=== PATIENT | male | born 1945 | race Caucasian/White ===

== ENCOUNTER 2018-10-14 08:53 | Emergency (ER) | payer OTHER ==
--- OUTSIDE RECORDS SUMMARY | 2018-10-14 08:56 | XMS REPORT ---
:1945 Author Organization eClinicalWorks Care Team Providers Name Role Phone Jillian Garnett Provider Role Unavailable Allergies No Known Allergies Problems Problem Type Condition Code Onset Dates Condition Status Assessment Tobacco abuse Z72.0 Active Assessment Other symptoms involving R09.89 Active cardiovascular system Problem HTN (hypertension), benign I10 Active Problem Generalized atherosclerosis I70.91 Active Assessment HTN (hypertension), benign I10 Active Assessment SOB (shortness of breath) R06.02 Active Assessment Screening for AAA (aortic abdominal Z13.6 Active aneurysm) Assessment Generalized atherosclerosis I70.91 Active Medications No Known Medications Results No Known Results Summary Purpose eClinicalWorks Submission
--- OUTSIDE RECORDS SUMMARY | 2018-10-14 08:56 | XMS REPORT ---
[...] aneurysm) Assessment Generalized atherosclerosis I70.91 Active Medications Medication Code System Code Instructions Start Date End Date Status Dosage Lisinopril [facility] 34682478158 20 MG Orally Once Active 1 tablet a day Results No Known Results Summary Purpose eClinicalWorks Submission
--- OUTSIDE RECORDS SUMMARY | 2018-10-14 08:56 | XMS REPORT ---
:1945 Author Organization eClinicalWorks Care Team Providers Name Role Phone Jillian Garnett Provider Role Unavailable Allergies No Known Allergies Problems Problem Type Condition Code Onset Dates Condition Status Problem HTN (hypertension), benign I10 Active Problem Generalized atherosclerosis I70.91 Active Problem Carotid stenosis, bilateral I65.23 Active Medications Medication Code Code Instructions Start End Date Status Dosage System Date Irbesartan-Hyd [facility] 72598809389 300-12.5 MG October 03, Active 1 tablet rochlorothiazi Orally Once a 2019 day Crestor [place] 22579979647 20 mg Orally October 03, Active 1 tablet Once a day 2018 Aspirin [facility] 56615025395 81 MG Orally October 03, Active 1 tablet Once a day 2019 Results No Known Results Summary Purpose eClinicalWorks Submission
--- OUTSIDE RECORDS SUMMARY | 2018-10-14 08:56 | XMS REPORT ---
:1945 Author Organization eClinicalWorks Care Team Providers Name Role Phone Jillian Garnett Provider Role Unavailable Allergies, Adverse Reactions, Alerts Substance Reaction Event Type Milk Thistle Info Not Available Drug Allergy Codeine Phosphate Info Not Available Drug Allergy Problems Problem Type Condition Code Onset Dates Condition Status Assessment Tobacco abuse Z72.0 Active Problem HTN (hypertension), benign I10 Active Problem Generalized atherosclerosis I70.91 Active Assessment HTN (hypertension), benign I10 Active Assessment SOB (shortness of breath) R06.02 Active Assessment Screening for AAA (aortic abdominal Z13.6 Active aneurysm) Assessment Generalized atherosclerosis I70.91 Active Medications Medication Code System Code Instructions Start Date End Date Status Dosage Lisinopril [facility] [id number] 20 MG Orally Once Active 1 tablet a day Vital Signs Date/Time: September 03, 2018 BMI 23.87 Index Weight 157 lbs Height 68 in Cardiac Monitoring Heart Rate 81 /min Blood Pressure Diastolic 90 mm Hg Blood Pressure Systolic 150 mm Hg Results No Known Results Summary Purpose eClinicalWorks Submission
--- OUTSIDE RECORDS SUMMARY | 2018-10-14 08:56 | XMS REPORT ---
:1945 [facility] Address [address] [place] [address] Dr. Hobson [address] [place] [id number] Care Team Providers Name Role Phone Unavailable Unavailable Unavailable Payers Payer Name Policy Type Policy Number Effective Date Expiration Date Problems This patient has no known problems. Allergies, Adverse Reactions, Alerts This patient has no known allergies or adverse reactions. Medications This patient has no known medications.
--- OUTSIDE RECORDS SUMMARY | 2018-10-14 08:56 | XMS REPORT ---
:1945 Author Organization eClinicalWorks Care Team Providers Name Role Phone Jillain Garnett Provider Role Unavailable Allergies, Adverse Reactions, [...] Start Date End Date Status Dosage Lisinopril [facility] [id number] 20 MG Orally Once Active 1 tablet a day Vital Signs Date/Time: September 03, 2018 BMI 23.87 Index Weight 157 lbs Height 68 in Cardiac Monitoring Heart Rate 81 /min Blood Pressure Diastolic 90 mm Hg Blood Pressure Systolic 150 mm Hg Results No Known Results Summary Purpose eClinicalWorks Submission
--- OUTSIDE RECORDS SUMMARY | 2018-10-14 08:56 | XMS REPORT | Continuity of Care Document ---
:1945 Author Organization Interface Problems Problem Status Onset Classification Date Comments Source Date Reported Tobacco abuse Active Diagnosis 09/21/2018 [facility] Cardiovascular Other symptoms Active Diagnosis 09/21/2018 [facility] involving Cardiovascular cardiovascular system HTN , benign Active Problem 10/04/2018 [facility] Cardiovascular Generalized Active Problem 10/04/2018 [facility] atherosclerosis Cardiovascular SOB Active Diagnosis 10/04/2018 [facility] Cardiovascular Screening for AAA Active Diagnosis 10/04/2018 [facility] Cardiovascular Carotid stenosis, Active Problem 10/04/2018 [facility] bilateral Cardiovascular Medications Medication Details Route Status Patient Ordering Order Source Instructions Provider Date Irbesartan-Hy 1 tablet Orally Active 300-12.5 MG Tamir [facility] drochlorothia Orally Once a 019 Cardiovascular zide day Crestor 1 tablet Orally Active 20 mg Orally Tamir [facility] Once a day 019 Cardiovascular Aspirin 1 tablet Orally Active 81 MG Orally Tamir [facility] Once a day 019 Cardiovascular Lisinopril 1 tablet Orally Active 20 MG Orally Tamir [facility] Once a day Cardiovascular Lisinopril 1 tablet Orally Active 20 mg Orally Tamir [facility] Twice a day Cardiovascular Allergies, Adverse Reactions, Alerts Substance Category Reaction Severity Reaction Status Date Comments Source type Reported Milk Adverse Info Not Adverse Active [facility] Thistle Reaction Available Reaction 9 Cardiovascula r Codeine Adverse Info Not Adverse Active [facility] Phosphate Reaction Available Reaction 9 Cardiovascula r Immunizations Immunization Date Given Site Status Last Updated Comments Source Results Order Results Value Reference Date Interpretation Comments Source Name Range Vital Signs Vital Sign Value Date Comments Source Weight 154 10/02/2018 [facility] Height 68 10/02/2018 [facility] Heart Rate 70 10/02/2018 [facility] Diastolic (mm Hg) 90 10/02/2018 [facility] Systolic (mm Hg) 160 10/02/2018 [facility] Weight 157 09/03/2018 [facility] Height 68 09/03/2018 [facility] Heart Rate 81 09/03/2018 [facility] Diastolic (mm Hg) 90 09/03/2018 [facility] Systolic (mm Hg) 150 09/03/2018 [facility] Cardiovascular Encounters Location Location Encounter Encounter Reason Attending ADM DC Status Source Details Type Number For Provider Date Date Visit Procedures Procedure Code Date Perfomer Comments Source
--- OUTSIDE RECORDS SUMMARY | 2018-10-14 08:56 | XMS REPORT ---
:1945 Author Organization eClinicalWorks Care Team Providers Name Role Phone Jillian Garnett Provider Role Unavailable Allergies, Adverse Reactions, Alerts Substance Reaction Event Type Milk Thistle Info Not Available Drug Allergy Codeine Phosphate Info Not Available Drug Allergy Problems Problem Type Condition Code Onset Dates Condition Status Assessment Carotid stenosis, bilateral I65.23 Active Problem HTN (hypertension), benign I10 Active Problem Generalized atherosclerosis I70.91 Active Problem Carotid stenosis, bilateral I65.23 Active Assessment HTN (hypertension), benign I10 Active Assessment SOB (shortness of breath) R06.02 Active Assessment Screening for AAA (aortic abdominal Z13.6 Active aneurysm) Medications Medication Code System Code Instructions Start Date End Date Status Dosage Lisinopril [facility] [id number] 20 mg Orally Active 1 tablet Twice a day Vital Signs Date/Time: October 02, 2018 BMI 23.41 Index Weight 154 lbs Height 68 in Cardiac Monitoring Heart Rate 70 /min Blood Pressure Diastolic 90 mm Hg Blood Pressure Systolic 160 mm Hg Results No Known Results Summary Purpose eClinicalWorks Submission
--- NOTE | 2018-10-14 09:51 | RAD REPORT ---
EXAM DESCRIPTION: RAD - Chest Single View - 10/14/2018 9:45 am CLINICAL HISTORY: bloody sputum;Cough Chest pain. COMPARISON: No comparisons FINDINGS: Portable technique limits examination quality. The lungs are grossly clear. The heart is normal in size. No displaced fractures. IMPRESSION: No acute intrathoracic process suspected.
--- NOTE | 2018-10-14 10:48 | ER ---
Nurse's Notes [facility] Name: Olman Francis Age: 73 yrs Sex: Male : 1945 Arrival Date: 10/14/2018 Time: 08:54 Bed 14 Private MD: Diagnosis: Hemoptysis Presentation: 10/14 09:06 Presenting complaint: Patient states: "This morning I woke up coughing up bright red ss blood. It's getting darker now, but usually when this happens it stops by now." Denies fever. Transition of care: patient was not received from another setting of care. Onset of symptoms was October 14, 2018. Risk Assessment: Do you want to hurt yourself or someone else? Patient reports no desire to harm self or others. Initial Sepsis Screen:. Care prior to arrival: None. 09:06 Method Of Arrival: Ambulatory ss 09:06 Acuity: COLLEEN 3 ss 10:01 Initial Sepsis Screen: Does the patient meet any 2 criteria? No. Patient's initial ph sepsis screen is negative. Does the patient have a suspected source of infection? No. Patient's initial sepsis screen is negative. Historical: - Allergies: 09:10 No Known Drug Allergies; ss - Home Meds: 09:10 irbesartan-hydrochlorothiazide 300-12.5 mg oral tab 1 tab once daily [Active]; aspirin ss 81 mg Oral chew 1 tab once daily [Active]; rosuvastatin 20 mg oral tab 1 tab once daily [Active]; - PMHx: 09:10 Hypertension; Rheumatoid Arthritis; ss - PSHx: 09:10 Hernia repair; WRIST SURG; ss - Immunization history:: Adult Immunizations up to date. - Social history:: Smoking status: Patient uses tobacco products, smokes one pack cigarettes per day. - Ebola Screening: : Patient denies exposure to infectious person Patient denies travel to an Ebola-affected area in the 21 days before illness onset. Screenin:11 Abuse screen: Denies threats or abuse. Denies injuries from another. Nutritional ss screening: No deficits noted. Tuberculosis screening: Never had TB. Possible symptoms: recent bloody sputum. 10:00 Fall Risk None identified. ph Assessment: 10:00 General: Appears in no apparent distress. comfortable, Behavior is calm, cooperative, ph appropriate for age, Denies fever. Pain: Denies pain. Neuro: Level of Consciousness is awake, alert, obeys commands, Oriented to person, place, time, situation. Cardiovascular: Capillary refill < 3 seconds in bilateral fingers Patient's skin is warm and dry. Respiratory: Reports cough that is productive, Airway is patent Respiratory effort is even, unlabored, Respiratory pattern is regular, symmetrical. Derm: Skin is intact, Skin is pink, warm \\T\\ dry. Musculoskeletal: Circulation, motion, and sensation intact. Range of motion: intact in all extremities. 11:05 Reassessment: Pt found to have left ED before signing d/c papers. ph Vital Signs: 09:10 BP 145 / 85; Pulse 86; Resp 18; Temp 98.3(TE); Pulse Ox 97% on R/A; Weight 72.12 kg; ss Height 5 ft. 8 in. (172.72 cm); Pain 07/11; 09:10 Body Mass Index 24.18 (72.12 kg, 172.72 cm) ED Course: 08:54 Patient arrived in ED. as 09:08 Triage completed. ss 09:10 Arm band placed on right wrist. 09:46 XRAY Chest (1 view) In Process Unspecified. EDMS 10:18 Derrell Dorsey MD is Attending Physician. 10:23 Toyin Das, RN is Primary Nurse. ph 10:30 Patient has correct armband on for positive identification. Pulse ox on. NIBP on. ph 11:00 No provider procedures requiring assistance completed. Patient did not have IV access ph during this emergency room visit. Administered Medications: No medications were administered Outcome: 10:48 Discharge ordered by . 11:06 Patient left the ED. ph 11:06 Discharged to home ph 11:06 Condition: good 11:06 Discharge instructions given to left before signing Signatures: Dispatcher [employer] Nayeli Mendosa Shelby, RN RN Toyin Das RN RN Derrell Dorsey MD MD
--- NOTE | 2018-10-14 10:48 | EDPHYS ---
Physician Documentation [facility] Name: Olman Francis Age: 73 yrs Sex: Male : 1945 Arrival Date: 10/14/2018 Time: 08:54 Bed 14 Private MD: ED Physician Derrell Dorsey HPI: 10/14 10:44 This 73 yrs old Male presents to ER via Ambulatory with complaints of Cough. gs 10:44 The patient or guardian reports cough, that is intermittent. Onset: The gs symptoms/episode began/occurred 2 day(s) ago. Severity of symptoms: At their worst the symptoms were moderate, in the emergency department the symptoms are unchanged. Modifying factors: The symptoms are alleviated by nothing, the symptoms are aggravated by smoke. Associated signs and symptoms: Pertinent positives: cough up bloody sputum says about an ounce. The patient has experienced similar episodes in the past, a few times. The patient has been recently seen by a physician: the patient's primary care provider. Historical: - Allergies: 09:10 No Known Drug Allergies; ss - Home Meds: 09:10 irbesartan-hydrochlorothiazide 300-12.5 mg oral tab 1 tab once daily [Active]; aspirin ss 81 mg Oral chew 1 tab once daily [Active]; rosuvastatin 20 mg oral tab 1 tab once daily [Active]; - PMHx: 09:10 Hypertension; Rheumatoid Arthritis; ss - PSHx: 09:10 Hernia repair; WRIST SURG; ss - Immunization history:: Adult Immunizations up to date. - Social history:: Smoking status: Patient uses tobacco products, smokes one pack cigarettes per day. - Ebola Screening: : Patient denies exposure to infectious person Patient denies travel to an Ebola-affected area in the 21 days before illness onset. ROS: 10:44 All other systems are negative. gs Exam: 10:44 ENT: Nares patent. No nasal discharge, no septal abnormalities noted. Tympanic gs membranes are normal and external auditory canals are clear. Oropharynx with no redness, swelling, or masses, exudates, or evidence of obstruction, uvula midline. Mucous membranes moist. Cardiovascular: Regular rate and rhythm with a normal S1 and S2. No gallops, murmurs, or rubs. Normal PMI, no JVD. No pulse deficits. Respiratory: Lungs have equal breath sounds bilaterally, clear to auscultation and percussion. No rales, rhonchi or wheezes noted. No increased work of breathing, no retractions or nasal flaring. Abdomen/GI: Soft, non-tender, with normal bowel sounds. No distension or tympany. No guarding or rebound. No evidence of tenderness throughout. Back: No spinal tenderness. No costovertebral tenderness. Full range of motion. Skin: Warm, dry with normal turgor. Normal color with no rashes, no lesions, and no evidence of cellulitis. MS/ Extremity: Pulses equal, no cyanosis. Neurovascular intact. Full, normal range of motion. Neuro: Awake and alert, GCS 15, oriented to person, place, time, and situation. Cranial nerves II-XII grossly intact. Motor strength 5/5 in all extremities. Sensory grossly intact. Cerebellar exam normal. Normal gait. 10:44 Constitutional: The patient appears alert, awake. Vital Signs: 09:10 BP 145 / 85; Pulse 86; Resp 18; Temp 98.3(TE); Pulse Ox 97% on R/A; Weight 72.12 kg; ss Height 5 ft. 8 in. (172.72 cm); Pain 1/10; 09:10 Body Mass Index 24.18 (72.12 kg, 172.72 cm) ss MDM: 10:43 Patient medically screened. gs 10:44 Differential Diagnosis: Upper Respiratory Infection Pneumonia Other mass. Data gs reviewed: vital signs, nurses notes. Counseling: I had a detailed discussion with the patient and/or guardian regarding: the historical points, exam findings, and any diagnostic results supporting the discharge/admit diagnosis, radiology results, pt wants no further workup is stable and will discharge. 10/14 09:12 Order name: XRAY Chest (1 view); Complete Time: 10:19 ss Administered Medications: No medications were administered Disposition: 10/14/18 10:48 Discharged to Home. Impression: Hemoptysis. - Condition is Stable. - Discharge Instructions: Hemoptysis. - Medication Reconciliation Form, Thank You Letter, Antibiotic Education, Prescription Opioid Use form. - Follow up: Emergency Department; When: 1 - 2 days; Reason: Re-evaluation by your physician. Signatures: Dispatcher [facility] Lorrie Zheng RN RN Toyin Das RN RN ph DorseyDerrell MD MD gs Corrections: (The following items were deleted from the chart) 11:06 10:48 10/14/2018 10:48 Discharged to Home. Impression: Hemoptysis. Condition is Stable. ph Forms are Medication Reconciliation Form, Thank You Letter, Antibiotic Education, Prescription Opioid Use. Follow up: Emergency Department; When: 1 - 2 days; Reason: Re-evaluation by your physician. gs
== END 2018-10-14 11:06 | disposition home or self-care (01) ==
LOC: ER 08:53
DX: R04.2 Hemoptysis (principal); I10 Essential (primary) hypertension; F17.210 Nicotine dependence, cigarettes, uncomplicated
CPT/HCPCS: 71045; 99283

== ENCOUNTER 2022-12-07 16:39 | Emergency (ER) | payer OTHER ==
--- OUTSIDE RECORDS SUMMARY | 2022-12-07 16:50 | XMS REPORT | Continuity of Care Document ---
:1945 Author Organization [facility] t Address [address] [place] [address] Care Team Providers Name Role Phone No, Pcp [facility] Primary Care Physician Unavailable JASPREET RUSHING JR Attending Clinician Unavailable IMER LAWS Attending Clinician Unavailable Jessica Rodriguez Attending Clinician Unavailable Jillian Garnett Attending Clinician Unavailable LISA DÍAZ Attending Clinician Unavailable Alex Kennedy Attending Clinician Unavailable Doctor Unassigned, [place] Attending Clinician Unavailable Wilber SAM, Liam Stevenson Attending Clinician [phone] Juan Maier MD Attending Clinician Patricia SAM, Jenny Blantonu Attending Clinician JUAN MAIER Attending Clinician Unavailable FONTENOT, SENDIL K.H. Attending Clinician Unavailable Kishan Perkins MD Attending Clinician KISHAN PERKINS Attending Clinician Unavailable Roger Lorenzo Attending Clinician ROGER SHEEHAN Attending Clinician Unavailable Draw, Clc-Bls Lab Attending Clinician Unavailable Jaspreet Rushing MD Attending Clinician Gilbert Robles MD Attending Clinician [phone] CRYSTAL, AFWHITNEY Attending Clinician Unavailable Crystal SAM, Geeta Attending Clinician Lisa Díaz MD Attending Clinician Ezra Patton MD Attending Clinician Corie SAM, Sendil K.H. Attending Clinician EZRA PATTON Attending Clinician Unavailable EZRA PATTON Attending Clinician Unavailable RAFA EVANS Attending Clinician Unavailable Rafa Evans MD Attending Clinician Tana Kerns Attending Clinician TANA FENTON Attending Clinician Unavailable Lab, Ang - Db Attending Clinician Unavailable Nurse, Ang [place] Attending Clinician Unavailable Milo Pro MD Attending Clinician Imer Laws MD Attending Clinician Only, Adc Test Attending Clinician Unavailable Pob, Adc Lab Main Attending Clinician Unavailable Vaccine, Ang Db Cbc Fam Attending Clinician Unavailable Rainer Lang MD Attending Clinician RAINER LANG Attending Clinician Unavailable VICTOR HUGO HERNANDEZ Attending Clinician Unavailable MIKE PEÑA Attending Clinician Unavailable Jean Wood Attending Clinician Unavailable JASPREET RUSHING JR Admitting Clinician Unavailable IMER LAWS Admitting Clinician Unavailable Alex Kennedy Admitting Clinician Unavailable JENNY TAN NKCARLO Admitting Clinician Unavailable MOTMARIA M, AFAQ Admitting Clinician Unavailable Geeta Rojas MD Admitting Clinician CORIE, SENDIL K.H. Admitting Clinician Unavailable Imer Laws MD Admitting Clinician Jean Wood Admitting Clinician Unavailable Payers Payer Name Policy Type Policy Number Effective Date Expiration Date Keiko paige MEDICARE PART A [id number] 2004 \\T\\ B 00:00:00 Problems Condition Condition Condition Status Onset Resolution Last Treating Co mments Source Name Details Category Date Date Treatment Clinician Date Acute Acute Disease Recur[facility] exacerb[facility] exacerbati nce 4-19 Amy kes on of CHF on of CHF 00:00: Medi chaz (congestiv (congestiv 00 Ce nter e heart e heart failure) failure) COPD COPD Disease Recurre [facility] exacerbati exacerbati nce 4-17 Amy kes on on 00:00: Medical 00 Center Non Non Disease Active Univers compliance compliance 3-22 it y of w w 00:00: [place] medication medication 00 Me dical regimen regimen Branch CAD CAD Disease Active Univers (coronary (coronary 09-20 ity of artery artery 00:00: [place] disease) disease) 00 Medica l Branch Heart Heart Disease Active Univers failure failure 3-22 ity of with with 00:00: [place] reduced reduced 00 Medical ejection ejection Branch fraction fraction PAD PAD Disease Active Overview: Univer s (periphera (periphera 3- Formattin ity of l artery l artery 00:00: g of this [place] as disease) disease) 00 note Medica l might be Branch different from the original. Added automatic ally from request for surgery [id number] Cigarette Cigarette Disease Active Overview: Univers nicotine nicotine 3-07 Formattin ity of dependence dependence 00:00: g of this [place] without without 00 note Medical complicati complicati might be Branch on on different from the original. Added automatic ally from request for surgery [id number] Dyslipidem Dyslipidem Disease Active Overview : Univers ia ia 3-07 Formattin ity of 00:00: g of this [place] 00 note Medical might be Branch different from the original. Added automatic ally from request for surgery [id number] BECERRA BECERRA Disease Active Overview: Univer s (dyspnea (dyspnea 3-07 Formattin ity of on on 00:00: g of this [place] exertion) exertion) 00 note Medi chaz might be Branch different from the original. Added automatic ally from request for surgery [id number] Abnormal Abnormal Disease Active Overview: Un gisell ECG ECG 3-07 Formattin ity of 00:00: g of this [place] 00 note Medical might be Branch different from the original. Added automatic ally from request for surgery [id number] Ischemic Ischemic Disease Active Overview: Un gisell cardiomyop cardiomyop 3-07 Formattin ity of athy athy 00:00: g of this [place] 00 note Medical might be Branch different from the original. Added automatic ally from request for surgery [id number] Subclavian Subclavian Disease Active Overview : Univers artery artery 3-07 Formattin ity of stenosis, stenosis, 00:00: g of this [place] left left 00 note Medical might be Branch different from the original. Added automatic ally from request for surgery [id number] Carotid Carotid Disease Active 2021-07 Univers artery artery 2-28 ity of disease disease 00:00: [place] 00 Medical Branch Essential Essential Disease Active 2021-07 Uni vers (primary) (primary) 2-28 ity of hypertensi hypertens[place] Aortoiliac Aortoiliac Disease Active U nivers occlusive occlusive 8- ity of disease disease 00:00: [place] 00 Medical Branch Abdominal Abdominal Disease Active Uni vers aortic aortic 8-09 ity of aneurysm aneurysm 00:00: [place] (AAA) (AAA) 00 Medical without without Branch rupture rupture Bilateral Bilateral Disease Active Uni vers carotid carotid 8- ity of artery artery 00:00: [place] stenosis stenosis 00 Medica l Branch Hypertensi Hypertensi Problem C ommon on on [facility] - [facility] Psoriasis Psoriasis Problem Com mon [facility] - [facility] [id number] Hepatitis Problem Com mon C virus Spirit infection - [facility] cured [facility] antiviral Medical drug Center therapy [id number] Mixed Problem Common hyperlipid Spirit emia - [facility] [id number] PVD Problem Common (periphera Spirit l vascular - CHI disease) [facility] Gastroesop GERD Problem Commo n hageal without Spirit reflux esophagiti - CHI disease s [facility] [id number] Pain in Problem Common right hip Spirit - [facility] [id number] Right Problem Common sciatic Spirit nerve pain - [facility] AAA AAA Problem Active 2021-02-07 Memor ia (abdominal (abdominal 02:45:13 l aortic aortic [place] aneurysm) aneurysm) without without rupture rupture Active Problem 02/07/2021 [facility] Cardiovasc ular Hepatitis Hepatitis Diagnosis Active 2021-02-07 Memoria C virus C virus 02:45:13 l infection infection Herm rolanda with with hepatic hepatic coma, coma, unspecifie unspecifie d d chronicity chronicity Active Diagnosis 02/07/2021 [facility] Cardiovasc ular Hyperlipid Hyperlipi Problem Active 2021-02-07 Memoria emia, demia, 02:45:13 l unspecifie unspecifie He rmann d d hyperlipid hyperlipid emia type emia type Active Problem 02/07/2021 CL Cardiovasc ular Tobacco Tobacco Diagnosis Active 2018-09-21 Memoria abuse abuse 02:46:15 l Active Alan Diagnosis 09/21/2018 CL Cardiovasc ular Other Other Diagnosis Active 2018-09-21 Mem oria symptoms symptoms 02:46:15 l involving involving Herm rolanda cardiovasc cardiovasc ular ular system system Active Diagnosis 09/21/2018 CL Cardiovasc ular HTN HTN Diagnosis Active 2021-02-07 Mem oria (hypertens (hypertens 02:45:13 l ion), ion), [place] benign benign Active Diagnosis 02/07/2021 CL Cardiovasc ular Generalize Generaliz Problem Active 2021-02-07 Memoria d ed 02:45:13 l atheroscle atheroscle He rmann rosis rosis Active Problem 02/07/2021 CL Cardiovasc ular Carotid Carotid Problem Active 2021-02-07 Me moria stenosis, stenosis, 02:45:13 l bilateral bilateral Herm rolanda Active Problem 02/07/2021 CL Cardiovasc ular SOB SOB Diagnosis Active 2021-02-07 Mem oria (shortness (shortness 02:45:13 l of breath) of breath) He rmann Active Diagnosis 02/07/2021 CL Cardiovasc ular Screening Screening Diagnosis Active 2021-02-07 Memoria for AAA for AAA 02:45:13 l (aortic (aortic [place] abdominal abdominal aneurysm) aneurysm) Active Diagnosis 02/07/2021 CL Cardiovasc ular Claudicati Claudicat Problem Active 2021-02-07 Memoria on in ion in 02:45:13 l peripheral peripheral He rmann vascular vascular disease disease Active Problem 02/07/2021 CL Cardiovasc ular Allergies, Adverse Reactions, Alerts Allergy Allergy Status Severity Reaction(s) Onset Inactive Treating Comm ents Source Name Type Date Date Clinician Codeine Propensi Active Rash 2022-[address] [facility] [address] [facility] 4[facility]18 [facility] adverse 00:00: Medical reaction 00 Center s CODEINE Allergy Active Low Rash 2022-[address] [facility] 4-18 [facility] 00:[facility]: Medical 00 Center MORPHINE Allergy Active Low Rash 2022-0 [facility] 4-17 00:00: 00 Codeine Drug Active Itching 2021-[address] [facility] [address] Sulfate Allergy 3-17 [facility] 00:[facility]: Medical 00 Center CODEINE Allergy Active Itching 2021-[address] [facility] SULFATE 3-17 [facility] 00:00: Medical 00 Center CODEINE DRUG Active ITCHING 2021-0 Univers SULFATE INGREDI 3-17 ity of 00:00: [address] Milk Milk Active Info Not 2020-0 Memoria [place] [place] Available 01-07 l 00:00: Codeine Codeine Active Info Not 2020-0 Memori a Phosphat Phosphat Available 01-07 l e e 00:00: No Known DA Active U 2020-0 [facility] Allergie 1 Clear s 00:00: [facility] No Known DA Active U 2020-0 [facility] Allergie 07-22 Clear s 00:00: [facility] No Known DA Active U 2001-0 [facility] Contrast - Clear Allergie 00:00: [facility] No Known DA Active U 2001-0 [facility] Drug - Clear Allergie 00:00: [facility] No Known DA Active U 2001-0 [facility] Food - Clear Allergie 00:00: [facility] No Known DA Active U 2001-0 [facility] Other - Clear Allergie 00:00: [facility] codeine codeine Active itching [facility] NO KNOWN Allergy Active [facility] ALLERGIE S Social History Social Habit Start Date Stop Date Quantity Comments Source History [facility]Med Medical [facility] History of tobacco Passive smoker [facility] History [facility] 2022-10-17 2022-10-[address] [facility] Transport Med 00:00:00 00:00:[address] [facility] 2022-10-17 2022-10-[address] [facility] Housing Unable to 00:00:00 00:00:00 Medical Center Pay History [facility] 2022-10-17 2022-10-[address] [facility] Housing Places 00:00:00 00:00:00 Medical Ce nter Lived History [facility] 2022-10-17 2022-10-[address] [facility] Housing Homeless 00:00:00 00:00:00 Medical Center Last Year Tobacco use and 2022-10-16 2022-10-[address] [facility] exposure 00:00:00 00:00:00 tobacco user Medical Cent er Exposure to 2022-09-18 2022-09-28 Not sure [facility] SARS-CoV-2 (event) 00:00:00 11:28:00 [facility] Alcohol intake 2022-09-28 2022-09-28 Current drinker Unive rsity of 00:00:00 00:00:00 of alcohol [facility] (finding) Branch Cigarettes smoked 2022-06-28 2022-06-28 Univers ity of current (pack per 00:00:00 00:00:00 ) - Reported Branch Cigarette 2022-06-28 2022-06-28 University of pack-years 00:00:00 00:00:00 [facility] Sex Assigned At [address] kes 00:00:00 00:00:00 Medical Center Smoking Status Start Date Stop Date Source Ex-smoker 2022-10-16 00:00:00 2022-10-16 00:00:[address] [facility] Smokes tobacco daily 2022-06-28 00:00:00 Univers ity of [facility] Medications Ordered Filled Start Stop Current Ordering Indication Dosage Frequency Signature Comments Components Source Medication Medication Date Date Medication? Clinician (SIG) Name Name shama 2023-0 2024- Yes 40mg QD Take [address] [facility] n (LIPITOR) 4-20 04-19 tablet (40 L ukes 40 MG 00:00: 23:59 mg total) Medica l tablet 00 :00 by mouth Center in the morning. furosemide 2023- Yes 40mg Take [address] [facility] (LASIX) 40 4-20 04-19 tablet (40 Amy kes MG tablet 00:00: 23:59 mg total) Me dical 00 :00 by mouth Center in the morning and 1 tablet (40 mg total) in the evening. lisinopriL 2023- Yes 2.5mg QD Take [address] [facility] (PRINIVIL,Z 4-20 -19 tablet [facility] ESTRIL) 2.5 00:00: 23:59 (2.5 mg Me dical MG tablet 00 :00 total) by Cente r mouth in the morning. furosemide 2023- Yes 40mg Take [address] [facility] (LASIX) 40 4-20 04-19 tablet (40 Amy kes MG tablet 00:00: 23:59 mg total) Me dical 00 :00 by mouth Center in the morning and 1 tablet (40 mg total) in the evening. lisinopriL 2023- Yes 2.5mg QD Take [address] (PRINIVIL,Z 4-20 -19 tablet [facility] ESTRIL) 2.5 00:00: 23:59 (2.5 mg Me dical MG tablet 00 :00 total) by Cente r mouth in the morning. atorvastati 2023- Yes 40mg QD Take [address] [facility] n (LIPITOR) 4-20 04-19 tablet (40 L ukes 40 MG 00:00: 23:59 mg total) Medica l tablet 00 :00 by mouth Center in the morning. furosemide 2023- Yes 40mg Take [address] [facility] (LASIX) 40 4-20 04-19 tablet (40 Amy kes MG tablet 00:00: 23:59 mg total) Me dical 00 :00 by mouth Center in the morning and 1 tablet (40 mg total) in the evening. lisinopriL 2023- Yes 2.5mg QD Take [address] [facility] (PRINIVIL,Z 4-20 04-19 tablet [facility] ESTRIL) 2.5 00:00: 23:59 (2.5 mg Me dical MG tablet 00 :00 total) by Cente r mouth in the morning. atorvastati 2023- Yes 40mg QD Take [address] n (LIPITOR) -20 -19 tablet (40 L ukes 40 MG 00:00: 23:59 mg total) Medica l tablet 00 :00 by mouth Center in the morning. aspirin 81 2022-0 Yes 81mg QD Take 1 [facility] t MG EC 4-19 tablet (81 [facility] tablet 13:17: mg total) Medica l 01 by mouth Center in the morning. aspirin 81 0 Yes 81mg QD Take 1 [facility]I S t MG EC 4-19 tablet (81 [facility] tablet 13:17: mg total) Medica l 01 by mouth Center in the morning. aspirin 81 0 Yes 81mg QD Take 1 [facility]I S t MG EC 4-19 tablet (81 [facility] tablet 13:17: mg total) Medica l 01 by mouth Center in the morning. metoprolol 2023- Yes 12.5mg Q.5D Take 0.[address] tartrate -18 10-18 tablets [facility] (LOPRESSOR) 00:00: 23:59 (12.5 mg M edical 25 MG 00 :00 total) by Center tablet mouth in the morning and 0.5 tablets (12.5 mg total) before bedtime. metoprolol 2023- Yes 12.5mg Q.5D Take 0.[address] tartrate -18 10-18 tablets [facility] (LOPRESSOR) 00:00: 23:59 (12.5 mg M edical 25 MG 00 :00 total) by Center tablet mouth in the morning and 0.5 tablets (12.5 mg total) before bedtime. metoprolol 2023- Yes 12.5mg Q.5D Take 0.[address] tartrate 4-19 04-18 tablets [facility] (LOPRESSOR) 00:00: 23:59 (12.5 mg M edical 25 MG 00 :00 total) by Center tablet mouth in the morning and 0.5 tablets (12.5 mg total) before bedtime. predniSONE 2022- No 40mg QD Take [address] [facility] (DELTASONE) 4-18 10-22 tablets Luke s 20 MG 00:00: 23:59 (40 mg Medical tablet 00 :00 total) by Center mouth in the morning for 3 days. . predniSONE 2022-0 2022- No 40mg QD Take [address] [facility] (DELTASONE) 4-19 -22 tablets Luke s 20 MG 00:00: 23:59 (40 mg Medical tablet 00 :00 total) by Center mouth in the morning for 3 days. . predniSONE 2022-0 2022- No 40mg QD Take [address] [facility] (DELTASONE) 4-18 10-22 tablets Luke s 20 MG 00:00: 23:59 (40 mg Medical tablet 00 :00 total) by Center mouth in the morning for 3 days. . aspirin 81 0 Yes 81mg Take 1 Unive rs mg chewable 3-30 tablet by ity of tablet 13:24: mouth in [place] [address] the Medical morning. Branch aspirin 81 0 Yes 81mg Take 1 Unive rs mg chewable 3-30 tablet by ity of tablet 13:24: mouth in [place] [address] the Medical morning. Branch aspirin 81 0 Yes 81mg Take 1 Unive rs mg chewable 3-30 tablet by ity of tablet 13:24: mouth in [place] [address] the Medical morning. Branch aspirin 81 0 Yes 81mg Take 1 Unive rs mg chewable 3-30 tablet by ity of tablet 13:24: mouth in [place] [address] the Medical morning. Branch amLODIPine 0 2022- No Univer s 5 mg tablet 09-20 ity of 09:56: 00:00 [place] 08 :00 Medical Branch amLODIPine 2022-0 2022- No Univer s 5 mg tablet 09-2022 ity of 09:56: 00:00 [place] 08 :00 Medical Branch lisinopriL 2022-0 Yes [id number] 5mg Take 0.5 Univers 10 mg 3-17 tablets by ity of tablet 00:00: mouth in [place] [address] the Medical morning. Branch atorvastati 2022-0 Yes [id number] 40mg Take 1 Univers n 40 mg 3-17 tablet by ity of tablet 00:00: mouth at [place] [address] bedtime. Medical Branch lisinopriL 2022-0 No [id number] 5mg Take 0.5 Univers 10 mg 09-15 tablets by ity of tablet 00:00: 00:00 mouth in [place] 00 :00 the Medical morning. Branch atorvastati 2022- No [id number] 40mg Take 1 Univers n 40 mg 09-15 tablet by ity of tablet 00:00: 00:00 mouth at [place] 00 :00 bedtime. Medical Branch lisinopriL 2022- No [id number] 5mg Take 0.5 Univers 10 mg 09-15 tablets by ity of tablet 00:00: 00:00 mouth in [place] 00 :00 the Medical morning. Branch atorvastati 2022- No [id number] 40mg Take 1 Univers n 40 mg 09-15 tablet by ity of tablet 00:00: 00:00 mouth at [place] 00 :00 bedtime. Medical Branch iopamidol 2022- No ONCE INTRA U nivers (ISOVUE 09-14 PROCEDURE, ity o f 370-500 mL) 16:45: 16:51 [place] injection 00 :46 on [facility] 09/14/22 at Branch 1145, Until [place] 09/14/22 at 1151, Routine, CV Intraproce dure heparin 2022- No ONCE INTRA Uni vers 1,000 09-14 PROCEDURE, ity of unit/mL 16:07: 16:51 Starting [place] injection 45 :46 on [facility] 09/14/22 at Branch 1107, Until [place] 09/14/22 at 1151, Routine, CV Intraproce dure nitroglycer 2022- No ONCE INTRA Univers in (TRIDIL) 09-14 PROCEDURE, i ty of 2 mg in 10 16:07: 16:51 [place] D5W for 18 :46 on [facility] Cardiac 09/14/22 at Branch Cath 1107, Until [place] 09/14/22 at 1151, Routine, CV Intraproce dure lidocaine 2022- No ONCE INTRA U nivers 1% (PF) 09-14 PROCEDURE, ity o f (XYLOCAINE) 16:04: 16:51 Starting [place] injection 33 :46 on [facility] 09/14/22 at Branch 1104, Until [place] 09/14/22 at 1151, Routine, CV Intraproce dure FENTanyl PF 2022-0 2022- No ONCE INTRA Univers (SUBLIMAZE 09-1416 PROCEDURE, it y of (PF)) 16:03: 16:51 Starting [place] injection 03 :46 on [facility] 09/14/22 at Branch 1103, Until [place] 09/14/22 at 1151, Routine, CV Intraproce dure midazolam 2022-0 2022- No ONCE INTRA U nivers (VERSED) 09-14 PROCEDURE, ity of injection 16:00: 16:51 Starting [place] as 00 :46 on [facility] Medical 09/14/22 at Branch 1100, Until [place] 09/14/22 at 1151, Routine, CV Intraproce dure aspirin 81 2022-0 Yes 81mg Take 1 Unive rs mg chewable 3-16 tablet by ity of tablet 14:59: mouth in [place] [address] the Medical morning. Branch aspirin 81 202-0 Yes 81mg Take 1 Unive rs mg chewable 3-16 tablet by ity of tablet 14:59: mouth in [place] [address] the Medical morning. Branch aspirin 81 2023-0 Yes 81mg Take 1 Unive rs mg chewable 3-16 tablet by ity of tablet 14:59: mouth in [place] [address] the Medical morning. Branch aspirin 81 2023-0 Yes 81mg Take 1 Unive rs mg chewable 3-16 tablet by ity of tablet 14:59: mouth in [place] [address] the Medical morning. Branch aspirin 81 2023-0 Yes 81mg Take 1 Unive rs mg chewable 3-16 tablet by ity of tablet 14:59: mouth in [place] [address] the Medical morning. Branch aspirin 81 2023-0 Yes 81mg Take 1 Unive rs mg chewable 3-16 tablet by ity of tablet 14:59: mouth in [place] [address] the Medical morning. Branch aspirin 81 2023-0 Yes 81mg Take 1 Unive rs mg chewable 3-16 tablet by ity of tablet 14:59: mouth in [place] [address] the Medical morning. Branch aspirin 81 2023-0 Yes 81mg Take 1 Unive rs mg chewable 3-16 tablet by ity of tablet 14:59: mouth in [place] [address] the Medical morning. Branch aspirin 81 2022-0 Yes 81mg Take 1 Unive rs mg chewable 3-16 tablet by ity of tablet 14:59: mouth in [place] [address] the Medical morning. Branch aspirin 81 2023-0 Yes 81mg Take 1 Unive rs mg chewable 3-16 tablet by ity of tablet 14:59: mouth in [place] [address] the Medical morning. Branch aspirin 81 2022-0 Yes 81mg Take 81 mg U nivers mg chewable 2-22 by mouth ity of tablet 10:17: daily. [address] aspirin 81 2023-0 Yes 81mg Take 81 mg U nivers mg chewable 2-22 by mouth ity of tablet 10:17: daily. [address] aspirin 81 2023-0 Yes 81mg Take 81 mg U nivers mg chewable 2-22 by mouth ity of tablet 10:17: daily. [address] aspirin 81 2022-0 Yes 81mg Take 81 mg U nivers mg chewable 2-22 by mouth ity of tablet 10:17: daily. [address] aspirin 81 2022-0 Yes 81mg Take 81 mg U nivers mg chewable 2-22 by mouth ity of tablet 10:17: daily. [address] aspirin 81 3-0 Yes 81mg Take 81 mg U nivers mg chewable 2-22 by mouth ity of tablet 10:17: daily. [address] aspirin 81 3-0 Yes 81mg Take 81 mg U nivers mg chewable 2-22 by mouth ity of tablet 10:17: daily. [address] aspirin 81 2022-0 Yes 81mg Take 81 mg U nivers mg chewable 2-22 by mouth ity of tablet 10:17: daily. [address] iopamidol 2022-0 2023- No [id number] 79mL 79 mL, Univers (ISOVUE 08-16-15 Intravenou ity o f 370-500 mL) 20:15: 20:05 s, ONCE, 1 [place] injection 00 :00 dose, On Medica l 79 mL [facility] 08/16/22 at 1415, Routine aspirin 81 2022-0 Yes 81mg Take 81 mg U nivers mg chewable 2-14 by mouth ity of tablet 11:15: daily. [place] 15 Medical Branch aspirin 81 2022-0 Yes 81mg Take 81 mg U nivers mg chewable 2-14 by mouth ity of tablet 11:15: daily. [place] 15 Medical Branch aspirin 81 2022-0 Yes 81mg Take 81 mg U nivers mg chewable 2-14 by mouth ity of tablet 11:15: daily. [address] Branch aspirin 81 2022-0 Yes 81mg Take 81 mg U nivers mg chewable 2-14 by mouth ity of tablet 11:15: daily. [place] [address] Medical Branch aspirin 81 2022-0 Yes 81mg Take 81 mg U nivers mg chewable 2-14 by mouth ity of tablet 11:15: daily. [place] [address] Medical Branch aspirin 81 2022-0 Yes 81mg Take 81 mg U nivers mg chewable 2-14 by mouth ity of tablet 11:15: daily. [address] Branch aspirin 81 2022-0 Yes 81mg Take 81 mg U nivers mg chewable 2-14 by mouth ity of tablet 11:15: daily. [address] Branch aspirin 81 2022-0 Yes 81mg Take 81 mg U nivers mg chewable 2-14 by mouth ity of tablet 11:15: daily. [address] Branch aspirin 81 2022-0 Yes 81mg Take 81 mg U nivers mg chewable 1-20 by mouth ity of tablet 11:01: daily. [address] Branch aspirin 81 2022-0 Yes 81mg Take 81 mg U nivers mg chewable 1-20 by mouth ity of tablet 11:01: daily. [address] Branch aspirin 81 2022-0 Yes 81mg Take 81 mg U nivers mg chewable 1-20 by mouth ity of tablet 11:01: daily. [address] Branch aspirin 81 2022-0 Yes 81mg Take 81 mg U nivers mg chewable 1-20 by mouth ity of tablet 11:01: daily. [place] [address] Medical Branch aspirin 81 2022-0 Yes 81mg Take 81 mg U nivers mg chewable 1-20 by mouth ity of tablet 11:01: daily. [address] Branch aspirin 81 2022-0 Yes 81mg Take 81 mg U nivers mg chewable 1-20 by mouth ity of tablet 11:01: daily. [address] Branch ángel 2021-07 Yes [id number] Apply to Univers ne 2-28 area(s) 2 ity of acetonide 00:00: (two) [place] 0.1 % cream 00 times Medical daily. Branch triamcinolo 2021- Yes [id number] Apply to Univers ne 2-28 area(s) 2 ity of acetonide 00:00: (two) [place] 0.1 % cream 00 times Medical daily. Branch triamcinolo 2021- Yes [id number] Apply to Univers ne 2-28 area(s) 2 ity of acetonide 00:00: (two) [place] 0.1 % cream 00 times Medical daily. Branch triamcinolo 2021- Yes [id number] Apply to Univers ne 2-28 area(s) 2 ity of acetonide 00:00: (two) [place] 0.1 % cream 00 times Medical daily. Branch triamcinolo 2021- Yes [id number] Apply to Univers ne 2-28 area(s) 2 ity of acetonide 00:00: (two) [place] 0.1 % cream 00 times Medical daily. Branch triamcinolo 2021- Yes [id number] Apply to Univers ne 2-28 area(s) 2 ity of acetonide 00:00: (two) [place] 0.1 % cream 00 times Medical daily. Branch triamcinolo 2021- Yes [id number] Apply to Univers ne 2-28 area(s) 2 ity of acetonide 00:00: (two) [place] 0.1 % cream 00 times Medical daily. Branch triamcinolo 2021- Yes [id number] Apply to Univers ne 2-28 area(s) 2 ity of acetonide 00:00: (two) [place] 0.1 % cream 00 times Medical daily. Branch triamcinolo 2021- Yes [id number] Apply to [facility] ne 2-28 area(s) 2 ity of acetonide 00:00: (two) [place] 0.1 % cream 00 times Medical daily. Branch triamcinolo 2021- Yes [id number] Apply to [facility] ne 2-28 area(s) 2 ity of acetonide 00:00: (two) [place] 0.1 % cream 00 times Medical daily. Branch triamcinolo 2021- Yes [id number] Apply to [facility] ne 2-28 area(s) 2 ity of acetonide 00:00: (two) [place] 0.1 % cream 00 times Medical daily. Branch triamcinolo 2021- Yes [id number] Apply to [facility] ne 2-28 area(s) 2 ity of acetonide 00:00: (two) [place] 0.1 % cream 00 times Medical daily. Branch triamcinolo 2021- Yes [id number] Apply to [facility] ne 2-28 area(s) 2 ity of acetonide 00:00: (two) [place] 0.1 % cream 00 times Medical daily. Branch triamcinolo 2021- Yes [id number] Apply to [facility] ne 2-28 area(s) 2 ity of acetonide 00:00: (two) [place] 0.1 % cream 00 times Medical daily. Branch triamcinolo 2021- Yes [id number] Apply to [facility] ne 2-28 area(s) 2 ity of acetonide 00:00: (two) [place] 0.1 % cream 00 times Medical daily. Branch triamcinjay 2021- Yes [id number] Apply to [facility] ne 2-28 area(s) 2 ity of acetonide 00:00: (two) [place] 0.1 % cream 00 times Medical daily. Branch triamcinjay 2021- Yes [id number] Apply to [facility] ne 2-28 area(s) 2 ity of acetonide 00:00: (two) [place] 0.1 % cream 00 times Medical daily. Branch triamcinolo 2021- Yes [id number] Apply to [facility] ne 2-28 area(s) 2 ity of acetonide 00:00: (two) [place] 0.1 % cream 00 times Medical daily. Branch triamcinolo 2021- Yes [id number] Apply to [facility] ne 2-28 area(s) 2 ity of acetonide 00:00: (two) [place] 0.1 % cream 00 times Medical daily. Branch triamcinolo 2021- Yes [id number] Apply to [facility] ne 2-28 area(s) 2 ity of acetonide 00:00: (two) [place] 0.1 % cream 00 times Medical daily. Branch triamcinolo 2021- Yes [id number] Apply to [facility] ne 2-28 area(s) 2 ity of acetonide 00:00: (two) [place] 0.1 % cream 00 times Medical daily. Branch triamcinolo 2021- Yes [id number] Apply to [facility] ne 2-28 area(s) 2 ity of acetonide 00:00: (two) [place] 0.1 % cream 00 times Medical daily. Branch triamcinolo 2021- Yes [id number] Apply to [facility] ne 2-28 area(s) 2 ity of acetonide 00:00: (two) [place] 0.1 % cream 00 times Medical daily. Branch triamcinolo 2021- Yes [id number] Apply to [facility] ne 2-28 area(s) 2 ity of acetonide 00:00: (two) [place] 0.1 % cream 00 times Medical daily. Branch triamcinolo 2021- Yes [id number] Apply to [facility] ne 2-28 area(s) 2 ity of acetonide 00:00: (two) [place] 0.1 % cream 00 times Medical daily. [place] triamcinolo 2021- Yes [id number] Apply to [facility] ne 2-28 area(s) 2 ity of acetonide 00:00: (two) [place] 0.1 % cream 00 times Medical daily. Branch triamcinolo 2021- Yes [id number] Apply to [facility] ne 2-28 area(s) 2 ity of acetonide 00:00: (two) [place] 0.1 % cream 00 times Medical daily. Branch triamcinolo 2021- Yes [id number] Apply to [facility] ne 2-28 area(s) 2 ity of acetonide 00:00: (two) [place] 0.1 % cream 00 times Medical daily. Branch triamcinolo 2021- Yes [id number] Apply to [facility] ne 2-28 area(s) 2 ity of acetonide 00:00: (two) [place] 0.1 % cream 00 times Medical daily. Branch triamcinolo 2021- Yes [id number] Apply to [facility] ne 2-28 area(s) 2 ity of acetonide 00:00: (two) [place] 0.1 % cream 00 times Medical daily. Branch triamcinolo 2021- Yes [id number] Apply to [facility] ne 2-28 area(s) 2 ity of acetonide 00:00: (two) [place] 0.1 % cream 00 times Medical daily. Branch triamcinolo 2021-07- No [id number] Apply to [facility] 08-29- area(s) 2 ity of acetonide 00:00: 00:00 (two) [place] 0.1 % cream 00 :00 times Medical daily. [place] triamcinolo 2021-07- No [id number] Apply to [facility] 08-29 area(s) 2 ity of acetonide 00:00: 00:00 (two) [place] 0.1 % cream 00 :00 times Medical daily. [place] triamcinolo 2021-07- No [id number] Apply to [facility] 08-29 area(s) 2 ity of acetonide 00:00: 00:00 (two) [place] 0.1 % cream 00 :00 times Medical daily. Branch permethrin 2021-07- No [id number] Apply to [facility] 5 % cream -28 06- area(s) ity of 00:00: 05:59 once now [place] 00 :00 for 1 Medical dose. Branch Apply jawline to soles of feet. May repeat in 14 days if live mites still present. permethrin 2021-07- No [id number] Apply to [facility] 5 % cream -28 06- area(s) ity of 00:00: 05:59 once now [place] 00 :00 for 1 Medical dose. Branch Apply jawline to soles of feet. May repeat in 14 days if live mites still present. permethrin 2021-07- No [id number] Apply to [facility] 5 % cream -28 06-29 area(s) ity of 00:00: 05:59 once now [place] 00 :00 for 1 Medical dose. Branch Apply jawline to soles of feet. May repeat in 14 days if live mites still present. tc 2021- No [id number] 43.8mCi 43.8 Unive rs 99m-tetrofo 03-02 millicurie i ty of smin 15:30: 15:25 , [place] (MYOVIEW) 00 :00 Intravenou Medi chaz injection s, ONCE, 1 Bran ch 43.8 dose, On millicurie [place] 03/02/22 at 1030, Routine regadenoson 2021- No [id number] .4mg 0.4 mg, IV Univers (LEXISCAN) 03-02 Push, ity of injection 14:45: 15:23 ONCE, 1 [place] 0.4 mg 00 :00 dose, On Medical [facility] 03/02/22 Branch at 0945, Routine
meat team member approving Restricted medication : GIRISH DAVALOS tc 2021- No [id number] 15.8mCi 15.8 [facility] 99m-tetrofo 03-02 millicurie i ty of smin 13:45: 13:44 , [place] (MYOVIEW) 00 :00 Intravenou Medi chaz injection s, ONCE, 1 Bran ch 15.8 dose, On [facility] 03/02/22 at 0845, Routine AMLODIPINE Yes [id number] TAKE 1 [facility] 5 mg tablet 4-22 TABLET BY ity of 00:00: MOUTH [place] 00 EVERY DAY Medical Branch AMLODIPINE 2021-0 Yes [id number] TAKE 1 [facility] 5 mg tablet 4-22 TABLET BY ity of 00:00: MOUTH [place] 00 EVERY DAY Medical Branch AMLODIPINE 2021-0 Yes [id number] TAKE 1 [facility] 5 mg tablet 4-22 TABLET BY ity of 00:00: MOUTH [place] 00 EVERY DAY Medical Branch AMLODIPINE 2021-0 Yes [id number] TAKE 1 [facility] 5 mg tablet 4-22 TABLET BY ity of 00:00: MOUTH [place] 00 EVERY DAY Medical Branch AMLODIPINE 2021-0 Yes [id number] TAKE 1 [facility] 5 mg tablet 4-22 TABLET BY ity of 00:00: MOUTH [place] 00 EVERY DAY Medical Branch AMLODIPINE 2021-0 Yes [id number] TAKE 1 [facility] 5 mg tablet 4-22 TABLET BY ity of 00:00: MOUTH [place] 00 EVERY DAY Medical Branch AMLODIPINE 2021-0 Yes [id number] TAKE 1 [facility] 5 mg tablet 4-22 TABLET BY ity of 00:00: MOUTH [place] 00 EVERY DAY Medical Branch AMLODIPINE 2021-0 Yes [id number] TAKE 1 [facility] 5 mg tablet 4-22 TABLET BY ity of 00:00: MOUTH [place] 00 EVERY DAY Medical Branch AMLODIPINE 2021-0 Yes [id number] TAKE 1 [facility] 5 mg tablet 4-22 TABLET BY ity of 00:00: MOUTH [place] 00 EVERY DAY Medical Branch AMLODIPINE 2022-0 Yes [id number] TAKE 1 [facility] 5 mg tablet 4-22 TABLET BY ity of 00:00: MOUTH [place] EVERY DAY Medical Branch AMLODIPINE 2022-0 Yes [id number] TAKE 1 [facility] 5 mg tablet 4-22 TABLET BY ity of 00:00: MOUTH [place] EVERY DAY Medical Branch AMLODIPINE 2022-0 Yes [id number] TAKE 1 [facility] 5 mg tablet 4-22 TABLET BY ity of 00:00: MOUTH [place] EVERY DAY Medical Branch AMLODIPINE 2022-0 Yes [id number] TAKE 1 [facility] 5 mg tablet 4-22 TABLET BY ity of 00:00: MOUTH [place] EVERY DAY Medical Branch AMLODIPINE 2022-0 Yes [id number] TAKE 1 [facility] 5 mg tablet 4-22 TABLET BY ity of 00:00: MOUTH [place] EVERY DAY Medical Branch AMLODIPINE 2022-0 Yes [id number] TAKE 1 [facility] 5 mg tablet 4-22 TABLET BY ity of 00:00: MOUTH [place] EVERY DAY Medical Branch AMLODIPINE 2022-0 Yes [id number] TAKE 1 [facility] 5 mg tablet 4-22 TABLET BY ity of 00:00: MOUTH [place] EVERY DAY Medical Branch AMLODIPINE 2022-0 Yes [id number] TAKE 1 [facility] 5 mg tablet 4-22 TABLET BY ity of 00:00: MOUTH [place] EVERY DAY Medical Branch AMLODIPINE 2022-0 Yes [id number] TAKE 1 [facility] 5 mg tablet 4-22 TABLET BY ity of 00:00: MOUTH [place] EVERY DAY Medical Branch AMLODIPINE 2022-0 Yes [id number] TAKE 1 [facility] 5 mg tablet 4-22 TABLET BY ity of 00:00: MOUTH [place] EVERY DAY Medical Branch AMLODIPINE 2022-0 Yes [id number] TAKE 1 [facility] 5 mg tablet 4-22 TABLET BY ity of 00:00: MOUTH [place] EVERY DAY Medical Branch AMLODIPINE 2022-0 Yes [id number] TAKE 1 [facility] 5 mg tablet 4-22 TABLET BY ity of 00:00: MOUTH [place] EVERY DAY Medical Branch AMLODIPINE 2022-0 Yes [id number] TAKE 1 [facility] 5 mg tablet 4-22 TABLET BY ity of 00:00: MOUTH [place] EVERY DAY Medical Branch AMLODIPINE 2022-0 Yes [id number] TAKE 1 [facility] 5 mg tablet 4-22 TABLET BY ity of 00:00: MOUTH [place] 00 EVERY DAY Medical Branch AMLODIPINE 2022-0 Yes [id number] TAKE 1 [facility] 5 mg tablet 4-22 TABLET BY ity of 00:00: MOUTH [place] 00 EVERY DAY Medical Branch AMLODIPINE 2022-0 Yes [id number] TAKE 1 [facility] 5 mg tablet 4-22 TABLET BY ity of 00:00: MOUTH [place] 00 EVERY DAY Medical Branch AMLODIPINE 2022-0 Yes [id number] TAKE 1 [facility] 5 mg tablet 4-22 TABLET BY ity of 00:00: MOUTH [place] 00 EVERY DAY Medical Branch AMLODIPINE 2022-0 Yes [id number] TAKE 1 [facility] 5 mg tablet 4-22 TABLET BY ity of 00:00: MOUTH [place] 00 EVERY DAY Medical Branch AMLODIPINE 2022-0 Yes [id number] TAKE 1 [facility] 5 mg tablet 4-22 TABLET BY ity of 00:00: MOUTH [place] 00 EVERY DAY Medical Branch AMLODIPINE 2022-0 Yes [id number] TAKE 1 [facility] 5 mg tablet 4-22 TABLET BY ity of 00:00: MOUTH EVERY DAY Medical Branch AMLODIPINE 2022-0 Yes [id number] TAKE 1 [facility] 5 mg tablet 4-22 TABLET BY ity of 00:00: MOUTH [place] 00 EVERY DAY Medical Branch AMLODIPINE 2022-0 Yes [id number] TAKE 1 [facility] 5 mg tablet 4-22 TABLET BY ity of 00:00: MOUTH [place] 00 EVERY DAY Medical Branch AMLODIPINE 2022-0 Yes [id number] TAKE 1 [facility] 5 mg tablet 4-22 TABLET BY ity of 00:00: MOUTH [place] 00 EVERY DAY Medical Branch AMLODIPINE 2022-0 Yes [id number] TAKE 1 [facility] 5 mg tablet 4-22 TABLET BY ity of 00:00: MOUTH [place] 00 EVERY DAY Medical Branch AMLODIPINE 2022-0 Yes [id number] TAKE 1 [facility] 5 mg tablet 4-22 TABLET BY ity of 00:00: MOUTH [place] 00 EVERY DAY Medical Branch AMLODIPINE 2022-0 Yes [id number] TAKE 1 [facility] 5 mg tablet 4-22 TABLET BY ity of 00:00: MOUTH [place] 00 EVERY DAY Medical Branch AMLODIPINE 2022-0 Yes [id number] TAKE 1 [facility] 5 mg tablet 4-22 TABLET BY ity of 00:00: MOUTH [place] 00 EVERY DAY Medical Branch AMLODIPINE 2022-0 2023- No [id number] TAKE 1 [facility] 5 mg tablet 4-22 03-17 TABLET BY it y of 00:00: 00:00 MOUTH [place] 00 :00 EVERY DAY Medical Branch AMLODIPINE 2021-0 3- No [id number] TAKE 1 [facility] 5 mg tablet 10-21 TABLET BY it y of 00:00: 00:00 MOUTH [place] 00 :00 EVERY DAY Medical Branch aspirin 81 2021-0 Yes 81mg Take 81 mg U nivers mg chewable 3-23 by mouth ity of tablet 13:08: daily. [place] [address] Medical Branch aspirin 81 2021-0 Yes 81mg Take 81 mg U nivers mg chewable 3-23 by mouth ity of tablet 13:08: daily. [place] [address] Medical Branch aspirin 81 2021-0 Yes 81mg Take 81 mg U nivers mg chewable 3-23 by mouth ity of tablet 13:08: daily. [place] [address] Medical Branch aspirin 81 2021-0 Yes 81mg Take 81 mg U nivers mg chewable 3-23 by mouth ity of tablet 13:08: daily. [address] Branch aspirin 81 2021-0 Yes 81mg Take 81 mg U nivers mg chewable 3-23 by mouth ity of tablet 13:08: daily. [place] [address] Medical Branch aspirin 81 2021-0 Yes 81mg Take 81 mg U nivers mg chewable 3-23 by mouth ity of tablet 13:08: daily. [address] Branch aspirin 81 2-0 Yes 81mg Take 81 mg U nivers mg chewable 3-23 by mouth ity of tablet 13:08: daily. [address] Branch aspirin 81 2021-0 Yes 81mg Take 81 mg U nivers mg chewable 3-23 by mouth ity of tablet 13:08: daily. [address] Branch aspirin 81 2-0 Yes 81mg Take 81 mg U nivers mg chewable 3-23 by mouth ity of tablet 13:08: daily. [address] Branch aspirin 81 2-0 Yes 81mg Take 81 mg U nivers mg chewable 3-23 by mouth ity of tablet 13:08: daily. [address] Branch aspirin 81 2-0 Yes 81mg Take 81 mg U nivers mg chewable 3-23 by mouth ity of tablet 13:08: daily. [address] Branch aspirin 81 2-0 Yes 81mg Take 81 mg U nivers mg chewable 3-23 by mouth ity of tablet 13:08: daily. [place] 10 Medical Branch ezetimibe 2021-0 Yes [id number] 10mg Take 1 U nivers 10 mg 3-10 tablet by ity of tablet 00:00: mouth [place] 00 daily. Medical Branch ezetimibe 2021-0 Yes [id number] 10mg Take 1 U nivers 10 mg 3-10 tablet by ity of tablet 00:00: mouth [place] 00 daily. Medical Branch ezetimibe 2021-0 Yes [id number] 10mg Take 1 U nivers 10 mg 3-10 tablet by ity of tablet 00:00: mouth [place] 00 daily. Medical Branch ezetimibe 2021-0 Yes [id number] 10mg Take 1 U nivers 10 mg 3-10 tablet by ity of tablet 00:00: mouth [place] 00 daily. Medical Branch ezetimibe 2021-0 Yes [id number] 10mg Take 1 U nivers 10 mg 3-10 tablet by ity of tablet 00:00: mouth [place] 00 daily. Medical Branch ezetimibe 2021-0 Yes [id number] 10mg Take 1 U nivers 10 mg 3-10 tablet by ity of tablet 00:00: mouth [place] 00 daily. Medical Branch ezetimibe 2021-0 Yes [id number] 10mg Take 1 U nivers 10 mg 3-10 tablet by ity of tablet 00:00: mouth [place] 00 daily. [facility] Branch ezetimibe 2021-0 Yes [id number] 10mg Take 1 U nivers 10 mg 3-10 tablet by ity of tablet 00:00: mouth [place] 00 daily. Medical Branch ezetimibe 2021-0 Yes [id number] 10mg Take 1 U nivers 10 mg 3-10 tablet by ity of tablet 00:00: mouth [place] 00 daily. Medical Branch ezetimibe 2021-0 Yes [id number] 10mg Take 1 U nivers 10 mg 3-10 tablet by ity of tablet 00:00: mouth [place] 00 daily. [facility] Branch ezetimibe 2021-0 Yes [id number] 10mg Take 1 U nivers 10 mg 3-10 tablet by ity of tablet 00:00: mouth [place] 00 daily. [facility] Branch ezetimibe 2021-0 Yes [id number] 10mg Take 1 U nivers 10 mg 3-10 tablet by ity of tablet 00:00: mouth [place] 00 daily. Medical Branch ezetimibe 2021-0 Yes [id number] 10mg Take 1 U nivers 10 mg 3-10 tablet by ity of tablet 00:00: mouth [place] 00 daily. Medical Branch ezetimibe 2021-0 Yes [id number] 10mg Take 1 U nivers 10 mg 3-10 tablet by ity of tablet 00:00: mouth in [place] 00 the Medical morning. Branch ezetimibe 2021-0 Yes [id number] 10mg Take 1 U nivers 10 mg 3-10 tablet by ity of tablet 00:00: mouth in [place] 00 the Medical morning. Branch ezetimibe 2021-0 Yes [id number] 10mg Take 1 U nivers 10 mg 3-10 tablet by ity of tablet 00:00: mouth in [place] 00 the Medical morning. Branch ezetimibe 2021-0 Yes [id number] 10mg Take 1 U nivers 10 mg 3-10 tablet by ity of tablet 00:00: mouth [place] 00 daily. [facility] Branch ezetimibe 2021-0 Yes [id number] 10mg Take 1 U nivers 10 mg 3-10 tablet by ity of tablet 00:00: mouth [place] 00 daily. [facility] Branch ezetimibe 2021-0 Yes [id number] 10mg Take 1 U nivers 10 mg 3-10 tablet by ity of tablet 00:00: mouth [place] 00 daily. [facility] Branch ezetimibe 2021-0 Yes [id number] 10mg Take 1 U nivers 10 mg 3-10 tablet by ity of tablet 00:00: mouth [place] 00 daily. Medical Branch ezetimibe 2021-0 Yes [id number] 10mg Take 1 U nivers 10 mg 3-10 tablet by ity of tablet 00:00: mouth [place] 00 daily. [facility] Branch ezetimibe 2021-0 Yes [id number] 10mg Take 1 U nivers 10 mg 3-10 tablet by ity of tablet 00:00: mouth [place] 00 daily. [facility] Branch ezetimibe 2021-0 Yes [id number] 10mg Take 1 U nivers 10 mg 3-10 tablet by ity of tablet 00:00: mouth [place] 00 daily. [facility] Branch ezetimibe 2021-0 Yes [id number] 10mg Take 1 U nivers 10 mg 3-10 tablet by ity of tablet 00:00: mouth [place] 00 daily. Medical Branch ezetimibe 2021-0 Yes [id number] 10mg Take 1 U nivers 10 mg 3-10 tablet by ity of tablet 00:00: mouth [place] 00 daily. Medical Branch ezetimibe 2021-0 Yes [id number] 10mg Take 1 U nivers 10 mg 3-10 tablet by ity of tablet 00:00: mouth [place] 00 daily. Medical Branch ezetimibe 2021-0 Yes [id number] 10mg Take 1 U nivers 10 mg 3-10 tablet by ity of tablet 00:00: mouth [place] 00 daily. Medical Branch ezetimibe 2021-0 Yes [id number] 10mg Take 1 U nivers 10 mg 3-10 tablet by ity of tablet 00:00: mouth [place] 00 daily. Medical Branch ezetimibe 2021-0 Yes [id number] 10mg Take 1 U nivers 10 mg 3-10 tablet by ity of tablet 00:00: mouth [place] 00 daily. Medical Branch ezetimibe 2021-0 Yes [id number] 10mg Take 1 U nivers 10 mg 3-10 tablet by ity of tablet 00:00: mouth [place] 00 daily. Medical Branch ezetimibe 2021-0 Yes [id number] 10mg Take 1 U nivers 10 mg 3-10 tablet by ity of tablet 00:00: mouth [place] 00 daily. Medical Branch ezetimibe 2021-0 Yes [id number] 10mg Take 1 U nivers 10 mg 3-10 tablet by ity of tablet 00:00: mouth [place] 00 daily. Medical Branch ezetimibe 2021-0 Yes [id number] 10mg Take 1 U nivers 10 mg 3-10 tablet by ity of tablet 00:00: mouth [place] 00 daily. Medical Branch ezetimibe 2021-0 Yes [id number] 10mg Take 1 U nivers 10 mg 3-10 tablet by ity of tablet 00:00: mouth [place] 00 daily. Medical Branch ezetimibe 2021-0 Yes [id number] 10mg Take 1 U nivers 10 mg 3-10 tablet by ity of tablet 00:00: mouth [place] 00 daily. Medical Branch ezetimibe 2022-0 Yes [id number] 10mg Take 1 U nivers 10 mg 3-10 tablet by ity of tablet 00:00: mouth [place] 00 daily. Medical Branch ezetimibe 0 Yes [id number] 10mg Take 1 U nivers 10 mg 3-10 tablet by ity of tablet 00:00: mouth [place] 00 daily. Medical Branch ezetimibe 0 2022- No [id number] 10mg Take 1 [facility] 10 mg 3-10 -22 tablet by ity of tablet 00:00: 00:00 mouth in [place] 00 :00 the Medical morning. Branch ezetimibe 0 2022- No [id number] 10mg Take 1 [facility] 10 mg 3-10 -22 tablet by ity of tablet 00:00: 00:00 mouth in [place] 00 :00 the Medical morning. Branch ezetimibe 2022- No [id number] 10mg Take 1 [facility] 10 mg 3-10 -22 tablet by ity of tablet 00:00: 00:00 mouth in [place] 00 :00 the Medical morning. Branch carvediloL Yes [id number] 3.125mg Take 1 [facility] 3.125 mg 3-07 tablet by ity of tablet 00:00: mouth [place] (two) Medical times Branch daily with meals. carvediloL Yes [id number] 3.125mg Take 1 Univers 3.125 mg 3-07 tablet by ity of tablet 00:00: mouth [place] (two) Medical times Branch daily with meals. carvediloL 0 Yes [id number] 3.125mg Take 1 Univers 3.125 mg 3-07 tablet by ity of tablet 00:00: mouth [place] (two) Medical times Branch daily with meals. carvediloL 0 Yes [id number] 3.125mg Take 1 Univers 3.125 mg 3-07 tablet by ity of tablet 00:00: mouth [place] (two) Medical times Branch daily with meals. carvediloL 0 Yes [id number] 3.125mg Take 1 [facility] 3.125 mg 3-07 tablet by ity of tablet 00:00: mouth [place] (two) Medical times Branch daily with meals. carvediloL 2022-0 Yes [id number] 3.125mg Take 1 [facility] 3.125 mg 3-07 tablet by ity of tablet 00:00: mouth (two) Medical times Branch daily with meals. carvediloL 2021-0 Yes [id number] 3.125mg Take 1 [facility] 3.125 mg 3-07 tablet by ity of tablet 00:00: mouth (two) Medical times Branch daily with meals. carvediloL 2021-0 Yes [id number] 3.125mg Take 1 [facility] 3.125 mg 3-07 tablet by ity of tablet 00:00: mouth (two) Medical times Branch daily with meals. carvediloL 2021-0 Yes [id number] 3.125mg Take 1 [facility] 3.125 mg 3-07 tablet by ity of tablet 00:00: mouth (two) Medical times Branch daily with meals. carvediloL 2021-0 Yes [id number] 3.125mg Take 1 [facility] 3.125 mg 3-07 tablet by ity of tablet 00:00: mouth (two) Medical times Branch daily with meals. carvediloL 2021-0 Yes [id number] 3.125mg Take 1 Univers 3.125 mg 3-07 tablet by ity of tablet 00:00: mouth (two) Medical times Branch daily with meals. carvediloL 2021-0 Yes [id number] 3.125mg Take 1 [facility] 3.125 mg 3-07 tablet by ity of tablet 00:00: mouth (two) Medical times Branch daily with meals. carvediloL 2021-0 Yes [id number] 3.125mg Take 1 [facility] 3.125 mg 3-07 tablet by ity of tablet 00:00: mouth (two) Medical times Branch daily with meals. carvediloL 2021-0 Yes [id number] 3.125mg Take 1 Univers 3.125 mg 3-07 tablet by ity of tablet 00:00: mouth (two) Medical times Branch daily with meals. carvediloL 2021-0 Yes [id number] 3.125mg Take 1 Univers 3.125 mg 3-07 tablet by ity of tablet 00:00: mouth (two) Medical times Branch daily with meals. carvediloL 2022-0 Yes [id number] 3.125mg Take 1 Univers 3.125 mg 3-07 tablet by ity of tablet 00:00: mouth (two) Medical times Branch daily with meals. carvediloL 2021-0 Yes [id number] 3.125mg Take 1 Univers 3.125 mg 3-07 tablet by ity of tablet 00:00: mouth (two) Medical times Branch daily with meals. carvediloL 2021-0 Yes [id number] 3.125mg Take 1 Univers 3.125 mg 3-07 tablet by ity of tablet 00:00: mouth (two) Medical times Branch daily with meals. carvediloL 2021-0 Yes [id number] 3.125mg Take 1 Univers 3.125 mg 3-07 tablet by ity of tablet 00:00: mouth (two) Medical times Branch daily with meals. carvediloL 2021-0 Yes [id number] 3.125mg Take 1 [facility] 3.125 mg 3-07 tablet by ity of tablet 00:00: mouth (two) Medical times Branch daily with meals. carvediloL 2021-0 Yes [id number] 3.125mg Take 1 [facility] 3.125 mg 3-07 tablet by ity of tablet 00:00: mouth (two) Medical times Branch daily with meals. carvediloL 2021-0 Yes [id number] 3.125mg Take 1 [facility] 3.125 mg 3-07 tablet by ity of tablet 00:00: mouth (two) Medical times Branch daily with meals. carvediloL 2021-0 Yes [id number] 3.125mg Take 1 [facility] 3.125 mg 3-07 tablet by ity of tablet 00:00: mouth (two) Medical times Branch daily with meals. carvediloL 2-0 Yes [id number] 3.125mg Take 1 [facility] 3.125 mg 3-07 tablet by ity of tablet 00:00: mouth (two) Medical times Branch daily with meals. carvediloL 2021-0 Yes [id number] 3.125mg Take 1 [facility] 3.125 mg 3-07 tablet by ity of tablet 00:00: mouth (two) Medical times Branch daily with meals. carvediloL 2-0 Yes [id number] 3.125mg Take 1 [facility] 3.125 mg 3-07 tablet by ity of tablet 00:00: mouth (two) Medical times Branch daily with meals. carvediloL 2-0 Yes [id number] 3.125mg Take 1 [facility] 3.125 mg 3-07 tablet by ity of tablet 00:00: mouth (two) Medical times Branch daily with meals. carvediloL 2021-0 Yes [id number] 3.125mg Take 1 [facility] 3.125 mg 3-07 tablet by ity of tablet 00:00: mouth (two) Medical times Branch daily with meals. carvediloL 2021-0 Yes [id number] 3.125mg Take 1 [facility] 3.125 mg 3-07 tablet by ity of tablet 00:00: mouth (two) Medical times Branch daily with meals. carvediloL 2021-0 Yes [id number] 3.125mg Take 1 [facility] 3.125 mg 3-07 tablet by ity of tablet 00:00: mouth (two) Medical times Branch daily with meals. carvediloL 2021-0 Yes [id number] 3.125mg Take 1 [facility] 3.125 mg 3-07 tablet by ity of tablet 00:00: mouth (two) Medical times Branch daily with meals. carvediloL 2-0 Yes [id number] 3.125mg Take 1 [facility] 3.125 mg 3-07 tablet by ity of tablet 00:00: mouth (two) Medical times Branch daily with meals. carvediloL 2-0 Yes [id number] 3.125mg Take 1 [facility] 3.125 mg 3-07 tablet by ity of tablet 00:00: mouth (two) Medical times Branch daily with meals. carvediloL 2022-0 Yes [id number] 3.125mg Take 1 [facility] 3.125 mg 3-07 tablet by ity of tablet 00:00: mouth 2 (two) Medical times Branch daily with meals. carvediloL 2022-0 Yes [id number] 3.125mg Take 1 [facility] 3.125 mg 3-07 tablet by ity of tablet 00:00: mouth 2 [place] 00 (two) Medical times Branch daily with meals. carvediloL Yes [id number] 3.125mg Take 1 [facility] 3.125 mg 3-07 tablet by ity of tablet 00:00: mouth 2 [place] 00 (two) Medical times Branch daily with meals. carvediloL Yes [id number] 3.125mg Take 1 [facility] 3.125 mg 3-07 tablet by ity of tablet 00:00: mouth 2 [place] 00 (two) Medical times Branch daily with meals. carvediloL 2022- No [id number] 3.125mg Take 1 Univers 3.125 mg 3-07 03-22 tablet by ity o f tablet 00:00: 00:00 mouth 2 [place] 00 :00 (two) Medical times Branch daily with meals. carvediloL 3- No [id number] 3.125mg Take 1 Univers 3.125 mg 3-07 03-22 tablet by ity o f tablet 00:00: 00:00 mouth 2 [place] 00 :00 (two) Medical times Branch daily with meals. carvediloL 3- No [id number] 3.125mg Take 1 [facility] 3.125 mg 3-07 -22 tablet by ity o f tablet 00:00: 00:00 mouth 2 [place] 00 :00 (two) Medical times Branch daily with meals. Lisinopril 2019-0 Yes Mohamed 1 tablet [facility] 01-12 Tam[place] l 02:45: [place] 40 Aspirin 2020-0 Yes Mohamed 1 tablet Mem oria 01-12 [place] 02:45: [place] 40 Crestor 2020-0 Yes Mohamed 1 tablet Mem oria 01-12 Tam[place] l 02:45: [place] 40 Atorvastati 2020-0 Yes Mohamed 1 tablet [facility]oria n Calcium 01-12 [place] l 02:45: [place] 40 Clopidogrel 2020-0 Yes Mohamed 1 tablet [facility] Bisulfate 01-12 [place] l 02:45: [place] 40 Famotidine 2019-0 Yes Mohamed not Heriberto hari 01-12 Tamir defined l 02:45: [place] 40 Lisinopril 2020-0 Yes Mohamed 1 tablet [facility] 01-12 [place] l 02:45: [place] 40 Aspirin 2020-0 Yes Mohamed 1 tablet Mem oria 7-14 Tamir l 02:45: [place] 40 Crestor 2020-0 Yes Mohamed 1 tablet Mem oria 7- Tamir l 02:45: [place] 40 Atorvastati 2020-0 Yes Mohamed 1 tablet Memoria n Calcium 7-14 Tamir l 02:45: [place] 40 Clopidogrel 2020-0 Yes Mohamed 1 tablet Memoria Bisulfate 01-12 Tamir l 02:45: [place] 40 Famotidine 2020-0 Yes Mohamed not Heriberto hari 01-12 Tamir defined l 02:45: [place] 40 Lisinopril 2020-0 Yes Mohamed 1 tablet Memoria 01-12 Tamir l 02:45: [place] 40 Aspirin 2020-0 Yes Mohamed 1 tablet Mem oria 01-12 Tamir l 02:45: [place] 40 Crestor 2020-0 Yes Mohamed 1 tablet Mem oria 01-12 Tamir l 02:45: [place] 40 Atorvastati 2020-0 Yes Mohamed 1 tablet Memoria n Calcium 01-12 Tamir l 02:45: [place] 40 Clopidogrel 2020-0 Yes Mohamed 1 tablet [facility]oria Bisulfate 01-12 Tamir l 02:45: [place] 40 Famotidine 2020-0 Yes Mohamed not Heriberto hari 01-12 Tamir defined l 02:45: [place] 40 Lisinopril 2020-0 Yes Mohamed 1 tablet Memoria 01-12 Tamir l 02:45: [place] 40 Aspirin 2020-0 Yes Mohamed 1 tablet Mem oria 01-12 Tamir l 02:45: [place] 40 Crestor 2020-0 Yes Mohamed 1 tablet Mem oria 01-12 Tamir l 02:45: [place] 40 Atorvastati 2020-0 Yes Mohamed 1 tablet Memoria n Calcium 7- Tamir l 02:45: [place] 40 Clopidogrel 2020-0 Yes Mohamed 1 tablet Memoria Bisulfate - Tamir l 02:45: [place] 40 Famotidine 2020-0 Yes Mohamed not Heriberto hari - Tamir defined l 02:45: [place] 40 Lisinopril 2020-0 Yes Mohamed 1 tablet Memoria 01-12 Tamir l 02:45: [place] 40 Aspirin 2020-0 Yes Mohamed 1 tablet Mem oria 7-14 Tamir l 02:45: [place] 40 Crestor 2020-0 Yes Mohamed 1 tablet Mem oria 7-14 Tamir l 02:45: [place] 40 Atorvastati 2020-0 Yes Mohamed 1 tablet Memoria n Calcium 7-14 Tamir l 02:45: [place] 40 Clopidogrel 2020-0 Yes Mohamed 1 tablet [facility] Bisulfate 7-14 Tamir l 02:45: [place] 40 Famotidine 2020-0 Yes Mohamed not Heriberto hari 7-14 Tamir defined l 02:45: [place] 40 Aspirin 2020-0 Yes Mohamed 1 tablet Mem oria 7-14 Tamir l 02:45: [place] 40 Lisinopril 2020-0 Yes Mohamed 1 tablet Memoria 7-14 Tamir l 02:45: [place] 40 Crestor 2020-0 Yes Mohamed 1 tablet Mem oria 7-14 Tamir l 02:45: [place] 40 Lisinopril 2020-0 Yes Mohamed 1 tablet Memoria 7-14 Tamir l 02:45: [place] 40 Atorvastati 2020-0 Yes Mohamed 1 tablet Memoria n Calcium 7-14 Tamir l 02:45: [place] 40 Clopidogrel 2020-0 Yes Mohamed 1 tablet [facility] Bisulfate 7- Tamir l 02:45: [place] 40 Famotidine 2020-0 Yes Mohamed not Heriberto hari 7-14 Tamir defined l 02:45: [place] 40 Aspirin 2020-0 Yes Mohamed 1 tablet Mem oria 7-14 Tamir l 02:45: [place] 40 Crestor 2020-0 Yes Mohamed 1 tablet Mem oria 7-14 Tamir l 02:45: [place] 40 Atorvastati 2020-0 Yes Mohamed 1 tablet Memoria n Calcium 7-14 Tamir l 02:45: [place] 40 Clopidogrel 2020-0 Yes Mohamed 1 tablet [facility] Bisulfate 7-14 Tamir l 02:45: [place] 40 Famotidine 2020-0 Yes Mohamed not Heriberto hari 7-14 Tamir defined l 02:45: [place] 40 Lisinopril 2020-0 Yes Mohamed 1 tablet Memoria 7-14 Tamir l 02:45: [place] 40 Aspirin 2020-0 Yes Mohamed 1 tablet Mem oria 7-14 Tamir l 02:45: [place] 40 Crestor 2020-0 Yes Mohamed 1 tablet Mem oria 7-14 Tamir l 02:45: [place] 40 Atorvastati 2020-0 Yes Mohamed 1 tablet Memoria n Calcium 7-14 Tamir l 02:45: [place] 40 Clopidogrel 2020-0 Yes Mohamed 1 tablet [facility] Bisulfate 7-14 Tamir l 02:45: [place] 40 Famotidine 2020-0 Yes Mohamed not Heriberto hari - Tamir defined l 02:45: [place] 40 Lisinopril 2020-0 Yes Mohamed 1 tablet Memoria 7-14 Tamir l 02:45: [place] 40 Aspirin 2020-0 Yes Mohamed 1 tablet Mem oria 7-14 Tamir l 02:45: [place] 40 Crestor 2020-0 Yes Mohamed 1 tablet Mem oria 7-14 Tamir l 02:45: [place] 40 Atorvastati 2020-0 Yes Mohamed 1 tablet Memoria n Calcium 7- Tamir l 02:45: [place] 40 Clopidogrel 2020-0 Yes Mohamed 1 tablet [facility] Bisulfate - Tamir l 02:45: [place] 40 Famotidine 2020-0 Yes Mohamed not Heriberto hari - Tamir defined l 02:45: [place] 40 Lisinopril 2020-0 Yes Mohamed 1 tablet Memoria 7-14 Tamir l 02:45: [place] 40 Lisinopril 2020-0 Yes Mohamed 1 tablet Memoria 7-14 Tamir l 02:45: [place] 40 Aspirin 2020-0 Yes Mohamed 1 tablet Mem oria 7-14 Tamir l 02:45: [place] 40 Crestor 2020-0 Yes Mohamed 1 tablet Mem oria 7-14 Tamir l 02:45: [place] 40 Atorvastati 2020-0 Yes Mohamed 1 tablet Memoria n Calcium 7-14 Tamir l 02:45: [place] 40 Aspirin 2020-0 Yes Mohamed 1 tablet Mem oria 7-14 Tamir l 02:45: [place] 40 Clopidogrel 2020-0 Yes Mohamed 1 tablet [facility]oria Bisulfate 7-14 Tamir l 02:45: [place] 40 Famotidine 2020-0 Yes Mohamed not Heriberto hari 7- Tamir defined l 02:45: [place] 40 Lisinopril 2020-0 Yes Mohamed 1 tablet Memoria -14 Tamir l 02:45: [place] 40 Crestor 2020-0 Yes Mohamed 1 tablet Mem oria 7-14 Tamir l 02:45: [place] 40 Aspirin 2020-0 Yes Mohamed 1 tablet Mem oria - Tamir l 02:45: [place] 40 Crestor 2020-0 Yes Mohamed 1 tablet Mem oria - Tamir l 02:45: [place] 40 Atorvastati 2020-0 Yes Mohamed 1 tablet Memoria n Calcium - Tamir l 02:45: [place] 40 Clopidogrel 2020-0 Yes Mohamed 1 tablet [facility] Bisulfate - Tamir l 02:45: [place] 40 Famotidine 2020-0 Yes Mohamed not Heriberto hari 01-12 Tamir defined l 02:45: [place] 40 Atorvastati 2020-0 Yes Mohamed 1 tablet Memoria n Calcium - Tamir l 02:45: [place] 40 Clopidogrel 2020-0 Yes Mohamed 1 tablet [facility] Bisulfate 01-12 Tamir l 02:45: [place] 40 Famotidine 2020-0 Yes Mohamed not Heriberto hari - Tamir defined l 02:45: [place] 40 Lisinopril 2020-0 Yes Mohamed 1 tablet Memoria 01-12 Tamir l 02:45: [place] 40 Aspirin 2020-0 Yes Mohamed 1 tablet Mem oria 01-12 Tamir l 02:45: [place] 40 Crestor 2020-0 Yes Mohamed 1 tablet Mem oria - Tamir l 02:45: [place] 40 Atorvastati 2020-0 Yes Mohamed 1 tablet Memoria n Calcium 7-14 Tamir l 02:45: [place] 40 Clopidogrel 2020-0 Yes Mohamed 1 tablet [facility] Bisulfate - Tamir l 02:45: [place] 40 Famotidine 2020-0 Yes Mohamed not Heriberto hari - Tamir defined l 02:45: [place] 40 Lisinopril 2020-0 Yes Mohamed 1 tablet Memoria - Tamir l 02:45: [place] 40 Aspirin 2020-0 Yes Mohamed 1 tablet Mem oria 7-14 Tamir l 02:45: 40 Crestor 2020-0 Yes Mohamed 1 tablet Mem oria 7-14 Tamir l 02:45: 40 Atorvastati 2020-0 Yes Mohamed 1 tablet Memoria n Calcium 7-14 Tamir l 02:45: 40 Clopidogrel 2020-0 Yes Mohamed 1 tablet [facility] Bisulfate 7-14 Tamir l 02:45: 40 Famotidine 2020-0 Yes Mohamed not Heriberto hari 7-14 Tamir defined l 02:45: 40 Aspirin 2019-1 Yes Mohamed 1 tablet Mem oria 2-04 Tamir l 00:00: Aspirin 2019-1 Yes Mohamed 1 tablet Mem oria 2-04 Tamir l 00:00: Aspirin 2019-1 Yes Mohamed 1 tablet Mem oria 2-04 Tamir l 00:00: Aspirin 2019-1 Yes Mohamed 1 tablet Mem oria 2-04 Tamir l 00:00: Aspirin 2019-1 Yes Mohamed 1 tablet Mem oria 2-04 Tamir l 00:00: Aspirin 2019-1 Yes Mohamed 1 tablet Mem oria 2-04 Tamir l 00:00: Aspirin 2019-1 Yes Mohamed 1 tablet Mem oria 2-04 Tamir l 00:00: Aspirin 2019-1 Yes Mohamed 1 tablet Mem oria 2-04 Tamir l 00:00: Aspirin 2019-1 Yes Mohamed 1 tablet Mem oria 2-04 Tamir l 00:00: Aspirin 2019-1 Yes Mohamed 1 tablet Mem oria 2-04 Tamir l 00:00: Aspirin 2019-1 Yes Mohamed 1 tablet Mem oria 2-04 Tamir l 00:00: Aspirin 2019-1 Yes Mohamed 1 tablet Mem oria 2-04 Tamir l 00:00: Aspirin 2019-1 Yes Mohamed 1 tablet Mem oria 2-04 Tamir l 00:00: Aspirin 2019-1 Yes Mohamed 1 tablet Mem oria 2-04 Tamir l 00:00: Pravastatin 2019-0 Yes Mohamed 1 tablet Memoria Sodium 8-22 Tamir l 00:00: Pravastatin 2019-0 Yes Mohamed 1 tablet Memoria Sodium 8-22 Tamir l 00:00: Pravastatin 2019-0 Yes Mohamed 1 tablet Memoria Sodium 8-22 Tamir l 00:00: Pravastatin 2019-0 Yes Mohamed 1 tablet Memoria Sodium 8-22 Tamir l 00:00: Pravastatin 2019-0 Yes Mohamed 1 tablet Memoria Sodium 8-22 Tamir l 00:00: Pravastatin 2019-0 Yes Mohamed 1 tablet Memoria Sodium 8-22 Tamir l 00:00: Pravastatin 2019-0 Yes Mohamed 1 tablet Memoria Sodium 8-22 Tamir l 00:00: Pravastatin 2019-0 Yes Mohamed 1 tablet Memoria Sodium 8-22 Tamir l 00:00: Pravastatin 2019-0 Yes Mohamed 1 tablet Memoria Sodium 8-22 Tamir l 00:00: Pravastatin 2019-0 Yes Mohamed 1 tablet Memoria Sodium 8-22 Tamir l 00:00: Pravastatin 2019-0 Yes Mohamed 1 tablet Memoria Sodium 8-22 Tamir l 00:00: Pravastatin 2019-0 Yes Mohamed 1 tablet Memoria Sodium 8-22 Tamir l 00:00: Pravastatin 2019-0 Yes Mohamed 1 tablet Memoria Sodium 8-22 Tamir l 00:00: Pravastatin 2019-0 Yes Mohamed 1 tablet [facility]oria Sodium 8-22 Tamir l 00:00: Valsartan-H 2019-0 Yes Mohamed 1 tablet Memoria ydrochlorot 5-22 Tamir l hiazide 00:00: Valsartan-H 2019-0 Yes Mohamed 1 tablet Memoria ydrochlorot 5-22 Tamir l hiazide 00:00: Valsartan-H 2019-0 Yes Mohamed 1 tablet Memoria ydrochlorot 5-22 Tam[place] l hiazide 00:00: Valsartan-H 2019-0 Yes Mohamed 1 tablet Memoria ydrochlorot 5-22 Tamir l hiazide 00:00: Valsartan-H 2019-0 Yes Mohamed 1 tablet Memoria ydrochlorot 5-22 Tamir l hiazide 00:00: Valsartan-H 2019-0 Yes Mohamed 1 tablet Memoria ydrochlorot 5-22 Tamir l hiazide 00:00: Valsartan-H 2019-0 Yes Mohamed 1 tablet Memoria ydrochlorot 5-22 Tamir l hiazide 00:00: Valsartan-H 2019-0 Yes Mohamed 1 tablet Memoria ydrochlorot 5-22 Tamir l hiazide 00:00: Valsartan-H 2019-0 Yes Mohamed 1 tablet Memoria ydrochlorot 5-22 Tamir l hiazide 00:00: Valsartan-H 2019-0 Yes Mohamed 1 tablet Memoria ydrochlorot 5-22 Tamir l hiazide 00:00: Valsartan-H 2019-0 Yes Mohamed 1 tablet Memoria ydrochlorot 5-22 Tamir l hiazide 00:00: Valsartan-H 2019-0 Yes Mohamed 1 tablet Memoria ydrochlorot 5-22 Tamir l hiazide 00:00: Valsartan-H 2019-0 Yes Mohamed 1 tablet Memoria ydrochlorot 5-22 Tamir l hiazide 00:00: Valsartan-H 2019-0 Yes Mohamed 1 tablet Memoria ydrochlorot 5-22 Tamir l hiazide 00:00: Irbesartan- 2019-0 Yes Mohamed 1 tablet Memoria Hydrochloro 4-04 Tamir l thiazide 00:00: Crestor 2019-0 Yes Mohamed 1 tablet Mem oria 4-04 Tamir l 00:00: Aspirin 2019-0 Yes Mohamed 1 tablet Mem oria 4-04 Tamir l 00:00: Irbesartan- 2019-0 Yes Mohamed 1 tablet Memoria Hydrochloro 4-04 Tamir l thiazide 00:00: Crestor 2019-0 Yes Mohamed 1 tablet Mem oria 4-04 Tamir l 00:00: Aspirin 2019-0 Yes Mohamed 1 tablet Mem oria 4-04 Tamir l 00:00: Irbesartan- 2019-0 Yes Mohamed 1 tablet Memoria Hydrochloro 4-04 Tamir l thiazide 00:00: Crestor 2019-0 Yes Mohamed 1 tablet Mem oria 4-04 Tamir l 00:00: Aspirin 2019-0 Yes Mohamed 1 tablet Mem oria 4-04 Tamir l 00:00: Irbesartan- 2019-0 Yes Mohamed 1 tablet Memoria Hydrochloro 4-04 Tamir l thiazide 00:00: Crestor 2019-0 Yes Mohamed 1 tablet Mem oria 4-04 Tamir l 00:00: Aspirin 2019-0 Yes Mohamed 1 tablet Mem oria 4-04 Tamir l 00:00: Irbesartan- 2019-0 Yes Mohamed 1 tablet Memoria Hydrochloro 4-04 Tamir l thiazide 00:00: Crestor 2019-0 Yes Mohamed 1 tablet Mem oria 4-04 Tamir l 00:00: Aspirin 2019-0 Yes Mohamed 1 tablet Mem oria 4-04 Tamir l 00:00: Irbesartan- 2019-0 Yes Mohamed 1 tablet Memoria Hydrochloro 4-04 Tamir l thiazide 00:00: Crestor 2019-0 Yes Mohamed 1 tablet Mem oria 4-04 Tamir l 00:00: Aspirin 2019-0 Yes Mohamed 1 tablet Mem oria 4-04 Tamir l 00:00: Irbesartan- 2019-0 Yes Mohamed 1 tablet Memoria Hydrochloro 4-04 Tamir l thiazide 00:00: Crestor 2019-0 Yes Mohamed 1 tablet Mem oria 4-04 Tamir l 00:00: Aspirin 2019-0 Yes Mohamed 1 tablet Mem oria 4-04 Tamir l 00:00: Irbesartan- 2019-0 Yes Mohamed 1 tablet Memoria Hydrochloro 4-04 Tamir l thiazide 00:00: Irbesartan- 2019-0 Yes Mohamed 1 tablet Memoria Hydrochloro 4-04 Tamir l thiazide 00:00: Crestor 2019-0 Yes Mohamed 1 tablet Mem oria 4-04 Tamir l 00:00: Aspirin 2019-0 Yes Mohamed 1 tablet Mem oria 4-04 Tamir l 00:00: Crestor 2019-0 Yes Mohamed 1 tablet Mem oria 4-04 Tamir l 00:00: Irbesartan- 2019-0 Yes Mohamed 1 tablet Memoria Hydrochloro 4-04 Tamri l thiazide 00:00: Crestor 2019-0 Yes Mohamed 1 tablet Mem oria 4-04 Tamir l 00:00: Aspirin 2019-0 Yes Mohamed 1 tablet Mem oria 4-04 Tamir l 00:00: Aspirin 2019-0 Yes Mohamed 1 tablet Mem oria 4-04 Tamir l 00:00: Irbesartan- 2019-0 Yes Mohamed 1 tablet Memoria Hydrochloro 4-04 Tamir l thiazide 00:00: Crestor 2019-0 Yes Mohamed 1 tablet Mem oria 4-04 Tamir l 00:00: Aspirin 2019-0 Yes Mohamed 1 tablet Mem oria 4-04 Tamir l 00:00: Irbesartan- 2019-0 Yes Mohamed 1 tablet Memoria Hydrochloro 4-04 Tamir l thiazide 00:00: Crestor 2019-0 Yes Mohamed 1 tablet Mem oria 4-04 Tamir l 00:00: Aspirin 2019-0 Yes Mohamed 1 tablet Mem oria 4-04 Tamir l 00:00: Irbesartan- 2019-0 Yes Mohamed 1 tablet Memoria Hydrochloro 4-04 Tamir l thiazide 00:00: Crestor 2019-0 Yes Mohamed 1 tablet Mem oria 4-04 Tamir l 00:00: Aspirin 2019-0 Yes Mohamed 1 tablet Mem oria 4-04 Tamir l 00:00: Irbesartan- 2019-0 Yes Mohamed 1 tablet Memoria Hydrochloro 4-04 Tamir l thiazide 00:00: Crestor 2019-0 Yes Mohamed 1 tablet Mem oria 4-04 Tamir l 00:00: Aspirin 2019-0 Yes Mohamed 1 tablet Mem oria 4-04 Tamir l 00:00: Lisinopril 2019-0 Yes Mohamed 1 tablet Memoria 3-22 Tamir l 02:45: [place] 15 Lisinopril 2019-0 Yes Mohamed 1 tablet Memoria 3-22 Tamir l 02:45: [place] 15 Lisinopril 2019-0 Yes Mohamed 1 tablet Memoria 3-22 Tamir l 02:45: [place] 15 Lisinopril 2019-0 Yes Mohamed 1 tablet Memoria 3-22 Tamir l 02:45: [place] 15 Lisinopril 2019-0 Yes Mohamed 1 tablet Memoria 3-22 Tamir l 02:45: [place] 15 Lisinopril 2019-0 Yes Mohamed 1 tablet Memoria 3-22 Tamir l 02:45: [place] 15 Lisinopril 2019-0 Yes Mohamed 1 tablet Memoria 3-22 Tamir l 02:45: [place] 15 Lisinopril 2019-0 Yes Mohamed 1 tablet Memoria 3-22 Tamir l 02:45: [place] 15 Lisinopril 2019-0 Yes Mohamed 1 tablet Memoria 3-22 Tamir l 02:45: [place] 15 Lisinopril 2019-0 Yes Mohamed 1 tablet Memoria 3-22 Tamir l 02:45: [place] 15 Lisinopril 2019-0 Yes Mohamed 1 tablet Memoria 3-22 Tamir l 02:45: [place] 15 Lisinopril 2019-0 Yes Mohamed 1 tablet Memoria 3-22 Tamir l 02:45: [place] 15 Lisinopril 2019-0 Yes Mohamed 1 tablet Memoria 3-22 Tamir l 02:45: [place] 15 Lisinopril 2019-0 Yes Mohamed 1 tablet Memoria 3-22 Tamir l 02:45: [place] 15 Valsartan-H Valsartan-H Yes Jessica 1 tablet Common ydrochlorot ydrochlorot [place] [facility] hiazide hiazide - [facility] Aspirin Aspirin Yes Jessica 1 tablet Comm on Adult Low Adult Low [place] [facility] Strength Strength - [facility] Atorvastati Atorvastati Yes Jessica TAKE 1 Common n Calcium n Calcium [place] TABLET BY Spirit MOUTH AT - [facility] BEDTIME [facility] Clopidogrel Clopidogrel Yes Jessica TAKE 1 Common Bisulfate Bisulfate [place] TABLET BY [facility] MOUTH - [facility] EVERY DAY [facility] Famotidine Famotidine Yes Jessica TAKE 1 Common [place] TABLET BY Spirit MOUTH - [facility] TWICE A [facility] Zetia 10 MG Zetia 10 MG No 1{table QD Zetia 10 t} MG Carvedilol Carvedilol No BID Carvedilol 3.125 MG 3.125 MG 3.125 MG amLODIPine amLODIPine No 1{table QD amLODIPine Besylate 5 Besylate 5 t} Besylate 5 MG MG MG Zetia 10 MG Zetia 10 MG No 1{table QD Zetia 10 t} MG Carvedilol Carvedilol No BID Carvedilol 3.125 MG 3.125 MG 3.125 MG amLODIPine amLODIPine No 1{table QD amLODIPine Besylate 5 Besylate 5 t} Besylate 5 MG MG MG Zetia 10 MG Zetia 10 MG No 1{table QD Zetia 10 t} MG Carvedilol Carvedilol No BID Carvedilol 3.125 MG 3.125 MG 3.125 MG amLODIPine amLODIPine No 1{table QD amLODIPine Besylate 5 Besylate 5 t} Besylate 5 MG MG MG amLODIPine amLODIPine No 1{table QD amLODIPine Besylate 5 Besylate 5 t} Besylate 5 MG MG MG Zetia 10 MG Zetia 10 MG No 1{table QD Zetia 10 t} MG Carvedilol Carvedilol No BID Carvedilol 3.125 MG 3.125 MG 3.125 MG amLODIPine amLODIPine No 1{table QD amLODIPine Besylate 5 Besylate 5 t} Besylate 5 MG MG MG Zetia 10 MG Zetia 10 MG No 1{table QD Zetia 10 t} MG Carvedilol Carvedilol No BID Carvedilol 3.125 MG 3.125 MG 3.125 MG Immunizations Ordered Filled Immunization Date Status Comments [facility] e Immunization Name Name Influenza High Dose 2022-04-03 Completed [facility] 00:00:00 [facility] Influenza High Dose 2022-04-03 Completed [facility] 00:00:00 [facility] Influenza High Dose 2022-04-03 Completed [facility] 00:00:00 [facility] Influenza High Dose 2022-04-03 Completed [facility] 00:00:00 [facility] Influenza High Dose 2022-04-03 Completed [facility] 00:00:00 [facility] Influenza High Dose 2022-04-03 Completed [facility] 00:00:00 [facility] Influenza High Dose 2022-04-03 Completed [facility] 00:00:00 [facility] Influenza High Dose 2022-04-03 Completed [facility] 00:00:00 [facility] Influenza High Dose 2022-04-03 Completed [facility] 00:00:00 [facility] Influenza High Dose 2022-04-03 Completed [facility] 00:00:00 [facility] Influenza High Dose 2022-04-03 Completed [facility] 00:00:00 [facility] Influenza High Dose 2022-04-03 Completed [facility] 00:00:00 [facility] Influenza High Dose 2022-04-03 Completed [facility] of 00:00:00 [facility] Influenza High Dose 2022-04-03 Completed [facility] 00:00:00 [facility] Influenza High Dose 2022-04-03 Completed [facility] 00:00:00 [facility] Influenza High Dose 2022-04-03 Completed [facility] 00:00:00 [facility] Influenza High Dose 2022-04-03 Completed [facility] 00:00:00 [facility] Influenza High Dose 2022-04-03 Completed [facility] of 00:00:00 [facility] Influenza High Dose 2022-04-03 Completed [facility] of 00:00:00 [facility] Influenza High Dose 2022-04-03 Completed [facility] of 00:00:00 [facility] Influenza High Dose 2022-04-03 Completed [facility] of 00:00:00 [facility] Influenza High Dose 2022-04-03 Completed [facility] of 00:00:00 [facility] Influenza High Dose 2022-04-03 Completed [facility] of 00:00:00 [facility] Influenza High Dose 2022-04-03 Completed [facility] of 00:00:00 [facility] Influenza High Dose 2022-04-03 Completed [facility] of 00:00:00 [facility] Influenza High Dose 2022-04-03 Completed [facility] 00:00:00 [facility] Influenza High Dose 2022-04-03 Completed [facility] of 00:00:00 [facility] Influenza High Dose 2022-04-03 Completed [facility] 00:00:00 [facility] Influenza High Dose 2022-04-03 Completed [facility] 00:00:00 [facility] Influenza High Dose 2022-04-03 Completed [facility] 00:00:00 [facility] Influenza High Dose 2022-04-03 Completed [facility] 00:00:00 [facility] Influenza High Dose 2022-04-03 Completed [facility] 00:00:00 [facility] Influenza High Dose 2022-04-03 Completed [facility] of 00:00:00 [facility] Influenza High Dose 2022-04-03 Completed [facility] 00:00:00 [facility] Influenza High Dose 2022-04-03 Completed [facility] of 00:00:00 [facility] Influenza High Dose 2022-04-03 Completed [facility] of 00:00:00 [facility] Influenza High Dose 2022-04-03 Completed [facility] 00:00:00 [facility] Influenza High Dose 2022-04-03 Completed [facility] of 00:00:00 [facility] Influenza High Dose 2022-04-03 Completed [facility] of 00:00:00 [facility] Influenza High Dose 2022-04-03 Completed [facility] of 00:00:00 [facility] Influenza High Dose 2022-04-03 Completed [facility] 00:00:00 [facility] Influenza High Dose 2022-04-03 Completed [facility] 00:00:00 [facility] SARS-COV-2 COVID-19 2022-02-07 Completed [facility] of PFIZER AMAYA-SUCROSE 00:00:00 [facility] SARS-COV-2 COVID-19 2022-02-07 Completed [facility]ive [facility] of PFIZER AMAYA-SUCROSE 00:00:00 [facility] ([facility] SARS-COV-2 COVID-19 2022-02-07 Completed [facility] of PFIZER AMAYA-SUCROSE 00:00:00 [facility] ([facility] SARS-COV-2 COVID-19 2022-02-07 Completed [facility] of PFIZER AMAYA-SUCROSE 00:00:00 [facility] ([facility] SARS-COV-2 COVID-19 2022-02-07 Completed [facility]ive [facility] of PFIZER AMAYA-SUCROSE 00:00:00 [facility] ([facility] SARS-COV-2 COVID-19 2022-02-07 Completed [facility]ive [facility] of PFIZER AMAYA-SUCROSE 00:00:00 [facility] SARS-COV-2 COVID-19 2022-02-07 Completed [facility]ive [facility] of PFIZER AMAYA-SUCROSE 00:00:00 [facility] ([facility] SARS-COV-2 COVID-19 2022-02-07 Completed [facility]ive [facility] of PFIZER AMAYA-SUCROSE 00:00:00 [facility] SARS-COV-2 COVID-19 2022-02-07 Completed [facility]ive [facility] of PFIZER AMAYA-SUCROSE 00:00:00 [facility] ([facility] SARS-COV-2 COVID-19 2022-02-07 Completed [facility]ive [facility] of PFIZER AMAYA-SUCROSE 00:00:00 [facility] ([facility] SARS-COV-2 COVID-19 2022-02-07 Completed [facility]ive [facility] of PFIZER AMAYA-SUCROSE 00:00:00 [facility] ([facility] SARS-COV-2 COVID-19 2022-02-07 Completed [facility] of PFIZER AMAYA-SUCROSE 00:00:00 [facility] ([facility] SARS-COV-2 COVID-19 2022-02-07 Completed [facility]ive [facility] of PFIZER AMAYA-SUCROSE 00:00:00 [facility] ([facility] SARS-COV-2 COVID-19 2022-02-07 Completed [facility]ive [facility] of PFIZER AMAYA-SUCROSE 00:00:00 [facility] ([facility] SARS-COV-2 COVID-19 2022-02-07 Completed [facility]ive [facility] of PFIZER AMAYA-SUCROSE 00:00:00 [facility] ([facility] SARS-COV-2 COVID-19 2022-02-07 Completed [facility] of PFIZER AMAYA-SUCROSE 00:00:00 [facility] ([facility] SARS-COV-2 COVID-19 2022-02-07 Completed [facility]ive [facility] of PFIZER AMAYA-SUCROSE 00:00:00 [facility] ([facility] SARS-COV-2 COVID-19 2022-02-07 Completed [facility]ive [facility] of PFIZER AMAYA-SUCROSE 00:00:00 [facility] ([facility] SARS-COV-2 COVID-19 2022-02-07 Completed [facility]ive [facility] of PFIZER AMAYA-SUCROSE 00:00:00 [facility] ([facility] SARS-COV-2 COVID-19 2022-02-07 Completed [facility]ive [facility] of PFIZER AMAYA-SUCROSE 00:00:00 [facility] ([facility] SARS-COV-2 COVID-19 2022-02-07 Completed [facility]ive [facility] of PFIZER AMAYA-SUCROSE 00:00:00 [facility] ([facility] SARS-COV-2 COVID-19 2022-02-07 Completed [facility]ive [facility] of PFIZER AMAYA-SUCROSE 00:00:00 [facility] ([facility] SARS-COV-2 COVID-19 2022-02-07 Completed Unive [facility]ity of PFIZER AMAYA-SUCROSE 00:00:00 [facility] ([facility] SARS-COV-2 COVID-19 2022-02-07 Completed Unive [facility]ity of PFIZER AMAYA-SUCROSE 00:00:00 [facility] ([facility] SARS-COV-2 COVID-19 2022-02-07 Completed Unive [facility] of PFIZER AMAYA-SUCROSE 00:00:00 [facility] ([facility] SARS-COV-2 COVID-19 2022-02-07 Completed [facility]ive [facility] of PFIZER AMAYA-SUCROSE 00:00:00 [facility] ([facility] SARS-COV-2 COVID-19 2022-02-07 Completed [facility]ive [facility] of PFIZER AMAYA-SUCROSE 00:00:00 [facility] ([facility] SARS-COV-2 COVID-19 2022-02-07 Completed Unive [facility] of PFIZER AMAYA-SUCROSE 00:00:00 [facility] ([facility] SARS-COV-2 COVID-19 2022-02-07 Completed Unive [facility]ity of PFIZER AMAYA-SUCROSE 00:00:00 [facility] ([facility] SARS-COV-2 COVID-19 2022-02-07 Completed Unive [facility] of PFIZER AMAYA-SUCROSE 00:00:00 [facility] ([facility] SARS-COV-2 COVID-19 2022-02-07 Completed Unive [facility]ity of PFIZER AMAYA-SUCROSE 00:00:00 [facility] ([facility] SARS-COV-2 COVID-19 2022-02-07 Completed Unive [facility]ity of PFIZER AMAYA-SUCROSE 00:00:00 [facility] ([facility] SARS-COV-2 COVID-19 2022-02-07 Completed [facility] PFIZ[facility] AMAYA-SUCROSE 00:00:00 [facility]ACCINE ([facility]) [facility] SARS-COV-2 COVID-19 2022-02-07 Completed [facility] PFIZ[facility] AMAYA-SUCROSE 00:00:00 [facility]ACCINE ([facility]) [facility] SARS-COV-2 COVID-19 2022-02-07 Completed [facility] PFIZER AMAYA-SUCROSE 00:00:00 [facility]ACCINE ([facility]) [facility] SARS-COV-2 COVID-19 2022-02-07 Completed [facility] P[facility] AMAYA-SUCROSE 00:00:00 [facility]ACCINE ([facility]) [facility] SARS-COV-2 COVID-19 2022-02-07 Completed [facility] PFIZ[facility] AMAYA-SUCROSE 00:00:00 [facility]ACCINE ([facility]) [facility] SARS-COV-2 COVID-19 2022-02-07 Completed [facility] P[facility] AMAYA-SUCROSE 00:00:00 [facility] VACCINE ([facility]) [facility] SARS-COV-2 COVID-19 2022-02-07 Completed [facility] P[facility] AMAYA-SUCROSE 00:00:00 [facility] VACCINE ([facility]) Branch SARS-COV-2 COVID-19 2022-02-07 Completed [facility] PFIZER AMAYA-SUCROSE 00:00:00 [facility] ([facility] SARS-COV-2 COVID-19 2022-02-07 Completed [facility] PFIZER AMAYA-SUCROSE 00:00:00 [facility] ([facility] SARS-COV-2 COVID-19 2022-02-07 Completed [facility] PFIZER AMAYA-SUCROSE 00:00:00 [facility] ([facility] SARS-COV-2 COVID-19 2022-02-07 Completed [facility] PFIZER AMAYA-SUCROSE 00:00:00 [facility] ([facility] SARS-COV-2 COVID-19 2022-02-07 Completed [facility] PFIZER AMAYA-SUCROSE 00:00:00 [facility] ([facility] SARS-COV-2 COVID-19 2022-02-07 Completed [facility] PFIZER AMAYA-SUCROSE 00:00:00 [facility] ([facility] SARS-COV-2 COVID-19 2022-02-07 Completed [facility] PFIZER AMAYA-SUCROSE 00:00:00 [facility] ([facility] SARS-COV-2 COVID-19 2022-02-07 Completed [facility] PFIZER AMYAA-SUCROSE 00:00:00 [facility] ([facility] SARS-COV-2 COVID-19 2022-02-07 Completed [facility] PFIZER AMAYA-SUCROSE 00:00:00 [facility] ([facility] SARS-COV-2 COVID-19 2021-05-04 Completed [facility] PFIZER VACCINE 00:00:00 [facility] SARS-COV-2 COVID-19 2021-05-04 Completed [facility] PFIZER VACCINE 00:00:00 [facility] SARS-COV-2 COVID-19 2021-05-04 Completed [facility] PFIZER VACCINE 00:00:00 [facility] SARS-COV-2 COVID-19 2021-05-04 Completed [facility] PFIZER VACCINE 00:00:00 [facility] SARS-COV-2 COVID-19 2021-05-04 Completed [facility] PFIZER VACCINE 00:00:00 [facility] SARS-COV-2 COVID-19 2021-05-04 Completed [facility] PFIZER VACCINE 00:00:00 [facility] SARS-COV-2 COVID-19 2021-05-04 Completed [facility] PFIZER VACCINE 00:00:00 [facility] SARS-COV-2 COVID-19 2021-05-04 Completed [facility] PFIZER VACCINE 00:00:00 [facility] SARS-COV-2 COVID-19 2021-05-04 Completed [facility] PFIZER VACCINE 00:00:00 [facility] SARS-COV-2 COVID-19 2021-05-04 Completed [facility] PFIZER VACCINE 00:00:00 [facility] SARS-COV-2 COVID-19 2021-05-04 Completed [facility] PFIZER VACCINE 00:00:00 [facility] SARS-COV-2 COVID-19 2021-05-04 Completed [facility] PFIZER VACCINE 00:00:00 [facility] SARS-COV-2 COVID-19 2021-05-04 Completed [facility] PFIZER VACCINE 00:00:00 [facility] SARS-COV-2 COVID-19 2021-05-04 Completed [facility] PFIZER VACCINE 00:00:00 [facility] SARS-COV-2 COVID-19 2021-05-04 Completed [facility] PFIZER VACCINE 00:00:00 [facility] SARS-COV-2 COVID-19 2021-05-04 Completed [facility] PFIZER VACCINE 00:00:00 [facility] SARS-COV-2 COVID-19 2021-05-04 Completed [facility] PFIZER VACCINE 00:00:00 [facility] SARS-COV-2 COVID-19 2021-05-04 Completed [facility] PFIZER VACCINE 00:00:00 [facility] SARS-COV-2 COVID-19 2021-05-04 Completed [facility] PFIZER VACCINE 00:00:00 [facility] SARS-COV-2 COVID-19 2021-05-04 Completed [facility] PFIZER VACCINE 00:00:00 [facility] SARS-COV-2 COVID-19 2021-05-04 Completed [facility] PFIZER VACCINE 00:00:00 [facility] SARS-COV-2 COVID-19 2021-05-04 Completed [facility] PFIZER VACCINE 00:00:00 [facility] SARS-COV-2 COVID-19 2021-05-04 Completed [facility] PFIZER VACCINE 00:00:00 [facility] SARS-COV-2 COVID-19 2021-05-04 Completed [facility] PFIZER VACCINE 00:00:00 [facility] SARS-COV-2 COVID-19 2021-05-04 Completed [facility] PFIZER VACCINE 00:00:00 [facility] SARS-COV-2 COVID-19 2021-05-04 Completed [facility] PFIZER VACCINE 00:00:00 [facility] SARS-COV-2 COVID-19 2021-05-04 Completed [facility] PFIZER VACCINE 00:00:00 [facility] SARS-COV-2 COVID-19 2021-05-04 Completed [facility] PFIZER VACCINE 00:00:00 [facility] SARS-COV-2 COVID-19 2021-05-04 Completed [facility] PFIZER VACCINE 00:00:00 [facility] SARS-COV-2 COVID-19 2021-05-04 Completed [facility] PFIZER VACCINE 00:00:00 [facility] SARS-COV-2 COVID-19 2021-05-04 Completed [facility] PFIZER VACCINE 00:00:00 [facility] SARS-COV-2 COVID-19 2021-05-04 Completed [facility] PFIZER VACCINE 00:00:00 [facility] SARS-COV-2 COVID-19 2021-05-04 Completed [facility] PFIZER VACCINE 00:00:00 [facility] SARS-COV-2 COVID-19 2021-05-04 Completed [facility] PFIZER VACCINE 00:00:00 [facility] SARS-COV-2 COVID-19 2021-05-04 Completed [facility] PFIZER VACCINE 00:00:00 [facility] SARS-COV-2 COVID-19 2021-05-04 Completed [facility] PFIZER VACCINE 00:00:00 [facility] SARS-COV-2 COVID-19 2021-05-04 Completed [facility] PFIZER VACCINE 00:00:00 [facility] SARS-COV-2 COVID-19 2021-05-04 Completed [facility] PFIZER VACCINE 00:00:00 [facility] SARS-COV-2 COVID-19 2021-05-04 Completed [facility] PFIZER VACCINE 00:00:00 [facility] SARS-COV-2 COVID-19 2021-05-04 Completed [facility] PFIZER VACCINE 00:00:00 [facility] SARS-COV-2 COVID-19 2021-05-04 Completed [facility] PFIZER VACCINE 00:00:00 [facility] SARS-COV-2 COVID-19 2021-05-04 Completed [facility] PFIZER VACCINE 00:00:00 [facility] SARS-COV-2 COVID-19 2021-05-04 Completed [facility] PFIZER VACCINE 00:00:00 [facility] SARS-COV-2 COVID-19 2021-05-04 Completed [facility] PFIZER VACCINE 00:00:00 [facility] SARS-COV-2 COVID-19 2021-05-04 Completed [facility] PFIZER VACCINE 00:00:00 [facility] SARS-COV-2 COVID-19 2021-05-04 Completed [facility] PFIZER VACCINE 00:00:00 [facility] SARS-COV-2 COVID-19 2021-05-04 Completed [facility] PFIZER VACCINE 00:00:00 [facility] SARS-COV-2 COVID-19 2021-05-04 Completed [facility] PFIZER VACCINE 00:00:00 [facility] SARS-COV-2 COVID-19 2020-10-30 Completed [facility] PFIZER VACCINE 00:00:00 [facility] SARS-COV-2 COVID-19 2020-10-30 Completed [facility] PFIZER VACCINE 00:00:00 [facility] SARS-COV-2 COVID-19 2020-10-30 Completed [facility] PFIZER VACCINE 00:00:00 [facility] SARS-COV-2 COVID-19 2020-10-30 Completed [facility] PFIZER VACCINE 00:00:00 [facility] SARS-COV-2 COVID-19 2020-10-30 Completed [facility] PFIZER VACCINE 00:00:00 [facility] SARS-COV-2 COVID-19 2020-10-30 Completed [facility] PFIZER VACCINE 00:00:00 [facility] SARS-COV-2 COVID-19 2020-10-30 Completed [facility] PFIZER VACCINE 00:00:00 [facility] SARS-COV-2 COVID-19 2020-10-30 Completed [facility] PFIZER VACCINE 00:00:00 [facility] SARS-COV-2 COVID-19 2020-10-30 Completed [facility] PFIZER VACCINE 00:00:00 [facility] SARS-COV-2 COVID-19 2020-10-30 Completed [facility] PFIZER VACCINE 00:00:00 [facility] SARS-COV-2 COVID-19 2020-10-30 Completed [facility] PFIZER VACCINE 00:00:00 [facility] SARS-COV-2 COVID-19 2020-10-30 Completed [facility] PFIZER VACCINE 00:00:00 [facility] SARS-COV-2 COVID-19 2020-10-30 Completed [facility] PFIZER VACCINE 00:00:00 [facility] SARS-COV-2 COVID-19 2020-10-30 Completed [facility] PFIZER VACCINE 00:00:00 [facility] SARS-COV-2 COVID-19 2020-10-30 Completed [facility] PFIZER VACCINE 00:00:00 [facility] SARS-COV-2 COVID-19 2020-10-30 Completed [facility] PFIZER VACCINE 00:00:00 [facility] SARS-COV-2 COVID-19 2020-10-30 Completed [facility] PFIZER VACCINE 00:00:00 [facility] SARS-COV-2 COVID-19 2020-10-30 Completed [facility] PFIZER VACCINE 00:00:00 [facility] SARS-COV-2 COVID-19 2020-10-30 Completed [facility] PFIZER VACCINE 00:00:00 [facility] SARS-COV-2 COVID-19 2020-10-30 Completed [facility] PFIZER VACCINE 00:00:00 [facility] SARS-COV-2 COVID-19 2020-10-30 Completed [facility] PFIZER VACCINE 00:00:00 [facility] SARS-COV-2 COVID-19 2020-10-30 Completed [facility] PFIZER VACCINE 00:00:00 [facility] SARS-COV-2 COVID-19 2020-10-30 Completed [facility] PFIZER VACCINE 00:00:00 [facility] SARS-COV-2 COVID-19 2020-10-30 Completed [facility] PFIZER VACCINE 00:00:00 [facility] SARS-COV-2 COVID-19 2020-10-30 Completed [facility] PFIZER VACCINE 00:00:00 [facility] SARS-COV-2 COVID-19 2020-10-30 Completed [facility] PFIZER VACCINE 00:00:00 [facility] SARS-COV-2 COVID-19 2020-10-30 Completed [facility] PFIZER VACCINE 00:00:00 [facility] SARS-COV-2 COVID-19 2020-10-30 Completed [facility] PFIZER VACCINE 00:00:00 [facility] SARS-COV-2 COVID-19 2020-10-30 Completed [facility] PFIZER VACCINE 00:00:00 [facility] SARS-COV-2 COVID-19 2020-10-30 Completed [facility] PFIZER VACCINE 00:00:00 [facility] SARS-COV-2 COVID-19 2020-10-30 Completed [facility] PFIZER VACCINE 00:00:00 [facility] SARS-COV-2 COVID-19 2020-10-30 Completed [facility] PFIZER VACCINE 00:00:00 [facility] SARS-COV-2 COVID-19 2020-10-30 Completed [facility] PFIZER VACCINE 00:00:00 [facility] SARS-COV-2 COVID-19 2020-10-30 Completed [facility] PFIZER VACCINE 00:00:00 [facility] SARS-COV-2 COVID-19 2020-10-30 Completed [facility] PFIZER VACCINE 00:00:00 [facility] SARS-COV-2 COVID-19 2020-10-30 Completed [facility] PFIZER VACCINE 00:00:00 [facility] SARS-COV-2 COVID-19 2020-10-30 Completed [facility] PFIZER VACCINE 00:00:00 [facility] SARS-COV-2 COVID-19 2020-10-30 Completed [facility] PFIZER VACCINE 00:00:00 [facility] SARS-COV-2 COVID-19 2020-10-30 Completed [facility] PFIZER VACCINE 00:00:00 [facility] SARS-COV-2 COVID-19 2020-10-30 Completed [facility] PFIZER VACCINE 00:00:00 [facility] SARS-COV-2 COVID-19 2020-10-30 Completed [facility] PFIZER VACCINE 00:00:00 [facility] SARS-COV-2 COVID-19 2020-10-30 Completed [facility] PFIZER VACCINE 00:00:00 [facility] SARS-COV-2 COVID-19 2020-10-30 Completed [facility] PFIZER VACCINE 00:00:00 [facility] SARS-COV-2 COVID-19 2020-10-30 Completed [facility] PFIZER VACCINE 00:00:00 [facility] SARS-COV-2 COVID-19 2020-10-30 Completed [facility] PFIZER VACCINE 00:00:00 [facility] SARS-COV-2 COVID-19 2020-10-30 Completed [facility] PFIZER VACCINE 00:00:00 [facility] SARS-COV-2 COVID-19 2020-10-30 Completed [facility] PFIZER VACCINE 00:00:00 [facility] SARS-COV-2 COVID-19 2020-10-30 Completed [facility] PFIZER VACCINE 00:00:00 [facility] SARS-COV-2 COVID-19 2020-10-09 Completed [facility] PFIZER VACCINE 00:00:00 [facility] SARS-COV-2 COVID-19 2020-10-09 Completed [facility] PFIZER VACCINE 00:00:00 [facility] SARS-COV-2 COVID-19 2020-10-09 Completed [facility] PFIZER VACCINE 00:00:00 [facility] SARS-COV-2 COVID-19 2020-10-09 Completed [facility] PFIZER VACCINE 00:00:00 [facility] SARS-COV-2 COVID-19 2020-10-09 Completed [facility] PFIZER VACCINE 00:00:00 [facility] SARS-COV-2 COVID-19 2020-10-09 Completed [facility] PFIZER VACCINE 00:00:00 [facility] SARS-COV-2 COVID-19 2020-10-09 Completed [facility] PFIZER VACCINE 00:00:00 [facility] SARS-COV-2 COVID-19 2020-10-09 Completed [facility] PFIZER VACCINE 00:00:00 [facility] SARS-COV-2 COVID-19 2020-10-09 Completed [facility] PFIZER VACCINE 00:00:00 [facility] SARS-COV-2 COVID-19 2020-10-09 Completed [facility] PFIZER VACCINE 00:00:00 [facility] SARS-COV-2 COVID-19 2020-10-09 Completed [facility] PFIZER VACCINE 00:00:00 [facility] SARS-COV-2 COVID-19 2020-10-09 Completed [facility] PFIZER VACCINE 00:00:00 [facility] SARS-COV-2 COVID-19 2020-10-09 Completed [facility] PFIZER VACCINE 00:00:00 [facility] SARS-COV-2 COVID-19 2020-10-09 Completed [facility] PFIZER VACCINE 00:00:00 [facility] SARS-COV-2 COVID-19 2020-10-09 Completed [facility] PFIZER VACCINE 00:00:00 [facility] SARS-COV-2 COVID-19 2020-10-09 Completed [facility] PFIZER VACCINE 00:00:00 [facility] SARS-COV-2 COVID-19 2020-10-09 Completed [facility] PFIZER VACCINE 00:00:00 [facility] SARS-COV-2 COVID-19 2020-10-09 Completed [facility] PFIZER VACCINE 00:00:00 [facility] SARS-COV-2 COVID-19 2020-10-09 Completed [facility] PFIZER VACCINE 00:00:00 [facility] SARS-COV-2 COVID-19 2020-10-09 Completed [facility] PFIZER VACCINE 00:00:00 [facility] SARS-COV-2 COVID-19 2020-10-09 Completed [facility] PFIZER VACCINE 00:00:00 [facility] SARS-COV-2 COVID-19 2020-10-09 Completed [facility] PFIZER VACCINE 00:00:00 [facility] SARS-COV-2 COVID-19 2020-10-09 Completed [facility] PFIZER VACCINE 00:00:00 [facility] SARS-COV-2 COVID-19 2020-10-09 Completed [facility] PFIZER VACCINE 00:00:00 [facility] SARS-COV-2 COVID-19 2020-10-09 Completed [facility] PFIZER VACCINE 00:00:00 [facility] SARS-COV-2 COVID-19 2020-10-09 Completed [facility] PFIZER VACCINE 00:00:00 [facility] SARS-COV-2 COVID-19 2020-10-09 Completed [facility] PFIZER VACCINE 00:00:00 [facility] SARS-COV-2 COVID-19 2020-10-09 Completed [facility] PFIZER VACCINE 00:00:00 [facility] SARS-COV-2 COVID-19 2020-10-09 Completed [facility] PFIZER VACCINE 00:00:00 [facility] SARS-COV-2 COVID-19 2020-10-09 Completed [facility] PFIZER VACCINE 00:00:00 [facility] SARS-COV-2 COVID-19 2020-10-09 Completed [facility] PFIZER VACCINE 00:00:00 [facility] SARS-COV-2 COVID-19 2020-10-09 Completed [facility] PFIZER VACCINE 00:00:00 [facility] SARS-COV-2 COVID-19 2020-10-09 Completed [facility] PFIZER VACCINE 00:00:00 [facility] SARS-COV-2 COVID-19 2020-10-09 Completed [facility] PFIZER VACCINE 00:00:00 [facility] SARS-COV-2 COVID-19 2020-10-09 Completed [facility] PFIZER VACCINE 00:00:00 [facility] SARS-COV-2 COVID-19 2020-10-09 Completed [facility] PFIZER VACCINE 00:00:00 [facility] SARS-COV-2 COVID-19 2020-10-09 Completed [facility] PFIZER VACCINE 00:00:00 [facility] SARS-COV-2 COVID-19 2020-10-09 Completed [facility] PFIZER VACCINE 00:00:00 [facility] SARS-COV-2 COVID-19 2020-10-09 Completed [facility] PFIZER VACCINE 00:00:00 [facility] SARS-COV-2 COVID-19 2020-10-09 Completed [facility] PFIZER VACCINE 00:00:00 [facility] SARS-COV-2 COVID-19 2020-10-09 Completed [facility] PFIZER VACCINE 00:00:00 [facility] SARS-COV-2 COVID-19 2020-10-09 Completed [facility] PFIZER VACCINE 00:00:00 [facility] SARS-COV-2 COVID-19 2020-10-09 Completed [facility] of PFIZER VACCINE 00:00:00 [facility] SARS-COV-2 COVID-19 2020-10-09 Completed [facility] PFIZER VACCINE 00:00:00 [facility] SARS-COV-2 COVID-19 2020-10-09 Completed [facility] PFIZER VACCINE 00:00:00 [facility] SARS-COV-2 COVID-19 2020-10-09 Completed [facility] PFIZER VACCINE 00:00:00 [facility] SARS-COV-2 COVID-19 2020-10-09 Completed [facility] PFIZER VACCINE 00:00:00 [facility] SARS-COV-2 COVID-19 2020-10-09 Completed [facility] PFIZER VACCINE 00:00:00 [facility] FLUZONE HIGH DOSE FLUZONE HIGH DOSE 2019-04-09 Completed [facility] - OVER 65 OVER 65 19:53:00 [facility] FLUZONE HIGH DOSE FLUZONE HIGH DOSE 2019-04-09 Completed [facility] - OVER 65 OVER 65 19:53:00 [facility] FLUZONE HIGH DOSE FLUZONE HIGH DOSE 2019-04-09 Completed [facility] - OVER 65 OVER 65 19:53:00 [facility] FLUZONE HIGH DOSE FLUZONE HIGH DOSE 2019-04-09 Completed [facility] - OVER 65 OVER 65 19:53:00 [facility] FLUZONE HIGH DOSE FLUZONE HIGH DOSE 2019-04-09 Completed [facility] - OVER 65 OVER 65 19:53:00 [facility] Influenza High Dose 2019-04-09 Completed [facility] 00:00:00 [facility] Influenza High Dose 2019-04-09 Completed [facility] 00:00:00 [facility] Influenza High Dose 2019-04-09 Completed [facility] 00:00:00 [facility] Influenza High Dose 2019-04-09 Completed [facility] of 00:00:00 [facility] Influenza High Dose 2019-04-09 Completed [facility] 00:00:00 [facility] Influenza High Dose 2019-04-09 Completed [facility] 00:00:00 [facility] Influenza High Dose 2019-04-09 Completed [facility] 00:00:00 [facility] Influenza High Dose 2019-04-09 Completed [facility] 00:00:00 [facility] Influenza High Dose 2019-04-09 Completed [facility] 00:00:00 [facility] Influenza High Dose 2019-04-09 Completed [facility] 00:00:00 [facility] Influenza High Dose 2019-04-09 Completed [facility] 00:00:00 [facility] Influenza High Dose 2019-04-09 Completed [facility] 00:00:00 [facility] Influenza High Dose 2019-04-09 Completed [facility] 00:00:00 [facility] Influenza High Dose 2019-04-09 Completed [facility] 00:00:00 [facility] Influenza High Dose 2019-04-09 Completed [facility] 00:00:00 [facility] Influenza High Dose 2019-04-09 Completed [facility] 00:00:00 [facility] Influenza High Dose 2019-04-09 Completed [facility] 00:00:00 [facility] Influenza High Dose 2019-04-09 Completed [facility] 00:00:00 [facility] Influenza High Dose 2019-04-09 Completed [facility] of 00:00:00 [facility] Influenza High Dose 2019-04-09 Completed [facility] 00:00:00 [facility] Influenza High Dose 2019-04-09 Completed [facility] 00:00:00 [facility] Influenza High Dose 2019-04-09 Completed [facility] 00:00:00 [facility] Influenza High Dose 2019-04-09 Completed [facility] 00:00:00 [facility] Influenza High Dose 2019-04-09 Completed [facility] 00:00:00 [facility] Influenza High Dose 2019-04-09 Completed [facility] 00:00:00 [facility] Influenza High Dose 2019-04-09 Completed [facility] 00:00:00 [facility] Influenza High Dose 2019-04-09 Completed [facility] 00:00:00 [facility] Influenza High Dose 2019-04-09 Completed [facility] 00:00:00 [facility] Influenza High Dose 2019-04-09 Completed [facility] 00:00:00 [facility] Influenza High Dose 2019-04-09 Completed [facility] 00:00:00 [facility] Influenza High Dose 2019-04-09 Completed [facility] 00:00:00 [facility] Influenza High Dose 2019-04-09 Completed [facility] 00:00:00 [facility] Influenza High Dose 2019-04-09 Completed [facility] 00:00:00 [facility] Influenza High Dose 2019-04-09 Completed [facility] 00:00:00 [facility] Influenza High Dose 2019-04-09 Completed [facility] 00:00:00 [facility] Influenza High Dose 2019-04-09 Completed [facility] 00:00:00 [facility] Influenza High Dose 2019-04-09 Completed [facility] 00:00:00 [facility] Influenza High Dose 2019-04-09 Completed [facility] 00:00:00 [facility] Influenza High Dose 2019-04-09 Completed [facility] 00:00:00 [facility] Influenza High Dose 2019-04-09 Completed [facility] 00:00:00 [facility] Influenza High Dose 2019-04-09 Completed [facility] 00:00:00 [facility] Influenza High Dose 2019-04-09 Completed [facility] 00:00:00 [facility] Influenza High Dose 2019-04-09 Completed [facility] 00:00:00 [facility] Influenza High Dose 2019-04-09 Completed [facility] 00:00:00 [facility] Influenza High Dose 2019-04-09 Completed [facility] 00:00:00 [facility] Influenza High Dose 2019-04-09 Completed [facility]ity of 00:00:00 [facility] Influenza High Dose 2019-04-09 Completed [facility]ity of 00:00:00 [facility] Influenza High Dose 2019-04-09 Completed [facility]ive [facility]ity of 00:00:00 [facility] FLUZONE HIGH DOSE FLUZONE HIGH DOSE 2018-04-30 Completed [facility] - OVER 65 OVER 65 16:20:00 [facility] FLUZONE HIGH DOSE FLUZONE HIGH DOSE 2018-04-30 Completed [facility] - OVER 65 OVER 65 16:20:00 [facility] FLUZONE HIGH DOSE FLUZONE HIGH DOSE 2018-04-30 Completed [facility] - OVER 65 OVER 65 16:20:00 [facility] FLUZONE HIGH DOSE FLUZONE HIGH DOSE 2018-04-30 Completed [facility] - OVER 65 OVER 65 16:20:00 [facility] FLUZONE HIGH DOSE FLUZONE HIGH DOSE 2018-04-30 Completed [facility] - OVER 65 OVER 65 16:20:00 [facility] Influenza High Dose 2018-04-30 Completed [facility]ive [facility]ity of 00:00:00 [facility] Influenza High Dose 2018-04-30 Completed [facility]ity of 00:00:00 [facility] Influenza High Dose 2018-04-30 Completed [facility]ive [facility]ity of 00:00:00 [facility] Influenza High Dose 2018-04-30 Completed [facility]ive [facility]ity of 00:00:00 [facility] Influenza High Dose 2018-04-30 Completed [facility]ive [facility]ity of 00:00:00 [facility] Influenza High Dose 2018-04-30 Completed [facility]ive [facility]ity of 00:00:00 [facility] Influenza High Dose 2018-04-30 Completed [facility]ive [facility]ity of 00:00:00 [facility] Influenza High Dose 2018-04-30 Completed [facility]ity of 00:00:00 [facility] Influenza High Dose 2018-04-30 Completed [facility]ity of 00:00:00 [facility] Influenza High Dose 2018-04-30 Completed [facility] 00:00:00 [facility] Influenza High Dose 2018-04-30 Completed [facility]ive rsity of 00:00:00 [facility] Influenza High Dose 2018-04-30 Completed [facility]ive rsity of 00:00:00 [facility] Influenza High Dose 2018-04-30 Completed [facility]ive rsity of 00:00:00 [facility] Influenza High Dose 2018-04-30 Completed [facility]ive [facility]ity of 00:00:00 [facility] Influenza High Dose 2018-04-30 Completed [facility]ive [facility]ity of 00:00:00 [facility] Influenza High Dose 2018-04-30 Completed [facility]ive [facility]ity of 00:00:00 [facility] Influenza High Dose 2018-04-30 Completed [facility]ity of 00:00:00 [facility] Influenza High Dose 2018-04-30 Completed [facility]ive rsity of 00:00:00 [facility] Influenza High Dose 2018-04-30 Completed [facility]ive rsity of 00:00:00 [facility] Influenza High Dose 2018-04-30 Completed [facility]ity of 00:00:00 [facility] Influenza High Dose 2018-04-30 Completed [facility]ive rsity of 00:00:00 [facility] Influenza High Dose 2018-04-30 Completed [facility]ive rsity of 00:00:00 [facility] Influenza High Dose 2018-04-30 Completed [facility]ive rsity of 00:00:00 [facility] Influenza High Dose 2018-04-30 Completed [facility]ive rsity of 00:00:00 [facility] Influenza High Dose 2018-04-30 Completed [facility]ive rsity of 00:00:00 [facility] Influenza High Dose 2018-04-30 Completed [facility]ive rsity of 00:00:00 [facility] Influenza High Dose 2018-04-30 Completed [facility]ive rsity of 00:00:00 [facility] Influenza High Dose 2018-04-30 Completed [facility]ity of 00:00:00 [facility] Influenza High Dose 2018-04-30 Completed [facility] of 00:00:00 [facility] Influenza High Dose 2018-04-30 Completed [facility]ity of 00:00:00 [facility] Influenza High Dose 2018-04-30 Completed [facility] rsity of 00:00:00 [facility] Influenza High Dose 2018-04-30 Completed [facility]ity of 00:00:00 [facility] Influenza High Dose 2018-04-30 Completed [facility] of 00:00:00 [facility] Influenza High Dose 2018-04-30 Completed [facility] of 00:00:00 [facility] Influenza High Dose 2018-04-30 Completed [facility] of 00:00:00 [facility] Influenza High Dose 2018-04-30 Completed [facility] of 00:00:00 [facility] Influenza High Dose 2018-04-30 Completed [facility]ity of 00:00:00 [facility] Influenza High Dose 2018-04-30 Completed [facility] of 00:00:00 [facility] Influenza High Dose 2018-04-30 Completed [facility]ity of 00:00:00 [facility] Influenza High Dose 2018-04-30 Completed [facility]ity of 00:00:00 [facility] Influenza High Dose 2018-04-30 Completed [facility] rsity of 00:00:00 [facility] Influenza High Dose 2018-04-30 Completed [facility]ity of 00:00:00 [facility] Influenza High Dose 2018-04-30 Completed [facility]ity of 00:00:00 [facility] Influenza High Dose 2018-04-30 Completed [facility]ity of 00:00:00 [facility] Influenza High Dose 2018-04-30 Completed [facility]ity of 00:00:00 [facility] Influenza High Dose 2018-04-30 Completed [facility] of 00:00:00 [facility] Influenza High Dose 2018-04-30 Completed [facility] of 00:00:00 [facility] Influenza High Dose 2018-04-30 Completed [facility] of 00:00:00 [facility] Vital Signs Vital Name Observation Time Observation Value Comments Source WEIGHT 2022-10-16 20:46:00 63.504 kg WEIGHT 2022-10-16 20:46:00 63.504 kg WEIGHT 2022-10-16 20:46:00 63.504 kg Systolic blood 2022-09-28 18:26:00 146 mm[Hg] Univer sity of pressure [facility] Diastolic blood 2022-09-28 18:26:00 83 mm[Hg] Unive rsity of pressure [facility] Heart rate 2022-09-28 18:22:00 81 /min [facility] of [facility] Body temperature 2022-09-28 18:22:00 36.72 [place] Univ [facility] of [facility] Respiratory rate 2022-09-28 18:22:00 16 /min Univ [facility] Body height 2022-09-28 18:22:00 172.7 cm [facility] Body weight 2022-09-28 18:22:00 66.679 kg [facility] BMI 2022-09-28 18:22:00 22.35 kg/m2 [facility] Oxygen saturation in 2022-09-28 18:22:00 99 /min [facility] blood by [place] [facility] Systolic blood 2022-09-20 13:52:00 125 mm[Hg] Univer sity of pressure [facility] Diastolic blood 2022-09-20 13:52:00 79 mm[Hg] [facility]ive rsity of pressure [facility] Heart rate 2022-09-20 13:52:00 85 /min [facility] Body height 2022-09-20 13:52:00 172.7 cm [facility] Body weight 2022-09-20 13:52:00 66.679 kg [facility] BMI 2022-09-20 13:52:00 22.35 kg/m2 [facility] Oxygen saturation in 2022-09-20 13:52:00 97 /min [facility] blood by [place] [facility] Systolic blood 2022-09-14 19:30:00 123 mm[Hg] Univer [facility]ity of pressure [facility] Diastolic blood 2022-09-14 19:30:00 66 mm[Hg] [facility]ive [facility] of pressure [facility] Heart rate 2022-09-14 19:30:00 78 /min [facility] Respiratory rate 2022-09-14 19:30:00 27 /min [facility] Oxygen saturation in 2022-09-14 19:30:00 96 /min [facility] blood by [place] [facility] Body temperature 2022-09-14 15:21:00 36.44 [place] [facility] Body height 2022-09-14 15:21:00 172.7 cm [facility] Body weight 2022-09-14 15:21:00 66.225 kg [facility] BMI 2022-09-14 15:21:00 22.20 kg/m2 [facility] Systolic blood 2022-09-14 17:30:00 125 mm[Hg] [facility]iver [facility]ity of pressure [facility] Diastolic blood 2022-09-14 17:30:00 77 mm[Hg] [facility] of pressure [facility] Heart rate 2022-09-14 17:30:00 78 /min [facility] Respiratory rate 2022-09-14 17:30:00 22 /min [facility] Oxygen saturation in 2022-09-14 17:30:00 95 /min [facility] blood by [place] [facility] Body temperature 2022-09-14 15:21:00 36.44 [place] [facility] Body height 2022-09-14 15:21:00 172.7 cm [facility] Body weight 2022-09-14 15:21:00 66.225 kg [facility] BMI 2022-09-14 15:21:00 22.20 kg/m2 [facility] Systolic blood 2022-08-23 16:19:00 109 mm[Hg] [facility]iver [facility] of pressure [facility] Diastolic blood 2022-08-23 16:19:00 74 mm[Hg] [facility] rs[facility] of pressure [facility] Heart rate 2022-08-23 16:19:00 72 /min [facility] Body temperature 2022-08-23 16:19:00 36.56 [place] [facility] Respiratory rate 2022-08-23 16:19:00 18 /min [facility] Body height 2022-08-23 16:19:00 172.7 cm [facility] Body weight 2022-08-23 16:19:00 66.407 kg [facility] BMI 2022-08-23 16:19:00 22.26 kg/m2 [facility] Oxygen saturation in 2022-08-23 16:19:00 98 /min [facility] by [place] [facility] Systolic blood 2022-08-18 14:28:00 111 mm[Hg] [facility]iver [facility] of pressure [facility] Diastolic blood 2022-08-18 14:28:00 69 mm[Hg] [facility]ive [facility] of pressure [facility] Heart rate 2022-08-18 14:28:00 74 /min [facility] Body height 2022-08-18 14:28:00 172.7 cm [facility] Body weight 2022-08-18 14:28:00 66.679 kg [facility] BMI 2022-08-18 14:28:00 22.35 kg/m2 [facility] Systolic blood 2022-08-15 16:26:00 112 mm[Hg] Univer [facility]ity of pressure [facility] Diastolic blood 2022-08-15 16:26:00 75 mm[Hg] [facility]ive rsity of pressure [facility] Heart rate 2022-08-15 16:26:00 79 /min [facility] Body temperature 2022-08-15 16:26:00 36.61 [place] [facility] Respiratory rate 2022-08-15 16:26:00 18 /min [facility] Body height 2022-08-15 16:26:00 172.7 cm [facility] Body weight 2022-08-15 16:26:00 66.951 kg [facility] BMI 2022-08-15 16:26:00 22.44 kg/m2 [facility] Oxygen saturation in 2022-08-15 16:26:00 98 /min [facility] Arterial blood by [facility] Pulse oximetry Branch Systolic blood 2022-08-15 15:18:00 129 mm[Hg] Univer sity of pressure [facility] Diastolic blood 2022-08-15 15:18:00 96 mm[Hg] Unive rsity of pressure [facility] Heart rate 2022-08-15 15:18:00 92 /min [facility] Body temperature 2022-08-15 15:18:00 36.78 [place] Univ ersity of [facility] Respiratory rate 2022-08-15 15:18:00 18 /min Univ ersity of [facility] Body height 2022-08-15 15:18:00 172.7 cm [facility] Body weight 2022-08-15 15:18:00 66.86 kg [facility] BMI 2022-08-15 15:18:00 22.41 kg/m2 [facility] Oxygen saturation in 2022-08-15 15:18:00 98 /min [facility] [place] [facility] Systolic blood 2022-07-21 17:02:00 111 mm[Hg] Univer sity of pressure [facility] Diastolic blood 2022-07-21 17:02:00 71 mm[Hg] Unive rsity of pressure [facility] Heart rate 2022-07-21 17:02:00 85 /min [facility] Body height 2022-07-21 17:02:00 172.7 cm [facility] Body weight 2022-07-21 17:02:00 66.679 kg [facility] BMI 2022-07-21 17:02:00 22.35 kg/m2 [facility] Oxygen saturation in 2022-07-21 17:02:00 99 /min [facility] [place] [facility] Systolic blood 2022-06-28 16:49:00 132 mm[Hg] Univer [facility]ity of pressure [facility] Diastolic blood 2022-06-28 16:49:00 77 mm[Hg] Unive rsity of pressure [facility] Heart rate 2022-06-28 16:49:00 69 /min [facility] Body temperature 2022-06-28 16:03:00 36.39 [place] [facility] Body height 2022-06-28 16:03:00 157.5 cm [facility] Body weight 2022-06-28 16:03:00 66.679 kg [facility] BMI 2022-06-28 16:03:00 26.89 kg/m2 [facility] Oxygen saturation in 2022-06-28 16:03:00 96 /min [facility] [place] [facility] height 2022-03-17 08:00:00 67.5 [in_i] [facility] weight 2022-03-17 08:00:00 150.8 [lb_av] [facility] temperature 2022-03-17 08:00:00 97.5 [degF] Common [facility] bmi 2022-03-17 08:00:00 23.27 kg/m2 [facility] oximetry 2022-03-17 08:00:00 98 % [facility] respiratory rate 2022-03-17 08:00:00 16 /min Comm on [facility] blood pressure 2022-03-17 08:00:00 138 mm[Hg] [facility] systolic [facility] blood pressure 2022-03-17 08:00:00 78 mm[Hg] [facility] diastolic [facility] Systolic blood 2022-02-13 15:22:00 138 mm[Hg] Univer sity of [facility] Diastolic blood 2022-02-13 15:22:00 89 mm[Hg] Unive rsity [facility] Heart rate 2022-02-13 15:22:00 85 /min [facility] Body temperature 2022-02-13 15:22:00 36.83 [place] [facility] 2022-02-13 15:22:00 17 /min [facility] Body weight 2022-02-13 15:22:00 68.539 kg [facility] BMI 2022-02-13 15:22:00 25.94 kg/m2 [facility] Oxygen saturation in 2022-02-13 15:22:00 98 /min [facility] blood by [facility] Pulse oximetry Branch height 2021-09-15 13:00:00 67.5 [in_i] [facility] weight 2021-09-15 13:00:00 145.6 [lb_av] [facility] temperature 2021-09-15 13:00:00 98.2 [degF] [facility] bmi 2021-09-15 13:00:00 22.47 kg/m2 Common [facility] oximetry 2021-09-15 13:00:00 99 % [facility] respiratory rate 2021-09-15 13:00:00 16 /min Comm on [facility] blood pressure 2021-09-15 13:00:00 138 mm[Hg] Common [facility] - systolic [facility] blood pressure 2021-09-15 13:00:00 76 mm[Hg] Common [facility] - diastolic [facility] height 2021-09-15 13:20:00 67.5 [in_i] [facility] weight 2021-09-15 13:20:00 145.6 [lb_av] [facility] temperature 2021-09-15 13:20:00 98.2 [degF] [facility] bmi 2021-09-15 13:20:00 22.47 kg/m2 [facility] oximetry 2021-09-15 13:20:00 99 % [facility] respiratory rate 2021-09-15 13:20:00 16 /min Comm on [facility] blood pressure 2021-09-15 13:20:00 138 mm[Hg] [facility] - systolic [facility] blood pressure 2021-09-15 13:20:00 76 mm[Hg] [facility] - diastolic [facility] Systolic blood 2022-10-18 11:26:00 113 mm[Hg] [facility] Diastolic blood 2022-10-18 11:26:00 71 mm[Hg] [facility] Heart rate 2022-10-18 11:26:00 79 /min [facility] Body temperature 2022-10-18 11:26:00 36.44 [place] [facility] Respiratory rate 2022-10-18 11:26:00 18 /min [facility] Oxygen saturation in 2022-10-18 11:26:00 98 /min [facility] Arterial blood by Medical Ce nter Pulse oximetry Body weight 2022-10-16 20:46:00 63.504 kg [facility] Weight 2020-01-08 14:45:00 [facility] Height 2020-01-08 14:45:00 [facility] Heart Rate 2020-01-08 14:45:00 [facility] Diastolic (mm Hg) 2020-01-08 14:45:00 Mem [facility] Systolic (mm Hg) 2020-01-08 14:45:00 Heriberto rial [place] Weight 2019-08-06 15:00:00 [facility] [place] Height 2019-08-06 15:00:00 [facility] [place] Heart Rate 2019-08-06 15:00:00 [facility] Diastolic (mm Hg) 2019-08-06 15:00:00 Mem orial [place] Systolic (mm Hg) 2019-08-06 15:00:00 Heriberto rial [place] Weight 2019-07-16 16:45:00 [facility] [place] Height 2019-07-16 16:45:00 [facility] Heart Rate 2019-07-16 16:45:00 [facility] Diastolic (mm Hg) 2019-07-16 16:45:00 Mem orial [place] Systolic (mm Hg) 2019-07-16 16:45:00 Heriberto rial [place] Weight 2019-06-04 16:45:00 [facility] Height 2019-06-04 16:45:00 [facility] Heart Rate 2019-06-04 16:45:00 [facility] [place] Diastolic (mm Hg) 2019-06-04 16:45:00 Mem orial [place] Systolic (mm Hg) 2019-06-04 16:45:00 Heriberto rial [place] Weight 2018-11-20 14:30:00 [facility] [place] Height 2018-11-20 14:30:00 [facility] [place] Heart Rate 2018-11-20 14:30:00 [facility] Diastolic (mm Hg) 2018-11-20 14:30:00 Mem [facility] Systolic (mm Hg) 2018-11-20 14:30:00 Heriberto rial [place] Weight 2018-10-02 16:00:00 [facility] Height 2018-10-02 16:00:00 [facility] Heart Rate 2018-10-02 16:00:00 [facility] Diastolic (mm Hg) 2018-10-02 16:00:00 Mem [facility] Systolic (mm Hg) 2018-10-02 16:00:00 Heriberto rial [facility] Weight 2018-09-03 19:45:00 [facility] [place] Height 2018-09-03 19:45:00 [facility] [place] Heart Rate 2018-09-03 19:45:00 [facility] Diastolic (mm Hg) 2018-09-03 19:45:00 Mem [facility] Systolic (mm Hg) 2018-09-03 19:45:00 Heriberto [facility] Weight 2018-09-03 18:45:00 [facility] Height 2018-09-03 18:45:00 [facility] Heart Rate 2018-09-03 18:45:00 [facility] [place] Diastolic (mm Hg) 2018-09-03 18:45:00 Mem [facility] Systolic (mm Hg) 2018-09-03 18:45:00 Heriberto rial [facility] Procedures Procedure Date / Time Performing Clinician Source Performed AUTHORIZATION FOR RELEASE 2022-10-24 05:01:00 Doctor Unassigned, [facility] CBC W/PLT COUNT & AUTO 2022-10-18 04:59:00 Liam Merino [facility] DIFFERENTIAL [facility] BASIC METABOLIC PANEL 2022-10-18 04:59:00 Kirsten [facility] MAGNESIUM 2022-10-18 04:59:00 Wilber [facility] PROCALCITONIN 2022-10-18 04:59:00 Kirsten [facility] CBC W/PLT COUNT & AUTO 2022-10-18 04:59:00 Kirsten [facility] DIFFERENTIAL [facility] 2D ECHO W/ DOPPLER 2022-10-17 [facility]:11[facility] (CW[facility]PW/COLOR) [facility] 2D ECHO W/ DOPPLER 2022-10-17 16:11:27 Patricia [facility] (CW/PW/COLOR) [facility] XR CHEST 1 VIEW PORTABLE / 2022-10-17 13:44:00 Liam Merino [facility] BEDSIDE [facility] PROCALCITONIN 2022-10-17 10:56:00 Marco Antonio Tse [facility] TROPONIN I 2022-10-17 06:14:00 [facility] STREP PNEUMONIAE ANTIGEN 2022-10-17 01:55:00 [facility] BLOOD CULTURE 2022-10-17 01:54:00 [facility] COMPREHENSIVE METABOLIC 2022-10-17 00:12:00 [facility] PANEL [facility] HEMOGLOBIN A1C 2022-10-17 00:12:00 [facility] LIPID PANEL 2022-10-17 00:12:00 [facility] MAGNESIUM 2022-10-17 00:12:00 [facility] PHOSPHORUS 2022-10-17 00:12:00 [facility] PROTHROMBIN TIME/INR 2022-10-17 00:12:00 [facility] TROPONIN I 2022-10-17 00:12:00 [facility] TSH/FREE T4 IF INDICATED 2022-10-17 00:12:00 [facility] B-TYPE NATRIURETIC FACTOR 2022-10-17 00:12:00 [facility] (BNP) [facility] CBC W/PLT COUNT & AUTO 2022-10-17 00:12:00 [facility] DIFFERENTIAL [facility] CBC W/PLT COUNT & AUTO 2022-10-17 00:12:00 [facility] DIFFERENTIAL [facility] ECG 12-LEAD 2022-10-16 22:33:17 Unknown, [facility] ECG 12-LEAD 2022-10-16 22:33:17 Unknown, [facility] EKG-SCANNED 2022-10-16 00:00:00 Provider, [facility] XR CHEST 2 VW 2022-09-20 15:29:40 Roger Sheehan [facility] DISCLOSURE AND CONSENT, 2022-09-20 05:01:00 Doctor Unassigned, [facility] MEDICAL AND SURGICAL [facility] PROCEDURES CARDIAC CATHETERIZATION 2022-09-14 16:42:01 Fontenot, Sendil [facility] CARDIAC CATHETERIZATION 2022-09-14 16:42:01 Fontenot, Sendil [facility] CARDIAC CATHETERIZATION 2022-09-14 16:42:01 Fontenot, Sendil [facility] CARDIAC CATHETERIZATION 2022-09-14 16:42:00 Fontenot, Sendil [facility] CARDIAC CATHETERIZATION 2022-09-14 16:42:00 Fontenot, Sendil [facility] CARDIAC CATHETERIZATION 2022-09-14 16:42:00 Fontenot, Sendil [facility] CATH PROCEDURE LOG 2022-09-14 16:05:00 Fontenot, Sendil [facility]ive [facility] CATH PROCEDURE LOG 2022-09-14 16:05:00 Fontenot, Sendil [facility] BASIC METABOLIC PANEL (NA, 2022-09-14 14:36:00 Motiwala, Afaq [facility] [place] [facility], CL, CO2, GLUCOSE, BUN, Medica l Branch CREATININE, [place]) CBC WITHOUT DIFF 2022-09-14 14:36:00 Motiwala, Afaq [facility] PROTHROMBIN TIME / INR 2022-09-14 14:36:00 Motiwala, Afaq Unive [facility] BASIC METABOLIC PANEL (NA, 2022-09-14 14:36:00 Motiwala, Afaq [facility] [place] [facility], CL, CO2, GLUCOSE, BUN, Medica l Branch CREATININE, [place]) CBC WITHOUT DIFF 2022-09-14 14:36:00 Motiwala, aq [facility] PROTHROMBIN TIME / INR 2022-09-14 14:36:00 Motiwala, Afaq [facility] ASSIGNMENT OF BENEFITS 2022-09-14 13:44:02 Doctor Unassigned, [facility] [place] [facility] HB CREATININE SERUM/BLOOD 2022-08-16 20:51:00 Ezra Patton [facility] FOR IMAGING Medical Branch CT ANGIOGRAM HEAD 2022-08-16 20:21:16 [facility] ANGIOGRAM NECK 2022-08-16 20:19:44 [facility] HEAD WO CONTRAST 2022-08-16 20:13:54 Ezra Patton [facility] CONSENT/REFUSAL FOR 2022-08-16 19:34:01 [facility] DI[facility]NOS[facility] TREATMENT [facility] ASSIGNMENT OF BENEFITS 2022-08-16 19:33:13 [facility] NOTICE OF PRIVACY 2022-08-16 19:32:55 Doctor Brianna, [facility] PRACTICES [facility] MR ANGIOGRAM HEAD WO 2022-08-02 16:52:18 Ezra Patton [facility] [place] CONTRAST [facility] MR ANGIOGRAM NECK WO 2022-08-02 16:51:52 Ezra Patton [facility] [place] [facility] XR WRIST 3+ VW RIGHT 2022-08-02 16:23:02 Rafa Evans [facility] XR CHEST 2 VW 2022-07-07 15:38:42 Tana Fenton [facility] CT HEAD WO CONTRAST 2022-07-07 15:26:53 Tana Fenton [facility] CONSENT/REFUSAL FOR 2022-07-07 14:53:44 Doctor Brianna [facility] DIAGNOSIS AND TREATMENT [facility] Plan of Care Planned Activity Planned Date Details Comments Source Future Scheduled 2023-10-[address] [facility] 00:00:00 Counseling and Medical Cente r Screening (12+) [code = Tobacco Cessation Counseling and Screening (12+)] Future Scheduled 2023-10-[address] [facility] 00:00:00 Counseling and Medical Cente r Screening (12+) [code = Tobacco Cessation Counseling and Screening (12+)] Future Scheduled 2023-10-[address] [facility] 00:00:00 Counseling and Medical Cente r Screening (12+) [code = Tobacco Cessation Counseling and Screening (12+)] Future Scheduled 2022-07-[address] [facility] 00:00:00 (12+) [code = Medical Center DEPRESSION SCREENING (12+)] Future Scheduled 2022-07-02 FALLS RISK SCREENING [facility] 00:00:00 [code = FALLS RISK Medical C enter SCREENING] Future Scheduled 2022-07-[address] [facility] 00:00:00 (12+) [code = Medical Center DEPRESSION SCREENING (12+)] Future Scheduled 2022-07-02 FALLS RISK SCREENING [facility] 00:00:00 [code = FALLS RISK Medical C enter SCREENING] Future Scheduled 2022-07-[address] [facility] 00:00:00 (12+) [code = Medical Center DEPRESSION SCREENING (12+)] Future Scheduled 2022-07-02 F[address] [address]K SCREENING [facility] 00:00:00 [code = FALLS RISK Medical C enter SCREENING] Future Scheduled 2022-04-04 COVID-19 VACCINE (5 - [facility]00 Booster for Pfizer Medical C enter series) [code = COVID-19 VACCINE (5 - Booster for Pfizer series)] Future Scheduled 2022-04-04 COVID-19 VACCINE (5 - [facility]00 Booster for Pfizer Medical C enter series) [code = COVID-19 VACCINE (5 - Booster for Pfizer series)] Future Scheduled 2022-04-04 COVID-19 VACCINE (5 - [facility]:00 Booster for Pfizer Medical C enter series) [code = COVID-19 VACCINE (5 - Booster for Pfizer series)] Future Scheduled 2012-01-[address] [facility] 00:00:00 aneurysm screening Medical C enter (procedure) [code = 906130776] Future Scheduled 2012-01-[address] [facility] 00:00:00 aneurysm screening Medical C enter (procedure) [code = 504320570] Future Scheduled 2012-01-[address] [facility] 00:00:00 aneurysm screening Medical C enter (procedure) [code = 003628390] Future Scheduled 2005-07-[address] [facility] 00:[facility]:00 WELLNESS (YEAR 2 or Medical Center FIRST YEAR if no IPPE) [code = MEDICARE ANNUAL WELLNESS (YEAR 2 or FIRST YEAR if no IPPE)] Future Scheduled 2005-07-[address] [facility] 00:00:00 WELLNESS (YEAR 2 or Medical Center FIRST YEAR if no IPPE) [code = MEDICARE ANNUAL WELLNESS (YEAR 2 or FIRST YEAR if no IPPE)] Future Scheduled 2005-07-[address] [facility] 00:00:00 WELLNESS (YEAR 2 or Medical Center FIRST YEAR if no IPPE) [code = MEDICARE ANNUAL WELLNESS (YEAR 2 or FIRST YEAR if no IPPE)] Future Scheduled 1997 SHINGLES VACCINES ([address] [facility] 00:00:00 2) [code = SHINGLES Medical Center VACCINES (1 of 2)] Future Scheduled 1997 SHINGLES VACCINES ([address] [facility] 00:00:00 2) [code = SHINGLES Medical Center VACCINES (1 of 2)] Future Scheduled 1997 SHINGLES VACCINES ([address] [facility] 00:00:00 2) [code = SHINGLES Medical Center VACCINES (1 of 2)] Future Scheduled 1966 DTAP/TDAP/TD [facility]ACCINES [facility] 00:[facility]:00 (1 - Tdap) [code = Medical C enter DTAP/TDAP/TD VACCINES (1 - Tdap)] Future Scheduled 1966 DTAP/TDAP/TD VACCINES [facility] 00:00:00 (1 - Tdap) [code = Medical C enter DTAP/TDAP/TD VACCINES (1 - Tdap)] Future Scheduled 1966 DTAP/TDAP/TD VACCINES [facility] 00:00:00 (1 - Tdap) [code = Medical C enter DTAP/TDAP/TD VACCINES (1 - Tdap)] Future Scheduled 1965 HEPATITIS C SCREENING [facility] 00:[facility]:00 [code = HEPATITIS C Medical Center SCREENING] Future Scheduled 1965 HEPATITIS C SCRE[facility]ING [facility] 00:[facility]:00 [code = HEPATITIS C Medical Center SCREENING] Future Scheduled 1965 HEPATITIS C SCREENING [facility] 00:00:00 [code = HEPATITIS C Medical Center SCREENING] Future Scheduled 1953 PNEUMOCOCCAL 65+ YRS ([address] [facility] 00:00:00 - PCV) [code = Medical Cente r PNEUMOCOCCAL 65+ YRS (1 - PCV)] Future Scheduled 1953 PNEUMOCOCCAL 65+ YRS ([address] [facility] 00:00:00 - PCV) [code = Medical Cente r PNEUMOCOCCAL 65+ YRS (1 - PCV)] Future Scheduled 1953 PNEUMOCOCCAL 65+ YRS ([address] [facility] 00:00:00 - PCV) [code = Medical Cente r PNEUMOCOCCAL 65+ YRS (1 - PCV)] Future Scheduled 1947 CT Colonography (combo) [facility] 00:00:00 [code = CT Colonography Medi [facility] Center (combo)] Future Scheduled 1947 Screening for malignant [facility] 00:00:00 neoplasm of colon Medical Ce nter (procedure) [code = 654835316] Future Scheduled 1947 Screening for malignant [facility] 00:00:00 neoplasm of colon Medical Ce nter (procedure) [code = 189703601] Future Scheduled 1947 Screening for malignant [facility] 00:00:00 neoplasm of colon Medical Ce nter (procedure) [code = 264432812] Future Scheduled 1947 Screening for malignant [facility] 00:00:00 neoplasm of colon Medical Ce nter (procedure) [code = 216715079] Future Scheduled 1947 Sigmoidoscopy [code = [facility] Sigmoidoscopy] Medical Cente r Future Scheduled 1947 CT Colonography (combo) [facility] 00:00:00 [code = CT Colonography Medi chaz Center (combo)] Future Scheduled 1947 Screening for malignant [facility] 00:00:00 neoplasm of colon Medical Ce nter (procedure) [code = 504926609] Future Scheduled 1947 Screening for malignant [facility] 00:00:00 neoplasm of colon Medical Ce nter (procedure) [code = 578347744] Future Scheduled 1947 Screening for malignant [facility] 00:00:00 neoplasm of colon Medical Ce nter (procedure) [code = 486116346] Future Scheduled 1947 Screening for malignant [facility] 00:00:00 neoplasm of colon Medical Ce nter (procedure) [code = 554388718] Future Scheduled 1947 Sigmoidoscopy [code = [facility] Sigmoidoscopy] Medical Cente r Future Scheduled 1947 CT Colonography (combo) [facility] 00:00:00 [code = CT Colonography [facility] Center (combo)] Future Scheduled 1947 Screening for malignant [facility] 00:00:00 neoplasm of colon Medical Ce nter (procedure) [code = 232670035] Future Scheduled 1947 Screening for malignant [facility] 00:00:00 neoplasm of colon Medical Ce nter (procedure) [code = 021158144] Future Scheduled 1947 Screening for malignant [facility] 00:00:00 neoplasm of colon Medical Ce nter (procedure) [code = 843260437] Future Scheduled 1947 Screening for malignant [facility] 00:00:00 neoplasm of colon Medical Ce nter (procedure) [code = 565937293] Future Scheduled 1947 Sigmoidoscopy [code = [facility] Sigmoidoscopy] Medical Cente r Encounters Start End Encounter Admission Attending Care Care Encounter Source Date/Time Date/Time Type Type Clinicians Facility Department ID 2022-12-07 Outpatient [id number] C5A4-A Memoria 16:43:48 F3SI-63S0 FD-70D1-T75 9FD-46B3- A l -Q105-334 [id number] 014-004E34 [place] [id number] 4F9 [id number] 2022-11-22 Outpatient [id number] 0D33 DC5F-5 Memoria 09:24:25 502E-4D47 2E-4I56-2J8 02E-4D47- 8 l -6Y0Z-G5C A-E7QY9E280 H3H-Z3IW0B [place] [id number] 9998-05-24 Outpatient [id number]- [id number] 64AF 85A4-F Memoria 05:39:30 LU30-0J9F 54-9S3H-4HP C85-9T3C- 8 l -6QK6-Y94 7-S41QW7EV0 BC7-B00DB5 Alan [id number] A88 AE3A88 2022-10-17 Outpatient [id number] D6D1 4983-1 Memoria 10:02:02 5LK0-0KBW F4-4CDD-B05 BF4-4CDD- B l -N66P-438 E-9236Q1557 05E-6381F3 Alan [id number] 2770-04-17 Outpatient [id number]- [id number]-Q3 4A36 A26C-D Memoria 20:20:14 X54F-8880 2C-4204-B17 72C-4204- B l -D892-W21 8-D655KCZ58 178-C254AF Alan [id number] 9F3 B959F3 2022-10-16 Outpatient [id number] 1KD2T200-9Y 2CB3 A716-3 Memoria 10:22:30 7X5V-3L45 9A-2U78-D4E U3R-3M81- A l -L8B7-L62 0-[id number] 0N0-R28733 Alan [id number] D84 E1BD84 2022-09-28 Outpatient [id number] 7CCE 1177-1 Memoria 11:30:15 1011-457F 11-457F-AA1 011-457F- A l -CL9X-57A E-82DWR849T O6Y-23QMN1 Alan [id number] [id number] 2022-09-20 Marylou RUSHING JR, [facility] [id number] Univers 16:55:[address] [facility] 2022-09-20 Outpatient [id number] 72C9-6 Memoria 08:45:00 6139-4C49 39-2M95-G63 139-4C49- B l -P52P-8TT D-6MKM24GQX 15D-4BFC16 Alan [id number] 9CF ABF9CF 2022-09-14 Outpatient [id number]-MY F0BE 8DB3-A Memoria 08:51:27 UP4D-81X0 5C-87N2-W72 L0D-44C6- A l -R45Z-N2P F-Y5Y409H58 40F-N6O975 Alan [id number] B3D C11B3D 2022-08-23 Outpatient [id number] 6D95-C Memoria 09:54:47 RX53-018W 87-411A-AC0 V48-941F- A l -ZO24-15B 3-19V0S20RH P21-12R6C1 Alan [id number] 709 [id number] 2022-08-18 Outpatient [id number]- [id number] 38C6 41C5-6 Memoria 07:49:13 660D-4AC3 0D-4YK7-Y17 60D-4AC3- A l -U59A-W91 E-H9920L35K 82E-L1559D Alan [id number] 358 78L909 2022-08-16 Outpatient [id number]- [id number] 751B BC00-6 Memoria 13:42:13 639E-4964 9E-4964-814 39E-4964- 8 l -8140-EDC 0-COS5193E3 140-AZD701 Alan [id number] 2022-08-15 Outpatient [id number]- [id number] 0AAA-2 Memoria 09:03:49 2562-48EF 62-48EF-B97 562-48EF- B l -U64O-BDE D-[id number] 97D-ZAI353 Alan [id number] DDB 443DDB 2022-06-28 Outpatient [id number] RLXJF143-S6 DDEF A975-E Memoria 11:02:37 D475-7H10 66-9N33-4W2 566-4D09- 9 l -9Y4Z-WZ4 A-CZ2E09222 H4B-TQ4Y04 Alan [id number] 0411-02-18 Outpatient Lakisha LAWS [facility] OPH [id number] Univers 09:34:[address] [facility] 2021-07-27 Outpatient Jennifer STLMLC [facility] [id number] Common 11:13:26 Jessica [id number] [facility] 2019-07-22 Inpatient ERIBERTO GarnettCL OUTD [id number] [facility] 10:30:00 Mohamed 22 [facility] 2022-12-04 2022-12-04 Outpatient SFA [id number] Mario 12:59:44 12:59:44 93476 F Gerald 2022-11-22 2022-11-22 Outpatient ERIBERTO DoranCL DAYS [id number] [facility] 09:22:00 09:22:00 Alex 07 [facility] 2022-10-24 2022-10-24 Orders Doctor CONCHITA 1.2.840.114 [id number] Univers 00:00:00 00:00:00 Only Unassigned, RADHA 350.1.13.10 ity of [place] [facility] 4.2.7.2.686 Juanjo as [phone] [address] 2022-10-16 2022-10-18 [facility] [id number] 20[facility]18[facility] 13:16:00 [facility] 2022-10-16 2022-10-18 [facility] [id number] 20[facility]18[facility]00 13:16:00 [facility] 2022-10-16 2022-10-18 Inpatient ER DARRION [facility] [id number] [facility] 20:18:00 13:16:00 JUAN Med 2022-10-16 2022-10-16 Orders [facility] [id number] 00:00:00 00:00:00 Only [facility] 2022-10-16 2022-10-16 Orders [facility] [id number] 00:00:00 00:00:00 Only [facility] 2022-10-04 2022-10-04 Outpatient R CORIE [facility] [id number] Univers 10:00:00 10:00:[address] [facility] 2022-09-28 2022-09-28 Office Tyra [facility] 1.2.840.114 [id number] Univers 14:00:00 14:15:00 Visit [facility] 350.1.13.10 i ty of [place]2.7.2.686 [place] [facility] [id number] [address] OFFICE BUILDING 2022-09-28 2022-09-28 Outpatient R KISHAN PERKINS [facility] 1 [id number] Univers 14:00:00 14:00:[address] [facility] 2022-09-26 2022-09-26 Case CONCHITA Sheehan 1.2.840.114 [id number] Univers 00:00:00 00:00:00 Management Roger GARCIA [place].13.10 [place] [address].7.2.686 Juanjo as [id number] [address] 2022-09-22 2022-09-22 Telephone CONCHITA Sheehan 1.2.733.811 [id number] Univers 00:00:00 00:00:00 [facility] 4.2.7.2.686 [place]jo as [id number] [address] 2022-09-20 2022-09-20 Outpatient Lakisha SHEEHAN [facility] [id number] Univers 09:45:00 23:59:[address] [facility] 2022-09-20 2022-09-20 Eliana Chavezh, [facility] 1.2.840.114 [id number] Univers 09:45:00 23:59:00 Encounter Roger Gonzáles [facility] 350.1.13.10 [place] of [place] [id number] [facility] [address] ([facility]) 2022-09-20 2022-09-20 Sox Analyst Draw, [facility] 1.2.8 40.114 [id number] Univers 10:00:00 10:15:00 Visit Dean, [facility] 350.1.13.10 [place] [id number] [facility] [address] OFFICE BUILDING 2022-09-20 2022-09-20 Office [facility] 1.2.840.114 [id number] Univers 08:45:00 09:00:00 Visit [facility] 350.1.13.10 i [place] [phone] [facility] [address] OFFICE BUILDING 2022-09-15 2022-09-15 Telephone CONCHITA Robles 1.2.840.114 [id number] Univers 00:00:00 00:00:00 Gilbert GARCIA 350.1.13.10 i ty of [facility] 4.2.7.2.686 Juanjo as [id number] [facility] [address] 2022-09-14 2022-09-14 Outpatient R [facility]AL [facility] [id number] Univers 08:49:00 14:59:00 AFAQ ity of [facility] 2022-09-14 2022-09-14 Hospital [facility] 1.2.840.114 [id number] Univers 08:49:00 14:59:00 Encounter [facility] 350.1.13.10 [place] of [place] [phone] [facility] [address] ([facility]) 2022-09-14 2022-09-14 [facility] 1.2.159.494 [id number] Univers 10:30:00 12:30:00 Af HEALTH 350.1.13.10 it y of [place].2.686 [place] [id number] [facility] [address] ([facility]) 2022-09-14 2022-09-14 Orders Doctor CONCHITA 1.2.840.114 [id number] Univers 00:00:00 00:00:00 Only Unassigned, RADHA 350.1.13.10 ity of [place] [facility] 4.2.7.2.686 Juanjo as [phone] [facility] [address] 2022-09-06 2022-09-06 Telephone [facility] 1.2.840.114 [id number] Univers 00:00:00 00:00:00 Lisa DAUGHERTY 350.1.13.10 ity of [facility] 4.2.7.2.686 [place] [id number] [address] 2022-09-05 2022-09-05 Telephone [facility] 1.2.840.114 [id number] Univers 00:00:00 00:00:00 [facility] 350.1.13.10 ity of [place] 4.2.7.2.686 Juanjo as MATTHEW?BLEA [id number] [address] OFFICE BUILDING 2022-08-24 2022-08-24 Telephone [facility] 1.2.840.114 [id number] Univers 00:00:00 00:00:00 [facility] 350.1.13.10 ity of [place] 4.2.7.2.686 Juanjo as MATTHEW?BLEA [id number] [address] OFFICE BUILDING 2022-08-23 2022-08-23 Outpatient R CORIE [facility] [id number] Univers 10:00:00 10:53:43 SENDIL ity of [facility] 2022-08-23 2022-08-23 Office Corie [facility] 1.2.840.114 [id number] Univers 10:00:00 10:53:43 Visit Sameer DAUGHERTY 350.1.13.10 ity of [place] 4[place] PROFESS[place] [id number] Or dical NAL 059 [facility] 2022-08-18 2022-08-18 Office [facility] 1.2.840.114 [id number] Univers 10:00:00 10:00:00 Visit Ezra Richardson [facility] 350.1.13.10 ity of [place] 4.2.7.2.686 Juanjo as MATTHEW?BLEA [id number] Or dical KNEY 0[address] [facility] OFFICE [facility] 2022-08-18 2022-08-18 Outpatient R EZRA PATTON [facility] [id number] Univers 10:00:00 08:46:43 [facility]-08-18 2022-08-18 Telephone [facility] 1.2.273.525 [id number] Univers 00:00:00 00:00:00 Sendil Jody DAUGHERTY 350.1.13.10 ity [facility] 4.2.7.2.686 [place] [phone] Or dicmo NAL 9 [facility] 2022-08-17 2022-08-17 Outpatient R CORIE [facility] [id number] Univers 12:36:18 23:59:[address] [facility] 2022-08-16 2022-08-16 [facility] 1.2.107.136 [id number] Univers 13:35:20 23:59:00 Encounter [facility] 350.1.13.10 ity of [place] 4.2.7.2.686 [facility] [id number] [address] 2022-08-16 2022-08-16 [facility] 1.2.885.871 [id number] Univers 13:34:46 13:34:46 Encounter Ezra ENGLISHLROA 350.1.13.10 ity of [place] 4.2.7.2.686 [facility] [id number] [address] 2022-08-16 2022-08-16 [facility] 1.2.403.422 [id number] Univers 13:34:02 13:34:02 Encounter Ezra DAUGHERTY 350.1.13.10 ity of [facility] 4.2.7.2.686 [place] [facility] [id number] [address] 2022-08-16 2022-08-16 Outpatient EZRA NORWOOD [facility] [id number] [facility] 13:34:02 13:34:02 EZRA [address] itfanny [facility] 2022-08-15 2022-08-15 Office [facility] 1.2.840.114 [id number] Univers 10:30:00 11:08:26 Visit Bassemfay MedinaConstanceFlorConstance DAUGHERTY 350.1.13.10 ity of [place] 4[place].2.686 [place] [facility] [id number] Or dicmo NAL 059 [facility] 2022-08-15 2022-08-15 Outpatient Lakisha [facility] [id number] Univers 09:00:00 09:50:47 LISA grider [facility] 2022-08-15 2022-08-15 Office [facility] 1.2.840.114 [id number] [facility] 09:00:00 09:50:47 Visit Lisa DAUGHERTY 350.1.13.10 ity [facility] 4.2.7.2.686 [place] [facility] [phone] Or dical NAL 205 [facility] 2022-08-11 2022-08-11 Outpatient Lakisha [facility] [id number] Univers 08:16:46 08:46:00 LISA grider [facility] 2022-08-10 2022-08-10 Telephone [facility] 1.2.840.114 [id number] Univers 00:00:00 00:00:00 Ezra Richardson [facility] 350.1.13.10 ity carlene [facility] 4.2.7.2.686 Juanjo as MATTHEW?BLEA [id number] Or dical KNEY 0[address] [facility] OFFICE [facility] 2022-08-04 2022-08-04 Outpatient ERZA NORWOOD [facility] [id number] Univers 00:00:00 00:00:00 POOJA, EZRA [facility] 2022-08-02 2022-08-02 [facility] 1.2.840.114 [id number] Univers 09:48:20 23:59:00 Encounter Rafa Gutierrez [place] 350.1.13.10 ity of [facility] 4.2.7.2.686 [facility] [id number] [place] [address] [place] 2022-08-02 2022-08-02 [facility] 1.2.083.596 [id number] Univers 09:47:38 09:47:38 Encounter Ezra [facility] 350.1.13.10 ity of [place] 4.2.7.2.686 [facility] [id number] [address] 2022-08-02 2022-08-02 Outpatient EZRA NORWOOD [facility] [id number] Univers 09:47:37 09:47:38 EZRA PATTON [facility] 2022-08-02 2022-08-02 [facility] 1.2.445.324 [id number] Univers 09:46:51 09:46:51 Encounter Ezra [facility] 350.1.13.10 ity of [place] 4.[address].7.[address] [place] [id number] 2022-07-21 2022-07-21 Outpatient EZRA NORWOOD [facility] [id number] Univers 10:40:00 12:04:23 POOJAEZRA ALMAZAN [facility] 2022-07-21 2022-07-21 Office [facility] 1.2.840.114 [id number] Univers 10:40:00 12:04:23 Visit Ezra [facility] 350.1.13.10 ity of [place] 4.2.7.2.686 Juanjo as MATTHEW?BLEA [phone] Or rick [address] MEDICAL OFFICE BUILDING 2022-07-18 2022-07-18 (TEL) STLMLC STLMLC [id number] Co mmon 00:00:00 00:00:00 [facility] 2022-07-07 2022-07-07 [facility] 1.2.840.114 [id number] Univers 08:55:09 23:59:00 Encounter Tana James [place] 350.1.13.10 ity of [facility] 4.2.7.2.686 [facility] [id number] [facility] [address] 2022-07-07 2022-07-07 Outpatient [facility] [id number] Univers 08:54:03 08:54:[address] [facility] 2022-07-07 2022-07-07 [facility] 1.2.840.114 [id number] Univers 08:54:03 08:54:03 Encounter Tana James AMADORTON 350.1.13.10 ity of [place] 4.2.7.2.686 [facility] [id number] [facility] [address] 2022-07-07 2022-07-07 Orders Doctor CONCHITA 1.2.840.114 [id number] Univers 00:00:00 00:00:00 Only Unassigned, RADHA 350.1.13.10 ity of [place] [facility] 4.2.7.2.686 Juanjo as [id number] [facility] [address] 2022-06-28 2022-06-28 Sox Analyst Lab, [place] [facility] 1.2.840.1 14 [id number] Univers 11:00:00 11:15:00 Visit JossyTana HEALTH 350.1.13.10 ity of [place] 4.2.7.2.686 Juanjo as MATTHEW?BLEA [id number] [address] MEDICAL OFFICE BUILDING 2022-06-28 2022-06-28 Outpatient [facility] [id number] Univers 10:00:00 10:56:[address] [facility] 2022-06-28 2022-06-28 Office [facility] 1.2.840.114 [id number] Univers 10:00:00 10:56:47 Visit Tana James HEALTH 350.1.13.10 i ty of [place] 4.2.7.2.686 Juanjo as MATTHEW?BLEA [phone] Or dicstanislav JOSEPH [address] MEDICAL OFFICE BUILDING 2022-04-04 2022-04-04 Telephone [facility] [id number] Univers 00:00:00 00:00:00 Sendil Jody DAUGH[place] 350.1.13.10 [facility] [place] [phone] Or dical NAL [address] [facility] 2022-03-17 2022-03-17 OFFICE STLMLC STLMLC [id number] Co mmon 00:00:00 00:00:00 VISIT Spirit ESTAB PT - [facility] LEVEL 4 [facility] 2022-03-02 2022-03-[address] [facility] 1.2.840.114 [id number] Univers 08:15:37 23:59:00 Encounter Sendfay DAUGH[place] 350.1.13.10 ity [facility] [place] [id number] [address] 2022-03-02 2022-03-[address] [facility] 1.2.840.114 [id number] Univers 08:12:11 08:14:00 Encounter Sendfay DAUGH[place] 350.1.13.10 [place] [id number] [address] 2022-03-02 2022-03-[address] [facility] 1.2.840.114 [id number] Univers 08:11:54 08:11:54 Encounter Sendfay DAUGH[place] 350.1.13.10 ity [facility] 4[place] [phone] [address] 2022-03-02 2022-03-02 Outpatient [facility] [id number] Univers 08:11:36 08:11:36 SENDIL ity of [facility] 2022-03-02 2022-03-[address] [facility] 1.2.840.114 [id number] Univers 08:11:36 08:11:36 Encounter Sendil [facility] 350.1.13.10 ity [facility] [place].2.[place] [phone] [facility] [address] 2022-02-13 2022-02-13 [facility] 1.2.840.114 [id number] Univers 10:30:00 10:38:52 Visit Sameer DAUGH[place] 350.1.13.10 ity [facility] [place].2.[place] [facility] [phone] Or rick NAL 059 [facility] 2022-02-13 2022-02-13 Outpatient [facility] [id number] Univers 10:30:00 10:38:[address] [facility] 2022-02-13 2022-02-13 Outpatient [facility] [id number] Univers 10:30:00 10:30:[address] [facility] 2022-02-13 2022-02-13 Outpatient [facility] [id number] Univers 10:30:00 10:30:[address] [facility] 2022-02-13 2022-02-13 [facility]patient [facility] [id number] Univers 10:30:00 10:30:00 [facility]07 2022-02-07 Nurse Nurse, Matt Golden [facility] 1.2.840.114 [id number] Univers 10:20:00 10:40:00 Visit Milo Pro [facility] 350.1.13 .10 ity [facility] 4.2.7.2.686 Juanjo as MATTHEW?BLEA [phone] Or dical KNEY 044 [facility] OFFICE [facility] 2022-02-07 2022-02-07 Outpatient [facility] [id number] Univers 09:15:00 10:03:44 LISA plasencia f [facility] 2022-02-07 2022-02-07 [facility] 1.2.840.114 [id number] Univers 09:15:00 10:03:44 Visit Lisa DAUGHERTY 350.1.13.10 it[facility] [place] [phone] Or dical NAL 205 [facility] 2022-01-12 2022-01-12 Telephone Corie IDRYAN [id number] Univers 00:00:00 00:00:00 Sendil Jody DAUGH[place] 350.1.13.10 [place] [phone] [facility] 059 [facility] 2022-01-11 2022-01-11 Outpatient R [facility] [id number] Univers 09:00:00 09:00:00 [facility] 2022-01-11 2022-01-11 Outpatient [facility] [id number] Univers 07:51:12 07:51:12 SENDIL [facility] 2021-10-20 2021-10-20 [facility] 1.2.840.114 [id number] Univers 00:00:00 00:00:00 Sendfay DAUGH[place] 350.1.13.10 [place] [phone] [address] 2021-09-28 2021-09-28 (TEL) STLC STLC [id number] Co mmon 00:00:00 00:00:00 [facility] 2021-09-21 2021-09-21 Outpatient [facility] [id number] Univers 10:19:00 13:08:[address] [facility] 2021-09-21 2021-09-21 Hospital [facility] [id number] [id number] Univers 10:19:00 13:08:00 Encounter Imer DAUGHERTY 350.1.13.10 ity of [facility] [place] [phone] [address] 2021-09-21 2021-09-21 Surgery [facility] 1.2.840.114 [id number] Univers 11:25:00 12:03:00 Imer DAUGH[place] 350.1.13.10 [place] [phone] [facility] [address] 2021-09-19 2021-09-19 Orders Doctor CONCHITA 1.2.840.114 [id number] Univers 00:00:00 00:00:00 Only Unassigned, RADHA 350.1.13.10 ity of [facility] 4.2.7.2.686 Juanjo as [phone] [facility] [address] 2021-09-15 2021-09-15 [facility] [id number] Co mmon 00:00:00 00:00:00 VISIT Spirit ESTAB PT - CHI LEVEL 4 [facility] 2021-09-15 2021-09-15 SUB [facility]AL [facility] [id number] Common 00:00:00 00:00:00 MCR Spirit WELLNESS - CHI VISIT [facility] 2021-09-08 2021-09-08 Telephone [facility] 1.2.247.011 [id number] Univers 00:00:00 00:00:00 Sendfay DAUGH[place] 350.1.13.10 [place] [phone] Or dical NAL 059 [facility] 2021-09-05 2021-09-05 Outpatient R CORIE [facility] [id number] Univers 10:30:00 11:11:[address] [facility] 2021-09-05 2021-09-05 Office [facility] 1.2.840.114 [id number] Univers 10:30:00 11:11:44 Visit Sendfay DAUGHERTY 350.1.13.10 [place] [phone] Or dical NAL 059 [facility] 2021-09-05 2021-09-05 Outpatient R CORIE [facility] [id number] Univers 10:30:00 11:11:[address] [facility] 2021-08-31 2021-08-31 Outpatient [facility] [id number] Univers 12:20:00 15:54:[address] [facility] 2021-08-31 2021-08-31 Hospital [facility] [id number] [id number] Univers 12:20:00 15:54:00 Encounter Imer aRmirez WILLOW 350.1.13.10 ity of [place]ICAL [phone] [facility] [address] 2021-08-31 2021-08-31 Surgery [facility] 1.2.840.114 [id number] Univers 14:18:00 15:00:00 Imer Ramirez WILLOW 350.1.13.10 ity of [place].2.[place] [phone] [facility] [address] 2021-08-29 2021-08-29 Laboratory Only, Adc Test [facility] 1.2.840. 114 [id number] Univers 10:00:00 10:15:00 Only Imer Laws James WILLOW 350.1.13.1 0 it[place] of [place].2.7.[place] CAMPUS [phone] [facility] [address] 2021-08-29 2021-08-29 Outpatient [facility] [id number] Univers 10:00:00 10:00:[address] [facility] 2021-08-29 2021-08-29 Outpatient [facility] [id number] Univers 10:00:00 10:00:[address] [facility] 2021-08-26 2021-08-26 Sox Analyst Elliot, Adc Lab Main [facility] 1.2.8 40.114 [id number] Univers 11:45:00 13:26:45 Visit VetoImer James WILLOW 350.1.13.1 0 ity of [place].2.[place] [phone] [place] [address] Branch [facility] 2021-08-26 2021-08-26 Outpatient [facility] [id number] Univers 11:45:00 11:45:00 IMER ity of [facility] 2021-08-26 2021-08-26 Orders Doctor CONCHITA 1.2.840.114 [id number] Univers 00:00:00 00:00:00 Only Unassigned, RADHA 350.1.13.10 ity of [facility] 4.2.7.2.686 Juanjo as [phone] [address] 2021-08-12 2021-08-12 Orders Doctor CONCHITA 1.2.840.114 [id number] Univers 00:00:00 00:00:00 Only Unassigned, RADHA 350.1.13.10 ity of [facility] 4.2.7.2.686 Juanjo as [phone] [address] 2021-08-11 2021-08-11 Telephone [facility] 1.2.035.071 [id number] [facility] 00:00:00 00:00:00 Sendfay DAUGHERTY 350.1.13.10 [place] [phone] Or rick HINSON [address] [place] [address] 2021-07-28 2021-07-28 Telephone [facility] 1.2.028.053 [id number] Univers 00:00:00 00:00:00 Sameer DAUGHERTY 350.1.13.10 ity [facility] 4.2.[place] [phone] Or rick HINSON [address] [place] [address] 2021-07-25 2021-07-25 Outpatient R CORIE IDRYAN [facility] [id number] Univers 13:30:00 14:26:39 SENDIL ity of [facility] 2021-07-25 2021-07-25 Office [facility] 1.2.840.114 [id number] Univers 13:30:00 14:26:39 Visit Sameer DAUGHERTY 350.1.13.10 ity of [facility] 4.2.7.2.[place] [phone] Or rick HINSON [address] [place] [address] 2021-07-25 2021-07-25 Outpatient R CORIE [facility] [id number] Univers 13:30:00 14:26:39 SENDIL [facility] 2021-07-25 2021-07-25 Outpatient Lakisha [facility] [id number] Univers 13:30:00 14:26:39 SENDIL [facility] 2021-07-25 2021-07-25 Orders Doctor CONCHITA 1.2.840.114 [id number] Univers 00:00:00 00:00:00 Only Unassigned, RADHA 350.1.13.10 ity of [place] [facility] 4.2.7.2.686 Juanjo as [phone] [address] 2021-05-04 2021-05-04 Imm/Inj Vaccine, Ang Db Cbc Fam [facility] 1. 2.840.114 [id number] Univers 11:00:53 11:10:53 Visit Lang Rainer [facility] 350.1.13.10 ity of [place] 4.2.7.2.686 Juanjo as MATTHEW?BLEA [phone] [address] MEDICAL OFFICE BUILDING 2021-05-04 2021-05-04 Outpatient Lakisha [facility] [id number] Univers 11:00:00 11:00:00 [facility] 2020-10-30 2020-10-30 Outpatient Lakisha [facility] [id number] Univers 10:10:00 12:00:35 VICTOR HUGO [facility] 2020-10-09 2020-10-09 Outpatient Lakisha PEÑA [facility] [id number] Univers 10:35:00 10:19:18 MIKE [facility] 2020-09-08 2020-09-08 Outpatient STLMLC STLMLC [id number] Common 00:00:00 00:00:00 [facility] 2020-03-04 2020-03-04 Outpatient Pilar Quezadat [id number] Common 09:40:00 09:40:00 [facility] 2020-01-08 2020-01-08 Outpatient Jillian Gonzáles [id number] eClinic 09:45:00 09:45:00 [facility] 2020-01-01 2020-01-01 Outpatient Jillian Gonzáles [id number] eClinic 13:00:00 13:00:00 [facility] 2020-01-01 2020-01-01 Outpatient Jillian Gonzáles [id number] eClinic 12:00:00 12:00:00 Tamir no[facility] 2020-01-01 2020-01-01 Outpatient Jillian Gonzáles [id number] eClinic 11:30:00 11:30:00 Tamir no[facility] 2020-01-01 2020-01-01 Outpatient Jillian Gonzáles [id number] eClinic 11:00:00 11:00:00 [facility] 2019-12-04 2019-12-04 Outpatient Jillian Gonzáles [id number] eClinic 09:30:00 09:30:00 Tamir no[facility] 2019-09-15 2019-09-15 Outpatient [facility] [id number] Common 13:00:00 13:00:00 [facility] 2019-09-04 2019-09-04 Outpatient [facility] [id number] Common 10:20:00 10:20:00 [facility] 2019-08-27 2019-08-27 Outpatient Jillian Gonzáles [id number] eClinic 14:52:00 14:52:00 [facility] no[facility] 2019-08-06 2019-08-06 Outpatient Jillian Gonzáles [id number] eClinic 09:00:00 09:00:00 Tamir no[facility] 2019-07-24 2019-07-25 Inpatient JORGE Gunter INTE.02 [id number] [facility] 12:50:00 11:47:00 Jean [id number] [facility] 2019-07-21 2019-07-21 Outpatient Jillian Gonzáles [id number] eClinic 08:26:00 08:26:00 Tamir noel [facility] Pa 2019-07-16 2019-07-16 Outpatient Jillian Gonzáles [id number] eClinic 10:45:00 10:45:00 Tamir noel [facility] 2019-06-04 2019-06-04 Outpatient Jillian Gonzáles [id number] eClinic 10:45:00 10:45:00 Tamir noel [facility] 2019-03-05 2019-03-05 Outpatient [facility] [id number] Common 09:40:00 09:40:00 [facility] 2018-11-20 2018-11-20 Outpatient Jillian Gonzáles [id number] eClinic 09:30:00 09:30:00 Tamir noel [facility] 2018-10-17 2018-10-17 Outpatient Jillian Gonzáles [id number] eClinic 10:11:00 10:11:00 Tamir noel [facility] 2018-10-03 2018-10-03 Outpatient Jillian Gonzáles [id number] eClinic 10:18:00 10:18:00 Tamir noel [facility] 2018-10-02 2018-10-02 Outpatient Jillian Gonzáles [id number] eClinic 11:00:00 11:00:00 Tamir noel [facility] 2018-09-18 2018-09-18 Outpatient Jillian Gonzáles [id number] eClinic 08:00:00 08:00:00 Tamir noel [facility] 2018-09-18 2018-09-18 Outpatient Jillian Gonzáles [id number] eClinic 08:00:00 08:00:00 Tamir noel [facility] Pa 2018-09-09 2018-09-09 Outpatient Jillian Gonzáles [id number] eClinic 11:00:00 11:00:00 Tamir noel [facility] 2018-09-03 2018-09-03 Outpatient Jillian Gonzáles [id number] eClinic 13:45:00 13:45:00 Tamir Villavicencio 2018-09-03 2018-09-03 Outpatient Jillian Gonzáles [id number] eClinic 13:45:00 13:45:00 Tamir Villavicencio Pa Results Test Description Test Time Test Comments Results Result [facility] e Comments - XR CHEST 2 V 2022-11-22 00:00:00 [facility] 1945 Sex: M FAX: Alex Rosario [phone] Hart: St: [facility] FAX: Sabrina Mcfadden Name: OLMAN STEPHENSON [facility] : 1945 Age/S: 77/M [address] [place] [address] Unit #: [id number] Loc: [place] [address] Phys: Sabrina Mcfadden IMPORT EXPORT CLERK Acct: [id number] Dis Date: Status: [facility] PHONE #: [phone] Exam Date: 11/20/2022 1016 FAX #: [phone] Reason: PREOP EXAMS: CPT CODE: [id number] XR CHEST 2 V 38894 PROCEDURE INFORMATION: Exam: XR Chest Exam date and time: 11/20/2022 12:58 PM Age: 77 years old Clinical indication: Pre-operative exam; Respiratory screening exam; Additional info: Preop TECHNIQUE: Imaging protocol: Radiologic exam of the chest. Views: 2 views. PA and Lateral COMPARISON: DX XR CHEST 2 V 07/22/2019 11:39 AM FINDINGS: Lungs: No focal airspace consolidation. Pleural spaces: Unremarkable. No pleural effusion. No pneumothorax. Heart/Mediastinum: Cardiomediastinal silhouette is normal in size with atherosclerotic calcification in the aortic arch. Bones/joints: No acute abnormality seen. IMPRESSION: No acute abnormality visualized in the chest. at 7826 Reported and signed by: Shwetha Gil M.D. CC: Alex Kennedy MD; Sabrina Mcfadden NP Technologist: RT Marysol(R) Trnscrd Date/Time/By: 11/22/2022 (0510) : By: [email or web address] Orig Print D/T: S: 11/22/2022 (5069) PAGE 1 Signed Report BLOOD CULTURE 2022-10-22 04:00:40 Test Item Value Reference Range Interpretation Comme nts CULTURE (BEAKER) (test code = 1095) No growth in 5 days BLOOD [id number] 04:00:39 Test Item Value Reference Range Interpretation Comments CULTURE (BEAKER) (test No growth in 5 days code = 1095) [id number] 12:13:03 Test Item Value Reference Range Interpretation Comments PROCALCITONIN (BEAKER) (test code = < ng/mL <0.05 3036) SEPSIS RISK (ng/mL)Low: 0.05-0.50Intermediate: 0.51-2.00High: >=2.012D Echo W/Doppler(CW/PW/Color)2022-10-18 10:02:42Ejection FractionSLEH ECHO HEARTLAB [facility] Echo W/Doppler(CW/PW/Color) 2022-10-18 10:02:42Ejection FractionSLEH ECHO HEARTLAB [facility] W/Doppler(CW/PW/Color)2022-10-18 10:02:42Ejection FractionSLEH ECHO [facility]ARTLAB [facility] 2022-10-18 05:49:09 Test Item Value Reference Range Interpretation Comments MAGNESIUM (BEAKER) (test code = 2.3 mg/dL 1.5-3.0 627) Qa Developer ID - [id number] ID - [id number] ID - [id number] ID - [id number] BASIC METABOLIC [id number] 05:47:48 Test Item Value Reference Range Interpretation Comments SODIUM (BEAKER) 136 meq/L 135-148 (test code = 381) POTASSIUM 4.4 meq/L 3.6-5.5 (BEAKER) (test code = 379) CHLORIDE (BEAKER) 102 meq/L 98-106 (test code = 382) CO2 (BEAKER) 21 meq/L 20-29 (test code = 355) BLOOD UREA 36 mg/dL 10-26 H NITROGEN (BEAKER) (test code = 354) CREATININE 1.33 mg/dL 0.50-1.20 H (BEAKER) (test code = 358) GLUCOSE RANDOM 193 mg/dL 70-110 H (BEAKER) (test code = 652) CALCIUM (BEAKER) 8.7 mg/dL 8.5-10.5 (test code = 697) EGFR (BEAKER) 56 Interpretatio n of eGFR (test code = mL/min/1.73 values Stage De scription 1092) sq m Result G1 Stacie l or high >=90 G2 Mildly decreased 60-89 G3a Mildl y to moderately 45-5 9 G3b Moderately to s everely 30-44 G4 Severl y decreased 15-29 G5 Kidney failure <15Reported eGF R is based on the CKD-EPI 2021 equation that d oes not use a race coefficientEsti mated GFR is not as accur ate as Creatinine Robina howell in predicting glom erular filtration rate . Estimated GFR is not appl icable for dialysis patien ts Qa Developer ID - [id number] ID - [id number] ID - [id number] ID - [id number] ID - [id number] ID - [id number] ID - [id number] ID - [id number] ID - [id number] W/PLT COUNT & AUTO [id number] 05:42:20 Test Item Value Reference Range Interpretation Comments WHITE BLOOD CELL COUNT (BEAKER) 14.7 K/ L 4.0-10.0 H (test code = 775) RED BLOOD CELL COUNT (BEAKER) 4.03 M/ L 4.20-5.80 L (test code = 761) HEMOGLOBIN (BEAKER) (test code = 12.2 GM/DL 13.0-16.8 L 410) HEMATOCRIT (BEAKER) (test code = 36.5 % 36.0-50.0 411) MEAN CORPUSCULAR VOLUME (BEAKER) 91 fL 82-99 (test code = 753) MEAN CORPUSCULAR HEMOGLOBIN 30.3 pg 27.0-33.0 (BEAKER) (test code = 751) MEAN CORPUSCULAR HEMOGLOBIN CONC 33.4 GM/DL 32.0-36.0 (BEAKER) (test code = 752) RED CELL DISTRIBUTION WIDTH 13.8 % 12.0-15.0 (BEAKER) (test code = 412) PLATELET COUNT (BEAKER) (test 183 K/CU MM 150-430 code = 756) MEAN PLATELET VOLUME (BEAKER) 11.5 fL 6.0-11.5 (test code = 754) NUCLEATED RED BLOOD CELLS 0 /100 WBC 0-0 (BEAKER) (test code = 413) NEUTROPHILS RELATIVE PERCENT 93 % (BEAKER) (test code = 429) LYMPHOCYTES RELATIVE PERCENT 4 % (BEAKER) (test code = 430) MONOCYTES RELATIVE PERCENT 3 % (BEAKER) (test code = 431) EOSINOPHILS RELATIVE PERCENT 0 % (BEAKER) (test code = 432) BASOPHILS RELATIVE PERCENT 0 % (BEAKER) (test code = 437) NEUTROPHILS ABSOLUTE COUNT 13.59 K/ L 1.80-8.00 H (BEAKER) (test code = 670) LYMPHOCYTES ABSOLUTE COUNT 0.51 K/ L 1.48-4.50 L (BEAKER) (test code = 414) MONOCYTES ABSOLUTE COUNT (BEAKER) 0.44 K/ L 0.00-1.30 (test code = 415) EOSINOPHILS ABSOLUTE COUNT 0.00 K/ L 0.00-0.50 (BEAKER) (test code = 416) BASOPHILS ABSOLUTE COUNT (BEAKER) 0.01 K/ L 0.00-0.20 (test code = 417) IMMATURE GRANULOCYTES-RELATIVE 0.80 % 0.00-0.00 H PERCENT (BEAKER) (test code = 2801) RAD, CHEST, 1 VIEW, NON [id number] 14:08:00Reason for exam:->Screen for pulmonary edema vs pneumoniaShould this be performed at the bedside?->Yes [facility] 1945 Sex: MFINAL REPORT CHEST AP PORTABLE SEMIERECT History provided: Pulmonary edema versus pneumonia Heart size normal. Lungs are hyperinflated but clear, and vascularity normal. Signed: Ac Lanier Verified Date/Time: 10/17/2022 14:08:42 Reading Location: [facility] Radiology Reading Room [id number] 12:07:39 Test Item Value Reference Range Interpretation Comments PROCALCITONIN (BEAKER) (test code = < ng/mL <0.05 3036) SEPSIS RISK (ng/mL)Low: 0.05-0.50Intermediate: 0.51-2.00High: >=2.01Strep pneumoniae [id number] 11:58:48 Test Item Value Reference Range Interpretation Comments Strep pneumoniae Presumptive negative Presumptive Antigen (test code = [place] [address]-4) pneumonia - see pneumococcal comment pneumonia - see comment, Presumptive negative for pneumococcal meningitis - see comment BLANK (test code = BLANK) Presumptive negative for pneumococcal pneumonia, suggesting no current or recent pneumococcal infection. Infection due to S. pneumoniae cannot be ruled out since the antigen present in the sample may be below the detection limit of the test. Lab Interpretation Normal (test code = 56249-3) [facility] [id number] 11:58:48 Test Item Value Reference Range Interpretation Comments Strep pneumoniae Presumptive negative Presumptive Antigen (test code = [place] [address]-2) pneumonia - see pneumococcal comment pneumonia - see comment, Presumptive negative for pneumococcal meningitis - see comment BLANK (test code = BLANK) Presumptive negative for pneumococcal pneumonia, suggesting no current or recent pneumococcal infection. Infection due to S. pneumoniae cannot be ruled out since the antigen present in the sample may be below the detection limit of the test. Lab Interpretation Normal (test code = 92049-8) [facility] [id number] 11:58:48 Test Item Value Reference Range Interpretation Comments Strep pneumoniae Presumptive negative Presumptive Antigen (test code = [place] [address]-6) pneumonia - see pneumococcal comment pneumonia - see comment, Presumptive negative for pneumococcal meningitis - see comment BLANK (test code = BLANK) Presumptive negative for pneumococcal pneumonia, suggesting no current or recent pneumococcal infection. Infection due to S. pneumoniae cannot be ruled out since the antigen present in the sample may be below the detection limit of the test. Lab Interpretation Normal (test code = 48815-7) [facility] PNEUMONIAE [id number] 11:58:48 Test Item Value Reference Range Interpretation Comments STREP PNEUMONIAE Presumptive negative Presumptive negative ANTIGEN (BEAKER) for pneumococcal for pneumococcal (test code = 1615) pneumonia - see pneumonia - see comment commen Presumptive negative for pneumococcal pneumonia, suggesting no current or recent pneumococcal infection. Infection due to S. pneumoniae cannot be ruled out since the antigen present in the sample may be below the detection limit of the test. TROPONIN [id number] 06:46:19 Test Item Value Reference Range Interpretation Comments TROPONIN I (BEAKER) (test code = 0.04 ng/mL 0.00-0.15 397) Troponin I (TnI) levels must be interpreted in the context of the presenting symptoms and the clinical findings. Elevated TnI levels indicate myocardial damage, but are not specific for ischemic heart disease. Elevated TnI levels are seen in patients with other cardiac conditions (including myocarditis and congestive heart failure), and slight TnI elevations occur in patients with other conditions, including sepsis, renal failure, acidosis, acute neurological disease, and persistent tachyarrhythmia.TSH/FREE T4 IF [id number] 01:35:38 Test Item Value Reference Range Interpretation Comments THYROID STIMULATING HORMONE 0.800 uIU/mL 0.350-5.500 (BEAKER) (test code = 772) Qa Developer ID - [id number] NATRIURETIC FACTOR (BNP)2022-10-17 01:25:19 Test Item Value Reference Range Interpretation Comments B-TYPE NATRIURETIC PEPTIDE 1057 pg/mL 0-100 H (BEAKER) (test code = 700) Qa Developer ID - [id number] 01:22:29 Test Item Value Reference Range Interpretation Comments TROPONIN I (BEAKER) (test code = 0.04 ng/mL 0.00-0.15 397) Troponin I (TnI) levels must be interpreted in the context of the presenting symptoms and the clinical findings. Elevated TnI levels indicate myocardial damage, but are not specific for ischemic heart disease. Elevated TnI levels are seen in patients with other cardiac conditions (including myocarditis and congestive heart failure), and slight TnI elevations occur in patients with other conditions, including sepsis, renal failure, acidosis, acute neurological disease, and persistent tachyarrhythmia.Qa Developer ID - [id number] METABOLIC [id number] 01:16:05 Test Item Value Reference Range Interpretation Comments TOTAL PROTEIN 6.6 gm/dL 6.0-8.5 (BEAKER) (test code = 770) ALBUMIN (BEAKER) 3.9 g/dL 3.5-5.0 (test code = 1145) ALKALINE 84 U/L 30-115 PHOSPHATASE (BEAKER) (test code = 346) BILIRUBIN TOTAL 0.5 mg/dL 0.1-1.2 (BEAKER) (test code = 377) SODIUM (BEAKER) 138 meq/L 135-148 (test code = 381) POTASSIUM (BEAKER) 3.9 meq/L 3.6-5.5 (test code = 379) CHLORIDE (BEAKER) 104 meq/L 98-106 (test code = 382) CO2 (BEAKER) (test 24 meq/L 20-29 code = 355) BLOOD UREA 19 mg/dL 10-26 NITROGEN (BEAKER) (test code = 354) CREATININE 0.98 mg/dL 0.50-1.20 (BEAKER) (test code = 358) GLUCOSE RANDOM 215 mg/dL 70-110 H (BEAKER) (test code = 652) CALCIUM (BEAKER) 8.7 mg/dL 8.5-10.5 (test code = 697) AST (SGOT) 12 U/L 5-40 (BEAKER) (test code = 353) ALT (SGPT) 6 U/L 5-50 (BEAKER) (test code = 347) EGFR (BEAKER) 81 Interpretatio n of eGFR (test code = 1092) mL/min/1.[address] age Description sq m Result G1 Stacie l or high >=90 G2 Mildly decreased 60-89 G3a Mildl y to moderately 45-5 9 G3b Moderately to s everely 30-44 G4 Severl y decreased 15-29 G5 Kidney failure <15Reported eGF R is based on the CKD-EPI 2020 equation that d oes not use a race coefficientEsti mated GFR is not as accur ate as Creatinine Robina lynda in predicting glom erular filtration rate . Estimated GFR is not appl icable for dialysis patien ts Qa Developer ID - [id number] ID - [id number] ID - [id number] ID - [id number] ID - [id number] ID - [id number] ID - [id number] ID - [id number] ID - [id number] ID - [id number] ID - [id number] ID - [id number] ID - [id number] ID - [id number] ID - [id number] ID -[id number] 01:15:43 Test Item Value Reference Range Interpretation Comments MAGNESIUM (BEAKER) (test code = 1.9 mg/dL 1.5-3.0 627) Qa Developer ID - [id number] ID - [id number] ID - [id number] ID - [id number] 01:15:01 Test Item Value Reference Range Interpretation Comments TRIGLYCERIDES (BEAKER) (test code = 36 mg/dL 540) CHOLESTEROL (BEAKER) (test code = 168 mg/dL 631) HDL CHOLESTEROL (BEAKER) (test code 45 mg/dL = 976) LDL CHOLESTEROL CALCULATED (BEAKER) 116 mg/dL (test code = 633) Triglyceride Reference Range: Low Risk <150 Borderline 150-199 High Risk 200- 499 Very High Risk >=500Cholesterol Reference Range: Low Risk <200 Borderline 200-239 High Risk >240HDL Cholesterol Reference Range: Low Risk >=60 High Risk <40LDL Cholesterol Reference Range: Optimal <100 Near Optimal 100-129 Borderline 130-159 High 160-189 Very High >=190 Qa Developer ID - [id number] ID - [id number] ID - [id number] 2022-10-17 01:12:22 Test Item Value Reference Range Interpretation Comments PHOSPHORUS (BEAKER) (test code = 3.2 mg/dL 2.5-4.5 604) Qa Developer ID - [id number] 01:06:17 Test Item Value Reference Range Interpretation Comments HEMOGLOBIN A1C (BEAKER) (test code = 5.6 % 4.3-6.1 368) Qa Developer ID - [id number] TIME/[id number] 01:03:54 Test Item Value Reference Range Interpretation Comments PROTIME (BEAKER) 11.2 seconds 9.3-12.0 Final Infor mation (test code = 759) (Auto Outp ut) INR (BEAKER) (test 1.02 <=5.90 Final Inf ormation code = 370) (Auto Output) RECOMMENDED COUMADIN/WARFARIN INR THERAPY RANGESSTANDARD DOSE: 2.0 - 3.0 Includes: PROPHYLAXIS for venous thrombosis, systemic embolization; TREATMENT for venous thrombosis and/or pulmonary embolus.HIGH RISK: Target INR is 2.5-3.5 for patients with mechanical heart valves.CBC W/PLT COUNT & AUTO [id number] 00:52:24 Test Item Value Reference Range Interpretation Comments WHITE BLOOD CELL COUNT (BEAKER) 8.7 K/ L 4.0-10.0 (test code = 775) RED BLOOD CELL COUNT (BEAKER) 4.49 M/ L 4.20-5.80 (test code = 761) HEMOGLOBIN (BEAKER) (test code = 13.4 GM/DL 13.0-16.8 410) HEMATOCRIT (BEAKER) (test code = 39.8 % 36.0-50.0 411) MEAN CORPUSCULAR VOLUME (BEAKER) 89 fL 82-99 (test code = 753) MEAN CORPUSCULAR HEMOGLOBIN 29.8 pg 27.0-33.0 (BEAKER) (test code = 751) MEAN CORPUSCULAR HEMOGLOBIN CONC 33.7 GM/DL 32.0-36.0 (BEAKER) (test code = 752) RED CELL DISTRIBUTION WIDTH 13.2 % 12.0-15.0 (BEAKER) (test code = 412) PLATELET COUNT (BEAKER) (test 202 K/CU MM 150-430 code = 756) MEAN PLATELET VOLUME (BEAKER) 11.3 fL 6.0-11.5 (test code = 754) NUCLEATED RED BLOOD CELLS 0 /100 WBC 0-0 (BEAKER) (test code = 413) NEUTROPHILS RELATIVE PERCENT 93 % (BEAKER) (test code = 429) LYMPHOCYTES RELATIVE PERCENT 5 % (BEAKER) (test code = 430) MONOCYTES RELATIVE PERCENT 2 % (BEAKER) (test code = 431) EOSINOPHILS RELATIVE PERCENT 0 % (BEAKER) (test code = 432) BASOPHILS RELATIVE PERCENT 0 % (BEAKER) (test code = 437) NEUTROPHILS ABSOLUTE COUNT 8.04 K/ L 1.80-8.00 H (BEAKER) (test code = 670) LYMPHOCYTES ABSOLUTE COUNT 0.44 K/ L 1.48-4.50 L (BEAKER) (test code = 414) MONOCYTES ABSOLUTE COUNT (BEAKER) 0.16 K/ L 0.00-1.30 (test code = 415) EOSINOPHILS ABSOLUTE COUNT 0.00 K/ L 0.00-0.50 (BEAKER) (test code = 416) BASOPHILS ABSOLUTE COUNT (BEAKER) 0.01 K/ L 0.00-0.20 (test code = 417) IMMATURE GRANULOCYTES-RELATIVE 0.30 % 0.00-0.00 H PERCENT (BEAKER) (test code = 2801) BASIC METABOLIC PANEL (NA, K, CL, CO2, GLUCOSE, BUN, CREATININE, CA)2022-09-14 14:56:55 Test Item Value Reference Range Interpretation Comments NA (test code = 138 mmol/L 135-145 8795579768) K (test code = 4.0 mmol/L 3.5-5.0 1554301532) CL (test code = 109 mmol/L 98-108 H 5455769458) CO2 TOTAL (test code = 26 mmol/L 23-31 6122431893) AGAP (test code = 3 2-16 4186739764) BUN (test code = 9 mg/dL 7-23 9683951318) GLUCOSE (test code = 100 mg/dL 70-110 5604798242) CREATININE (test code = 0.75 mg/dL 0.60-1.25 2310335634) CALCIUM (test code = 8.2 mg/dL 8.6-10.6 L 1011466748) eGFR (test code = 101.5 mL/min/1.73m2 4724392589) BLANK (test code = BLANK) Association of Glomerular Filtration Rate (GFR) and Staging of Kidney Disease* + --+ --+ ------+| GFR (mL/min/1.73 m2) ?| With Kidney Damage ?| ?Without Kidney Damage+ --------+ --------+ +| ?>90 ?| ?Stage one ?| ? Normal ?+ ---+ ---+ -------+| ?60-89 ?| ?Stage two ?| ? Decreased GFR ? + --+ --+ ------+| ?30-59 ?| ?Stage three ?| ? Stage three ? + --+ --+ ------+| ?15-29 ?| ?Stage four ? | ? Stage four ?+ ---+ ---+ -------+| ?<15 (or dialysis) ? ?| ?Stage five ? | ? Stage five ?+ ---+ ---+ -------+ *Each stage assumes the associated GFR level has been in effect for at least three months. ?Stages 1 to 5, with or without kidney disease, indicate chronic kidney disease. Notes: Determination of stages one and two (with eGFR >59mL/min/1.73 m2) requires estimation of kidney damage for at least three months as defined by structural or functional abnormalities of the kidney, manifested by either:Pathological abnormalities or Markers of kidney damage (including abnormalities in the composition of the blood or urine or abnormalities in imaging tests). Lab Interpretation Abnormal (test code = 10175-3) [facility] METABOLIC PANEL (NA, K, CL, CO2, GLUCOSE, BUN, CREATININE, CA)2022-09-14 14:56:55 Test Item Value Reference Range Interpretation Comments NA (test code = 138 mmol/L 135-145 3064786134) K (test code = 4.0 mmol/L 3.5-5.0 3984654879) CL (test code = 109 mmol/L 98-108 H 7780031898) CO2 TOTAL (test code = 26 mmol/L 23-31 8833046480) AGAP (test code = 3 2-16 0459337137) BUN (test code = 9 mg/dL 7-23 5566365363) GLUCOSE (test code = 100 mg/dL 70-110 6162231528) CREATININE (test code = 0.75 mg/dL 0.60-1.25 3750000129) CALCIUM (test code = 8.2 mg/dL 8.6-10.6 L 1919143577) eGFR (test code = 101.5 mL/min/1.73m2 8756760829) BLANK (test code = BLANK) Association of Glomerular Filtration Rate (GFR) and Staging of Kidney Disease* + --+ --+ ------+| GFR (mL/min/1.73 m2) ?| With Kidney Damage ?| ?Without Kidney Damage+ --------+ --------+ +| ?>90 ?| ?Stage one ?| ? Normal ?+ ---+ ---+ -------+| ?60-89 ?| ?Stage two ?| ? Decreased GFR ? + --+ --+ ------+| ?30-59 ?| ?Stage three ?| ? Stage three ? + --+ --+ ------+| ?15-29 ?| ?Stage four ? | ? Stage four ?+ ---+ ---+ -------+| ?<15 (or dialysis) ? ?| ?Stage five ? | ? Stage five ?+ ---+ ---+ -------+ *Each stage assumes the associated GFR level has been in effect for at least three months. ?Stages 1 to 5, with or without kidney disease, indicate chronic kidney disease. Notes: Determination of stages one and two (with eGFR >59mL/min/1.73 m2) requires estimation of kidney damage for at least three months as defined by structural or functional abnormalities of the kidney, manifested by either:Pathological abnormalities or Markers of kidney damage (including abnormalities in the composition of the blood or urine or abnormalities in imaging tests). Lab Interpretation Abnormal (test code = 68296-3) [facility] / [id number] 14:52:36 Test Item Value Reference Range Interpretation Comments PROTIME PATIENT (test 12.0 See_Comment [Auto mated message] code = 5964-2) The system [employer] generated this result transmitted ref erence range: 10.1 - 1 2.6 Seconds. The re ference range was not u sed to interpret this result as normal/abnor mal. INR (test code = 6301-6) 1.1 Nor mal INR <1.1; Warfarin Therap eutic range 2.0 to 3. 0 or 2.5 to 3.5, dep ending upon the indica tions. Lab Interpretation (test Normal code = 75284-1) [facility] / [id number] 14:52:36 Test Item Value Reference Range Interpretation Comments PROTIME PATIENT (test 12.0 See_Comment [Auto mated message] code = 5964-2) The system [employer] generated this result transmitted ref erence range: 10.1 - 1 2.6 Seconds. The re ference range was not u sed to interpret this result as normal/abnor mal. INR (test code = 6301-6) 1.1 Nor mal INR <1.1; Warfarin Therap eutic range 2.0 to 3. 0 or 2.5 to 3.5, dep ending upon the indica tions. Lab Interpretation (test Normal code = 04592-0) [facility] WITHOUT [id number] 14:51:15 Test Item Value Reference Range Interpretation Comments WBC (test code = 6.63 See_Comment [Automated message] The 6690-2) system which ge nerated this result tra nsmitted reference range : 4.20 - 10.70 10*3/?L. The reference range was not used to interpr et this result as normal/abnormal . RBC (test code = 4.42 See_Comment [Automated message] The 789-8) system which nerated this result tra nsmitted reference range : 4.26 - 5.52 10*6/?L. T he reference range was not used to interpr et this result as normal/abnormal . HGB (test code = 13.4 g/dL 12.2-16.4 718-7) HCT (test code = 39.7 % 38.4-49.3 4544-3) MCH (test code = 30.3 pg 26.1-32.7 785-6) MCV (test code = 89.8 fL 81.7-95.6 787-2) MCHC (test code = 33.8 g/dL 31.2-35.0 786-4) PLT (test code = 202 See_Comment [Automated message] The 777-3) system which nerated this result tra nsmitted reference range : 150 - 328 10*3/?L. Th e reference range was not used to interpr et this result as normal/abnormal . MPV (test code = 10.6 fL 9.8-13.0 82579-9) RDW-CV (test code = 13.2 % 12.1-15.4 788-0) RDW-SD (test code = 43.5 fL 38.5-51.6 15358-7) NRBC x10^3 (test See_Comment [Automated message] The code = 1730351632) system [facility] generated this result tra nsmitted reference range : 10*3/?L. The reference r malia was not used to int erpret this result as normal/abnormal . NRBC/100 WBC (test 0.0 See_Comment [Automat ed message] The code = 5307401467) system [facility] generated this result tra nsmitted reference range : 0.0 - 10.0 /100 WBCs. The reference range was not used to interpr et this result as normal/abnormal . IPF % (test code = 0559796082) [facility] WITHOUT [id number] 14:51:15 Test Item Value Reference Range Interpretation Comments WBC (test code = 6.63 See_Comment [Automated message] The 6690-2) system which ge nerated this result tra nsmitted reference range : 4.20 - 10.70 10*3/?L. The reference range was not used to interpr et this result as normal/abnormal . RBC (test code = 4.42 See_Comment [Automated message] The 789-8) system which nerated this result tra nsmitted reference range : 4.26 - 5.52 10*6/?L. T he reference range was not used to interpr et this result as normal/abnormal . HGB (test code = 13.4 g/dL 12.2-16.4 718-7) HCT (test code = 39.7 % 38.4-49.3 4544-3) MCH (test code = 30.3 pg 26.1-32.7 785-6) MCV (test code = 89.8 fL 81.7-95.6 787-2) MCHC (test code = 33.8 g/dL 31.2-35.0 786-4) PLT (test code = 202 See_Comment [Automated message] The 777-3) system which nerated this result tra nsmitted reference range : 150 - 328 10*3/?L. Th e reference range was not used to interpr et this result as normal/abnormal . MPV (test code = 10.6 fL 9.8-13.0 15999-8) RDW-CV (test code = 13.2 % 12.1-15.4 788-0) RDW-SD (test code = 43.5 fL 38.5-51.6 17833-3) NRBC x10^3 (test See_Comment [Automated message] The code = 4553474728) system [facility] generated this result tra nsmitted reference range : 10*3/?L. The reference r malia was not used to int erpret this result as normal/abnormal . NRBC/100 WBC (test 0.0 See_Comment [Automat ed message] The code = 1850743328) system [facility] generated this result tra nsmitted reference range : 0.0 - 10.0 /100 WBCs. The reference range was not used to interpr et this result as normal/abnormal . IPF % (test code = 8032174114) [facility]PO[facility] [id number] 22:13:04 Test Item Value Reference Range Interpretation Comments POCT Creatinine (test code = 0.9 mg/dL 0.6-1.3 1428908206) Lab Interpretation (test code = Normal 17526-7) [facility]IC [id number] 08:34:00 Test Item Value Reference Range Interpretation Comments SODIUM (test code = NA) 136 mEq/L 134-147 N POTASSIUM (test code = 3.9 mEq/L 3.4-5.0 N K) CHLORIDE (test code = 106 mEq/L 100-108 N CL) CARBON DIOXIDE (test 24 mEq/L 21-33 N code = CO2) ANION GAP (test code = 10 0-20 N GAP) GLUCOSE (test code = 100 mg/dL 70-110 N GLU) BLOOD UREA NITROGEN 9 mg/dL 7-18 N (test code = BUN) GLOMERULAR FILTRATION 95.0 70-80 H Units of measure = RATE (test code = GFR) ml/mi n/1.73 m2 CREATININE (test code = 0.8 mg/dL 0.6-1.3 N CREAT) CALCIUM (test code = 7.9 mg/dL 8.0-10.5 L CA) COMPREHENSIVE METABOLIC [id number] 08:34:00 Test Item Value Reference Range Interpretation Comments TOTAL PROTEIN (test code = PROT) 5.7 g/dL 6.4-8.2 L ALBUMIN (test code = ALB) 3.00 g/dL 3.4-5.0 L BILIRUBIN TOTAL (test code = BILT) 0.5 MG/DL <1.5 N SGOT/AST (test code = AST) 13 IUnit/L 15-37 L SGPT/ALT (test code = ALT) 14 IUnit/L 15-65 L ALKALINE PHOSPHATASE TOTAL (test 68 IUnit/L 20-125 N code = ALKP) TSH REFLEX TO [id number] 08:34:00 Test Item Value Reference Range Interpretation Comments TSH REFLEX TO FT4 (test code = 3.53 IU/mL 0.42-5.47 N TSHREFLEX) CBC W/AUTO [id number] 07:45:00 Test Item Value Reference Range Interpretation Comments WHITE BLOOD CELL (test code = 9.50 x10 3/uL 4.5-11.0 WBC) RED BLOOD CELL (test code = 4.26 x10 6/uL 4.00-5.60 N RBC) HEMOGLOBIN (test code = HGB) 14.0 g/dL 12.5-16.9 N HEMATOCRIT (test code = HCT) 40.3 % 37.5-50.7 N MEAN CELL VOLUME (test code = 94.6 fL 81.0-99.0 N MCV) MEAN CELL HGB (test code = MCH) 32.9 pg 27.0-33.0 N MEAN CELL HGB CONCETRATION 34.7 g/dL 33.0-37.0 N (test code = MCHC) RED CELL DISTRIBUTION WIDTH CV 11.9 % 11.5-14.5 N (test code = RDW) RED CELL DISTRIBUTION WIDTH SD 41.4 fL 37.0-54.0 N (test code = RDW-SD) PLATELET COUNT (test code = 202 x10 3/uL 150-400 N PLT) MEAN PLATELET VOLUME (test code 10.2 fL 7.0-9.0 H = MPV) NEUTROPHIL % (test code = NT%) 67.4 % 56.0-77.0 N IMMATURE GRANULOCYTE % (test 0.3 % 0.0-2.0 N code = IG%) LYMPHOCYTE % (test code = LY%) 19.3 % 14.0-32.0 N MONOCYTE % (test code = MO%) 11.2 % 4.8-9.0 H EOSINOPHIL % (test code = EO%) 1.3 % 0.3-3.7 N BASOPHIL % (test code = BA%) 0.5 % 0.0-2.0 N NUCLEATED RBC % (test code = 0.0 % 0-0 N NRBC%) NEUTROPHIL # (test code = NT#) 6.41 x10 3/uL 2.0-7.6 N IMMATURE GRANULOCYTE # (test 0.03 x10 3/uL 0.00-0.03 N code = IG#) LYMPHOCYTE # (test code = LY#) 1.83 x10 3/uL 1.0-3.8 N MONOCYTE # (test code = MO#) 1.06 x10 3/uL 0.1-0.8 H EOSINOPHIL # (test code = EO#) 0.12 x10 3/uL 0.0-0.2 N BASOPHIL # (test code = BA#) 0.05 x10 3/uL 0.0-0.2 N NUCLEATED RBC # (test code = 0.00 x10 3/uL 0.0-0.1 N NRBC#) MANUAL DIFF REQUIRED (test code NO = MDIFF) - XR CHEST 2 [id number] 12:33:00 FAX: Jillian Carpenter [phone] Hart: St: DIS Name: OLMAN STEPHENSON [facility] : 1945 Age/S: 74/M [address] [place] [address] Blvd Unit #: [id number] Loc: G.3397 [place] [address] Phys: Jillian Garnett MD Acct: [id number] Dis Date: [id number] Status: DIS IN PHONE #: [phone] Exam Date: 07/22/2019 1226 FAX #: [phone] Reason: PERIPHERAL ANGIO EXAMS: CPT CODE: [id number] XR CHEST 2 V 52946 EXAM: XR CHEST 2 VIEWS DATE: 07/22/2019 10:47 AM : 1945; Age: 74 years y/o Male INDICATION: PERIPHERAL ANGIO DX*I73.9 COMPARISON: None. TECHNIQUE: PA and lateral chest radiographs. FINDINGS: Lines, tubes and hardware: None. Lungs and pleura: The lungs are clear. No pleural effusion. Heart and mediastinum: The heart size is normal for technique. Vascular calcifications are present at theaorta. Pulmonary vascularity is normal. IMPRESSION: No acute cardiopulmonary process. SL: [id number] at 1233 Reported and signed by: Yadi Hernández D.O. CC: Jillian Garnett MD Technologist: aNndini SotoRT(R) TrnscrdDate/Time/By: 07/22/2019 (3391) : By: [email or web address] Orig Print D/T: S: 07/22/2019 (3450) PAGE 1 Signed Report- XR CHEST 2 [id number] 12:33:00 FAX: Jillian Carpenter [phone] [facility]: St: PRE Name: OLMAN STEPHENSON [facility] : 1945 Age/S: 74/M [address] [place] [address] Blvd Unit #: [id number] Loc: [place] [address] Phys: Jillian Garnett MD Acct: [id number] Dis Date: Status: PRE [facility] [place]ONE #: [phone] Exam Date: 07/22/2019 1226 FAX #: [phone] Reason: PERIPHERAL ANGIO EXAMS: CPT CODE: [id number] XR CHEST 2 V 21651 EXAM: XR CHEST 2 VIEWS DATE: 07/22/2019 10:47 AM : 1945; Age: 74 years y/o Male INDICATION: PERIPHERAL ANGIO DX*I73.9 COMPARISON: None. TECHNIQUE: PA and lateral chest radiographs. FINDINGS: Lines,tubes and hardware: None. Lungs and pleura: The lungs are clear. No pleural effusion. Heart and mediastinum: The heart size is normal for technique. Vascular calcifications are present at the aorta. Pulmonary vascularity is normal. IMPRESSION: No acute cardiopulmonary process. SL: [id number] at 1233 Reported and signed by: Yadi Hernández D.O. CC: Jillian Garnett MD Technologist: Nandini SotoRT(R) Trnscrd Date/Time/By: 07/22/2019 (6790) : By: [email or web address] Orig Print D/T: S: 07/22/2019 (0325) PAGE 1 Signed ReportBASIC METABOLIC [id number] 11:36:00 Test Item Value Reference Range Interpretation Comments SODIUM (test code = NA) 131 mEq/L 134-147 L POTASSIUM (test code = 4.3 mEq/L 3.4-5.0 N K) CHLORIDE (test code = 98 mEq/L 100-108 L CL) CARBON DIOXIDE (test 26 mEq/L 21-33 N code = CO2) ANION GAP (test code = 11 0-20 N GAP) GLUCOSE (test code = 124 mg/dL 70-110 H GLU) BLOOD UREA NITROGEN 5 mg/dL 7-18 L (test code = BUN) GLOMERULAR FILTRATION 82.9 70-80 H Units of measure = RATE (test code = GFR) ml/mi n/1.73 m2 CREATININE (test code = 0.9 mg/dL 0.6-1.3 N CREAT) CALCIUM (test code = 8.7 mg/dL 8.0-10.5 N CA) PROTHROMBIN [id number] 11:33:00 Test Item Value Reference Range Interpretation Comments PROTHROMBIN TIME 10.2 SECONDS 9.3-12.9 N PATIENT (test code = PTP) INTERNATIONAL NORMAL 0.9 0.8-1.2 N TARGET INR BY RATIO (test code = INDICATIO N Indication INR) INR1. Prophylax is of venous thrombos is 2.0 - 3.0 (orthoped ic surgery), Proph ylaxis of venous throm bosis (other than hig h-risk surgery), Treat ment of Deep Vein Thrombosis/Pulm onary Embolism, Preve ntion of systemic emb olism - Tissue heart va lves, Acute Myocardia l Infarction (to prevent systemic emboli sm), Valvular heart disease, Atrial Fibrillation, Bileaflet mecha nical valve in aortic position.2. Mec hanical prosthetic valv es (high risk), 2. 5 - 3.5 Presence of Lup us Anticoagulant o r Antiphospholipi d Antibodies, Pre vention of systemic emb olism - Acute Myocardia l Infarction (to prevent recurrent infar ct). BASIC METABOLIC [id number] 11:33:00 Test Item Value Reference Range Interpretation Comments SODIUM (test code = NA) 131 mEq/L 134-147 L POTASSIUM (test code = K) 4.3 mEq/L 3.4-5.0 N CHLORIDE (test code = CL) 98 mEq/L 100-108 L CARBON DIOXIDE (test code = CO2) 26 mEq/L 21-33 N ANION GAP (test code = GAP) 11 0-20 N GLUCOSE (test code = GLU) 124 mg/dL 70-110 H BLOOD UREA NITROGEN (test code = 5 mg/dL 7-18 L BUN) GLOMERULAR FILTRATION RATE (test 70-80 code = GFR) CREATININE (test code = CREAT) mg/dL 0.6-1.3 CALCIUM (test code = CA) 8.7 mg/dL 8.0-10.5 N CBC W/AUTO [id number] 11:25:00 Test Item Value Reference Range Interpretation Comments WHITE BLOOD CELL (test code = 5.10 x10 3/uL 4.5-11.0 N WBC) RED BLOOD CELL (test code = 5.21 x10 6/uL 4.00-5.60 N RBC) HEMOGLOBIN (test code = HGB) 16.8 g/dL 12.5-16.9 N HEMATOCRIT (test code = HCT) 49.1 % 37.5-50.7 N MEAN CELL VOLUME (test code = 94.2 fL 81.0-99.0 N MCV) MEAN CELL HGB (test code = MCH) 32.2 pg 27.0-33.0 N MEAN CELL HGB CONCETRATION 34.2 g/dL 33.0-37.0 N (test code = MCHC) RED CELL DISTRIBUTION WIDTH CV 11.5 % 11.5-14.5 N (test code = RDW) RED CELL DISTRIBUTION WIDTH SD 40.1 fL 37.0-54.0 N (test code = RDW-SD) PLATELET COUNT (test code = 251 x10 3/uL 150-400 N PLT) MEAN PLATELET VOLUME (test code 9.5 fL 7.0-9.0 H = MPV) NEUTROPHIL % (test code = NT%) 48.5 % 56.0-77.0 L IMMATURE GRANULOCYTE % (test 0.4 % 0.0-2.0 N code = IG%) LYMPHOCYTE % (test code = LY%) 33.5 % 14.0-32.0 H MONOCYTE % (test code = MO%) 12.7 % 4.8-9.0 H EOSINOPHIL % (test code = EO%) 3.7 % 0.3-3.7 N BASOPHIL % (test code = BA%) 1.2 % 0.0-2.0 N NUCLEATED RBC % (test code = 0.0 % 0-0 N NRBC%) NEUTROPHIL # (test code = NT#) 2.47 x10 3/uL 2.0-7.6 N IMMATURE GRANULOCYTE # (test 0.02 x10 3/uL 0.00-0.03 N code = IG#) LYMPHOCYTE # (test code = LY#) 1.71 x10 3/uL 1.0-3.8 N MONOCYTE # (test code = MO#) 0.65 x10 3/uL 0.1-0.8 N EOSINOPHIL # (test code = EO#) 0.19 x10 3/uL 0.0-0.2 N BASOPHIL # (test code = BA#) 0.06 x10 3/uL 0.0-0.2 N NUCLEATED RBC # (test code = 0.00 x10 3/uL 0.0-0.1 N NRBC#) MANUAL DIFF REQUIRED (test code NO = MDIFF) - CT ANGIO [id number] 14:46:00 Name: OLMAN STEPHENSON [facility] : 1945 Age/S: 73 / M [address] [place] [address] Unit #:[id number] Loc: [place] [address] Phys: Jillian Garnett MD Acct: [id number] Dis Date: Status: REG CLI PHONE #: [phone] Exam Date: 10/17/2018 1035 FAX #: [phone] Reason: ESSNETIAL PRIMARY HYPERTENSION, OCCLUSION. EXAMS: CPT CODE: [id number] CT ANGIO CHEST [address]32 EXAM: CTA CHEST, abdomen WITH CONTRAST DATE: 10/17/2018 9:48 AM : 1945; Age: 73 years y/o Male INDICATION: ESSENTIAL P RIMARY HYPERTENSION, OCCLUSION. COMPARISON: None TECHNIQUE: Volumetric CT of the chest, abdomen is acquired during arterial phase following intravenous administration of contrast. Coronal and sagittalreconstructions were created. Three-dimensional or MIP reconstructions of the arterial system were created at an independent workstation. IV Contrast: 100 mL Isovue DLP: 305 mGy-cm CT imaging performedat this location utilizes radiation dose optimization techniques which include one or more of the following: -Automated exposure control -Adjustment of the mA and/or kV according to patient size -Use of iterative reconstruction technique FINDINGS: Angiographic findings: Moderate atherosclerosis of thevisualized left subclavian artery with moderate to severe focal narrowing within the proximal portion, best seen on axial image 23 of series 3. Moderate atherosclerosis of the thoracic aorta without aneurysm. Mild atherosclerotic narrowing of the origin of the celiac artery. Mild to moderate atherosclerosis of the superior mesentery artery without flow-limiting stenosis. Mild to moderate atherosclerosis of bilateral renal arteries. Moderate atherosclerotic narrowing of the origin of the DEJON. Ectatic infrarenal abdominal aorta measuring up to 2.7 cm. Mild to moderate atherosclerotic narrowing of the origin of bilateral common iliac arteries. Lower neck: The visible portions or the lower neck and thyroid are unremarkable. Lymph Nodes: There is no mediastinal or hilar lymphadenopathy. No axillary lymphadenopathy. Heart, and pericardium: : The heart is normal in size. No pericardial effusion. There are coronary artery calcifications. . PAGE 1 Signed Report (CONTINUED) Name: OLMAN STEPHENSON [facility] [place] : 1945 Age/S: 73 / M [address] [place] [address] Blvd Unit #: [id number] Loc: [place] [address] Phys: Jillian Garnett MD Acct: [id number] Dis Date: Status: REG CLI PHONE #: [phone] Exam Date: 10/17/2018 1035 FAX #: [phone] Reason: ESSNETIAL PRIMARY HYPERTENSION, OCCLUSION. EXAMS: CPT CODE: [id number] CT ANGIO CHEST 14308 (Continued) Lungs: 2.9 cm groundglass focus is noted in the right upper lobe on image 30 of series 3. Mild emphysema. Some groundglass changes within the right lung apex. No pleural effusions. The central airway is patent. Visualized abdomen: Within the anterior left hepatic lobe 8 mm enhancing or hyperdense lesion is seen. Gallbladder, adrenal glands, kidneys, spleen and pancreas are unremarkable. Stomach is collapsed. Visualized small and large bowel loops are grossly unremarkable. Tiny nonspecific mesenteric nodes. No free fluid in the visualized abdomen. Soft tissues: Normal. Bones: No acute abnormality. Age-related degenerative findings. IMPRESSION: 1. Ectatic abdominal aorta measuring up to 2.7 cm. Mild to moderate atherosclerotic narrowing ofthe origin of bilateral common iliac arteries. 2. Moderate atherosclerosis of the visualized left sub clavian artery with moderate to severe focal narrowing within the proximal portion. 3. 2.9 cm groundglass focus is noted in the right upper lobe. Some groundglass changes are also noted in the right lung apex. This may represent infectious or inflammatory process however differential also includes maddi gnancy. 3 months follow-up chest CT without contrast is recommended. 4. 8 mm hyperdense or enhancing lesion within the anterior left hepatic lobe. If the patient is high risk, [address] or MRI abdomen with and without contrast is recommended. 5. Coronary artery disease. FOR INTERNAL CODING PURPOSES ONLY RESULT CODE: NOD SL: [id number] PAGE 2 Signed Report (CONTINUED) Name: OLMAN STEPHENSON [facility] : 1945 Age/S: 73 / M [address] [place], [place] [address]vd Unit #: [id number] Loc: [place] [address] Phys: Jillian Garnett MD Acct: [id number] Dis Date: Status: REG CLI PHONE #: [phone] Exam Date: 10/17/2018 1035 FAX #: [phone] Reason: ESSNETIAL PRIMARY HYPERTENSION, OCCLUSION. EXAMS: CPT CODE: [id number] CT ANGIO CHEST 85378 (Continued) at 1446 Reported and signed by: Yadi Hernández D.O. CC: Jillian Garnett MD Technologist:Gustavo Akbar, RT(R)(CT) CTDI: DLP: Trnscb Date/Time: 10/17/2018 (1446) [email or web address] Orig Print D/T: S: 10/17/2018 (6307) CTDI: DLP: PAGE 3 Signed Report- CT ANGIO [id number] 14:46:00 Name: OLMAN STEPHENSON [facility] Dee Dee Da Silva : 1945 Age/S: 73 / M [address] [place] [address] Blvd Unit #: [id number] Loc: [place] [address] Phys: Jillian Garnett MD Acct: [id number] Dis Date: Status:REG CLI PHONE #: [phone] Exam Date: 10/17/2018 1035 FAX #: [phone] Reason: ESSENTIAL PRIMARY HYPERTENSION, OCCLUSION. EXAMS: CPT CODE: [id number] CT ANGIO ABDOMEN 38233 EXAM: CTA CHEST, abdomen WITH CONTRAST DATE: 10/17/2018 9:48 AM : 1945; Age: 73 years y/o Male INDICATION: ESSENTIAL PRIMARY HYPERTENSION, OCCLUSION. COMPARISON: None TECHNIQUE: Volumetric CT of the chest, abdomen isacquired during arterial phase following intravenous administration of contrast. Coronal and sagittal reconstructions were created. Three-dimensional or MIP reconstructions of the arterial system were created at an independent workstation. IV Contrast: 100 mL Isovue DLP: 305 mGy-cm CT imaging performed at this location utilizes radiation dose optimization techniques which include one or more of the following: - Automated exposure control -Adjustment of the mA and/or kV according to patient size -Use of iterative reconstruction technique FINDINGS: Angiographic findings: Moderate atherosclerosis of the visualized left subclavian artery with moderate to severe focal narrowing within the proximal portion, best seen on axial image 23 of series 3. Moderate atherosclerosis of the thoracic aorta without aneurysm. Mild atherosclerotic narrowing of the origin of the celiac artery. Mild to moderate atherosclerosis of the superior mesentery artery without flow-limiting stenosis. Mild to moderate atherosclerosis of bilateral renal arteries. Moderate atherosclerotic narrowing of the origin of the DEJON. Ectatic infrarenal abdominal aorta measuring up to 2.7 cm. Mild to moderate atherosclerotic narrowing of the origin of bilateral common iliac arteries. Lower neck: The visible portions or the lower neck and thyroid are unremarkable. Lymph Nodes: There is no mediastinal or hilar lymphadenopathy. No axillary lymphadenopathy. Heart, and pericardium: : The heart is normal in size. No pericardial effusion. Thereare coronary artery calcifications. . PAGE 1 Signed Report (CONTINUED) Name: OLMAN STEPHENSON : 1945 Age/S: 73 / M [address] [place] [address] Blvd Unit #: [id number] Loc: [place] [address] Phys: Jillian Garnett MD Acct: [id number] Dis Date: Status: REG CLI PHONE #: [phone] Date: 10/17/2018 1035 FAX #: [phone] Reason: ESSENTIAL PRIMARY HYPERTENSION, OCCLUSION. EXAMS: CPT CODE: [id number] CT ANGIO ABDOMEN 13086 (Continued) Lungs: 2.9 cm groundglass focus is noted in the right upper lobe on image 30 of series 3. Mild emphysema. Some groundglass changes within the right lung apex. No pleural effusions. The central airway is patent. Visualized abdomen: Within the anterior left hepatic lobe 8 mm enhancing or hyperdense lesion is seen. Gallbladder, adrenal glands, kidneys, spleen and pancreas are unremarkable. Stomach is collapsed. Visualized small and large bowel loops are grossly unremarkable. Tiny nonspecific mesenteric nodes. No free fluid in the visualized abdomen. Soft tissues: Normal. Bones: No acute abnormality. Age-related degenerative findings. IMPRESSION: 1. Ectatic abdominal aorta measuring up to 2.7 cm. Mild to moderate atherosclerotic narrowing of the origin of bilateral common iliac arteries. 2. Moderate atherosclerosis of the visualized left salmeron bclavian artery with moderate to severe focal narrowing within the proximal portion. 3. 2.9 cm groundglass focus is noted in the right upper lobe. Some groundglass changes are also noted in the right lung apex. This may represent infectious or inflammatory process however differential also includes mal ignancy. 3 months follow-up chest CT without contrast is recommended. 4. 8 mm hyperdense or enhancing lesion within the anterior left hepatic lobe. If the patient is high risk, [address] or MRI abdomen with and without contrast is recommended. 5. Coronary artery disease. FOR INTERNAL CODING PURPOSES ONLY RESULT CODE: NOD SL: [id number] PAGE 2 Signed Report (CONTINUED) Name: OLMAN STEPHENSON : 1945 Age/S: 73 / M [address] [place] [address] Blvd Unit #: [id number] Loc: [place] [address] Phys: Jillian Garnett MD Acct: [id number] Dis Date: Status: REG CLI PHONE #: [phone] Exam Date: 10/17/2018 1035 FAX #: [phone] Reason: ESSENTIAL P RIMARY HYPERTENSION, OCCLUSION. EXAMS: CPT CODE: [id number] CT ANGIO ABDOMEN 13082 (Continued) at 1446 Reported and signed by: Yadi Hernández D.O. CC: Jillian Garnett MD Technologist:RT Pieter(R)(CT) CTDI: DLP: Trnscb Date/Time: 10/17/2018 (144) [email or web address] Orig Print D/T: S: 10/17/2018 (4869) CTDI: DLP: PAGE 3 Signed Report- XR CHEST [id number] 11:43:00 Patient Name: OLMAN STEPHENSON Unit No: [id number] EXAMS: CPT CODE: [id number] XR CHEST 2V 95822 PA AND LATERAL CHEST 01/14/02 DIAGNOSIS: No evidence of active disease. COMMENTS: The trachea is midline. The cardiac silhouette is within normal limits in size. The lungs are clear. at 1139 Reported by: Dameon Collins MD Signed by: Zelalem Collins MD CC: Rafal Cardozo M.D. Technologist: Robyn Rosa (R) [facility] NAME: OLMAN STEPHENSON [address] [facility] PHYS: Rafal Monroy :1945 AGE: 56 SEX: M [place], [place] [address] LOC: UNK PHONE #: [phone] EXAM DATE: 01/14/2002 STATUS: UNK FAX #: [phone] RAD #: [id number] D/C DT PAGE 1 Signed Report Ade ent Name: OLMAN STEPHENSON Unit No: [id number] EXAMS: CPT CODE: [id number] XR CHEST 2V 05367 <Continued> Transcribed D/ (1426) [email or web address] [facility] NAME: OLMAN STEPHENSON [address] [facility] PHYS: Rafal Monroy Brenda : 1945 AGE: 56 SEX: M [place], [place] [address] LOC: UNK PHONE #: [phone] EXAM DATE: 01/14/2002 STATUS: UNK FAX #: [phone] RAD #: [id number] D/C DT PAGE 2 Signed Report Notes Date/Time Note Provider Source 2022-11-22 09:32:00-00:00 [facility] Operative Note - Full REPORT#:[id number] REPORT STATUS: Signed DATE:11/22/22 TIME: 931 PATIENT: OLMAN STEPHENSON UNIT #: [id number] ROOM/BED: : 47 AGE: 77 SEX: M ATTEND: Jean Carlos Kennedy MD ADM AUTHOR: Alex Kennedy MD * ALL edits or amendments must be made on the [employer]/computer document * Operative Report ORM Surgeries: Surgery Date and Time: 11/22/2022 0800 Primary Procedure: LEFT SUBCLAVIAN ARTERY ANGIO GRAM WITH Start date: 11/22/22 Start time: 0815 Pre-procedure diagnosis: 1. Dizziness, left subclavian artery stenosis, v ertebrobasilar syndrome 2. Carotid stenosis, bilateral Post-procedure diagnosis: same Procedures performed: 1. Percutaneous ultrasound g uided access right common femoral artery with images maintained for record [id number] 2. Left subclavian artery st ent, 8 mm X 29 mm EV3 balloon expandable stent [id number] 3. Arch arteriogram 4. Selective catheter placement in the right julio minate artery with selective arteriogram 18083 5. Catheter placement in the right subclavian artery with selective arteriogram with vertebral arteries views and interpretation 60953-S 6. Catheter placement in the right common carotid artery with extracerebral and intracerebral views and interpretation 35148-B 7. Catheter placement in the left common carotid artery with extracerebral and intracerebral views and interpretation 35443-V-8 0 8. Catheter placement in the left subcla vian artery with selective arteriogram with vertebral arteries views and interpretation 98102-C-29 Technique/Procedure: The patient was brought into the operating room prepped and draped in the usual sterile manner. Percutaneous ultrasound-guided a ctive access was obtained to right common femoral artery with a microcatheter system and exchanged over a Glidewire to 6 Luxembourger 10 cm sheath. An Omni Flus h cath was placed in the arch of the aorta and arch arteriography was complete d. The catheter was exchanged to a Jobinasecond side giselle 1 glide catheter which was used to intubate the innominate artery and selective angiography was completed. The cath was extended into the ostium of the subclavian artery and selective angiography was completed with vertebral views. Cath was pulled back and extended into the common carotid artery with a Glidewire a nd selective angiography was completed with intracerebral and extracerebral views and i nterpretation. Catheter was then pulled back and advanced into the left comm on carotid artery and a Glidewire was used to extend the catheter into the distal common carotid artery and selective angiography was completed with int racerebral and extracerebral views. The cath was then pulled back and placed into the ostium of the left subclavian artery and selective angiography was completed. The patient had received 10,000's of heparin at this point durin g the case. The Glidewire was used to cross the subclavian artery lesion and t he wire was exchanged with a glide catheter to an advantage wire and the sheath was exchanged to a 7 Luxembourger 90 cm sheath which was placed through th e lesion. An 8 mm x 29 mm EV 3 balloon expandable stent was then placed and deployed ac ross the lesion with good result. There was improved f low noted to the vertebral artery at this time with patency of the V1 through V4 segments ex tending through the basilar artery and patent PICA. Sheath was then pulled down to the abdominal aorta and aortogram was completed redemonstratin g the previously known aortic aneurysm at its distal extent and patent bilateral common iliac artery stents and right external iliac artery stenosis to approximately 60%. An shannon-Seal device was then used to close right groin access without difficulty. The patie nt tolerated procedure well. There are no complications. The patient was stable and discharged to the PACU. Primary Surgeon: Dr. Alex Kennedy Farrowing Worker(s): none Anesthesia: general anesthesia Operative findings: Arch arteriogram demonstrates a type II arch omi ring type III. The innominate artery and selective angiogr aphy is patent with good flow extending through the ostium of the right subclavian artery and right common carotid arteries. Selective angiography of the right subclavian ar joan demonstrates patent subclavian artery to the axillary artery. There is a 50% stenosis in the subclavian artery distal to the vertebral artery at the thoracic outlet. The right vertebral artery is pa tent extending through V1 through V4 segments with a patent PICA. There is retrograde flow noted in t he V3 segment of the left vertebral artery. Selective angiography of the r ight common carotid artery demonstrates patent common carotid extending thr ough the bifurcation to the internal and external carotid arteries. The exte rnal carotid arteries patent all branches in the face. The internal c arotid is patent extending through the carotid siphon and cavernous sinus with flow to the middle cerebral artery M1 through M5 segments and anterior tibial artery A1 through A3 segments and some flow to the anterior communi cating artery to the contralateral anterior cerebral artery. Selective angiography the left common carotid ar joan demonstrates patent left common carotid artery with g ood flow extending through the internal and external carotid arteries. The external carotid artery is patent to branches in the face. The internal carotid artery has an ostial stenosis to approximately 60% with mild to moderate calcifications. The remain ing arteries patent extending through the carotid siphon and cavernous sinus w ith flow through the middle cerebral artery M1 through M 5 segments and anterior tibial artery A1 through A3 segments. Selective angiography of the left subclavian art violeta demonstrates a focal stenosis approximately 1.5 cm distal to the osti um to 80%. There is limited flow to the vertebral artery on the through V1 a nd V2 segments with no significant flow noted to the V3 V4 segments or through to the basilar artery from the left side when evaluated from o utside. The left axial arteries patent with stenosis at the thoracic outlet approximate ly 30%. Complications: none Estimated blood loss in ml's: none Specimens removed/altered: none Implant(s): stent at 0936 RPT #:[id number] END OF REPORT 2022-11-22 09:25:00-00:00 [facility] ([facility]) Brief Discharge Note w/Med Rec REPORT#:[id number] REPORT STATUS: Signed DATE:11/22/22 TIME: 924 PATIENT: OLMAN STEPHENSON UNIT #: [id number] ROOM/BED: : 47 AGE: 77 SEX: M ATTEND: Jean Carlos Kennedy MD ADM AUTHOR: Alex Kennedy MD * ALL edits or amendments must be made on the [employer]/computer document * Med Rec Med Rec Discharge meds: Continue taking these medications: ATORVASTATIN (LIPITOR) 40 MG TAB 40 MILLIGRAM ORAL DAILY. LISINOPRIL (ZESTRIL) 2.5 MG TAB METOPROLOL SUCC XL (TOPROL XL) 25 MG TAB.SR.24H 12.5 MILLIGRAM ORAL TWICE DAILY. FUROSEMIDE (LASIX) 40 MG TAB 40 MILLIGRAM ORAL DAILY. Start taking the following new medications: CLOPIDOGREL (PLAVIX) 75 MG TAB 75 MILLIGRAM ORAL DAILY. Qty = 30 Refills = 3 Objective Results Findings/Data: Laboratory Tests: 11/22 602 Coagulation INR (0.8 - 1.2) 1.1 PT Patient/Control Mix (9.3 - 12.9 SECONDS) 12. 3 VS/I O Last Documented: Result Date Time Pulse Ox 97 11/22 620 B/P 143/85 11/22 620 Temp 97.6 11/22 620 Pulse 73 11/22 620 Resp 18 11/22 620 24 hour I O ending at 0700: 11/22 0700 11/21 1900 Intake Total Output Total Balance Patient 64.1 kg Weight Weight Stated/Reported Measurement Method Brief Discharge Note w/Med Rec Discharge to: Home/Self Care Discharge diagnosis: Vertrobasilar syndrome Cartid stenosis Pt. condition on discharge: stable Additional Discharge Routines: Attending Follow- Up, Wound/Dressing Care Diet: Resume Home Diet/Feeds Activity: No Strenuous Activity Wound/dressing care: Clean wound daily, Do not s ubmerge incision, Keep wound clean and dry, OK to shower tomorrow Follow-up Appointments Attending Physician: Attending Physician: Alex Kennedy MD Attending physician follow up timeframe: In 1-2 weeks at 0926 RPT #:[id number] END OF REPORT 2022-11-22 09:15:00-00:00 [facility] ([facility]) Brief Op Note REPORT#:[id number] REPORT STATUS: Signed DATE:11/22/22 TIME: 914 PATIENT: OLMAN STEPHENSON UNIT #: [id number] ROOM/BED: : 47 AGE: 77 SEX: M ATTEND: Jean Carlos Kennedy MD ADM AUTHOR: Alex Kennedy MD * ALL edits or amendments must be made on the [employer]/computer document * Op/Inv Proc Note - Brief ORM Surgeries: Surgery Date and Time: 11/22/2022 0800 Primary Procedure: LEFT SUBCLAVIAN ARTERY ANGIO GRAM WITH Pre-procedure diagnosis: 1. Dizziness, left subclavian artery stenosis, v ertebrobasilar syndrome 2. Carotid stenosis, bilateral Post-procedure diagnosis: same as pre procedure dx Procedures performed: 1. Percutaneous ultrasound g uided access right common femoral artery with images maintained for record [id number] 2. Left subclavian artery st ent, 8 mm X 29 mm EV3 balloon expandable stent [id number] 3. Arch arteriogram 4. Selective catheter placement in the right julio minate artery with selective arteriogram 60954 5. Catheter placement in the right subclavian artery with selective arteriogram with vertebral arteries views and interpretation 08692-N 6. Catheter placement in the right common carotid artery with extracerebral and intracerebral views and interpretation 86713-V 7. Catheter placement in the left common carotid artery with extracerebral and intracerebral views and interpretation 94788-K-[id number] 0 8. Catheter placement in the left subcla vian artery with selective arteriogram with vertebral arteries views and interpretation [id number]-A-[id number] Primary Surgeon: Dr. Alex Kennedy Farrowing Worker(s): none Anesthesia: general anesthesia Findings: Arch arteriogram demonstrates a type II arch omi ring type III. The innominate artery and selective angiogr aphy is patent with good flow extending through the ostium of the right subclavian artery and right common carotid arteries. Selective angiography of the right subclavian ar joan demonstrates patent subclavian artery to the axillary artery. There is a 50% stenosis in the subclavian artery distal to the vertebral artery at the thoracic outlet. The right vertebral artery is pa tent extending through V1 through V4 segments with a patent PICA. There is retrograde flow noted in t he V3 segment of the left vertebral artery. Selective angiography of the r ight common carotid artery demonstrates patent common carotid extending thr ough the bifurcation to the internal and external carotid arteries. The exte rnal carotid arteries patent all branches in the face. The internal c arotid is patent extending through the carotid siphon and cavernous sinus with flow to the middle cerebral artery M1 through M5 segments and anterior tibial artery A1 through A3 segments and some flow to the anterior communi cating artery to the contralateral anterior cerebral artery. Selective angiography the left common carotid ar joan demonstrates patent left common carotid artery with g ood flow extending through the internal and external carotid arteries. The external carotid artery is patent to branches in the face. The internal carotid artery has an ostial stenosis to approximately 60% with mild to moderate calcifications. The remain ing arteries patent extending through the carotid siphon and cavernous sinus w ith flow through the middle cerebral artery M1 through M 5 segments and anterior tibial artery A1 through A3 segments. Selective angiography of the left subclavian art violeta demonstrates a focal stenosis approximately 1.5 cm distal to the osti um to 80%. There is limited flow to the vertebral artery on the through V1 a nd V2 segments with no significant flow noted to the V3 V4 segments or through to the basilar artery from the left side when evaluated from o utside. The left axial arteries patent with stenosis at the thoracic outlet approximate ly 30%. Complications: none Estimated blood loss in ml's: none Specimens removed/altered: none at 0936 RPT #:[id number] END OF REPORT 2019-07-25 12:28:00-00:00 [facility] ([facility]) Cardiology Progress Note REPORT#:[id number] REPORT STATUS: Signed DATE:07/25/19 TIME: 1228 PATIENT: OLMAN STEPHENSON UNIT #: [id number] ROOM/BED: [place] [address] : 47 AGE: 74 SEX: M ATTEND: Jean Wood DO ADM AUTHOR: Jillian Garnett * ALL edits or amendments must be made on the [employer] document * Subjective Patient reports: No: chest pain, palpitations, shortness of breat h. Objective General VS/I O: 24 hour I O ending at 0700: 07/25 0700 07/24 1900 Intake Total 1570.00 Output Total 200 Balance 1370.00 Intake, IV 980.00 Intake, Oral 590 Number Voids 3 Output, Urine 200 Patient 72.6 kg Weight Weight Stated/Reported Measurement Method Vital Signs: Date Time Temp Pulse Resp B/P B/P Pulse O2 O2 F low FiO2 Mean Ox Delivery Rate 07/25 0802 36.9 89 18 137/87 104.0 96 Room air 07/25 0500 36.9 92 18 144/86 105.5 97 Room air 07/24 2353 37.0 86 18 97/69 78.2 96 Room air 07/24 1931 36.5 78 18 112/75 87.3 98 Room air 07/24 1656 36.5 76 16 178/91 119.7 99 Room air Patient Weight Weight (lb): 160 Weight (oz): 0.89 Weight (kg): 72.600 Medications: Active Meds + DC'd Last 24 Hrs Aspirin 81 MG DAILY PO (CAN) Aspirin 81 MG DAILY PO (DCD) Clopidogrel Bisulfate 75 MG DAILY PO (DCD) Hydrochlorothiazide 25 MG DAILY PO (DCD) Nicotine 21 MG DAILY TRANSDERM (DCD) Atorvastatin Calcium 40 MG 2100 PO (DCD) Diazepam 5 MG BID PO (DCD) Chlordiazepoxide HCl 25 MG Q8H PO (DCD) Famotidine 20 MG BID PO (DCD) Diazepam 5 MG ONCE ONE PO (CAN) Lorazepam 1 MG Q4H PRN PRN IV (DCD) Sodium Chloride 0 ASDIR PRN IV (DCD) Diazepam 5 MG .STK-MED ONE PO (DC) Diazepam 0 .STK-MED ONE PO (DC) Acetaminophen 650 MG Q4H PRN PRN PO (DCD) Hydrocodone Bitart/Acetaminophen 1 TAB Q6H PRN P RN PO (DCD) Lactulose 20 GM Q6H PRN PRN PO (DCD) Morphine Sulfate 4 MG Q4H PRN PRN IV (DCD) Ondansetron HCl 4 MG Q4H PRN PRN IV (DCD) Potassium Chloride 40 MEQ DAILY PRN PRN PO (DCD) Temazepam 15 MG BEDTIME PRN PRN PO (DCD) Valsartan 320 MG DAILY PO (DCD) Hydrocodone Bitart/Acetaminophen 1 TAB .STK-MED ONE PO (DC) Hydrocodone Bitart/Acetaminophen 1 TAB Q6H PRN P RN PO (CAN) Hydrocodone Bitart/Acetaminophen 0 .STK-MED ONE PO (DC) Clonidine HCl 0.1 MG Q8H PRN PRN PO (DCD) Hydralazine HCl 0 .STK-MED ONE IV (DC) Hydralazine HCl 10 MG Q6H PRN PRN IV (DCD) Acetaminophen 650 MG Q6H PRN PRN PO (CAN) Atropine Sulfate 0.5 MG ASDIR PRN IV (DCD) Ondansetron HCl 4 MG Q6H PRN PRN IV (CAN) Sodium Chloride 1,000 ML .[id number] ONE IV (DC) Sodium Chloride 500 ML ASDIR PRN IV (DCD) Physical Exam General appearance: alert, awake Head/Eyes: atraumatic, clear cornea, EOMI, stacie l conjunctiva/sclera, normocephalic, PERRL, PERRLA ENT: normal nose, normal pharynx Neck: full range of motion, non-tender, normal thyroid, supple/no meningismus, no bruit/NL carotids, no JVD, no lymphadenopathy , no masses or swelling Cardiovascular: CV assessment: regular rate and rhythm Respiratory: clear to auscultation, no distress Abdomen: non-tender, normal bowel sounds , no distention, no guarding, no mass/ organomegaly, no pulsatile mass, no rebound Upper extremity: UE assessment: normal capillary refill, no ron a Lower extremity: LE assessment: normal capillary refill, no ron a Results Findings/Data: Laboratory Tests 07/25 0540 Chemistry Sodium (134 - 147 mEq/L) 136 Potassium (3.4 - 5.0 mEq/L) 3.9 Chloride (100 - 108 mEq/L) 106 Carbon Dioxide (21 - 33 mEq/L) 24 Anion Gap (0 - 20) 10 BUN (7 - 18 mg/dL) 9 Creatinine (0.6 - 1.3 mg/dL) 0.8 Glomerular Filtr Rate (70 - 80) 95.0 H Glucose (70 - 110 mg/dL) 100 Calcium (8.0 - 10.5 mg/dL) 7.9 L Total Bilirubin (<1.5 MG/DL) 0.5 AST (15 - 37 IUnit/L) 13 L ALT (15 - 65 IUnit/L) 14 L Total Alk Phosphatase (20 - 125 IUnit/L) 68 Total Protein (6.4 - 8.2 g/dL) 5.7 L Albumin (3.4 - 5.0 g/dL) 3.00 L TSH (0.42 - 5.47 IU/mL) 3.53 Laboratory Tests 07/25 0540 Hematology WBC (4.5 - 11.0 x10 3/uL) 9.50 RBC (4.00 - 5.60 x10 6/uL) 4.26 Hgb (12.5 - 16.9 g/dL) 14.0 Hct (37.5 - 50.7 %) 40.3 MCV (81.0 - 99.0 fL) 94.6 MCH (27.0 - 33.0 pg) 32.9 MCHC (33.0 - 37.0 g/dL) 34.7 RDW (11.5 - 14.5 %) 11.9 Plt Count (150 - 400 x10 3/uL) 202 MPV (7.0 - 9.0 fL) 10.2 H Neut % (Auto) (56.0 - 77.0 %) 67.4 Lymph % (Auto) (14.0 - 32.0 %) 19.3 [place] % (Auto) (4.8 - 9.0 %) 11.2 H Eos % (Auto) (0.3 - 3.7 %) 1.3 Baso % (Auto) (0.0 - 2.0 %) 0.5 Neut # (Auto) (2.0 - 7.6 x10 3/uL) 6.41 Lymph # (Auto) (1.0 - 3.8 x10 3/uL) 1.83 [place] # (Auto) (0.1 - 0.8 x10 3/uL) 1.06 H Eos # (Auto) (0.0 - 0.2 x10 3/uL) 0.12 Baso # (Auto) (0.0 - 0.2 x10 3/uL) 0.05 Abs Immat Gran (auto) (0.00 - 0.03 x10 3/uL) 0. 03 Add Manual Diff NO Immature Gran % (0.0 - 2.0 %) 0.3 Nucleated RBC % (0 - 0 %) 0.0 Nucleated RBCs # (Man) (0.0 - 0.1 x10 3/uL) 0.0 0 Results: labs reviewed, vital signs stable Diagnosis, Assessment Plan Hospital course to date: A/P: PVD: s/p bilateral EIA stenting, clinically stab le AAA: FU with vascular surgery OK to DC FU in one week. at 1230 RPT #:[id number] END OF REPORT 2019-07-25 09:30:00-00:00 [id number] [place] [address] PATIENT NAME: OLMAN STEPHENSON ADMIT DATE: 07/24/19 ACCOUNT NO: [id number] ROOM NO: G.3397 AGE: 74 REPORT TYPE: eELECTROCARDIOGRAM REPORT SEX: M ADMITTING PHYSICIAN:Jean Wood DO ATTENDING PHYSICIAN:eJan Wood DO Order: [id number] Test Reason : POST PCI Test Date/Time Stamp: SunJul 25 2019 09:30:07 Blood Pressure : / mmHG Vent. Rate : 093 BPM Atrial Rate : 093 BPM P-R Int : 158 ms QRS Dur : 088 ms QT Int : 376 ms P-R-T Axes : 084 063 048 degree s QTc Int : 467 ms Sinus rhythm with occasional premature ventricul ar complexes Otherwise normal ECG When compared with ECG of 22-JUL-2019 11:21, Significant changes have occurred Confirmed by MD RIKI, RIKI ([id number]) on 0 7:46:31 AM Referred By: Jillian Garnett Confirmed by:RIKI LYN MD at 0746 PATIENT NAME: OLMAN STEPHENSON ACCOUNT #: [id number] 2019-07-24 14:54:00-00:00 [facility] History Physical - Adult REPORT#:[id number] REPORT STATUS: Signed DATE:07/24/19 TIME: 1454 PATIENT: OLMAN STEPHENSON UNIT #: [id number] ROOM/BED: [place] [address] : 47 AGE: 74 SEX: M ATTEND: Jean Wood DO ADM AUTHOR: Jean Wood DO * ALL edits or amendments must be made on the [employer]/computer document * History of Present Illness HPI Chief complaint: post surgery HPI: 74 yo male with hx tobacco a buse, alcohol abuse, HTN and HLD, severe PAD who is being admitted post Lower extremity angiogram, a ngioplasty and stenting of bilateral iliac arteries and placement of bilate ral common iliac artery stent grafts. Patient reportedly had bilateral groin p ains for a year. He was evaluated 07/[address] abdomen which showed aortic stenosis, bi lateral common iliac and external iliac stenosis. He also smokes at least 1pack of cigs/d and drin ks 6pints of alcohol per day. Pt denies any chest pains. He reports shortness of breath with exertion. History Past medical history: Reports: Hypertension, Periph arterial disease. Past surgical history: Reports: Hernia repair. Additional surgical history: R wrist reconstructive surgery Additional family history: cad - mother Alcohol use: Alcohol use Drug use: Denies recreational drugs Smoking status for patients 13 years old or olde r: Current every day smoker Pack years: Pack years (pk/d)*(yrs): 50 Medication/Allergy-Vaccine Hx Home Medications: ASPIRIN 81 MG PO DAILY ATORVASTATIN (LIPITOR) 40 MG PO BEDTIME CLOPIDOGREL (PLAVIX) 75 MG PO DAILY VALSARTAN/HCTZ (DIOVAN HCT 320/25 MG) 1 TAB PO D AILY Allergies: Coded Allergies: No Known Allergies (07/22/19) Review of Systems Respiratory: Reports: BECERRA (dyspnea on exertion). Musculoskeletal: Extremity pain: Reports: left lower, right lower. All systems rev neg: except as marked Physical Exam VS/I O Vital Signs: Date Time Temp Pulse Resp B/P B/P Pulse O2 O2 F low FiO2 Mean Ox Delivery Rate 07/24 0929 97.1 89 14 190/98 96 Patient Weight Weight (lb): 160 Weight (oz): 0.89 Weight (kg): 72.600 General appearance: alert, awake, oriented Head/Eyes: atraumatic, EOMI Neck: non-tender, no JVD Cardiovascular: regular rate rhythm Respiratory: clear to auscultation, no distress Abdomen/GI: soft, non-tender Extremities: pedal pulses, moves all, no edema-a ll extremities Neuro/CARDIAC CATH TECH: alert, oriented X 3 Diagnosis, Assessment Plan Problem List/A P: 1. PAD (peripheral artery disease) 2. Aortic stenosis 3. HTN (hypertension) Consultants: cardiology Plan discussed with: patient, spouse/partner Code Status/Resusc. Discussion Resuscitation discussion: Discussed with: patient Code status: full code Free Text DxA P Notes Free Text DxA P Notes: 74-year-old male with severe peripheral arterial disease, hyperlipidemia, hypertension, tobacco abuse who is admitted with the followin. Peripheral arterial disease -07/24 post Lower extremity angiogram, angioplast y and stenting of bilateral iliac arteries and placement of bilateral common iliac artery stent grafts. - R femoral a stenosis 80%, AAA also present - cont ASA, Plavix, lipitor - tobacco cessation counseling 2. HTN - cont meds- Valsartan, HCTZ 3. HLD - cont Lipitor 4. TObacco abuse - tobacco cessation counseling done Quality Medications Current medication review: I attest that the foregoing medication list in t he medical record is true, accurate, and complete to the best of my knowled ge. Advanced Care Plan 65 or Older Discussed with: patient Discussion included: code status Free Text Quality Notes Free text Quality notes: Tobacco Use: Screening and Cessation Interventio n [ ] Non Tobacco User [ ] Tobacco User, Patient was counseled for Smok ing Cessation, Time spent < 3 minutes. [ x ] Tobacco User, Patient was counsele d for Smoking Cessation, Time spent 3- 10 minutes. [ ] Tobacco User, Patient was counseled for Smok ing Cessation, Time spent >10 minutes. [ ] Unable to obtain, secondary to . NO MSSA Bacteremia * The patient was admitted f or [] due to methicillin-susceptible Staphylococcus aureus (MSSA). The patient d eveloped [] sepsis [] severe sepsis [] septic shock due to the staph aureas. [] The patient was treated with a beta lactam an tibiotic [] [] The patient was not treated with a beta lactu m antibiotic due to prior history of allergic reaction. [] was initiated a s the alternative antibiotic Documentation of Current Medications in the [facility] Record : I attest that the foregoing medication list in [facility] medical record is true, accurate, and complete to the best of my knowled ge. Advanced Care Plan for patients age > 65 *Advanced Care Plan Discussed: [ x]Yes who, living will, POA, and code status [ ] No explain why] *Surrogate Decision Maker: [ ]Yes who [ ] No explain why Electronically Signed by Jean Wood DO on 0 09/14/19 at 1628 RPT #:[id number] END OF REPORT 2019-07-24 13:11:00-00:00 [facility] ([facility]) Operative Note - Full REPORT#:[id number] REPORT STATUS: Signed DATE:07/24/19 TIME: 1311 PATIENT: OLMAN STEPHENSON UNIT #: [id number] ROOM/BED: [place] [address] : 47 AGE: 74 SEX: M ATTEND: Jean Wood DO ADM AUTHOR: Alex Kennedy MD * ALL edits or amendments must be made on the [employer]/computer document * Operative Report ORM Surgeries: Surgery Date and Time: 07/24/2019 1200 Proposed Primary Procedure: PERIPHERAL ANGIOGRA M Start date: 07/24/19 Start time: 1000 Pre-procedure diagnosis: 1. Severe lifestyle limiting claudication 2. Aortoiliac stenosis 3. Severe peripheral arterial disease Post-procedure diagnosis: same Procedures performed: 1. Abdominal aortogram 2. Bilateral extremity arteriogram 3. Placement of left common iliac artery VBX bal loon expandable stent graft 8 mm x 39 mm 4. Placement of right common iliac arter y VBX balloon expandable stent graft 8 mm x 39 mm with an extension stent graft of 8 mm x 39 mm Technique/Procedure: The patient was brought into the operating room prepped and draped in usual sterile manner. Dr. Lorrie saldaña tarted the case and gain access to the right common femoral artery. At which time I was consulted to evaluate after it initial aortogram. I placed the Omni Flush catheter back in the abdominal aorta and abdominal gram and iliac ang iogram. This time patient was heparinized with 8000 was of heparin and a 5 Luxembourger cath was used to i ntubate the left common iliac artery and extended over a Glidewire down to the left common femoral artery. This is exchanged to a glide catheter placed dis tally and angiography was performed to left lower extremity. Advantage wir e was then placed left popliteal artery and a 7 Luxembourger 45 cm sh eath was deployed into the left common iliac artery. The length of the lesion was deter mined and a 8 mm x 39 mm VBX balloon expandable stent graft was deplo yed in the left common iliac artery up to the ostium. This yielded a good resul t. Similarly a second 8 mm x 39 mm VBX tandem graft was deployed in the right common iliac artery to the ostium. Space of left for future repair of abdominal aorta with endovascular endoprosthesis as needed. The right common iliac stent was built d own with another 8 mm x 39 mm VBX stent to cover the distal lesion above the b ifurcation. This yielded good result. Right lower semi-arteriogram was complet ed. And so device was then used to close right groin without difficulty. Primary Surgeon: Dr. Alex Kennedy Farrowing Worker(s): none Anesthesia: local anesthesia, moderate sedation Operative findings: Abdominal gram demonstrated patent abdominal aorta with flow to the celiac trunk and branches as well as the superior enteric artery branches and bilateral renal arteries with good nephrograms. Patient has an i nfrarenal abdominal aortic aneurysm. At the distal exte nt of the aorta bifurcation there is a stenosis and pinching of the abdominal ar joan and critical stenosis of bilateral common iliac arteries greater than 80%. T here is a post dilatation left common iliac artery. There is a distal right common iliac artery les ion with a focal plaque right above the bifurcation to 70 to 80%. The left int ernal iliac artery is likely occluded. The left external leg arteries patent with an tortuous with heterogeneous disease throughout but no hemodyna mically significant stenosis. Left common femoral artery p rofunda femoris arteries are patent. The left supra femoral arteries patent extending down to the po pliteal artery to the bifurcation and through the anterior tibial bacilio ry and tibial trunks. And tibial arteries patent down to the dorsalis pedi s but there is microvascular disease distally. The peroneal and posterior tib ial arteries are patent. The posterior arteries patent down to the pl murtaza vessels with the main outflow to the foot. Peroneal arteries patent to the malleo thien. Right lower extremity arteriogram demonstrates p atent right external iliac artery with heterogeneous di sease. There is a stenosis approximately 50% at the ostium of the external iliac artery. The interna l iliac artery has 70 to 80% stenosis. The right common femoral artery profun da femoris artery and supra femoral arteries are patent. There is heterogen eous disease throughout the superficial femoral artery but no hemodynamicall y significant stenosis. The right popliteal artery is patent. The right ante rior tibial artery and to peroneal trunk are patent. The right pos terior tibial arteries to be occluded. The anterior arteries patent down to the dorsalis pedis artery with limited flow in the foot. The peroneal arteries patent to the mall malleolus. There is microvascular disease in the right foot. Complications: none Estimated blood loss in ml's: 20 cc Specimens removed/altered: none Implant(s): vbx Electronically Signed by Alex Kennedy MD on 0 07/24/19 at 1315 RPT #:[id number] END OF REPORT 2019-07-24 13:04:00-00:00 [facility] Brief Op Note REPORT#:[id number] REPORT STATUS: Signed DATE:07/24/19 TIME: 1304 PATIENT: OLMAN STEPHENSON UNIT #: [id number] ROOM/BED: [place] : 47 AGE: 74 SEX: M ATTEND: Jean Wood DO ADM AUTHOR: Alex Kennedy MD * ALL edits or amendments must be made on the [employer]/computer document * Op/Inv Proc Note - Brief ORM Surgeries: Surgery Date and Time: 07/24/2019 1200 Proposed Primary Procedure: PERIPHERAL ANGIOGRA M Pre-procedure diagnosis: 1. Severe lifestyle limiting claudication 2. Aortoiliac stenosis 3. Severe peripheral arterial disease Post-procedure diagnosis: same as pre procedure dx Procedures performed: 1. Abdominal aortogram 2. Bilateral extremity arteriogram 3. Placement of left common iliac artery VBX bal loon expandable stent graft 8 mm x 39 mm 4. Placement of right common iliac arter y VBX balloon expandable stent graft 8 mm x 39 mm with an extension stent graft of 8 mm x 39 mm Primary Surgeon: Dr. Alex Kennedy Farrowing Worker(s): none Anesthesia: local anesthesia, moderate sedation Findings: Abdominal gram demonstrated patent abdominal aorta with flow to the celiac trunk and branches as well as the superior enteric artery branches and bilateral renal arteries with good nephrograms. Patient has an i nfrarenal abdominal aortic aneurysm. At the distal exte nt of the aorta bifurcation there is a stenosis and pinching of the abdominal ar joan and critical stenosis of bilateral common iliac arteries greater than 80%. T here is a post dilatation left common iliac artery. There is a distal right common iliac artery les ion with a focal plaque right above the bifurcation to 70 to 80%. The left int ernal iliac artery is likely occluded. The left external leg arteries patent with an tortuous with heterogeneous disease throughout but no hemodyna mically significant stenosis. Left common femoral artery p rofunda femoris arteries are patent. The left supra femoral arteries patent extending down to the po pliteal artery to the bifurcation and through the anterior tibial bacilio ry and tibial trunks. And tibial arteries patent down to the dorsalis pedi s but there is microvascular disease distally. The peroneal and posterior tib ial arteries are patent. The posterior arteries patent down to the pl murtaza vessels with the main outflow to the foot. Peroneal arteries patent to the malleo thien. Right lower extremity arteriogram demonstrates p atent right external iliac artery with heterogeneous di sease. There is a stenosis approximately 50% at the ostium of the external iliac artery. The interna l iliac artery has 70 to 80% stenosis. The right common femoral artery profun da femoris artery and supra femoral arteries are patent. There is heterogene ous disease throughout the superficial femoral artery but no hemodynamicall y significant stenosis. The right popliteal artery is patent. The right ante rior tibial artery and to peroneal trunk are patent. The right pos terior tibial arteries to be occluded. The anterior arteries patent down to the dorsalis pedis artery with limited flow in the foot. The peroneal arteries patent to the mall malleolus. There is microvascular disease in the right foot. Complications: none Estimated blood loss in ml's: 20 cc Specimens removed/altered: none Electronically Signed by Alex Kennedy MD on 0 07/24/19 at 1315 RPT #:[id number] END OF REPORT 2019-07-24 13:00:00-00:00 [facility] Surgery Consult Note REPORT#:[id number] REPORT STATUS: Signed DATE:07/24/19 TIME: 1300 PATIENT: OLMAN STEPHENSON UNIT #: [id number] ROOM/BED: : 47 AGE: 74 SEX: M ATTEND: Gary Garnett MD ADM AUTHOR: Alex Kennedy MD * ALL edits or amendments must be made on the [employer]/computer document * History of Present Illness Requesting Clinician: Dr. Hilton Reason for consult: Aorto -iliac stenosis Chief complaint: Severe lifestyle limiting claudication HPI: 74-year-old male with severe lifestyle limiting claudication presented to the [facility] for management of aortoiliac stenosis n oted on preprocedural CTA. I was consulted as vascular surgery for evaluation due to the anatomy of the stenosis for help in management. History - Adult longitudinal Smoking status for patients 13 years old or olde r: Current every day smoker Medications: Home Medications: Medication Dose/Rte/Freq Days Qty Entered Last Max Daily Dose Reviewed ASPIRIN 81 MG PO DAILY 90 90 07/24/19 Strength: 81 MG TAB.CHEW 1255 CLOPIDOGREL (PLAVIX) 75 MG PO DAILY 90 90 07/03 09/18 Strength: 75 MG TAB 1255 ATORVASTATIN (LIPITOR) 40 MG PO BEDTIME 90 90 0 07/24/19 Strength: 40 MG TAB 1255 VALSARTAN/HCTZ 1 TAB PO DAILY 07/22/19 07/24/19 (DIOVAN HCT 320/25 MG) 1112 0932 Strength: 320 MG-25 MG TAB Current Hospital Medications: Autonomic Drugs Sig/Mikaela Start time Last Medication Dose Route Stop Time Status Admin Atropine Sulfate 0.5 MG ASDIR PRN 07/24 1300 AC (ATROPINE SULFATE IV 08/23 1259 0.1MG/ML SYR) Blood Formation,Coagulation Sig/Mikaela Start time Last Medication Dose Route Stop Time Status Admin Clopidogrel Bisulfate 75 MG DAILY 07/25 0900 AC (Plavix) PO 08/24 0859 Heparin Sodium/ 1,500 ML .STK-MED ONE 07/24 100 7 DC 07/24 Sodium Chloride IV 1029 (HEPARIN 1,000 UNITS/ NS 500ML) Cardiovascular Drugs Sig/Mikaela Start time Last Medication Dose Route Stop Time Status Admin Valsartan 320 MG DAILY 07/25 0900 AC (DIOVAN 160MG TAB) PO 08/24 0859 Atorvastatin Calcium 40 MG 2100 07/24 2100 AC (LIPITOR) PO 08/23 205 Lidocaine HCl 0 .STK-MED ONE 07/24 1006 DC 07/03 3 (LIDOCAINE HCL/PF) .ROUTE 1029 Central Nervous System Agents Sig/Mikaela Start time Last Medication Dose Route Stop Time Status Admin Aspirin 81 MG DAILY 07/25 0900 AC (ASPIRIN) PO 08/24 0859 Acetaminophen 650 MG Q6H PRN PRN 07/24 1300 AC (TYLENOL) PO 08/23 1259 Fentanyl Citrate 0 .STK-MED ONE 07/24 1007 DC 0 07/24 (SUBLIMAZE) .ROUTE 1029 Midazolam HCl 0 .STK-MED ONE 07/24 1007 DC 07/03 3 (VERSED) .ROUTE 1029 Diagnostic Agents Sig/Mikaela Start time Last Medication Dose Route Stop Time Status Admin Iopamidol 100 ML .STK-MED ONE 07/24 1031 DC (ISOVUE-370 100ML) IV 07/24 1032 1031 Electrolytic, Caloric, And Rianna Sig/Mikaela Start time Last Medication Dose Route Stop Time Status Admin Sodium Chloride 1,000 ML .[id number] ONE 07/24 130 0 AC (SODIUM CHLORIDE IV 07/25 0219 0.9%) Sodium Chloride 500 ML ASDIR PRN 07/24 1300 AC (SODIUM CHLORIDE IV 08/23 1259 0.9%) Gastrointestinal Drugs Sig/Mikaela Start time Last Medication Dose Route Stop Time Status Admin Ondansetron HCl 4 MG Q6H PRN PRN 07/24 1300 AC (ZOFRAN) IV 08/23 1259 Allergies: Coded Allergies: No Known Allergies (07/22/19) Review of Systems Unable to obtain due to: Patient sedated on the [facility] table Objective VS/I O: Last Documented: Result Date Time Pulse Ox 96 07/24 928 B/P 190/98 07/24 928 Temp 97.1 07/24 928 Pulse 89 07/24 928 Resp 14 07/24 928 Patient Weight Weight (lb): 160 Weight (oz): 0.89 Weight (kg): 72.600 General appearance: alert, awake HEENT: anicteric, mucosal membranes moist, eomi Neck: full range of motion, supple/no meningismu s Cardiovascular: normal heart sounds Respiratory: aerating well, symmetric expansion, no distress Abdomen: soft, non-tender, no distention, no mas s/organomegaly Genitourinary: cian, no bladder distention Extremities: patent, moves all Psychiatry: normal affect Diagnosis, Assessment Plan Free Text A P: Patient has aortic aneurysm which is at least 3 to 3.5 cm in diameter. He also has distal aortoiliac stenosis at the ostium the right common iliac and left common iliac arteries with p oststenotic dilatation of left common iliac artery. He has stenosis of bilateral external iliac bacilio rupa which is not hemodynamically significant. We will plan management with stent graft placement in his common iliac arteries leaving fabrizio m for future repair of aortic aneurysm as needed. Electronically Signed by Alex Kennedy MD on 0 07/24/19 at 1304 RPT #:[id number] END OF REPORT 2019-07-24 12:25:00-00:00 [id number] [address] PATIENT NAME: OLMAN STEPHENSON ADMIT DATE: 07/24/19 ACCOUNT NO: [id number] ROOM NO: G.3397 AGE: 74 REPORT TYPE: OPERATIVE REPORT SEX: M ADMITTING PHYSICIAN:Jean Wood DO ATTENDING PHYSICIAN:Jean Wood DO OPERATION DATE: PREOPERATIVE DIAGNOSIS: POSTOPERATIVE DIAGNOSIS: PROCEDURE PERFORMED: Lower extremity angiogram. INDICATIONS: Severe peripheral vascular disease. SURGEON: Jillian Garnett MD QUALITY ASSURANCE COACH: ANESTHESIA: 1% lidocaine. PROCEDURE IN DETAIL: Under sterile condition, af ter using 1% lidocaine for local anesthesia, 5-Luxembourger sheath was placed in the right femoral artery. A 5-Luxembourger Omni plus catheter was used to obtain angiogram of the abdominal aorta and bilateral lower extremities. Catheters and w ires were removed and hemostasis was obtained with hand pressure. FINDINGS: 1. Distal abdominal aorta showed aneurysmal dila tation and distal stenosis. 2. There was proximal and ostial bilateral iliac artery stenosis noted, estimated to be 70% to 80% in severity. 3. There was right femoral artery stenosis estim ated to be 80% in severity. 4. Bilateral profunda femoris and superficial fe moral artery were patent. 5. There was bilateral three-vessel runoff below -the-knee noted. RECOMMENDATIONS: 1. Angioplasty and stenting for bilateral iliac arteries. 2. Follow up on the abdominal aortic aneurysm wi th planned aneurysm repair. Dictated By: Jillian Garnett MD WT: OP:JUN/ROXI/MARIO Conf#: [id number]/DID#: [id number] PATIENT NAME: OLMAN STEPHENSON ACCOUNT #: [id number] PATIENT NAME: OLMAN STEPHENSON ACCOUNT #: [id number] Authenticated by Jillian Garnett MD On 10/2019 07:42:17 AM PATIENT NAME: OLMAN STEPHENSON ACCOUNT #: [id number] 2019-07-22 11:21:00-00:00 [id number] [address] PATIENT NAME: OLMAN STEPHENSON ADMIT DATE: ACCOUNT NO: [id number] ROOM NO: AGE: 74 REPORT TYPE: eELECTROCARDIOGRAM REPORT SEX: M ADMITTING PHYSICIAN: ATTENDING PHYSICIAN:Jillian Garnett MD Order: [id number] Test Reason : PREOP Test Date/Time Stamp: SunJul 22 2019 11:21:56 Blood Pressure : / mmHG Vent. Rate : 079 BPM Atrial Rate : 079 BPM P-R Int : 166 ms QRS Dur : 090 ms QT Int : 414 ms P-R-T Axes : 071 069 074 degree s QTc Int : 474 ms Sinus rhythm with occasional premature ventricul ar complexes Voltage criteria for left ventricular hypertroph y Abnormal ECG PRE_OP Confirmed by YASMANY BRIZUELA MD ([id number]) on 07/22/19 20 1:30:10 PM Referred By: Jillian Garnett Confirmed by:YASMANY BRIZUELA MD at 1330 PATIENT NAME: OLMAN STEPHENSON ACCOUNT #: [id number]"
--- NOTE | 2022-12-07 17:36 | RAD REPORT ---
EXAM DESCRIPTION: RAD - Wrist Left 3 View - 12/07/2022 5:28 pm CLINICAL HISTORY: PAIN Pain COMPARISON: No comparisons FINDINGS: Severe radiocarpal joint osteoarthritis with lied-rb-jdro. Mild soft tissue swelling. No acute fracture or dislocation.
[2022-12-07] MEDS ORDERED: KETOROLAC 30 MG/ML INJ ONE (17:40)
--- NOTE | 2022-12-07 18:13 | ER ---
Nurse's Notes [facility] Name: Olman Francis Age: 77 yrs Sex: Male : 1945 Arrival Date: 12/07/2022 Time: 16:39 Bed 11 Private MD: Diagnosis: Pain in left wrist Presentation: 12/07 16:46 Chief complaint: Patient states: L wrist pain for 3 days. No trauma. Coronavirus ll1 screen: Client denies travel out of the [place] in the last 14 days. At this time, the client does not indicate any symptoms associated with coronavirus-19. Ebola Screen: Patient denies travel to an Ebola-affected area in the 21 days before illness onset. Initial Sepsis Screen: Does the patient meet any 2 criteria? No. Patient's initial sepsis screen is negative. Does the patient have a suspected source of infection? Yes: Bone or joint infection. Risk Assessment: Do you want to hurt yourself or someone else? Patient reports no desire to harm self or others. Onset of symptoms was December 05, 2022. 16:46 Method Of Arrival: Ambulatory ll1 16:46 Acuity: COLLEEN 4 ll1 Triage Assessment: 16:52 General: Appears uncomfortable, Behavior is calm, cooperative, appropriate for age. ll1 Pain: Complains of pain in L wrist Pain currently is 9 out of 10 on a pain scale. Musculoskeletal: Circulation, motion, and sensation intact. Capillary refill < 3 seconds. Historical: - Allergies: 16:49 No Known Allergies; ll1 - PMHx: 16:46 Hypertension; Rheumatoid Arthritis; ll1 - PSHx: 16:49 Stent L shoulder brain/arm; fused R wrist; ll1 - Immunization history:: Adult Immunizations up to date. - Social history:: Smoking status: Patient reports the use of cigarette tobacco products, smokes one pack cigarettes per day. Screenin:30 Abuse screen: Denies threats or abuse. Denies injuries from another. Nutritional iw screening: No deficits noted. Tuberculosis screening: No symptoms or risk factors identified. 18:58 [facility] ED Fall Risk Assessment (Adult) History of falling in the last 3 months, iw including since admission. Assessment: 17:50 General: Appears in no apparent distress. Behavior is calm, cooperative. Pain: iw Complains of pain in left wrist. Neuro: Level of Consciousness is awake, alert, obeys commands, Oriented to person, place, time, situation. Derm: Skin is intact, is healthy with good turgor. Vital Signs: 16:46 BP 141 / 93; Pulse 84; Resp 17; Temp 97.6; Pulse Ox 99% ; Weight 63.5 kg; Height 5 ft. ll1 8 in. ; Pain 9/10; 16:46 Body Mass Index 21.29 (63.50 kg, 172.72 cm) ll1 16:46 Pain Scale: Adult ll1 ED Course: 16:45 Patient arrived in ED. kj1 16:47 Gregory Gould PA is PHCP. [facility] 16:47 Zaire Chaudhary DO is Attending Physician. [facility] 16:49 Triage completed. ll1 16:50 Arm band placed on Patient placed in an exam room, on a stretcher. ll1 17:30 Wrist Left (3 View) XRAY In Process Unspecified. EDMS 17:37 Verna Garcia, RN is Primary Nurse. iw 18:00 Patient has correct armband on for positive identification. iw 18:12 Sander Carranza MD is Referral Physician. [facility] 18:30 No provider procedures requiring assistance completed. Patient did not have IV access iw during this emergency room visit. Administered Medications: 17:37 Drug: Ketorolac IM 30 mg Route: IM; Site: right deltoid; iw 18:00 Follow up: Response: No adverse reaction iw Medication: 18:00 VIS not applicable for this client. iw Outcome: 18:12 Discharge ordered by . [facility] 18:30 Discharged to home ambulatory. iw 18:30 Condition: good 18:30 Discharge instructions given to patient, Instructed on discharge instructions, follow up and referral plans. medication usage, Demonstrated understanding of instructions, follow-up care, medications, Prescriptions given X 2. 18:31 Patient left the ED. [facility] Signatures: Dispatcher [employer] EDMS Gregory Gould PA PA jmm Williams, Irene, RN DONNA iw Laura Pinedo kj1 Ron Bowling RN RN ll1 Corrections: (The following items were deleted from the chart) 16:50 16:46 Allergies: Morphine; ll1 ll1 16:50 16:46 Allergies: Codeine; ll1 ll1 16:50 16:46 PMHx: Hypertension; ll1 ll1 16:50 16:46 Pulse 84bpm; Resp 17bpm; Pulse Ox 99%; Temp 97.6F; 63.5 kg; Height 5 ft. 8 in.; [facility] BMI: 21.2; Pain 9, Adult; [facility]
--- NOTE | 2022-12-07 18:13 | EDPHYS ---
Physician Documentation [facility] Name: Olman Francis Age: 77 yrs Sex: Male : 1945 Arrival Date: 12/07/2022 Time: 16:39 Bed 11 Private MD: ED Physician Zaire Chaudhary Historical: - Allergies: 12/07 16:49 No Known Allergies; ll1 - PMHx: 16:46 Hypertension; Rheumatoid Arthritis; ll1 - PSHx: 16:49 Stent L shoulder brain/arm; fused R wrist; ll1 - Immunization history:: Adult Immunizations up to date. - Social history:: Smoking status: Patient reports the use of cigarette tobacco products, smokes one pack cigarettes per day. Vital Signs: 16:46 BP 141 / 93; Pulse 84; Resp 17; Temp 97.6; Pulse Ox 99% ; Weight 63.5 kg; Height 5 ft. ll1 8 in. ; Pain 9/10; 16:46 Body Mass Index 21.29 (63.50 kg, 172.72 cm) ll1 16:46 Pain Scale: Adult ll1 MDM: 16:51 Patient medically screened. [facility] 12/07 16:59 Order name: Wrist Left (3 View) XRAY; Complete Time: 17:41 [facility] 12/07 17:50 Order name: Sling; Complete Time: 18:10 [facility] Administered Medications: 17:37 Drug: Ketorolac IM 30 mg Route: IM; Site: right deltoid; iw 18:00 Follow up: Response: No adverse reaction iw Disposition Summary: 12/07/22 18:12 Discharge Ordered Location: Home [facility] Condition: Stable [facility] Diagnosis - Pain in left wrist [facility] Followup: [facility] - With: Sander Carranza MD - When: 2 - 3 days - Reason: Recheck today's complaints, Continuance of care, Re-evaluation by your physician Discharge Instructions: - Discharge Summary Sheet [facility] - Arthritis [facility] Forms: - Medication Reconciliation Form [facility] - Thank You Letter [facility] - Antibiotic Education jmm - Prescription Opioid Use jm Prescriptions: - diclofenac sodium 3 % Topical gel - apply 1 application by TOPICAL route 2 times per day As needed per 5 cm2 lesion jm size; completely cover lesion; 1 unit; Refills: 0, Product Selection Permitted - Medrol (Tobi) 4 mg Oral Tablets, Dose Pack - take 1 tablet by ORAL route as directed - follow package instructions; 1 linda packet; Refills: 0, Product Selection Permitted Signatures: Dispatcher [employer] Gregory Pan PA PA jmm Williams, Irene, RN RN iw Ron Bowling RN RN ll1 Corrections: (The following items were deleted from the chart) 16:50 16:46 Allergies: Morphine; ll1 ll1 16:50 16:46 Allergies: Codeine; 1 ll1 16:50 16:46 PMHx: Hypertension; ll1 ll1 18:10 17:42 Splint - Wrist ordered. linda ss
[2022-12-07 19:27] VITALS: BP 141/93; TEMP 97.6; O2SAT 99
== END 2022-12-07 18:31 | disposition home or self-care (01) ==
LOC: ER 16:39
DX: M25.532 Pain in left wrist (principal); F17.210 Nicotine dependence, cigarettes, uncomplicated
CPT/HCPCS: 96372; 99284

== ENCOUNTER 2023-05-18 00:41 | Emergency (ER) | payer OTHER ==
--- OUTSIDE RECORDS SUMMARY | 2023-05-18 00:53 | XMS REPORT | Continuity of Care Document ---
:1945 Author Organization [facility] t Address [address] [place] [address] Care Team Providers Name Role Phone No, Pcp [facility] Primary Care Physician Unavailable JASPREET RUSHING JR Attending Clinician Unavailable IMER LAWS Attending Clinician Unavailable Jessica Rodriguez Attending Clinician Unavailable Jillian Garnett Attending Clinician Unavailable RADIOLOGY Attending Clinician Unavailable Radiology Attending Clinician Unavailable Doctor Unassigned, [place] Attending Clinician Unavailable LISA DÍAZ Attending Clinician Unavailable Alex Kennedy Attending Clinician Unavailable Wilber SAM, Liam Stevenson Attending Clinician [phone] Juan Maier MD Attending Clinician Patricia SAM, Jenny Nkiru Attending Clinician JUAN MAIER Attending Clinician Unavailable CORIE, SENDIL K.H. Attending Clinician Unavailable Tyra SAM, Kishan Attending Clinician KISHAN PERKINS Attending Clinician Unavailable Sissy LEY, Roger Gonzáles Attending Clinician ROGER SHEEHAN Attending Clinician Unavailable Draw, [facility] Attending Clinician Unavailable Dean SAM, Jaspreet Attending Clinician Margaret SAM, Gilbert Christopher Attending Clinician [phone] GEETA ROJAS Attending Clinician Unavailable Geeta Rojas MD Attending Clinician Lisa Díaz MD Attending Clinician Ezra Patton MD Attending Clinician Corie SAM, Sendfay K.H. Attending Clinician EZRA PATTON Attending Clinician [...] Clinician Unavailable IMER LAWS Admitting Clinician Unavailable RUI SANDOVAL Admitting Clinician Unavailable Alex Kennedy Admitting Clinician Unavailable JENNY GOMEZ NKIRBobbi Admitting Clinician Unavailable MOTVIVIEN, AFAQ Admitting Clinician Unavailable Geeta Rojas MD Admitting Clinician SAMEER FONTENOT Admitting Clinician Unavailable Imer Laws MD Admitting Clinician Jean Wood Admitting Clinician Unavailable Payers Payer Name Policy Type Policy Number Effective Date Expiration Date Keiko paige MEDICARE PART A [id number] 2004 \\T\\ B 00:00:00 Problems Condition Condition [...] Non Non Disease Active Univers compliance compliance 3- it y of w w 00:00: [place] medication medication 00 Me dical regimen regimen Branch CAD CAD Disease Active Univers (coronary (coronary 09-20 ity of artery artery 00:00: [place] disease) disease) 00 Medica l Branch Heart Heart Disease Active Univers failure failure - ity of with with 00:00: [place] reduced reduced 00 Medical ejection ejection Branch fraction fraction PAD PAD Disease Active Overview: Univer s (periphera (periphera 09-05 Formattin ity of l artery l artery 00:00: g of this [place]jo as disease) disease) 00 note Medica l might be Branch different from the original. Added automatic ally from request for surgery [id number] Cigarette Cigarette Disease Active Overview: Univers nicotine nicotine 3-07 Formattin ity of dependence dependence 00:00: g of this [place] without without 00 note Medical complicati complicati might be Branch on on different from the original. Added automatic ally from request for surgery [id number] Dyslipidem Dyslipidem Disease Active Overview : Univers ia ia 3-07 Formattin ity of 00:00: g of this [place] 00 note Medical might be Branch different from the original. Added automatic ally from request for surgery [id number] BECERRA BECERRA Disease Active Overview: Univer s (dyspnea (dyspnea 3-07 Formattin ity of on on 00:00: g of this [place] exertion) exertion) 00 note Medi chaz might be Branch different from the original. Added automatic ally from request for surgery [id number] Abnormal Abnormal Disease Active Overview: Un gisell ECG ECG 3-07 Formattin ity of 00:00: g of this [place] 00 note Medical might be Branch different from the original. Added automatic ally from request for surgery [id number] Ischemic Ischemic Disease Active Overview: Un gisell cardiomyop cardiomyop 3-07 Formattin ity of athy athy 00:00: g of this [place] 00 note Medical might be Branch different from the original. Added automatic ally from request for surgery [id number] Subclavian Subclavian Disease Active Overview : Univers artery artery 3-07 Formattin ity of stenosis, stenosis, 00:00: g of this [place] left left 00 note Medical might be Branch different from the original. Added automatic ally from request for surgery [id number] Carotid Carotid Disease Active 2021-07 Univers artery artery 2-28 ity of disease disease 00:00: [place] 00 Medical Branch Essential Essential Disease Active 2021-07 Uni vers (primary) (primary) 2-28 ity of hypertensi hypertens[place] 00 Medical Branch Aortoiliac Aortoiliac Disease Active U nivers occlusive occlusive 8-09 ity of disease disease 00:00: [place] 00 Medical Branch Abdominal Abdominal Disease Active Uni vers aortic aortic 8- ity of aneurysm aneurysm 00:00: [place] (AAA) (AAA) 00 Medical without without Branch rupture rupture Bilateral Bilateral Disease Active Uni vers carotid carotid 8- ity of artery artery 00:00: [place] stenosis stenosis 00 Medica l Branch Hypertensi Hypertensi Problem C ommon on on Spirit - [facility] Psoriasis Psoriasis Problem Com mon [facility] - [facility] [id number] Hepatitis Problem Com mon C virus Spirit infection - [facility] antiviral Medical drug Center therapy AAA AAA Problem Active 2021-02-07 Memor ia (abdominal (abdominal 02:45:13 l aortic aortic [place] aneurysm) aneurysm) without without rupture rupture Active Problem 02/07/2021 [facility] 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 02:45:13 l infection C virus Rafael n with infection hepatic with coma, hepatic unspecifie coma, d unspecifie chronicity d chronicity Active Diagnosis 02/07/2021 [facility] Cardiovasc ular Hyperlipid Problem Active 2021-02-07 M emoria emia, Hyperlipid 02:45:13 l unspecifie emia, Rafael n d unspecifie hyperlipid d emia type hyperlipid emia type Active Problem 02/07/2021 [facility] Cardiovasc ular Tobacco Tobacco Diagnosis Active 2018-09-21 Memoria abuse abuse 02:46:15 l Active [place] Diagnosis 09/21/2018 [facility] Cardiovasc ular Other Other Diagnosis Active 2018-09-21 Mem oria symptoms symptoms 02:46:15 l involving involving Herm rolanda cardiovasc cardiovasc ular ular system system Active Diagnosis 09/21/2018 [facility] Cardiovasc ular HTN HTN Diagnosis Active 2021-02-07 Mem oria (hypertens (hypertens 02:45:13 l ion), ion), Alan benign benign Active Diagnosis 02/07/2021 CL Cardiovasc [...] AAA for AAA 02:45:13 l (aortic (aortic Alan abdominal abdominal aneurysm) aneurysm) Active Diagnosis 02/07/2021 CL Cardiovasc ular [id number] Mixed Problem Common hyperlipid Spirit emia - [facility] Claudicati Claudicat Problem Active 2021-02-07 Memoria on in ion in 02:45:13 l peripheral peripheral He rmann vascular vascular disease disease Active Problem 02/07/2021 CL Cardiovasc ular [id number] PVD Problem Common (periphera Spirit l vascular - CHI disease) [facility] Gastroesop GERD Problem Commo n hageal without Spirit reflux esophagiti - CHI disease s [facility] [id number] Pain in Problem Common right hip Spirit - [facility] [id number] Right Problem Common sciatic Spirit nerve pain - [facility] [id number] Smoker Problem Common unmotivate Spirit d to quit - [facility] Allergies, Adverse Reactions, Alerts Allergy Allergy Status Severity Reaction(s) Onset Inactive Treating Comm ents Source Name Type Date Date Clinician CODEINE Allergy Active Low Rash 2022-[address] [facility] [facility] Center Codeine Propensi Active Rash 3-[address] [facility] 4[facility]18 [facility] adverse 00:00: Medical reaction 00 Center s MORPHINE Allergy Active Low Rash 3-0 [facility] 4-17 00:00: 00 CODEINE Allergy Active Itching 2021-[address] SULFATE 3-17 [facility] 00 Center Codeine Drug Active Itching 2021-[address] Sulfate Allergy 3-17 [facility] Center CODEINE DRUG Active ITCHING 2-0 Univers SULFATE INGREDI 3-17 ity of 00:00: [address] Milk Milk Active Info Not 2020-0 Memoria [place] Available 01-07 00:00: Codeine Codeine Active Info Not 2020-0 Memori a Phosphat Phosphat Available 01-07 l e e 00:00: No Known DA Active U 2020-0 [facility] Allergie 07-22 Clear s 00:00: [facility] No Known DA Active U 2019-0 [facility] Allergie 07-22 Clear s 00:00: [facility] No Known DA Active U 2001-0 [facility] Contrast 01-22 Clear Allergie 00:00: s [facility] No Known DA Active U 2001-0 [facility] Drug 01-22 Clear Allergie 00:00: [facility] No Known DA Active U 2001-0 [facility] Food 7-24 Clear Allergie 00:00: Da Silva s 00 [facility] No Known DA Active U 2002-0 [facility] Other 7-24 Clear Allergie 00:00: [place] 00 [facility] NO KNOWN Allergy Active [facility] ALLERGIE S codeine codeine Active itching Common Spirit - [facility] Center Social History Social Habit Start Date Stop Date Quantity Comments Source Gender identity Universit y [facility] Sexual orientation Univer sity of [facility] History of tobacco Passive smoker [facility] History [facility] Transport Non-Med Medical Center History [facility] 2022-10-17 2022-10-[address] [facility] Transport Med - In 00:00:00 00:[facility]:00 [facility] the past 12 months, has lack of transportation kept you from medical appointments or from getting medications? History [facility] Housing 2022-10-17 2022-10-[address] [facility] Unable to Pay - In 00:00:00 00:00:00 [facility] the last 12 months, was there a time when you were not able to pay the mortgage or rent on time? History [facility] Housing 2022-10-17 2022-10-[address] [facility] Places Lived 00:00:00 00:00:00 Medical Cent er History [facility] 2022-10-17 2022-10-[address] [facility] Homeless Last Year - 00:00:00 00:00:00 [facility] In the last 12 months, was there a time when you did not have a steady place to sleep or slept in a care home (including now)? Tobacco use and 2022-10-16 2022-10-[address] [facility] exposure 00:00:00 00:00:00 tobacco user Medical Cent er Exposure to 2022-09-18 2022-09-28 Not sure University of SARS-CoV-2 (event) 00:00:00 11:28:[address] [facility] Alcohol intake 2022-09-28 2022-09-28 Current drinker Unive rsity of 00:00:00 00:00:00 of alcohol [facility] (finding) Branch History of Social 2022-06-28 2022-06-28 Univers ity of function 00:00:00 00:00:[address] [facility] Cigarettes smoked 2022-06-28 2022-06-28 Univers ity of current (pack per 00:00:00 00:00:00 ) - Reported Branch Cigarette pack-years 2022-06-28 2022-06-28 Univ ersity of 00:00:00 00:00:[address] [facility] Sex Assigned At [address] [facility] 00:00:00 00:[facility]00 Medical Center Smoking Status Start Date Stop Date Source Ex-smoker 2022-10-16 00:00:00 2022-10-16 00:00:[address] [facility] Smokes tobacco daily 2022-06-28 00:00:[address] [facility] Medications Ordered Filled Start Stop Current Ordering Indication Dosage Frequency Signature Comments Components Source Medication Medication Date Date Medication? Clinician (SIG) Name Name furosemide 2023- No 40mg Take [address] [facility] (LASIX) 40 4-20 04-19 tablet (40 Amy kes MG tablet 00:00: 23:59 mg total) Me dical 00 :00 by mouth Center in the morning and 1 tablet (40 mg total) in the evening. lisinopriL 2023- No 2.5mg QD Take [address] (PRINIVIL,Z 4-20 -19 tablet [facility] ESTRIL) 2.5 00:00: 23:59 (2.5 mg Me dical MG tablet 00 :00 total) by Cente r mouth in the morning. atorvastati 2023- No 40mg QD Take [address] n (LIPITOR) 4-20 04-19 tablet (40 L ukes 40 MG 00:00: 23:59 mg total) Medica l tablet 00 :00 by mouth Center in the morning. furosemide 2023- No 40mg Take [address] [facility] (LASIX) 40 4-20 04-19 tablet (40 Amy kes MG tablet 00:00: 23:59 mg total) Me dical 00 :00 by mouth Center in the morning and 1 tablet (40 mg total) in the evening. lisinopriL 2023- No 2.5mg QD Take [address] (PRINIVIL,Z 4-20 04-19 tablet [facility]ukes ESTRIL) 2.5 00:00: 23:59 (2.5 mg Me dical MG tablet 00 :00 total) by Cente r mouth in the morning. atorvastati 2022-2023- No 40mg QD Take [address] n (LIPITOR) 4-20 04-19 tablet (40 L ukes 40 MG 00:00: 23:59 mg total) Medica l tablet 00 :00 by mouth Center in the morning. furosemide 2023- No 40mg Take [address] [facility] (LASIX) 40 4-20 04-19 tablet (40 Amy kes MG tablet 00:00: 23:59 mg total) Me dical 00 :00 by mouth Center in the morning and 1 tablet (40 mg total) in the evening. lisinopriL 2023- No 2.5mg QD Take [address] (PRINIVIL,Z 4-20 -19 tablet [facility] ESTRIL) 2.5 00:00: 23:59 (2.5 mg Me dical MG tablet 00 :00 total) by Cente r mouth in the morning. atorvastati 2023- No 40mg QD Take [address] n (LIPITOR) 4-20 04-19 tablet (40 L ukes 40 MG 00:00: 23:59 mg total) Medica l tablet 00 :00 by mouth Center in the morning. furosemide 2023- No 40mg Take [address] [facility] (LASIX) 40 4-20 04-19 tablet (40 Amy kes MG tablet 00:00: 23:59 mg total) Me dical 00 :00 by mouth Center in the morning and 1 tablet (40 mg total) in the evening. lisinopriL 2023- No 2.5mg QD Take [address] (PRINIVIL,Z 4-20 04-19 tablet [facility] ESTRIL) 2.5 00:00: 23:59 (2.5 mg Me dical MG tablet 00 :00 total) by Cente r mouth in the morning. atorvastati 2023- No 40mg QD Take [address] n (LIPITOR) 4-20 04-19 tablet (40 L ukes 40 MG 00:00: 23:59 mg total) Medica l tablet 00 :00 by mouth Center in the morning. furosemide 2022-2023- No 40mg Take [address] [facility] (LASIX) 40 4-20 04-19 tablet (40 Amy kes MG tablet 00:00: 23:59 mg total) Me dical 00 :00 by mouth Center in the morning and 1 tablet (40 mg total) in the evening. lisinopriL 2022-2023- No 2.5mg QD Take [address] (PRINIVIL,Z 4-20 -19 tablet [facility]ukes ESTRIL) 2.5 00:00: 23:59 (2.5 mg Me dical MG tablet 00 :00 total) by Cente r mouth in the morning. atorvastati 2022-2023- No 40mg QD Take [address] n (LIPITOR) 4-20 -19 tablet (40 L ukes 40 MG 00:00: 23:59 mg total) Medica l tablet 00 :00 by mouth Center in the morning. furosemide 2022-2023- No 40mg Take [address] [facility] (LASIX) 40 4-20 04-19 tablet (40 Amy kes MG tablet 00:00: 23:59 mg total) Me dical 00 :00 by mouth Center in the morning and 1 tablet (40 mg total) in the evening. lisinopriL 2022-2023- No 2.5mg QD Take [address] (PRINIVIL,Z 4-20 -19 tablet [facility]ukes ESTRIL) 2.5 00:00: 23:59 (2.5 mg Me dical MG tablet 00 :00 total) by Cente r mouth in the morning. atorvastati 2022-4- No 40mg QD Take [address] n (LIPITOR) 4-20 -19 tablet (40 L ukes 40 MG 00:00: 23:59 mg total) Medica l tablet 00 :00 by mouth Center in the morning. furosemide 2022-2023- No 40mg Take [address] [facility] (LASIX) 40 4-20 04-19 tablet (40 Amy kes MG tablet 00:00: 23:59 mg total) Me dical 00 :00 by mouth Center in the morning and 1 tablet (40 mg total) in the evening. lisinopriL 2022-0 4- No 2.5mg QD Take [address] (PRINIVIL,Z 4-20 04-19 tablet [facility]ukes ESTRIL) 2.5 00:00: 23:59 (2.5 mg Me dical MG tablet 00 :00 total) by Cente r mouth in the morning. atorvastati 2022- 2024- No 40mg QD Take [address] n (LIPITOR) 4-20 04-19 tablet (40 L ukes 40 MG 00:00: 23:59 mg total) Medica l tablet 00 :00 by mouth Center in the morning. furosemide 2022-2023- No 40mg Take [address] [facility] (LASIX) 40 4-20 04-19 tablet (40 Amy kes MG tablet 00:00: 23:59 mg total) Me dical 00 :00 by mouth Center in the morning and 1 tablet (40 mg total) in the evening. lisinopriL 2022-4- No 2.5mg QD Take [address] (PRINIVIL,Z 4-20 04-19 tablet [facility] ESTRIL) 2.5 00:00: 23:59 (2.5 mg Me dical MG tablet 00 :00 total) by Cente r mouth in the morning. atorvastati 2022-0 4- No 40mg QD Take [address] n (LIPITOR) 4-20 04-19 tablet (40 L ukes 40 MG 00:00: 23:59 mg total) Medica l tablet 00 :00 by mouth Center in the morning. furosemide 2022-2023- No 40mg Take [address] [facility] (LASIX) 40 4-20 04-19 tablet (40 Amy kes MG tablet 00:00: 23:59 mg total) Me dical 00 :00 by mouth Center in the morning and 1 tablet (40 mg total) in the evening. lisinopriL 2022-0 4- No 2.5mg QD Take [address] (PRINIVIL,Z 4-20 04-19 tablet [facility] ESTRIL) 2.5 00:00: 23:59 (2.5 mg Me dical MG tablet 00 :00 total) by Cente r mouth in the morning. atorvastati 2022-0 4- No 40mg QD Take [address] n (LIPITOR) 4-20 04-19 tablet (40 L ukes 40 MG 00:00: 23:59 mg total) Medica l tablet 00 :00 by mouth Center in the morning. aspirin 81 2023-0 Yes 81mg QD Take 1 [facility] t MG EC 4-19 tablet (81 [facility] tablet 13:17: mg total) Medica l 01 by mouth Center in the morning. aspirin 81 2023-0 Yes 81mg QD Take 1 [facility]I S t MG EC 4-19 tablet (81 [facility] tablet 13:17: mg total) Medica l 01 by mouth Center in the morning. aspirin 81 2023-0 Yes 81mg QD Take 1 [facility]I S t MG EC 4-19 tablet (81 [facility] tablet 13:17: mg total) Medica l 01 by mouth Center in the morning. aspirin 81 2023-0 Yes 81mg QD Take 1 CHI S t MG EC 4-19 tablet (81 [facility] tablet 13:17: mg total) Medica l 01 by mouth Center in the morning. aspirin 81 3-0 Yes 81mg QD Take 1 [facility]I S t MG EC 4-19 tablet (81 [facility] tablet 13:17: mg total) Medica l 01 by mouth Center in the morning. aspirin 81 3-0 Yes 81mg QD Take 1 [facility]I S t MG EC 4-19 tablet (81 [facility] tablet 13:17: mg total) Medica l 01 by mouth Center in the morning. aspirin 81 3-0 Yes 81mg QD Take 1 [facility]I S t MG EC 4-19 tablet (81 [facility] tablet 13:17: mg total) Medica l 01 by mouth Center in the morning. aspirin 81 3-0 Yes 81mg QD Take 1 [facility]I S t MG EC 4-19 tablet (81 [facility] tablet 13:17: mg total) Medica l 01 by mouth Center in the morning. aspirin 81 3-0 Yes 81mg QD Take 1 [facility]I S t MG EC 4-19 tablet (81 [facility] tablet 13:17: mg total) Medica l 01 by mouth Center in the morning. metoprolol 2022-0 2023- No 12.5mg Q.5D Take 0.[address] tartrate 4-19 04-18 tablets [facility]ukes (LOPRESSOR) 00:00: 23:59 (12.5 mg M edical 25 MG 00 :00 total) by Center tablet mouth in the morning and 0.5 tablets (12.5 mg total) before bedtime. metoprolol 2023- No 12.5mg Q.5D Take 0.[address] tartrate 4-19 04-18 tablets [facility] (LOPRESSOR) 00:00: 23:59 (12.5 mg M edical 25 MG 00 :00 total) by Center tablet mouth in the morning and 0.5 tablets (12.5 mg total) before bedtime. metoprolol 2023- No 12.5mg Q.5D Take 0.[address] tartrate 4-19 04-18 tablets [facility] (LOPRESSOR) 00:00: 23:59 (12.5 mg M edical 25 MG 00 :00 total) by Center tablet mouth in the morning and 0.5 tablets (12.5 mg total) before bedtime. metoprolol 2023- No 12.5mg Q.5D Take 0.[address] tartrate 4-19 04-18 tablets [facility] (LOPRESSOR) 00:00: 23:59 (12.5 mg M edical 25 MG 00 :00 total) by Center tablet mouth in the morning and 0.5 tablets (12.5 mg total) before bedtime. metoprolol 2023- No 12.5mg Q.5D Take 0.[address] tartrate 4-19 04-18 tablets [facility] (LOPRESSOR) 00:00: 23:59 (12.5 mg M edical 25 MG 00 :00 total) by Center tablet mouth in the morning and 0.5 tablets (12.5 mg total) before bedtime. metoprolol 2023- No 12.5mg Q.5D Take 0.[address] tartrate 4-19 04-18 tablets [facility] (LOPRESSOR) 00:00: 23:59 (12.5 mg M edical 25 MG 00 :00 total) by Center tablet mouth in the morning and 0.5 tablets (12.5 mg total) before bedtime. metoprolol 2022-0 2023- No 12.5mg Q.5D Take 0.[address] tartrate 4-19 04-18 tablets [facility] (LOPRESSOR) 00:00: 23:59 (12.5 mg M edical 25 MG 00 :00 total) by Center tablet mouth in the morning and 0.5 tablets (12.5 mg total) before bedtime. metoprolol 2022-2023- No 12.5mg Q.5D Take 0.[address] tartrate -18 10-18 tablets [facility] (LOPRESSOR) 00:00: 23:59 (12.5 mg M edical 25 MG 00 :00 total) by Center tablet mouth in the morning and 0.5 tablets (12.5 mg total) before bedtime. metoprolol 2022-2023- No 12.5mg Q.5D Take 0.[address] tartrate 4-18 10-18 tablets [facility] (LOPRESSOR) 00:00: 23:59 (12.5 mg M edical 25 MG 00 :00 total) by Center tablet mouth in the morning and 0.5 tablets (12.5 mg total) before bedtime. predniSONE 2022-0 2022- No 40mg QD Take [address] [facility] [address] (DELTASONE) 4-18 10-22 tablets Luke s 20 MG 00:00: 23:59 (40 mg Medical tablet 00 :00 total) by Center mouth in the morning for 3 days. . predniSONE 2022-0 3- No 40mg QD Take [address] [address] (DELTASONE) 4-18 10-22 tablets Luke s 20 MG 00:00: 23:59 (40 mg Medical tablet 00 :00 total) by Center mouth in the morning for 3 days. . predniSONE 2022-0 3- No 40mg QD Take [address] (DELTASONE) 4-18 10-22 tablets Luke s 20 MG 00:00: 23:59 (40 mg Medical tablet 00 :00 total) by Center mouth in the morning for 3 days. . predniSONE 2022-0 3- No 40mg QD Take [address] (DELTASONE) 4-18 10-22 tablets Luke s 20 MG 00:00: 23:59 (40 mg Medical tablet 00 :00 total) by Center mouth in the morning for 3 days. . predniSONE 3-0 2023- No 40mg QD Take [address] (DELTASONE) 4-18 10-22 tablets Luke s 20 MG 00:00: 23:59 (40 mg Medical tablet 00 :00 total) by Center mouth in the morning for 3 days. . predniSONE 3-0 2023- No 40mg QD Take [address] (DELTASONE) 4-18 10-22 tablets Luke s 20 MG 00:00: 23:59 (40 mg Medical tablet 00 :00 total) by Center mouth in the morning for 3 days. . predniSONE 2022-0 2022- No 40mg QD Take [address] (DELTASONE) 10-18- tablets Luke s 20 MG 00:00: 23:59 (40 mg Medical tablet 00 :00 total) by Center mouth in the morning for 3 days. . predniSONE 2022-0 2022- No 40mg QD Take [address] (DELTASONE) 10-18- tablets Luke s 20 MG 00:00: 23:59 (40 mg Medical tablet 00 :00 total) by Center mouth in the morning for 3 days. . predniSONE 2022-0 2022- No 40mg QD Take [address] (DELTASONE) 10-18- tablets Luke s 20 MG 00:00: 23:59 (40 mg Medical tablet 00 :00 total) by Center mouth in the morning for 3 days. . aspirin 81 2023-0 Yes 81mg Take 1 Unive rs mg chewable 3-30 tablet by ity of tablet 13:24: mouth in [place] [address] the Medical morning. Branch aspirin 81 3-0 Yes 81mg Take 1 Unive rs mg chewable 3-30 tablet by ity of tablet 13:24: mouth in [place] [address] the Medical morning. Branch aspirin 81 2023-0 Yes 81mg Take 1 Unive rs mg chewable 3-30 tablet by ity of tablet 13:24: mouth in [place] [address] the Medical morning. Branch aspirin 81 2023-0 Yes 81mg Take 1 Unive rs mg chewable 3-30 tablet by ity of tablet 13:24: mouth in [place] [address] the Medical morning. Branch aspirin 81 2023-0 Yes 81mg Take 1 Unive rs mg chewable 3-30 tablet by ity of tablet 13:24: mouth in [place] [address] the Medical morning. Branch aspirin 81 2023-0 Yes 81mg Take 1 Unive rs mg chewable 3-30 tablet by ity of tablet 13:24: mouth in [place] [address] the Medical morning. Branch amLODIPine 3-0 2022- No Univer s 5 mg tablet 09-20 ity of 09:56: 00:00 [place] 08 :00 Medical Branch amLODIPine 32022- No Univer s 5 mg tablet 09-20 ity of 09:56: 00:00 [place] 08 :00 Medical Branch lisinopriL 2022-0 Yes [id number] 5mg Take 0.5 Univers 10 mg 3-17 tablets by ity of tablet 00:00: mouth in [place] 00 the Medical morning. Branch atorvastati Yes [id number] 40mg Take 1 Univers n 40 mg 3-17 tablet by ity of tablet 00:00: mouth at [place] 00 bedtime. Medical Branch lisinopriL 2022- No [id number] 5mg Take 0.5 Univers 10 mg 3-17 - tablets by ity of tablet 00:00: 00:00 mouth in [place] 00 :00 the Medical morning. Branch atorvastati 2022- No [id number] 40mg Take 1 Univers n 40 mg 3-09-20 tablet by ity of tablet 00:00: 00:00 mouth at [place] 00 :00 bedtime. Medical Branch lisinopriL 2022- No [id number] 5mg Take 0.5 Univers 10 mg 3-17 - tablets by ity of tablet 00:00: 00:00 mouth in [place] 00 :00 the Medical morning. Branch atorvastati 2022- No [id number] 40mg Take 1 Univers n 40 mg 3-17 - tablet by ity of tablet 00:00: 00:00 mouth at [place] 00 :00 bedtime. Medical Branch iopamidol 2022- [...] at 1151, Routine, CV Intraproce dure lidocaine 2022-0 2022- No ONCE INTRA U nivers 1% (PF) 09-14 PROCEDURE, ity o f (XYLOCAINE) 16:04: 16:51 [place] injection 33 :46 on [facility] 09/14/22 at Branch 1104, Until [facility] 09/14/22 at 1151, Routine, CV Intraproce dure FENTanyl PF 2022- No ONCE INTRA Univers (SUBLIMAZE 09-14 PROCEDURE, it y of (PF)) 16:03: 16:51 Starting [place] injection 03 :46 on [facility] 09/14/22 at Branch 1103, Until [facility] 09/14/22 at 1151, Routine, CV Intraproce dure midazolam 2022-0 2022- No ONCE INTRA U nivers (VERSED) 09-14 PROCEDURE, ity of injection 16:00: 16:51 Starting Juanjo as 00 :46 on [facility] Medical 09/14/22 at Branch 1100, Until Catrachita 09/14/22 at 1151, Routine, CV Intraproce dure aspirin 81 2022-0 Yes 81mg Take 1 Unive rs mg chewable 3-16 tablet by ity of tablet 14:59: mouth in [place] [address] the Medical morning. [place] aspirin 81 2022-0 Yes 81mg Take 1 Unive rs mg chewable 3-16 tablet by ity of tablet 14:59: mouth in [place] [address] the Medical morning. [place] aspirin 81 2022-0 Yes 81mg Take 1 Unive rs mg chewable 3-16 tablet by ity of tablet 14:59: mouth in [place] [address] the Medical morning. [place] aspirin 81 2022-0 Yes 81mg Take 1 Unive rs mg chewable 3-16 tablet by ity of tablet 14:59: mouth in [place] [address] the Medical morning. [place] aspirin 81 2022-0 Yes 81mg Take 1 Unive rs mg chewable 3-16 tablet by ity of tablet 14:59: mouth in [place] [address] the Medical morning. Branch aspirin 81 3-0 Yes 81mg Take 1 Unive rs mg chewable 3-16 tablet by ity of tablet 14:59: mouth in [place] [address] the Medical morning. Branch aspirin 81 2023-0 Yes 81mg Take 1 Unive rs mg chewable 3-16 tablet by ity of tablet 14:59: mouth in [place] [address] the Medical morning. Branch aspirin 81 2023-0 Yes 81mg Take 1 Unive rs mg chewable 3-16 tablet by ity of tablet 14:59: mouth in [place] [address] the Medical morning. Branch aspirin 81 2023-0 Yes 81mg Take 1 Unive rs mg chewable 3-16 tablet by ity of tablet 14:59: mouth in [place] [address] the Medical morning. Branch aspirin 81 2023-0 Yes 81mg Take 1 Unive rs mg chewable 3-16 tablet by ity of tablet 14:59: mouth in [place] [address] the Medical morning. Branch aspirin 81 2022-0 Yes 81mg Take 81 mg U nivers mg chewable 2-22 by mouth ity of tablet 10:17: daily. [address] aspirin 81 3-0 Yes 81mg Take 81 mg U nivers mg chewable 2-22 by mouth ity of tablet 10:17: daily. [address] Branch aspirin 81 2023-0 Yes 81mg Take 81 mg U nivers mg chewable 2-22 by mouth ity of tablet 10:17: daily. [address] aspirin 81 3-0 Yes 81mg Take 81 mg U nivers mg chewable 2-22 by mouth ity of tablet 10:17: daily. [address] Branch aspirin 81 2023-0 Yes 81mg Take 81 mg U nivers mg chewable 2-22 by mouth ity of tablet 10:17: daily. [address] Branch aspirin 81 2023-0 Yes 81mg Take 81 mg U nivers mg chewable 2-22 by mouth ity of tablet 10:17: daily. [address] aspirin 81 2023-0 Yes 81mg Take 81 mg U nivers mg chewable 2-22 by mouth ity of tablet 10:17: daily. [address] aspirin 81 2023-0 Yes 81mg Take 81 mg U nivers mg chewable 2-22 by mouth ity of tablet 10:17: daily. [address] iopamidol 2022-0 2023- No [id number] 79mL 79 mL, Univers (ISOVUE 08-16 Intravenou ity o f 370-500 mL) 20:15: 20:05 s, ONCE, 1 [place] injection 00 :00 dose, On Medica l 79 mL [facility] Branch 08/16/22 at 1415, Routine aspirin 81 2022-0 Yes 81mg Take 81 mg U nivers mg chewable 2-14 by mouth ity of tablet 11:15: daily. [address] aspirin 81 2022-0 Yes 81mg Take 81 mg U nivers mg chewable 2-14 by mouth ity of tablet 11:15: daily. [address] aspirin 81 2022-0 Yes 81mg Take 81 mg U nivers mg chewable 2-14 by mouth ity of tablet 11:15: daily. [address] aspirin 81 2022-0 Yes 81mg Take 81 mg U nivers mg chewable 2-14 by mouth ity of tablet 11:15: daily. [address] aspirin 81 2022-0 Yes 81mg Take 81 mg U nivers mg chewable 2-14 by mouth ity of tablet 11:15: daily. [address] aspirin 81 2022-0 Yes 81mg Take 81 mg U nivers mg chewable 2-14 by mouth ity of tablet 11:15: daily. [address] aspirin 81 2022-0 Yes 81mg Take 81 mg U nivers mg chewable 2-14 by mouth ity of tablet 11:15: daily. [address] aspirin 81 2022-0 Yes 81mg Take 81 mg U nivers mg chewable 2-14 by mouth ity of tablet 11:15: daily. [address] aspirin 81 2022-0 Yes 81mg Take 81 mg U nivers mg chewable 1-20 by mouth ity of tablet 11:01: daily. [address] aspirin 81 3-0 Yes 81mg Take 81 mg U nivers mg chewable 1-20 by mouth ity of tablet 11:01: daily. [address] aspirin 81 2022-0 Yes 81mg Take 81 mg U nivers mg chewable 1-20 by mouth ity of tablet 11:01: daily. [address] aspirin 81 2022-0 Yes 81mg Take 81 mg U nivers mg chewable 1-20 by mouth ity of tablet 11:01: daily. [address] aspirin 81 3-0 Yes 81mg Take 81 mg U nivers mg chewable 1-20 by mouth ity of tablet 11:01: daily. [address] aspirin 81 3-0 Yes 81mg Take 81 mg U nivers mg chewable 1-20 by mouth ity of tablet 11:01: daily. [address] reglacinjay 2021- Yes [id number] Apply to Univers ne 2-28 area(s) 2 ity of acetonide 00:00: (two) [place] 0.1 % cream 00 times Medical daily. [place] ángel 2021-07 Yes [id number] Apply to Univers ne 2-28 area(s) 2 ity of acetonide 00:00: (two) [place] 0.1 % cream 00 times Medical daily. [place] neal 2021-07 Yes [id number] Apply to Univers ne 2-28 area(s) 2 ity of acetonide 00:00: (two) [place] 0.1 % cream 00 times Medical daily. [place] arauzcinjay 2021-07 Yes [id number] Apply to Univers ne 2-28 area(s) 2 ity of acetonide 00:00: (two) [place] 0.1 % cream 00 times Medical daily. [place] neal 2021-07 Yes [id number] Apply to Univers ne 2-28 area(s) 2 ity of acetonide 00:00: (two) [place] 0.1 % cream 00 times Medical daily. [place] curtisamcinjay 2021-07 Yes [id number] Apply to Univers ne 2-28 area(s) 2 ity of acetonide 00:00: (two) [place] 0.1 % cream 00 times Medical daily. [place] curtisamcinjay 2021-07 Yes [id number] Apply to Univers ne 2-28 area(s) 2 ity of acetonide 00:00: (two) [place] 0.1 % cream 00 times Medical daily. [place] arauzcinjay 2021- Yes [id number] Apply to Univers ne 2-28 area(s) 2 ity of acetonide 00:00: (two) [place] 0.1 % cream 00 times Medical daily. [place] curtisamcinjay 2021- Yes [id number] Apply to Univers ne 2-28 area(s) 2 ity of acetonide 00:00: (two) [place] 0.1 % cream 00 times Medical daily. [place] curtisamcinjay 2021- Yes [id number] Apply to Univers ne 2-28 area(s) 2 ity of acetonide 00:00: (two) [place] 0.1 % cream 00 times Medical daily. [place] neal 2021- Yes [id number] Apply to Univers ne 2-28 area(s) 2 ity of acetonide 00:00: (two) [place] 0.1 % cream 00 times Medical daily. [place] curtisamcinjay 2021- Yes [id number] Apply to Univers ne 2-28 area(s) 2 ity of acetonide 00:00: (two) [place] 0.1 % cream 00 times Medical daily. [place] neal 2021- Yes [id number] Apply to Univers ne 2-28 area(s) 2 ity of acetonide 00:00: (two) [place] 0.1 % cream 00 times Medical daily. [place] neal 2021- Yes [id number] Apply to Univers ne 2-28 area(s) 2 ity of acetonide 00:00: (two) [place] 0.1 % cream 00 times Medical daily. [place] neal 2021- Yes [id number] Apply to Univers ne 2-28 area(s) 2 ity of acetonide 00:00: (two) [place] 0.1 % cream 00 times Medical daily. [place] curtisamcinjay 2021- Yes [id number] Apply to Univers ne 2-28 area(s) 2 ity of acetonide 00:00: (two) [place] 0.1 % cream 00 times Medical daily. [place] triamcinjay 2021- Yes [id number] Apply to Univers ne 2-28 area(s) 2 ity of acetonide 00:00: (two) [place] 0.1 % cream 00 times Medical daily. [place] curtisamyu 2021- Yes [id number] Apply to Univers ne 2-28 area(s) 2 ity of acetonide 00:00: (two) [place] 0.1 % cream 00 times Medical daily. [place] curtisamyu 2021-1 Yes [id number] Apply to Univers ne 2-28 area(s) 2 ity of acetonide 00:00: (two) [place] 0.1 % cream 00 times Medical daily. [place] triamcinjay 2021- Yes [id number] Apply to Univers ne 2-28 area(s) 2 ity of acetonide 00:00: (two) [place] 0.1 % cream 00 times Medical daily. [place] triamcinjay 2021- Yes [id number] Apply to Univers ne 2-28 area(s) 2 ity of acetonide 00:00: (two) [place] 0.1 % cream 00 times Medical daily. [place] triamcinolo 2021- Yes [id number] Apply to Univers ne 2-28 area(s) 2 ity of acetonide 00:00: (two) [place] 0.1 % cream 00 times Medical daily. [place] curtisamcinjay 2021- Yes [id number] Apply to Univers ne 2-28 area(s) 2 ity of acetonide 00:00: (two) [place] 0.1 % cream 00 times Medical daily. [place] triamcinjay 2021- Yes [id number] Apply to Univers ne 2-28 area(s) 2 ity of acetonide 00:00: (two) [place] 0.1 % cream 00 times Medical daily. [place] triamcinjay 2021- Yes [id number] Apply to Univers ne 2-28 area(s) 2 ity of acetonide 00:00: (two) [place] 0.1 % cream 00 times Medical daily. [place] triamcinjay 2021- Yes [id number] Apply to Univers ne 2-28 area(s) 2 ity of acetonide 00:00: (two) [place] 0.1 % cream 00 times Medical daily. [place] triamcinolo 2021- Yes [id number] Apply to Univers ne 2-28 area(s) 2 ity of acetonide 00:00: (two) [place] 0.1 % cream 00 times Medical daily. Branch triamcinolo 2021- Yes [id number] Apply to Univers ne 2-28 area(s) 2 ity of acetonide 00:00: (two) [place] 0.1 % cream 00 times Medical daily. [place] triamcinjay 2021- Yes [id number] Apply to Univers ne 2-28 area(s) 2 ity of acetonide 00:00: (two) [place] 0.1 % cream 00 times Medical daily. [place] triamcinolo 2021-07 Yes [id number] Apply to Univers ne 2-28 area(s) 2 ity of acetonide 00:00: (two) [place] 0.1 % cream 00 times Medical daily. [place] triamcinolo 2021-07 Yes [id number] Apply to Univers ne 2-28 area(s) 2 ity of acetonide 00:00: (two) [place] 0.1 % cream 00 times Medical daily. [place] triamcinolo 2021-07- No [id number] Apply to Univers ne 2-28 03-22 area(s) 2 ity of acetonide 00:00: 00:00 (two) [place] 0.1 % cream 00 :00 times Medical daily. [place] triamcinolo 2021-07- No [id number] Apply to Univers ne 2-28 03-22 area(s) 2 ity of acetonide 00:00: 00:00 (two) [place] 0.1 % cream 00 :00 times Medical daily. [place] triamcinolo 2021-07- No [id number] Apply to Univers ne 2-28 03-22 area(s) 2 ity of acetonide 00:00: 00:00 (two) [place] 0.1 % cream 00 :00 times Medical daily. [place] permethrin 2021-07- No [id number] Apply to Univers 5 % cream 2-28 -29 area(s) ity of 00:00: 05:59 once now [place] 00 :00 for 1 Medical dose. [place] Apply jawline to soles of feet. May repeat in 14 days if live mites still present. permethrin 2021-07- No [id number] Apply to Univers 5 % cream 2-28 -29 area(s) ity of 00:00: 05:59 once now [place] 00 :00 for 1 Medical dose. [place] Apply jawline to soles of feet. May repeat in 14 days if live mites still present. permethrin 2021-07- No [id number] Apply to Univers 5 % cream 2-28 -29 area(s) ity of 00:00: 05:59 once now [place] 00 :00 for 1 Medical dose. Branch Apply jawline to soles of feet. May repeat in 14 days if live mites still present. tc 2021- No [id number] 43.8mCi 43.8 Unive rs 99m-tetrofo 03-02 millicurie i ty of smin 15:30: 15:25 , [place] ([facility]) 00 :00 Intravenou Medi chaz injection s, ONCE, 1 Bran ch 43.8 dose, On [facility] 03/02/22 at 1030, Routine regadenoson 2021- No [id number] .4mg 0.4 mg, IV Univers (LEXISCAN) 03-02 Push, ity of injection 14:45: 15:23 ONCE, [place] 0.4 mg 00 :00 dose, On Medical [facility] 03/02/22 Branch at 0945, Routine
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 medication : ANOOPMAHINGENEVIEVE tc 2021- No [id number] 15.8mCi 15.8 Univ ers 99m-tetrofo 03-02 millicurie i ty of smin 13:45: 13:44 , [place] ([facility]) 00 :00 Intravenou Medi chaz injection s, ONCE, 1 Bran ch 15.8 dose, On [facility] 03/02/22 at 0845, Routine AMLODIPINE Yes [id number] TAKE 1 Univers 5 mg tablet 4-22 TABLET BY ity of 00:00: MOUTH [place] 00 EVERY DAY Medical Branch AMLODIPINE 2021-0 Yes [id number] TAKE 1 Univers 5 mg tablet 4-22 TABLET BY ity of 00:00: MOUTH [place] 00 EVERY DAY Medical Branch AMLODIPINE 2021-0 Yes [id number] TAKE 1 Univers 5 mg tablet 4-22 TABLET BY ity of 00:00: MOUTH [place] 00 EVERY DAY Medical Branch AMLODIPINE 2021-0 Yes [id number] TAKE 1 Univers 5 mg tablet 4-22 TABLET BY ity of 00:00: MOUTH [place] EVERY DAY Medical Branch AMLODIPINE 2021-0 Yes [id number] TAKE 1 Univers 5 mg tablet 4-22 TABLET BY ity of 00:00: MOUTH [place] EVERY DAY Medical Branch AMLODIPINE 2021-0 Yes [id number] TAKE 1 Univers 5 mg tablet 4-22 TABLET BY ity of 00:00: MOUTH [place] 00 EVERY DAY Medical Branch AMLODIPINE 2022-0 Yes [id number] TAKE 1 Univers 5 mg tablet 4-22 TABLET BY ity of 00:00: MOUTH [place] 00 EVERY DAY Medical Branch AMLODIPINE 2022-0 Yes [id number] TAKE 1 Univers 5 mg tablet 4-22 TABLET BY ity of 00:00: MOUTH [place] EVERY DAY Medical Branch AMLODIPINE 2022-0 Yes [id number] TAKE 1 Univers 5 mg tablet 4-22 TABLET BY ity of 00:00: MOUTH [place] 00 EVERY DAY Medical Branch AMLODIPINE 2022-0 Yes [id number] TAKE 1 Univers 5 mg tablet 4-22 TABLET BY ity of 00:00: MOUTH [place] EVERY DAY Medical Branch AMLODIPINE 2022-0 Yes [id number] TAKE 1 Univers 5 mg tablet 4-22 TABLET BY ity of 00:00: MOUTH [place] EVERY DAY Medical Branch AMLODIPINE 2022-0 Yes [id number] TAKE 1 Univers 5 mg tablet 4-22 TABLET BY ity of 00:00: MOUTH [place] EVERY DAY Medical Branch AMLODIPINE 2022-0 Yes [id number] TAKE 1 Univers 5 mg tablet 4-22 TABLET BY ity of 00:00: MOUTH [place] 00 EVERY DAY Medical Branch AMLODIPINE 2022-0 Yes [id number] TAKE 1 Univers 5 mg tablet 4-22 TABLET BY ity of 00:00: MOUTH [place] 00 EVERY DAY Medical Branch AMLODIPINE 2022-0 Yes [id number] TAKE 1 Univers 5 mg tablet 4-22 TABLET BY ity of 00:00: MOUTH [place] EVERY DAY Medical Branch AMLODIPINE 2022-0 Yes [id number] TAKE 1 Univers 5 mg tablet 4-22 TABLET BY ity of 00:00: MOUTH [place] 00 EVERY DAY Medical Branch AMLODIPINE 2022-0 Yes [id number] TAKE 1 Univers 5 mg tablet 4-22 TABLET BY ity of 00:00: MOUTH [place] 00 EVERY DAY Medical Branch AMLODIPINE 2022-0 Yes [id number] TAKE 1 Univers 5 mg tablet 4-22 TABLET BY ity of 00:00: MOUTH [place] 00 EVERY DAY Medical Branch AMLODIPINE 2022-0 Yes [id number] TAKE 1 Univers 5 mg tablet 4-22 TABLET BY ity of 00:00: MOUTH [place] 00 EVERY DAY Medical Branch AMLODIPINE 2022-0 Yes [id number] TAKE 1 Univers 5 mg tablet 4-22 TABLET BY ity of 00:00: MOUTH [place] 00 EVERY DAY Medical Branch AMLODIPINE 2022-0 Yes [id number] TAKE 1 Univers 5 mg tablet 4-22 TABLET BY ity of 00:00: MOUTH [place] 00 EVERY DAY Medical Branch AMLODIPINE 2022-0 Yes [id number] TAKE 1 Univers 5 mg tablet 4-22 TABLET BY ity of 00:00: MOUTH [place] EVERY DAY Medical Branch AMLODIPINE 2022-0 Yes [id number] TAKE 1 Univers 5 mg tablet 4-22 TABLET BY ity of 00:00: MOUTH [place] 00 EVERY DAY Medical Branch AMLODIPINE 2022-0 Yes [id number] TAKE 1 Univers 5 mg tablet 4-22 TABLET BY ity of 00:00: MOUTH [place] EVERY DAY Medical Branch AMLODIPINE 2022-0 Yes [id number] TAKE 1 Univers 5 mg tablet 4-22 TABLET BY ity of 00:00: MOUTH [place] EVERY DAY Medical Branch AMLODIPINE 2022-0 Yes [id number] TAKE 1 Univers 5 mg tablet 4-22 TABLET BY ity of 00:00: MOUTH [place] 00 EVERY DAY Medical Branch AMLODIPINE 2022-0 Yes [id number] TAKE 1 Univers 5 mg tablet 4-22 TABLET BY ity of 00:00: MOUTH [place] 00 EVERY DAY Medical Branch AMLODIPINE 2022-0 Yes [id number] TAKE 1 Univers 5 mg tablet 4-22 TABLET BY ity of 00:00: MOUTH [place] 00 EVERY DAY Medical Branch AMLODIPINE 2022-0 Yes [id number] TAKE 1 Univers 5 mg tablet 4-22 TABLET BY ity of 00:00: MOUTH [place] 00 EVERY DAY Medical Branch AMLODIPINE 2022-0 Yes [id number] TAKE 1 [facility] 5 mg tablet 4-22 TABLET BY ity of 00:00: MOUTH [place] 00 EVERY DAY Medical Branch AMLODIPINE 2022-0 Yes [id number] TAKE 1 Univers 5 mg tablet 4-22 TABLET BY ity of 00:00: MOUTH [place] EVERY DAY Medical Branch AMLODIPINE 2022-0 Yes [id number] TAKE 1 [facility] 5 mg tablet 4-22 TABLET BY ity of 00:00: MOUTH [place] 00 EVERY DAY Medical Branch AMLODIPINE 2022-0 Yes [id number] TAKE 1 [facility] 5 mg tablet 4-22 TABLET BY ity of 00:00: MOUTH [place] 00 EVERY DAY Medical Branch AMLODIPINE 2022-0 Yes [id number] TAKE 1 [facility] 5 mg tablet 4-22 TABLET BY ity of 00:00: MOUTH [place] EVERY DAY Medical Branch AMLODIPINE 2-0 Yes [id number] TAKE 1 [facility] 5 mg tablet 4-22 TABLET BY ity of 00:00: MOUTH [place] EVERY DAY Medical Branch AMLODIPINE 2-0 Yes [id number] TAKE 1 [facility] 5 mg tablet 4-22 TABLET BY ity of 00:00: MOUTH [place] EVERY DAY Medical Branch AMLODIPINE 2-0 3- No [id number] TAKE 1 Univers 5 mg tablet 4-22 -17 TABLET BY it y of 00:00: 00:00 MOUTH [place] 00 :00 EVERY DAY Medical Branch AMLODIPINE 2022-0 3- No [id number] TAKE 1 Univers 5 mg tablet 4-22 -17 TABLET BY it y of 00:00: 00:00 MOUTH [place] 00 :00 EVERY DAY Medical Branch aspirin 81 2021-0 Yes 81mg Take 81 mg U nivers mg chewable 3-23 by mouth ity of tablet 13:08: daily. [address] aspirin 81 2021-0 Yes 81mg Take 81 mg U nivers mg chewable 3-23 by mouth ity of tablet 13:08: daily. [address] aspirin 81 2021-0 Yes 81mg Take 81 mg U nivers mg chewable 3-23 by mouth ity of tablet 13:08: daily. [address] aspirin 81 2021-0 Yes 81mg Take 81 mg U nivers mg chewable 3-23 by mouth ity of tablet 13:08: daily. [address] aspirin 81 2021-0 Yes 81mg Take 81 mg U nivers mg chewable 3-23 by mouth ity of tablet 13:08: daily. [address] aspirin 81 2-0 Yes 81mg Take 81 mg U nivers mg chewable 3-23 by mouth ity of tablet 13:08: daily. [address] aspirin 81 2022-0 Yes 81mg Take 81 mg U nivers mg chewable 3-23 by mouth ity of tablet 13:08: daily. [address] aspirin 81 2-0 Yes 81mg Take 81 mg U nivers mg chewable 3-23 by mouth ity of tablet 13:08: daily. [address] aspirin 81 2022-0 Yes 81mg Take 81 mg U nivers mg chewable 3-23 by mouth ity of tablet 13:08: daily. [place] 10 [facility] Branch aspirin 81 2021-0 Yes 81mg Take 81 mg U nivers mg chewable 3-23 by mouth ity of tablet 13:08: daily. [address] aspirin 81 2021-0 Yes 81mg Take 81 mg U nivers mg chewable 3-23 by mouth ity of tablet 13:08: daily. [address] aspirin 81 2021-0 Yes 81mg Take 81 mg U nivers mg chewable 3-23 by mouth ity of tablet 13:08: daily. [address] Branch ezetimibe 0 Yes [id number] 10mg Take 1 U nivers 10 mg 3-10 tablet by ity of tablet 00:00: mouth [place] 00 daily. [facility] Branch ezetimibe 0 Yes [id number] 10mg Take 1 U nivers 10 mg 3-10 tablet by ity of tablet 00:00: mouth [place] 00 daily. [facility] Branch ezetimibe 0 Yes [id number] 10mg Take 1 U nivers 10 mg 3-10 tablet by ity of tablet 00:00: mouth [place] 00 daily. [facility] Branch ezetimibe 0 Yes [id number] 10mg Take 1 U nivers 10 mg 3-10 tablet by ity of tablet 00:00: mouth [place] 00 daily. [facility] Branch ezetimibe 0 Yes [id number] 10mg Take 1 U nivers 10 mg 3-10 tablet by ity of tablet 00:00: mouth [place] 00 daily. [facility] Branch ezetimibe 2021-0 Yes [id number] 10mg Take 1 U nivers 10 mg 3-10 tablet by ity of tablet 00:00: mouth [place] 00 daily. [facility] Branch ezetimibe 2021-0 Yes [id number] 10mg Take 1 U nivers 10 mg 3-10 tablet by ity of tablet 00:00: mouth [place] 00 daily. [facility] Branch ezetimibe 0 Yes [id number] 10mg Take 1 U nivers 10 mg 3-10 tablet by ity of tablet 00:00: mouth [place] 00 daily. [facility] Branch ezetimibe 2021-0 Yes [id number] 10mg Take 1 U nivers 10 mg 3-10 tablet by ity of tablet 00:00: mouth [place] 00 daily. Medical Branch ezetimibe 2021-0 Yes [id number] 10mg Take 1 U nivers 10 mg 3-10 tablet by ity of tablet 00:00: mouth [place] 00 daily. Medical Branch ezetimibe 2021-0 Yes [id number] 10mg Take 1 U nivers 10 mg 3-10 tablet by ity of tablet 00:00: mouth [place] 00 daily. Medical Branch ezetimibe 2021-0 Yes [id number] 10mg Take 1 U nivers 10 mg 3-10 tablet by ity of tablet 00:00: mouth [place] 00 daily. Medical Branch ezetimibe 2021-0 Yes [id number] 10mg Take 1 U nivers 10 mg 3-10 tablet by ity of tablet 00:00: mouth [place] 00 daily. Medical Branch ezetimibe 2021-0 Yes [id number] 10mg Take 1 U nivers 10 mg 3-10 tablet by ity of tablet 00:00: mouth in [place] 00 the Medical morning. Branch ezetimibe 2021-0 Yes [id number] 10mg Take 1 U nivers 10 mg 3-10 tablet by ity of tablet 00:00: mouth in [place] 00 the Medical morning. Branch ezetimibe 2021-0 Yes [id number] 10mg Take 1 U nivers 10 mg 3-10 tablet by ity of tablet 00:00: mouth in [place] 00 the Medical morning. Branch ezetimibe 2021-0 Yes [id number] 10mg Take 1 U nivers 10 mg 3-10 tablet by ity of tablet 00:00: mouth [place] 00 daily. Medical Branch ezetimibe 2021-0 Yes [id number] 10mg Take 1 U nivers 10 mg 3-10 tablet by ity of tablet 00:00: mouth [place] 00 daily. Medical Branch ezetimibe 2-0 Yes [id number] 10mg Take 1 U nivers 10 mg 3-10 tablet by ity of tablet 00:00: mouth [place] 00 daily. [facility] Branch ezetimibe 2-0 Yes [id number] 10mg Take 1 U nivers 10 mg 3-10 tablet by ity of tablet 00:00: mouth [place] 00 daily. Medical Branch ezetimibe 2-0 Yes [id number] 10mg Take 1 U nivers 10 mg 3-10 tablet by ity of tablet 00:00: mouth [place] 00 daily. Medical Branch ezetimibe 2021-0 Yes [id number] 10mg Take 1 U nivers 10 mg 3-10 tablet by ity of tablet 00:00: mouth [place] 00 daily. Medical Branch ezetimibe 2021-0 Yes [id number] 10mg Take 1 U nivers 10 mg 3-10 tablet by ity of tablet 00:00: mouth [place] 00 daily. Medical Branch ezetimibe 2021-0 Yes [id number] 10mg Take 1 U nivers 10 mg 3-10 tablet by ity of tablet 00:00: mouth [place] 00 daily. Medical Branch ezetimibe 2021-0 Yes [id number] 10mg Take 1 U nivers 10 mg 3-10 tablet by ity of tablet 00:00: mouth [place] 00 daily. Medical Branch ezetimibe 2021-0 Yes [id number] 10mg Take 1 U nivers 10 mg 3-10 tablet by ity of tablet 00:00: mouth [place] 00 daily. Medical Branch ezetimibe 2021-0 Yes [id number] 10mg Take 1 U nivers 10 mg 3-10 tablet by ity of tablet 00:00: mouth [place] 00 daily. Medical Branch ezetimibe 2021-0 Yes [id number] 10mg Take 1 U nivers 10 mg 3-10 tablet by ity of tablet 00:00: mouth [place] 00 daily. Medical Branch ezetimibe 2021-0 Yes [id number] 10mg Take 1 U nivers 10 mg 3-10 tablet by ity of tablet 00:00: mouth [place] 00 daily. Medical Branch ezetimibe 2021-0 Yes [id number] 10mg Take 1 U nivers 10 mg 3-10 tablet by ity of tablet 00:00: mouth [place] 00 daily. Medical Branch ezetimibe 2021-0 Yes [id number] 10mg Take 1 U nivers 10 mg 3-10 tablet by ity of tablet 00:00: mouth [place] 00 daily. Medical Branch ezetimibe 2021-0 Yes [id number] 10mg Take 1 U nivers 10 mg 3-10 tablet by ity of tablet 00:00: mouth [place] 00 daily. Medical Branch ezetimibe 2021-0 Yes [id number] 10mg Take 1 U nivers 10 mg 3-10 tablet by ity of tablet 00:00: mouth 00 daily. Medical Branch ezetimibe 2021-0 Yes [id number] 10mg Take 1 U nivers 10 mg 3-10 tablet by ity of tablet 00:00: mouth 00 daily. Medical Branch ezetimibe 2021-0 Yes [id number] 10mg Take 1 U nivers 10 mg 3-10 tablet by ity of tablet 00:00: mouth 00 daily. Medical Branch ezetimibe 2021-0 Yes [id number] 10mg Take 1 U nivers 10 mg 3-10 tablet by ity of tablet 00:00: mouth 00 daily. [facility] Branch ezetimibe 2021-0 Yes [id number] 10mg Take 1 U nivers 10 mg 3-10 tablet by ity of tablet 00:00: mouth 00 daily. [facility] Branch ezetimibe 2021-0 3- No [id number] 10mg Take 1 Univers 10 mg 3-10 03-22 tablet by ity of tablet 00:00: 00:00 mouth in [place] 00 :00 the Medical morning. Branch ezetimibe 2021-0 3- No [id number] 10mg Take 1 Univers 10 mg 3-10 03-22 tablet by ity of tablet 00:00: 00:00 mouth in [place] 00 :00 the Medical morning. Branch ezetimibe 2021-0 3- No [id number] 10mg Take 1 Univers 10 mg 3-10 03-22 tablet by ity of tablet 00:00: 00:00 mouth in [place] 00 :00 the Medical morning. Branch carvediloL 2021-0 Yes [id number] 3.125mg Take 1 Univers 3.125 mg 3-07 tablet by ity of tablet 00:00: mouth 2 [place] (two) Medical times Branch daily with meals. carvediloL 2021-0 Yes [id number] 3.125mg Take 1 Univers 3.125 mg 3-07 tablet by ity of tablet 00:00: mouth 2 [place] (two) Medical times Branch daily with meals. carvediloL 2021-0 Yes [id number] 3.125mg Take 1 Univers 3.125 mg 3-07 tablet by ity of tablet 00:00: mouth 2 00 (two) Medical times Branch daily with meals. carvediloL 2021-0 Yes [id number] 3.125mg Take 1 Univers 3.125 mg 3-07 tablet by ity of tablet 00:00: mouth (two) Medical times Branch daily with meals. carvediloL 2021-0 Yes [id number] 3.125mg Take 1 Univers 3.125 mg 3-07 tablet by ity of tablet 00:00: mouth (two) Medical times Branch daily with meals. carvediloL 2021-0 Yes [id number] 3.125mg Take 1 Univers 3.125 mg 3-07 tablet by ity of tablet 00:00: mouth (two) Medical times Branch daily with meals. carvediloL 2021-0 Yes [id number] 3.125mg Take 1 [facility] 3.125 mg 3-07 tablet by ity of tablet 00:00: mouth (two) Medical times Branch daily with meals. carvediloL 2021-0 Yes [id number] 3.125mg Take 1 [facility] 3.125 mg 3-07 tablet by ity of tablet 00:00: mouth (two) Medical times Branch daily with meals. carvediloL 2021-0 Yes [id number] 3.125mg Take 1 [facility] 3.125 mg 3-07 tablet by ity of tablet 00:00: mouth (two) Medical times Branch daily with meals. carvediloL 2021-0 Yes [id number] 3.125mg Take 1 [facility] 3.125 mg 3-07 tablet by ity of tablet 00:00: mouth (two) Medical times Branch daily with meals. carvediloL 2021-0 Yes [id number] 3.125mg Take 1 [facility] 3.125 mg 3-07 tablet by ity of tablet 00:00: mouth (two) Medical times Branch daily with meals. carvediloL 2-0 Yes [id number] 3.125mg Take 1 [facility] 3.125 mg 3-07 tablet by ity of tablet 00:00: mouth (two) Medical times Branch daily with meals. carvediloL 2021-0 Yes [id number] 3.125mg Take 1 [facility] 3.125 mg 3-07 tablet by ity of tablet 00:00: mouth (two) Medical times Branch daily with meals. carvediloL 2021-0 Yes [id number] 3.125mg Take 1 [facility] 3.125 mg 3-07 tablet by ity of tablet 00:00: mouth (two) Medical times Branch daily with meals. carvediloL 2021-0 Yes [id number] 3.125mg Take 1 [facility] 3.125 mg 3-07 tablet by ity of tablet 00:00: mouth (two) Medical times Branch daily with meals. carvediloL 2021-0 Yes [id number] 3.125mg Take 1 [facility] 3.125 mg 3-07 tablet by ity of tablet 00:00: mouth (two) Medical times Branch daily with meals. carvediloL 0 Yes [id number] 3.125mg Take 1 [facility] 3.125 mg 3-07 tablet by ity of tablet 00:00: mouth (two) Medical times Branch daily with meals. carvediloL 0 Yes [id number] 3.125mg Take 1 [facility] 3.125 mg 3-07 tablet by ity of tablet 00:00: mouth (two) Medical times Branch daily with meals. carvediloL 2021-0 Yes [id number] 3.125mg Take 1 [facility] 3.125 mg 3-07 tablet by ity of tablet 00:00: mouth (two) Medical times Branch daily with meals. carvediloL 2021-0 Yes [id number] 3.125mg Take 1 [facility] 3.125 mg 3-07 tablet by ity of tablet 00:00: mouth (two) Medical times Branch daily with meals. carvediloL 2021-0 Yes [id number] 3.125mg Take 1 [facility] 3.125 mg 3-07 tablet by ity of tablet 00:00: mouth (two) Medical times Branch daily with meals. carvediloL 2021-0 Yes [id number] 3.125mg Take 1 [facility] 3.125 mg 3-07 tablet by ity of tablet 00:00: mouth (two) Medical times Branch daily with meals. carvediloL 2021-0 Yes [id number] 3.125mg Take 1 [facility] 3.125 mg 3-07 tablet by ity of tablet 00:00: mouth (two) Medical times Branch daily with meals. carvediloL 2021-0 Yes [id number] 3.125mg Take 1 [facility] 3.125 mg 3-07 tablet by ity of tablet 00:00: mouth (two) Medical times Branch daily with meals. carvediloL 2021-0 Yes [id number] 3.125mg Take 1 [facility] 3.125 mg 3-07 tablet by ity of tablet 00:00: mouth (two) Medical times Branch daily with meals. carvediloL 2021-0 Yes [id number] 3.125mg Take 1 [facility] 3.125 mg 3-07 tablet by ity of tablet 00:00: mouth (two) Medical times Branch daily with meals. carvediloL 2021-0 Yes [id number] 3.125mg Take 1 [facility] 3.125 mg 3-07 tablet by ity of tablet 00:00: mouth (two) Medical times Branch daily with meals. carvediloL 2021-0 Yes [id number] 3.125mg Take 1 [facility] 3.125 mg 3-07 tablet by ity of tablet 00:00: mouth (two) Medical times Branch daily with meals. carvediloL 2021-0 Yes [id number] 3.125mg Take 1 [facility] 3.125 mg 3-07 tablet by ity of tablet 00:00: mouth (two) Medical times [facility] daily with meals. carvediloL 2021-0 Yes [id number] 3.125mg Take 1 [facility] 3.125 mg 3-07 tablet by ity of tablet 00:00: mouth (two) Medical times Branch daily with meals. carvediloL 2021-0 Yes [id number] 3.125mg Take 1 [facility] 3.125 mg 3-07 tablet by ity of tablet 00:00: mouth (two) Medical times Branch daily with meals. carvediloL 2021-0 Yes [id number] 3.125mg Take 1 [facility] 3.125 mg 3-07 tablet by ity of tablet 00:00: mouth (two) Medical times Branch daily with meals. carvediloL 2022-0 Yes [id number] 3.125mg Take 1 [facility] 3.125 mg 3-07 tablet by ity of tablet 00:00: mouth [place] (two) Medical times Branch daily with meals. carvediloL Yes [id number] 3.125mg Take 1 [facility] 3.125 mg 3-07 tablet by ity of tablet 00:00: mouth 2 [place] (two) Medical times Branch daily with meals. carvediloL Yes [id number] 3.125mg Take 1 [facility] 3.125 mg 3-07 tablet by ity of tablet 00:00: mouth (two) Medical times Branch daily with meals. carvediloL Yes [id number] 3.125mg Take 1 [facility] 3.125 mg 3-07 tablet by ity of tablet 00:00: mouth 2 [place] (two) Medical times Branch daily with meals. carvediloL Yes [id number] 3.125mg Take 1 [facility] 3.125 mg 3-07 tablet by ity of tablet 00:00: mouth [place] (two) Medical times Branch daily with meals. carvediloL 2022- No [id number] 3.125mg Take 1 [facility] 3.125 mg 3-07 03-22 tablet by ity o f tablet 00:00: 00:00 mouth 2 [place] 00 :00 (two) Medical times Branch daily with meals. carvediloL 2022- No [id number] 3.125mg Take 1 [facility] 3.125 mg 3-07 03-22 tablet by ity o f tablet 00:00: 00:00 mouth 2 [place] 00 :00 (two) Medical times Branch daily with meals. carvediloL 2022- No [id number] 3.125mg Take 1 [facility] 3.125 mg 3-07 03-22 tablet by ity o f tablet 00:00: 00:00 mouth 2 [place] 00 :00 (two) Medical times Branch daily with meals. Lisinopril 2020-0 Yes Mohamed 1 tablet [facility] 7-14 Tamir l 02:45: [place] 40 Aspirin 2020-0 Yes Mohamed 1 tablet Mem oria 7-14 Tamir l 02:45: [place] 40 Crestor 2020-0 Yes Mohamed 1 tablet Mem oria 7- Tamir l 02:45: [place] 40 Atorvastati 2020-0 Yes Mohamed 1 tablet [facility] n Calcium 7- Tamir l 02:45: [place] 40 Clopidogrel 2020-0 Yes Mohamed 1 tablet [facility] Bisulfate 01-12 Tamir l 02:45: [place] 40 Famotidine 2020-0 Yes Mohamed not Heriberto hari 01-12 Tamir defined l 02:45: [place] 40 Lisinopril 2020-0 Yes Mohamed 1 tablet [facility]oria 01-12 Tamir l 02:45: [place] 40 Aspirin 2020-0 Yes Mohamed 1 tablet Mem oria 01-12 Tamir l 02:45: [place] 40 Crestor 2020-0 Yes Mohamed 1 tablet Mem oria 01-12 Tamir l 02:45: [place] 40 Atorvastati 2020-0 Yes Mohamed 1 tablet [facility]oria n Calcium 01-12 Tamir l 02:45: [place] 40 Clopidogrel 2020-0 Yes Mohamed 1 tablet [facility] Bisulfate 01-12 Tamir l 02:45: [place] 40 Famotidine 2020-0 Yes Mohamed not Heriberto hari 01-12 Tamir defined l 02:45: [place] 40 Lisinopril 2020-0 Yes Mohamed 1 tablet [facility]oria 01-12 Tamir l 02:45: [place] 40 Aspirin 2020-0 Yes Mohamed 1 tablet Mem oria 01-12 Tamir l 02:45: [place] 40 Crestor 2020-0 Yes Mohamed 1 tablet Mem oria 01-12 Tamir l 02:45: [place] 40 Atorvastati 2020-0 Yes Mohamed 1 tablet Memoria n Calcium 01-12 Tamir l 02:45: [place] 40 Clopidogrel 2020-0 Yes Mohamed 1 tablet [facility] Bisulfate 01-12 Tamir l 02:45: [place] 40 Famotidine 2020-0 Yes Mohamed not Heriberto hari - Tamir defined l 02:45: [place] 40 Lisinopril 2020-0 Yes Mohamed 1 tablet Memoria 01-12 Tamir l 02:45: [place] 40 Aspirin 2020-0 Yes Mohamed 1 tablet Mem oria 01-12 Tamir l 02:45: [place] 40 Crestor 2020-0 Yes Mohamed 1 tablet Mem oria 7-14 Tamir l 02:45: [place] 40 Atorvastati 2020-0 Yes Mohamed 1 tablet [facility]oria n Calcium 01-12 Tamir l 02:45: [place] 40 Clopidogrel 2020-0 Yes Mohamed 1 tablet [facility] Bisulfate 01-12 Tamir l 02:45: [place] 40 Famotidine 2020-0 Yes Mohamed not Heriberto [...] Memoria n Calcium 01-12 Tamir l 02:45: [place] 40 Clopidogrel 2020-0 Yes Mohamed 1 tablet [facility] Bisulfate 01-12 Tamir l 02:45: [place] 40 Famotidine 2020-0 Yes Mohamed not Heriberto hari 01-12 Tamir defined l 02:45: [place] 40 Lisinopril 2020-0 Yes Mohamed 1 tablet Memoria 01-12 Tamir l 02:45: [place] 40 Aspirin 2020-0 Yes Mohamed 1 tablet [...] Heriberto hari 01-12 Tamir defined l 02:45: [place] 40 Lisinopril 2020-0 Yes Mohamed 1 tablet [...] tablet [facility] Bisulfate 01-12 Tamir l 02:45: [place] 40 Famotidine 2020-0 Yes Mohamed not Heriberto hari 01-12 Tamir defined l 02:45: [place] 40 Lisinopril 2020-0 Yes Mohamed 1 tablet Memoria 01-12 Tamir l 02:45: [place] 40 Aspirin 2020-0 Yes Mohamed 1 tablet Mem oria 01-12 Tamir l 02:45: [place] 40 Crestor 2020-0 Yes Mohamed 1 tablet Mem oria 01-12 Tamir l 02:45: [place] 40 Atorvastati 2020-0 Yes Mohamed 1 tablet Memoria n Calcium 01-12 Tamir l 02:45: [place] 40 Clopidogrel 2020-0 Yes Mohamed 1 tablet [facility] Bisulfate 01-12 Tamir l 02:45: [place] 40 Famotidine 2020-0 Yes Mohamed not Heriberto hari 01-12 Tamir defined l 02:45: [place] 40 Lisinopril 2020-0 Yes Mohamed 1 tablet [facility]oria 01-12 Tamir l 02:45: [place] 40 Lisinopril 2020-0 Yes Mohamed 1 tablet [facility]oria 01-12 Tamir l 02:45: [place] 40 Aspirin 2020-0 Yes Mohamed 1 tablet Mem oria 01-12 Tamir l 02:45: [place] 40 Crestor 2020-0 Yes Mohamed 1 tablet Mem oria 01-12 Tamir l 02:45: [place] 40 Atorvastati 2020-0 Yes Mohamed 1 tablet Memoria n Calcium 01-12 Tamir l 02:45: [place] 40 Aspirin 2020-0 Yes Mohamed 1 tablet Mem oria 01-12 Tamir l 02:45: [place] 40 Clopidogrel 2020-0 Yes Mohamed 1 tablet [facility] Bisulfate 01-12 Tamir l 02:45: [place] 40 Famotidine 2020-0 Yes Mohamed not Heriberto hari 01-12 Tamir defined l 02:45: [place] 40 Lisinopril 2020-0 Yes Mohamed 1 tablet Memoria 7-14 Tamir l 02:45: [place] 40 Crestor 2020-0 Yes Mohamed 1 tablet Mem oria 7-14 Tamir l 02:45: [place] 40 Aspirin 2020-0 Yes Mohamed 1 tablet Mem oria 7-14 Tamir l 02:45: [place] 40 Crestor 2020-0 Yes Mohamed 1 tablet Mem oria 7-14 Tamir l 02:45: [place] 40 Atorvastati 2020-0 Yes Mohamed 1 tablet Memoria n Calcium 7-14 Tamir l 02:45: [place] 40 Clopidogrel 2020-0 Yes Mohamed 1 tablet [facility] Bisulfate 7-14 Tamir l 02:45: [place] 40 Famotidine 2020-0 Yes Mohamed not Heriberto hari - Tamir defined l 02:45: [place] 40 Aspirin 2020-0 Yes Mohamed 1 tablet Mem oria 7-14 Tamir l 02:45: [place] 40 Lisinopril 2020-0 Yes Mohamed 1 tablet Memoria - Tamir l 02:45: [place] 40 Crestor 2020-0 Yes Mohamed 1 tablet Mem oria 7-14 Tamir l 02:45: [place] 40 Atorvastati 2020-0 Yes Mohamed 1 tablet Memoria n Calcium 7-14 Tamir l 02:45: [place] 40 Clopidogrel 2020-0 Yes Mohamed 1 tablet [facility] Bisulfate - Tamir l 02:45: [place] 40 Famotidine 2020-0 Yes Mohamed not Heriberto hari - Tamir defined l 02:45: [place] 40 Atorvastati 2020-0 Yes Mohamed 1 tablet Memoria n Calcium 7-14 Tamir l 02:45: [place] 40 Aspirin 2020-0 Yes Mohamed 1 tablet Mem oria 7-14 Tamir l 02:45: [place] 40 Lisinopril 2020-0 Yes Mohamed 1 tablet Memoria 7-14 Tamir l 02:45: [place] 40 Crestor 2020-0 Yes Mohamed 1 tablet Mem oria 7-14 Tamir l 02:45: [place] 40 Clopidogrel 2020-0 Yes Mohamed 1 tablet [facility] Bisulfate 7-14 Tamir l 02:45: [place] 40 Atorvastati 2020-0 Yes Mohamed 1 tablet Memoria n Calcium 7-14 Tamir l 02:45: [place] 40 Clopidogrel 2020-0 Yes Mohamed 1 tablet [facility] Bisulfate 01-12 Tamir l 02:45: [place] 40 Famotidine 2020-0 Yes Mohamed not Heriberto hari 01-12 Tamir defined l 02:45: [place] 40 Famotidine 2020-0 Yes Mohamed not Heriberto hari 01-12 Tamir defined l 02:45: [place] 40 Aspirin 2020-0 Yes Mohamed 1 tablet Mem oria 01-12 Tamir l 02:45: [place] 40 Lisinopril 2020-0 Yes Mohamed 1 tablet Memoria 01-12 Tamir l 02:45: [place] 40 Crestor 2020-0 Yes Mohamed 1 tablet Mem oria 01-12 Tamir l 02:45: [place] 40 Atorvastati 2020-0 Yes Mohamed 1 tablet Memoria n Calcium 01-12 Tamir l 02:45: [place] 40 Clopidogrel 2020-0 Yes Mohamed 1 tablet [facility] Bisulfate 01-12 Tamir l 02:45: [place] 40 Famotidine 2020-0 Yes Mohamed not Heriberto hari 01-12 Tamir defined l 02:45: [place] 40 Aspirin 2020-0 Yes Mohamed 1 tablet Mem oria 01-12 Tamir l 02:45: [place] 40 Lisinopril 2020-0 Yes Mohamed 1 tablet Memoria 01-12 Tamir l 02:45: [place] 40 Crestor 2020-0 Yes Mohamed 1 tablet Mem oria 01-12 Tamir l 02:45: [place] 40 Atorvastati 2020-0 Yes Mohamed 1 tablet Memoria n Calcium 01-12 Tamir l 02:45: [place] 40 Clopidogrel 2020-0 Yes Mohamed 1 tablet [facility] Bisulfate 01-12 Tamir l 02:45: [place] 40 Famotidine 2020-0 Yes Mohamed not Heriberto hari - Tamir defined l 02:45: [place] 40 Aspirin 2020-0 Yes Mohamed 1 tablet Mem oria - Tamir l 02:45: [place] 40 Lisinopril 2020-0 Yes Mohamed 1 tablet Memoria 01-12 Tamir l 02:45: [place] 40 Crestor 2020-0 Yes Mohamed 1 tablet Mem oria 01-12 Tamir l 02:45: [place] 40 Atorvastati 2020-0 Yes Mohamed 1 tablet Memoria n Calcium 01-12 Tamir l 02:45: [place] 40 Clopidogrel 2020-0 Yes Mohamed 1 tablet [facility] Bisulfate 01-12 Tamir l 02:45: [place] 40 Famotidine 2020-0 Yes Mohamed not Heriberto hari 01-12 Tamir defined l 02:45: [place] 40 Aspirin 2020-0 Yes Mohamed 1 tablet Mem oria 01-12 Tamir l 02:45: [place] 40 Lisinopril 2020-0 Yes Mohamed 1 tablet Memoria 01-12 Tamir l 02:45: [place] 40 Crestor 2020-0 Yes Mohamed 1 tablet Mem oria 01-12 Tamir l 02:45: [place] 40 Atorvastati 2020-0 Yes Mohamed 1 tablet Memoria n Calcium 01-12 Tamir l 02:45: [place] 40 Clopidogrel 2020-0 Yes Mohamed 1 tablet [facility] Bisulfate 01-12 Tamir l 02:45: [place] 40 Famotidine 2020-0 Yes Mohamed not Heriberto hari 01-12 Tamir defined l 02:45: [place] 40 Aspirin 2020-0 Yes Mohamed 1 tablet Mem oria 01-12 Tamir l 02:45: [place] 40 Lisinopril 2020-0 Yes Mohamed 1 tablet Memoria 01-12 Tamir l 02:45: [place] 40 Crestor 2020-0 Yes Mohamed 1 tablet Mem oria 01-12 Tamir l 02:45: [place] 40 Atorvastati 2020-0 Yes Mohamed 1 tablet Memoria n Calcium 01-12 Tamir l 02:45: [place] 40 Clopidogrel 2020-0 Yes Mohamed 1 tablet [facility] Bisulfate 01-12 Tamir l 02:45: [place] 40 Famotidine 2020-0 Yes Mohamed not Heriberto hari 01-12 Tamir defined l 02:45: [place] 40 Aspirin 2020-0 Yes Mohamed 1 tablet Mem oria 01-12 Tamir l 02:45: [place] 40 Lisinopril 2020-0 Yes Mohamed 1 tablet Memoria 01-12 Tamir l 02:45: [place] 40 Crestor 2020-0 Yes Mohamed 1 tablet Mem oria 7-14 Tamir l 02:45: [place] 40 Atorvastati 2020-0 Yes Mohamed 1 tablet Memoria n Calcium 7- Tamir l 02:45: [place] 40 Clopidogrel 2020-0 Yes Mohamed 1 tablet [facility] Bisulfate - Tamir l 02:45: [place] 40 Famotidine 2020-0 Yes Mohamed not Heriberto hari 01-12 Tamir defined l 02:45: [place] 40 Lisinopril 2020-0 Yes Mohamed 1 tablet Memoria 01-12 Tamir l 02:45: [place] 40 Aspirin 2020-0 Yes Mohamed 1 tablet Mem oria 01-12 Tamir l 02:45: [place] 40 Crestor 2020-0 Yes Mohamed 1 tablet Mem oria - Tamir l 02:45: [place] 40 Atorvastati 2020-0 Yes Mohamed 1 tablet Memoria n Calcium 01-12 Tamir l 02:45: [place] 40 Clopidogrel 2020-0 Yes Mohamed 1 tablet [facility] Bisulfate 01-12 Tamir l 02:45: [place] 40 Famotidine 2020-0 Yes Mohamed not Heriberto hari 01-12 Tamir defined l 02:45: [place] 40 Lisinopril 2020-0 Yes Mohamed 1 tablet Memoria 01-12 Tamir l 02:45: [place] 40 Aspirin 2020-0 Yes Mohamed 1 tablet Mem oria - Tamir l 02:45: [place] 40 Crestor 2020-0 Yes Mohamed 1 tablet Mem oria 01-12 Tamir l 02:45: [place] 40 Atorvastati 2020-0 Yes Mohamed 1 tablet Memoria n Calcium 01-12 Tamir l 02:45: [place] 40 Clopidogrel 2020-0 Yes Mohamed 1 tablet [facility] Bisulfate - Tamir l 02:45: [place] 40 Famotidine 2020-0 Yes Mohamed not Heriberto hari - Tamir defined l 02:45: [place] 40 Aspirin 2020-0 Yes Mohamed 1 tablet Mem oria - Tamir l 02:45: [place] 40 Lisinopril 2020-0 Yes Mohamed 1 tablet Memoria 01-12 Tamir l 02:45: [place] 40 Crestor [...] 1 tablet Memoria 3-22 Tamir l 02:45: Lisinopril 2019-0 Yes Mohamed 1 tablet Memoria 3-22 Tamir l 02:45: Lisinopril 2019-0 Yes Mohamed 1 tablet Memoria 3-22 Tamir l 02:45: [place] 15 Lisinopril 2019-0 Yes Mohamed 1 tablet Memoria 3-22 Tamir l 02:45: [place] 15 Lisinopril 2019-0 Yes Mohamed 1 tablet Memoria 3-22 Tamir l 02:45: [place] 15 Lisinopril 2019-0 Yes Mohamed 1 tablet Memoria 3-22 Tamir l 02:45: [place] 15 Lisinopril 2019-0 Yes Mohamed 1 tablet Memoria 3-22 Tamir l 02:45: [place] 15 Lisinopril 2019-0 Yes Mohamed 1 tablet Memoria 3-22 Tamir l 02:45: [place] 15 Lisinopril 2019-0 Yes Mohamed 1 tablet Memoria 3-22 Tamir l 02:45: [place] 15 Lisinopril 2019-0 Yes Mohamed 1 tablet Memoria 3-22 Tamir l 02:45: [place] 15 Lisinopril 2019-0 Yes Mohamed 1 tablet Memoria 3-22 Tamir l 02:45: [place] 15 Lisinopril 2019-0 Yes Mohamed 1 tablet Memoria 3-22 Tamir l 02:45: [place] 15 Lisinopril 2019-0 Yes Mohamed 1 tablet Memoria 3-22 Tamir l 02:45: [place] 15 Lisinopril 2019-0 Yes Mohamed 1 tablet Memoria 3-22 Tamir l 02:45: [place] 15 Lisinopril 2019-0 Yes Mohamed 1 tablet Memoria 3-22 Tamir l 02:45: [place] 15 Lisinopril 2019-0 Yes Mohamed 1 tablet Memoria 3-22 Tamir l 02:45: [place] 15 Lisinopril 2019-0 Yes Mohamed 1 tablet Memoria 3-22 Tamir l 02:45: [place] 15 Lisinopril 2019-0 Yes Mohamed 1 tablet Memoria 3-22 Tamir l 02:45: [place] 15 Lisinopril 2019-0 Yes Mohamed 1 tablet Memoria 3-22 Tamir l 02:45: [place] 15 Lisinopril 2019-0 Yes Mohamed 1 tablet Memoria 3-22 Tamir l 02:45: [place] 15 Lisinopril 2019-0 Yes Mohamed 1 tablet Memoria 3-22 Tamir l 02:45: [place] 15 Lisinopril 2019-0 Yes Mohamed 1 tablet Memoria 3-22 Tamir l 02:45: [place] Valsartan-H Valsartan-H Yes Jessica 1 tablet Common ydrochlorot ydrochlorot [place] [facility]iazide [facility]iaz[facility] Aspirin Aspirin Yes Jessica 1 tablet Comm on Adult Low Adult Low [place] [facility] it Strength Strength - [facility] Atorvastati Atorvastati Yes Jessica TAKE 1 Common n Calcium n Calcium [place] TABLET BY Spirit MOUTH AT - [facility] BEDTIME [facility] Clopidogrel Clopidogrel Yes Jessica TAKE 1 Common Bisulfate Bisulfate [place] TABLET BY Spirit MOUTH - [facility] EVERY DAY [facility] Famotidine Famotidine Yes Jessica TAKE 1 Common [place] TABLET BY Spirit MOUTH - [facility] TWICE A [facility] amLODIPine amLODIPine No 1{table QD amLODIPine Besylate 5 Besylate 5 t} Besylate 5 MG MG MG Zetia 10 MG Zetia 10 MG No 1{table QD Zetia 10 t} MG Carvedilol Carvedilol No BID Carvedilol 3.125 MG 3.125 MG 3.125 MG Zetia 10 MG Zetia 10 MG [...] 3.125 MG 3.125 MG Immunizations Ordered Filled Date Status Comments Source Immunization Name Immunization Name Influenza High Dose 2022-04-03 Completed [facility] of 00:[facility]:[address] [facility] Influenza High Dose 2022-04-03 Completed [facility] rsity of 00:00:[address] [facility] Influenza High Dose 2022-04-03 Completed [facility]ive rsity of 00:00:[address] [facility] Influenza High Dose 2022-04-03 Completed Unive rsity of 00:00:[address] [facility] Influenza High Dose 2022-04-03 Completed Unive rsity of 00:00:[address] [facility] Influenza High Dose 2022-04-03 Completed [facility]ive rsity of 00:00:[address] [facility] Influenza High Dose 2022-04-03 Completed Unive rsity of 00:00:[address] [facility] Influenza High Dose 2022-04-03 Completed Unive rsity of 00:00:[address] [facility] Influenza High Dose 2022-04-03 Completed Unive rsity of 00:00:[address] [facility] Influenza High Dose 2022-04-03 Completed Unive rsity of 00:00:[address] [facility] Influenza High Dose 2022-04-03 Completed Unive rsity of 00:00:[address] [facility] Influenza High Dose 2022-04-03 Completed Unive rsity of 00:00:[address] [facility] Influenza High Dose 2022-04-03 Completed Unive rsity of 00:00:[address] [facility] Influenza High Dose 2022-04-03 Completed Unive rsity [...] Dose 2022-04-03 Completed [facility]ive [facility] of 00:00:00 [facility] Influenza High Dose 2022-04-03 Completed Unive rsity of 00:00:00 [place] [facility] Influenza High Dose 2022-04-03 Completed Unive rsity of 00:00:00 [place] [facility] Influenza High Dose 2022-04-03 Completed Unive rsity of 00:00:00 [place] [facility] Influenza High Dose 2022-04-03 Completed Unive rsity of 00:00:00 [place] [facility] Influenza High Dose 2022-04-03 Completed Unive rsity of 00:00:00 [facility] Influenza High Dose 2022-04-03 Completed Unive rsity of 00:00:00 [facility] Influenza High Dose 2022-04-03 Completed Unive rsity of 00:00:00 [facility] SARS-COV-2 COVID-19 2022-02-07 Completed Unive rsity [...] 00:00:00 [place] [facility] SARS-COV-2 COVID-19 2021-05-04 Completed Unive rsity of PFIZER VACCINE 00:00:00 [place] [facility] chaz Branch SARS-COV-2 COVID-19 2021-05-04 Completed Unive rsity of PFIZER VACCINE 00:00:00 [place] [facility] chaz Branch SARS-COV-2 COVID-19 2021-05-04 Completed Unive rsity of PFIZER VACCINE 00:00:00 [place] [facility] chaz Branch SARS-COV-2 COVID-19 2021-05-04 Completed Unive rsity of PFIZER VACCINE 00:00:00 [place] [facility] SARS-COV-2 COVID-19 2021-05-04 Completed Unive rsity of PFIZER VACCINE 00:00:00 [place] [facility] SARS-COV-2 COVID-19 2021-05-04 Completed Unive rsity of PFIZER VACCINE 00:00:00 [place] [facility] SARS-COV-2 COVID-19 2021-05-04 Completed Unive rsity of PFIZER VACCINE 00:00:00 [place] [facility] chaz Branch SARS-COV-2 COVID-19 2021-05-04 Completed Unive rsity of PFIZER VACCINE 00:00:00 [place] [facility] SARS-COV-2 COVID-19 2021-05-04 Completed Unive rsity of PFIZER VACCINE 00:00:00 [place] [facility] chaz Branch SARS-COV-2 COVID-19 2021-05-04 Completed Unive rsity of PFIZER VACCINE 00:00:00 [place] [facility] SARS-COV-2 COVID-19 2021-05-04 Completed Unive rsity of PFIZER VACCINE 00:00:00 [place] [facility] SARS-COV-2 COVID-19 2021-05-04 Completed Unive rsity of PFIZER VACCINE 00:00:00 [place] [facility] SARS-COV-2 COVID-19 2021-05-04 Completed Unive rsity of PFIZER VACCINE 00:00:00 [place] [facility] SARS-COV-2 COVID-19 2021-05-04 Completed Unive rsity of PFIZER VACCINE 00:00:00 [facility] SARS-COV-2 COVID-19 2021-05-04 Completed Unive rsity of PFIZER VACCINE 00:00:00 [facility] SARS-COV-2 COVID-19 2021-05-04 Completed Unive rsity of PFIZER VACCINE 00:00:00 [facility] SARS-COV-2 COVID-19 2021-05-04 Completed Unive rsity of PFIZER VACCINE 00:00:00 [facility] SARS-COV-2 COVID-19 2021-05-04 Completed Unive rsity of PFIZER VACCINE 00:00:00 [facility] SARS-COV-2 COVID-19 2021-05-04 Completed Unive rsity of PFIZER VACCINE 00:00:00 [facility] SARS-COV-2 COVID-19 2021-05-04 Completed Unive rsity of PFIZER VACCINE 00:00:00 [facility] SARS-COV-2 COVID-19 2021-05-04 Completed Unive rsity of PFIZER VACCINE 00:00:00 [facility] SARS-COV-2 COVID-19 2021-05-04 Completed Unive rsity of PFIZER VACCINE 00:00:00 [facility] SARS-COV-2 COVID-19 2021-05-04 Completed Unive rsity of PFIZER VACCINE 00:00:00 [facility] SARS-COV-2 COVID-19 2021-05-04 Completed Unive rsity of PFIZER VACCINE 00:00:00 [facility] SARS-COV-2 COVID-19 2021-05-04 Completed Unive rsity of PFIZER VACCINE 00:00:00 [facility] SARS-COV-2 COVID-19 2021-05-04 Completed Unive rsity of PFIZER VACCINE 00:00:00 [facility] SARS-COV-2 COVID-19 2021-05-04 Completed Unive rsity of PFIZER VACCINE 00:00:00 [facility] SARS-COV-2 COVID-19 2021-05-04 Completed Unive rsity of PFIZER VACCINE 00:00:00 [facility] SARS-COV-2 COVID-19 2021-05-04 Completed Unive rsity of PFIZER VACCINE 00:00:00 [facility] SARS-COV-2 COVID-19 2021-05-04 Completed Unive rsity of PFIZER VACCINE 00:00:00 [facility] SARS-COV-2 COVID-19 2021-05-04 Completed Unive rsity of PFIZER VACCINE 00:00:00 [facility] SARS-COV-2 COVID-19 2021-05-04 Completed Unive rsity of PFIZER VACCINE 00:00:00 [facility] SARS-COV-2 COVID-19 2021-05-04 Completed Unive rsity of PFIZER VACCINE 00:00:00 [facility] SARS-COV-2 COVID-19 2021-05-04 Completed [facility] PFIZER VACCINE 00:00:00 [facility] SARS-COV-2 COVID-19 2021-05-04 Completed [facility] PFIZER VACCINE 00:00:00 [facility] SARS-COV-2 COVID-19 2021-05-04 Completed [facility] PFIZER VACCINE 00:00:00 [facility] SARS-COV-2 COVID-19 2021-05-04 Completed [facility] PFIZER VACCINE 00:00:00 [facility] SARS-COV-2 COVID-19 2021-05-04 Completed [facility] PFIZER VACCINE 00:00:00 [facility] SARS-COV-2 COVID-19 2021-05-04 Completed [facility] PFIZER VACCINE 00:00:00 [facility] SARS-COV-2 COVID-19 2021-05-04 Completed [facility] PFIZER VACCINE 00:00:00 [facility] SARS-COV-2 COVID-19 2021-05-04 Completed [facility] PFIZER VACCINE 00:00:00 [facility] SARS-COV-2 COVID-19 2021-05-04 Completed [facility] PFIZER VACCINE 00:00:00 [facility] SARS-COV-2 COVID-19 2021-05-04 Completed [facility] PFIZER VACCINE 00:00:00 [facility] SARS-COV-2 COVID-19 2021-05-04 Completed [facility] PFIZER VACCINE 00:00:00 [facility] SARS-COV-2 COVID-19 2021-05-04 Completed [facility] PFIZER VACCINE 00:00:00 [facility] SARS-COV-2 COVID-19 2021-05-04 Completed [facility] PFIZER VACCINE 00:00:00 [facility] SARS-COV-2 COVID-19 2021-05-04 Completed [facility] PFIZER VACCINE 00:00:00 [facility] SARS-COV-2 COVID-19 2021-05-04 Completed [facility] PFIZER VACCINE 00:00:00 [facility] SARS-COV-2 COVID-19 2020-10-30 Completed [facility] PFIZER VACCINE 00:00:00 [facility] SARS-COV-2 COVID-19 2020-10-30 Completed [facility] PFIZER VACCINE 00:00:00 [facility] SARS-COV-2 COVID-19 2020-10-30 Completed [facility] PFIZER VACCINE 00:00:00 [facility] SARS-COV-2 COVID-19 2020-10-30 Completed [facility] PFIZER VACCINE 00:00:00 [facility] SARS-COV-2 COVID-19 2020-10-30 Completed [facility] PFIZER VACCINE 00:00:00 [facility] SARS-COV-2 COVID-19 2020-10-30 Completed [facility] PFIZER VACCINE 00:00:00 [facility] SARS-COV-2 COVID-19 2020-10-30 Completed [facility] PFIZER VACCINE 00:00:00 [facility] SARS-COV-2 COVID-19 2020-10-30 Completed [facility] PFIZER VACCINE 00:00:00 [facility] SARS-COV-2 COVID-19 2020-10-30 Completed [facility] PFIZER VACCINE 00:00:00 [facility] SARS-COV-2 COVID-19 2020-10-30 Completed [facility] PFIZER VACCINE 00:00:00 [facility] SARS-COV-2 COVID-19 2020-10-30 Completed [facility] PFIZER VACCINE 00:00:00 [facility] SARS-COV-2 COVID-19 2020-10-30 Completed [facility] PFIZER VACCINE 00:00:00 [facility] SARS-COV-2 COVID-19 2020-10-30 Completed [facility] PFIZER VACCINE 00:00:00 [facility] SARS-COV-2 COVID-19 2020-10-30 Completed [facility] PFIZER VACCINE 00:00:00 [facility] SARS-COV-2 COVID-19 2020-10-30 Completed [facility] PFIZER VACCINE 00:00:00 [facility] SARS-COV-2 COVID-19 2020-10-30 Completed [facility] PFIZER VACCINE 00:00:00 [facility] SARS-COV-2 COVID-19 2020-10-30 Completed [facility] PFIZER VACCINE 00:00:00 [facility] SARS-COV-2 COVID-19 2020-10-30 Completed [facility] PFIZER VACCINE 00:00:00 [facility] SARS-COV-2 COVID-19 2020-10-30 Completed [facility] PFIZER VACCINE 00:00:00 [facility] SARS-COV-2 COVID-19 2020-10-30 Completed [facility] PFIZER VACCINE 00:00:00 [facility] SARS-COV-2 COVID-19 2020-10-30 Completed [facility] PFIZER VACCINE 00:00:00 [facility] SARS-COV-2 COVID-19 2020-10-30 Completed [facility] PFIZER VACCINE 00:00:00 [facility] SARS-COV-2 COVID-19 2020-10-30 Completed [facility] PFIZER VACCINE 00:00:00 [facility] SARS-COV-2 COVID-19 2020-10-30 Completed [facility] PFIZER VACCINE 00:00:00 [facility] SARS-COV-2 COVID-19 2020-10-30 Completed [facility] PFIZER VACCINE 00:00:00 [facility] SARS-COV-2 COVID-19 2020-10-30 Completed [facility] PFIZER VACCINE 00:00:00 [facility] SARS-COV-2 COVID-19 2020-10-30 Completed [facility] PFIZER VACCINE 00:00:00 [facility] SARS-COV-2 COVID-19 2020-10-30 Completed [facility] PFIZER VACCINE 00:00:00 [facility] SARS-COV-2 COVID-19 2020-10-30 Completed [facility] PFIZER VACCINE 00:00:00 [facility] SARS-COV-2 COVID-19 2020-10-30 Completed [facility] PFIZER VACCINE 00:00:00 [facility] SARS-COV-2 COVID-19 2020-10-30 Completed [facility] PFIZER VACCINE 00:00:00 [facility] SARS-COV-2 COVID-19 2020-10-30 Completed [facility] PFIZER VACCINE 00:00:00 [facility] SARS-COV-2 COVID-19 2020-10-30 Completed [facility] PFIZER VACCINE 00:00:00 [facility] SARS-COV-2 COVID-19 2020-10-30 Completed [facility] PFIZER VACCINE 00:00:00 [facility] SARS-COV-2 COVID-19 2020-10-30 Completed [facility] PFIZER VACCINE 00:00:00 [facility] SARS-COV-2 COVID-19 2020-10-30 Completed [facility] PFIZER VACCINE 00:00:00 [facility] SARS-COV-2 COVID-19 2020-10-30 Completed [facility] PFIZER VACCINE 00:00:00 [facility] SARS-COV-2 COVID-19 2020-10-30 Completed [facility] PFIZER VACCINE 00:00:00 [facility] SARS-COV-2 COVID-19 2020-10-30 Completed [facility] PFIZER VACCINE 00:00:00 [facility] SARS-COV-2 COVID-19 2020-10-30 Completed [facility] PFIZER VACCINE 00:00:00 [facility] SARS-COV-2 COVID-19 2020-10-30 Completed [facility] PFIZER VACCINE 00:00:00 [facility] SARS-COV-2 COVID-19 2020-10-30 Completed [facility] PFIZER VACCINE 00:00:00 [facility] SARS-COV-2 COVID-19 2020-10-30 Completed [facility] PFIZER VACCINE 00:00:00 [facility] SARS-COV-2 COVID-19 2020-10-30 Completed [facility] PFIZER VACCINE 00:00:00 [facility] SARS-COV-2 COVID-19 2020-10-30 Completed [facility] PFIZER VACCINE 00:00:00 [facility] SARS-COV-2 COVID-19 2020-10-30 Completed [facility] PFIZER VACCINE 00:00:00 [facility] SARS-COV-2 COVID-19 2020-10-30 Completed [facility] PFIZER VACCINE 00:00:00 [facility] SARS-COV-2 COVID-19 2020-10-30 Completed [facility] PFIZER VACCINE 00:00:00 [facility] SARS-COV-2 COVID-19 2020-10-30 Completed [facility] PFIZER VACCINE 00:00:00 [facility] SARS-COV-2 COVID-19 2020-10-09 Completed [facility] PFIZER VACCINE 00:00:00 [facility] SARS-COV-2 COVID-19 2020-10-09 Completed [facility] PFIZER VACCINE 00:00:00 [facility] SARS-COV-2 COVID-19 2020-10-09 Completed [facility] PFIZER VACCINE 00:00:00 [facility] SARS-COV-2 COVID-19 2020-10-09 Completed [facility] PFIZER VACCINE 00:00:00 [facility] SARS-COV-2 COVID-19 2020-10-09 Completed [facility] PFIZER VACCINE 00:00:00 [facility] SARS-COV-2 COVID-19 2020-10-09 Completed [facility] PFIZER VACCINE 00:00:00 [facility] SARS-COV-2 COVID-19 2020-10-09 Completed [facility] PFIZER VACCINE 00:00:00 [facility] SARS-COV-2 COVID-19 2020-10-09 Completed [facility] PFIZER VACCINE 00:00:00 [facility] SARS-COV-2 COVID-19 2020-10-09 Completed [facility] PFIZER VACCINE 00:00:00 [facility] SARS-COV-2 COVID-19 2020-10-09 Completed [facility] PFIZER VACCINE 00:00:00 [facility] SARS-COV-2 COVID-19 2020-10-09 Completed [facility] PFIZER VACCINE 00:00:00 [facility] SARS-COV-2 COVID-19 2020-10-09 Completed [facility] PFIZER VACCINE 00:00:00 [facility] SARS-COV-2 COVID-19 2020-10-09 Completed [facility] PFIZER VACCINE 00:00:00 [facility] SARS-COV-2 COVID-19 2020-10-09 Completed [facility] PFIZER VACCINE 00:00:00 [facility] SARS-COV-2 COVID-19 2020-10-09 Completed [facility] PFIZER VACCINE 00:00:00 [facility] SARS-COV-2 COVID-19 2020-10-09 Completed [facility] PFIZER VACCINE 00:00:00 [facility] SARS-COV-2 COVID-19 2020-10-09 Completed [facility] PFIZER VACCINE 00:00:00 [facility] SARS-COV-2 COVID-19 2020-10-09 Completed [facility] PFIZER VACCINE 00:00:00 [facility] SARS-COV-2 COVID-19 2020-10-09 Completed [facility] PFIZER VACCINE 00:00:00 [facility] SARS-COV-2 COVID-19 2020-10-09 Completed [facility] PFIZER VACCINE 00:00:00 [facility] SARS-COV-2 COVID-19 2020-10-09 Completed [facility] PFIZER VACCINE 00:00:00 [facility] SARS-COV-2 COVID-19 2020-10-09 Completed [facility] PFIZER VACCINE 00:00:00 [facility] SARS-COV-2 COVID-19 2020-10-09 Completed [facility] PFIZER VACCINE 00:00:00 [facility] SARS-COV-2 COVID-19 2020-10-09 Completed [facility] PFIZER VACCINE 00:00:00 [facility] SARS-COV-2 COVID-19 2020-10-09 Completed [facility] PFIZER VACCINE 00:00:00 [facility] SARS-COV-2 COVID-19 2020-10-09 Completed [facility] PFIZER VACCINE 00:00:00 [facility] SARS-COV-2 COVID-19 2020-10-09 Completed [facility] PFIZER VACCINE 00:00:00 [facility] SARS-COV-2 COVID-19 2020-10-09 Completed [facility] PFIZER VACCINE 00:00:00 [facility] SARS-COV-2 COVID-19 2020-10-09 Completed [facility] PFIZER VACCINE 00:00:00 [facility] SARS-COV-2 COVID-19 2020-10-09 Completed [facility] PFIZER VACCINE 00:00:00 [facility] SARS-COV-2 COVID-19 2020-10-09 Completed [facility] PFIZER VACCINE 00:00:00 [facility] SARS-COV-2 COVID-19 2020-10-09 Completed [facility] PFIZER VACCINE 00:00:00 [facility] SARS-COV-2 COVID-19 2020-10-09 Completed [facility] PFIZER VACCINE 00:00:00 [facility] SARS-COV-2 COVID-19 2020-10-09 Completed [facility] PFIZER VACCINE 00:00:00 [facility] SARS-COV-2 COVID-19 2020-10-09 Completed [facility] PFIZER VACCINE 00:00:00 [facility] SARS-COV-2 COVID-19 2020-10-09 Completed [facility] PFIZER VACCINE 00:00:00 [facility] SARS-COV-2 COVID-19 2020-10-09 Completed [facility] PFIZER VACCINE 00:00:00 [facility] SARS-COV-2 COVID-19 2020-10-09 Completed [facility] PFIZER VACCINE 00:00:00 [facility] SARS-COV-2 COVID-19 2020-10-09 Completed [facility] PFIZER VACCINE 00:00:00 [facility] SARS-COV-2 COVID-19 2020-10-09 Completed [facility] PFIZER VACCINE 00:00:00 [facility] SARS-COV-2 COVID-19 2020-10-09 Completed [facility] PFIZER VACCINE 00:00:00 [facility] SARS-COV-2 COVID-19 2020-10-09 Completed [facility] PFIZER VACCINE 00:00:00 [facility] SARS-COV-2 COVID-19 2020-10-09 Completed [facility] PFIZER VACCINE 00:00:00 [facility] SARS-COV-2 COVID-19 2020-10-09 Completed [facility] PFIZER VACCINE 00:00:00 [facility] SARS-COV-2 COVID-19 2020-10-09 Completed [facility] PFIZER VACCINE 00:00:00 [facility] SARS-COV-2 COVID-19 2020-10-09 Completed [facility] PFIZER VACCINE 00:00:00 [facility] SARS-COV-2 COVID-19 2020-10-09 Completed [facility] PFIZER VACCINE 00:00:00 [facility] SARS-COV-2 COVID-19 2020-10-09 Completed [facility] PFIZER VACCINE 00:00:00 [facility] SARS-COV-2 COVID-19 2020-10-09 Completed [facility] PFIZER VACCINE 00:00:00 [facility] FLUZONE HIGH DOSE FLUZONE HIGH DOSE 2019-04-09 Completed [facility] - OVER 65 OVER 65 19:53:00 [facility] FLUZONE HIGH DOSE FLUZONE HIGH DOSE 2019-04-09 Completed [facility] - OVER 65 OVER 65 19:53:00 [facility] FLUZONE HIGH DOSE FLUZONE HIGH DOSE 2019-04-09 Completed [facility] - OVER 65 OVER 65 19:53:00 [facility] FLUZONE HIGH DOSE FLUZONE HIGH DOSE 2019-04-09 Completed [facility] - OVER 65 OVER 65 19:53:00 [facility] FLUZONE HIGH DOSE FLUZONE HIGH DOSE 2019-04-09 Completed [facility] - OVER 65 OVER 65 19:53:00 [facility] Influenza High Dose 2019-04-09 Completed [facility] 00:00:[address] [facility] Influenza High Dose 2019-04-09 Completed [facility] of 00:00:[address] [facility] Influenza High Dose 2019-04-09 Completed [facility] 00:00:[address] [facility] Influenza High Dose 2019-04-09 Completed [facility] 00:00:[address] [facility] Influenza High Dose 2019-04-09 Completed [facility] 00:00:[address] [facility] Influenza High Dose 2019-04-09 Completed [facility] 00:00:00 [facility] Influenza High Dose 2019-04-09 Completed [facility] of 00:00:[address] [facility] Influenza High Dose 2019-04-09 Completed [facility] 00:00:[address] [facility] Influenza High Dose 2019-04-09 Completed [facility] 00:00:[address] [facility] Influenza High Dose 2019-04-09 Completed [facility] 00:00:[address] [facility] Influenza High Dose 2019-04-09 Completed [facility] 00:00:[address] [facility] Influenza High Dose 2019-04-09 Completed [facility] 00:00:[address] [facility] Influenza High Dose 2019-04-09 Completed [facility] 00:00:[address] [facility] Influenza High Dose 2019-04-09 Completed [facility] 00:00:[address] [facility] Influenza High Dose 2019-04-09 Completed [facility] 00:00:[address] [facility] Influenza High Dose 2019-04-09 Completed [facility] 00:00:[address] [facility] Influenza High Dose 2019-04-09 Completed [facility] 00:00:[address] [facility] Influenza High Dose 2019-04-09 Completed [facility] 00:00:[address] [facility] Influenza High Dose 2019-04-09 Completed [facility] 00:00:[address] [facility] Influenza High Dose 2019-04-09 Completed [facility] 00:00:[address] [facility] Influenza High Dose 2019-04-09 Completed [facility] 00:00:[address] [facility] Influenza High Dose 2019-04-09 Completed [facility] 00:00:[address] [facility] Influenza High Dose 2019-04-09 Completed [facility] 00:00:[address] [facility] Influenza High Dose 2019-04-09 Completed [facility] 00:00:[address] [facility] Influenza High Dose 2019-04-09 Completed [facility] 00:00:[address] [facility] Influenza High Dose 2019-04-09 Completed [facility] 00:00:[address] [facility] Influenza High Dose 2019-04-09 Completed [facility] 00:00:[address] [facility] Influenza High Dose 2019-04-09 Completed [facility] 00:00:[address] [facility] Influenza High Dose 2019-04-09 Completed [facility] 00:00:[address] [facility] Influenza High Dose 2019-04-09 Completed [facility] 00:00:[address] [facility] Influenza High Dose 2019-04-09 Completed [facility] 00:00:[address] [facility] Influenza High Dose 2019-04-09 Completed [facility] 00:00:[address] [facility] Influenza High Dose 2019-04-09 Completed [facility] 00:00:[address] [facility] Influenza High Dose 2019-04-09 Completed [facility] 00:00:[address] [facility] Influenza High Dose 2019-04-09 Completed [facility] 00:00:[address] [facility] Influenza High Dose 2019-04-09 Completed [facility] 00:00:[address] [facility] Influenza High Dose 2019-04-09 Completed [facility] 00:00:[address] [facility] Influenza High Dose 2019-04-09 Completed [facility] 00:00:[address] [facility] Influenza High Dose 2019-04-09 Completed [facility] 00:00:[address] [facility] Influenza High Dose 2019-04-09 Completed [facility] 00:00:[address] [facility] Influenza High Dose 2019-04-09 Completed [facility] 00:00:[address] [facility] Influenza High Dose 2019-04-09 Completed [facility] 00:00:[address] [facility] Influenza High Dose 2019-04-09 Completed [facility] 00:00:[address] [facility] Influenza High Dose 2019-04-09 Completed [facility] 00:00:[address] [facility] Influenza High Dose 2019-04-09 Completed [facility] 00:00:[address] [facility] Influenza High Dose 2019-04-09 Completed [facility] 00:00:[address] [facility] Influenza High Dose 2019-04-09 Completed [facility] 00:00:[address] [facility] Influenza High Dose 2019-04-09 Completed [facility] 00:00:[address] [facility] Influenza High Dose 2019-04-09 Completed [facility] 00:00:[address] [facility] FLUZONE HIGH DOSE FLUZONE HIGH DOSE 2018-04-30 Completed [facility] - OVER 65 OVER 65 16:20:00 [facility] FLUZONE HIGH DOSE FLUZONE HIGH DOSE 2018-04-30 Completed [facility] - OVER 65 OVER 65 16:20:00 [facility] FLUZONE HIGH DOSE FLUZONE HIGH DOSE 2018-04-30 Completed [facility] - OVER 65 OVER 65 16:20:00 [facility] FLUZONE HIGH DOSE FLUZONE HIGH DOSE 2018-04-30 Completed [facility] - OVER 65 OVER 65 16:20:00 [facility] FLUZONE HIGH DOSE FLUZONE HIGH DOSE 2018-04-30 Completed [facility] - OVER 65 OVER 65 16:20:00 [facility] Influenza High Dose 2018-04-30 Completed [facility] 00:00:[address] [facility] Influenza High Dose 2018-04-30 Completed [facility] 00:00:[address] [facility] Influenza High Dose 2018-04-30 Completed [facility] 00:00:[address] [facility] Influenza High Dose 2018-04-30 Completed [facility] 00:00:[address] [facility] Influenza High Dose 2018-04-30 Completed [facility] 00:00:[address] [facility] Influenza High Dose 2018-04-30 Completed [facility] 00:00:[address] [facility] Influenza High Dose 2018-04-30 Completed [facility] 00:00:[address] [facility] Influenza High Dose 2018-04-30 Completed [facility] 00:00:[address] [facility] Influenza High Dose 2018-04-30 Completed [facility] 00:00:[address] [facility] Influenza High Dose 2018-04-30 Completed [facility] 00:00:[address] [facility] Influenza High Dose 2018-04-30 Completed [facility] 00:00:[address] [facility] Influenza High Dose 2018-04-30 Completed [facility] 00:00:[address] [facility] Influenza High Dose 2018-04-30 Completed [facility] 00:00:[address] [facility] Influenza High Dose 2018-04-30 Completed [facility] 00:00:[address] [facility] Influenza High Dose 2018-04-30 Completed [facility] 00:00:[address] [facility] Influenza High Dose 2018-04-30 Completed [facility] 00:00:00 [facility] Influenza High Dose 2018-04-30 Completed [facility] 00:00:00 [facility] Influenza High Dose 2018-04-30 Completed [facility] 00:00:00 [facility] Influenza High Dose 2018-04-30 Completed [facility] 00:00:00 [facility] Influenza High Dose 2018-04-30 Completed [facility] 00:00:00 [facility] Influenza High Dose 2018-04-30 Completed [facility] 00:00:00 [facility] Influenza High Dose 2018-04-30 Completed [facility] 00:00:00 [facility] Influenza High Dose 2018-04-30 Completed [facility] 00:00:[address] [facility] Influenza High Dose 2018-04-30 Completed [facility] 00:00:[address] [facility] Influenza High Dose 2018-04-30 Completed [facility] 00:00:[address] [facility] Influenza High Dose 2018-04-30 Completed [facility] 00:00:[address] [facility] Influenza High Dose 2018-04-30 Completed [facility] 00:00:00 [facility] Influenza High Dose 2018-04-30 Completed [facility] 00:00:[address] [facility] Influenza High Dose 2018-04-30 Completed Unive rsity of 00:00:00 [facility] Influenza High Dose 2018-04-30 Completed Unive rsity of 00:00:[address] [facility] Influenza High Dose 2018-04-30 Completed Unive rsity of 00:00:[address] [facility] Influenza High Dose 2018-04-30 Completed Unive rsity of 00:00:00 [facility] Influenza High Dose 2018-04-30 Completed Unive rsity of 00:00:00 [facility] Influenza High Dose 2018-04-30 Completed Unive rsity of 00:00:00 [facility] Influenza High Dose 2018-04-30 Completed Unive rsity of 00:00:00 [facility] Influenza High Dose 2018-04-30 Completed Unive rsity of 00:00:[address] [facility] Influenza High Dose 2018-04-30 Completed [facility]ive rsity of 00:00:00 [facility] Influenza High Dose 2018-04-30 Completed Unive rsity of 00:00:00 [facility] Influenza High Dose 2018-04-30 Completed Unive rsity of 00:00:00 [facility] Influenza High Dose 2018-04-30 Completed Unive rsity of 00:00:00 [facility] Influenza High Dose 2018-04-30 Completed Unive rsity of 00:00:00 [facility] Influenza High Dose 2018-04-30 Completed Unive rsity of 00:00:00 [facility] Influenza High Dose 2018-04-30 Completed Unive rsity of 00:00:00 [facility] Influenza High Dose 2018-04-30 Completed Unive rsity of 00:00:00 [facility] Influenza High Dose 2018-04-30 Completed Unive rsity of 00:00:[address] [facility] Influenza High Dose 2018-04-30 Completed Unive rsity of 00:00:[address] [facility] Influenza High Dose 2018-04-30 Completed Unive rsity of 00:00:[address] [facility] Influenza High Dose 2018-04-30 Completed Unive rsity of 00:00:[address] [facility] Influenza High Dose 2018-04-30 Completed Unive rsity of 00:00:[address] [facility] SARS-COV-2 COVID-19 Unknown Completed [facility]FI[facility]ACCINE [place] [facility] SARS-COV-2 COVID-19 Unknown Completed [facility]ive [facility] of PFIZER VACCINE [place] [facility] SARS-COV-2 COVID-19 Unknown Completed [facility]ive [facility] of PFIZER VACCINE [place] [facility] Influenza High Dose Unknown Completed Unive rsity of [facility] Influenza High Dose Unknown Completed Unive rsity of [facility] SARS-COV-2 COVID-19 Unknown Completed Unive rsity of PFIZER AMAYA-SUCROSE [place] [facility] VACCINE (SPRING TOP) Branch Influenza High Dose Unknown Completed Unive rsity of [facility] FLUZONE HIGH DOSE FLUZONE HIGH DOSE Unknown Completed [facility] - OVER 65 OVER 65 [facility] FLUZONE HIGH DOSE FLUZONE HIGH DOSE Unknown Completed [facility] - OVER 65 OVER 65 [facility] FLUZONE HIGH DOSE FLUZONE HIGH DOSE Unknown Completed [facility] - OVER 65 OVER 65 [facility] FLUZONE HIGH DOSE FLUZONE HIGH DOSE Unknown Completed [facility] - OVER 65 OVER 65 [facility] Vital Signs Vital Name Observation Time Observation Value Comments Source WEIGHT 2022-10-16 20:46:00 63.504 kg WEIGHT 2022-10-16 20:46:00 63.504 kg Systolic blood 2022-09-28 18:26:00 146 mm[Hg] Univer [facility]ity of pressure [facility] Diastolic blood 2022-09-28 18:26:00 83 mm[Hg] Unive rsity of pressure [facility] Heart rate 2022-09-28 18:22:00 81 /min [facility] Body temperature 2022-09-28 18:22:00 36.72 Conchita [facility] Respiratory rate 2022-09-28 18:22:00 16 /min Univ [facility] Body height 2022-09-28 18:22:00 172.7 cm [facility] Body weight 2022-09-28 18:22:00 66.679 kg [facility] BMI 2022-09-28 18:22:00 22.35 kg/m2 [facility] Oxygen saturation in 2022-09-28 18:22:00 99 /min [facility] Arterial blood by [place] [facility] Pulse oximetry Branch Systolic blood 2022-09-20 13:52:00 125 mm[Hg] Univer sity of pressure [facility] Diastolic blood 2022-09-20 13:52:00 79 mm[Hg] Unive rsity of pressure [facility] Heart rate 2022-09-20 13:52:00 85 /min [facility] Body height 2022-09-20 13:52:00 172.7 cm [facility] Body weight 2022-09-20 13:52:00 66.679 kg [facility] BMI 2022-09-20 13:52:00 22.35 kg/m2 [facility] Oxygen saturation in 2022-09-20 13:52:00 97 /min [facility] Arterial blood by [id number] chaz Pulse oximetry Branch Systolic blood 2022-09-14 19:30:00 123 mm[Hg] Univer [facility]ity of pressure [facility] Diastolic blood 2022-09-14 19:30:00 66 mm[Hg] Unive rsity of pressure [facility] Heart rate 2022-09-14 19:30:00 78 /min [facility] Respiratory rate 2022-09-14 19:30:00 27 /min [facility] ersity of [facility] Oxygen saturation in 2022-09-14 19:30:00 96 /min University of Arterial blood by [facility] Pulse oximetry Branch Body temperature 2022-09-14 15:21:00 36.44 Conchita [facility] ersity of [facility] Body height 2022-09-14 15:21:00 172.7 cm [facility] [place] [facility] [place] Body weight 2022-09-14 15:21:00 66.225 kg [facility] [place] [facility] [place] BMI 2022-09-14 15:21:00 22.20 kg/m2 Universi ty of [facility] Systolic blood 2022-09-14 17:30:00 125 mm[Hg] Univer sity of pressure [facility] Diastolic blood 2022-09-14 17:30:00 77 mm[Hg] Unive rsity of pressure [facility] Heart rate 2022-09-14 17:30:00 78 /min Universi ty of [facility] Respiratory rate 2022-09-14 17:30:00 22 /min [facility] ersity of [facility] Oxygen saturation in 2022-09-14 17:30:00 95 /min [facility] Arterial blood by [facility] Pulse oximetry Branch Body temperature 2022-09-14 15:21:00 36.44 Conchita [facility] ersity of [facility] Body height 2022-09-14 15:21:00 172.7 cm Universi ty of [facility] Body weight 2022-09-14 15:21:00 66.225 kg Universi ty of [facility] BMI 2022-09-14 15:21:00 22.20 kg/m2 Universi ty of [facility] height 2022-09-13 09:00:00 67.5 [in_i] [facility] weight 2022-09-13 09:00:00 149 [lb_av] [facility] temperature 2022-09-13 09:00:00 97.2 [degF] [facility] bmi 2022-09-13 09:00:00 22.99 kg/m2 [facility] oximetry 2022-09-13 09:00:00 97 % [facility] respiratory rate 2022-09-13 09:00:00 17 /min Comm on [facility] blood pressure 2022-09-13 09:00:00 124 mm[Hg] [facility] systolic [facility] blood pressure 2022-09-13 09:00:00 77 mm[Hg] [facility] diastolic [facility] oximetry 2022-09-13 08:40:00 97 % [facility] respiratory rate 2022-09-13 08:40:00 17 /min Comm on [facility] blood pressure 2022-09-13 08:40:00 124 mm[Hg] [facility] systolic [facility] blood pressure 2022-09-13 08:40:00 77 mm[Hg] [facility] diastolic [facility] height 2022-09-13 08:40:00 67.5 [in_i] [facility] weight 2022-09-13 08:40:00 149.0 [lb_av] [facility] temperature 2022-09-13 08:40:00 97.2 [degF] [facility] bmi 2022-09-13 08:40:00 22.99 kg/m2 [facility] Systolic blood 2022-08-23 16:19:00 109 mm[Hg] Univer sity of [facility] Diastolic blood 2022-08-23 16:19:00 74 mm[Hg] Unive rsity of pressure [facility] Heart rate 2022-08-23 16:19:00 72 /min [facility] Body temperature 2022-08-23 16:19:00 36.56 Con[place]ita [facility] Respiratory rate 2022-08-23 16:19:00 18 /min [facility] Body height 2022-08-23 16:19:00 172.7 cm [facility] Body weight 2022-08-23 16:19:00 66.407 kg [facility] BMI 2022-08-23 16:19:00 22.26 kg/m2 [facility] Oxygen saturation in 2022-08-23 16:19:00 98 /min [facility] Arterial blood by [facility] Pulse oximetry Branch Systolic blood 2022-08-18 14:28:00 111 mm[Hg] Univer sity of pressure [facility] Diastolic blood 2022-08-18 14:28:00 69 mm[Hg] Unive rsity of pressure [facility] Heart rate 2022-08-18 14:28:00 74 /min [facility] Body height 2022-08-18 14:28:00 172.7 cm [facility] Body weight 2022-08-18 14:28:00 66.679 kg [facility] BMI 2022-08-18 14:28:00 22.35 kg/m2 [facility] Systolic blood 2022-08-15 16:26:00 112 mm[Hg] Univer sity of pressure [facility] Diastolic blood 2022-08-15 16:26:00 75 mm[Hg] Unive rsity of pressure [facility] Heart rate 2022-08-15 16:26:00 79 /min [facility] Body temperature 2022-08-15 16:26:00 36.61 Conchita Univ [facility] Respiratory rate 2022-08-15 16:26:00 18 /min Univ [facility] Body height 2022-08-15 16:26:00 172.7 cm [facility] Body weight 2022-08-15 16:26:00 66.951 kg [facility] BMI 2022-08-15 16:26:00 22.44 kg/m2 [facility] Oxygen saturation in 2022-08-15 16:26:00 98 /min [facility] Arterial blood by [facility] Pulse oximetry Branch Systolic blood 2022-08-15 15:18:00 129 mm[Hg] Univer sity of pressure [facility] Diastolic blood 2022-08-15 15:18:00 96 mm[Hg] Unive rsity of pressure [facility] Heart rate 2022-08-15 15:18:00 92 /min [facility] Body temperature 2022-08-15 15:18:00 36.78 Conchita [facility] Respiratory rate 2022-08-15 15:18:00 18 /min Univ [facility] Body height 2022-08-15 15:18:00 172.7 cm [facility] Body weight 2022-08-15 15:18:00 66.86 kg [facility] BMI 2022-08-15 15:18:00 22.41 kg/m2 [facility] Oxygen saturation in 2022-08-15 15:18:00 98 /min [facility] by [place] [facility] Pulse oximetry Branch Systolic blood 2022-07-21 17:02:00 111 mm[Hg] Univer sity of pressure [facility] Diastolic blood 2022-07-21 17:02:00 71 mm[Hg] Unive rsity of pressure [facility] Heart rate 2022-07-21 17:02:00 85 /min [facility] Body height 2022-07-21 17:02:00 172.7 cm [facility] Body weight 2022-07-21 17:02:00 66.679 kg [facility] BMI 2022-07-21 17:02:00 22.35 kg/m2 [facility] Oxygen saturation in 2022-07-21 17:02:00 99 /min [facility] Arterial blood by [facility] chaz Pulse oximetry Branch Systolic blood 2022-06-28 16:49:00 132 mm[Hg] Univer sity of pressure [facility] Diastolic blood 2022-06-28 16:49:00 77 mm[Hg] Unive rsity of pressure [facility] Heart rate 2022-06-28 16:49:00 69 /min [facility] Body temperature 2022-06-28 16:03:00 36.39 Conchita [facility] Body height 2022-06-28 16:03:00 157.5 cm [facility] Body weight 2022-06-28 16:03:00 66.679 kg [facility] BMI 2022-06-28 16:03:00 26.89 kg/m2 Universi ty [facility] Oxygen saturation in 2022-06-28 16:03:00 96 /min [facility] Arterial blood by [facility] Pulse oximetry Branch height 2022-03-17 08:00:00 67.5 [in_i] [facility] weight 2022-03-17 08:00:00 150.8 [lb_av] [facility] temperature 2022-03-17 08:00:00 97.5 [degF] [facility] bmi 2022-03-17 08:00:00 23.27 kg/m2 [facility] oximetry 2022-03-17 08:00:00 98 % [facility] respiratory rate 2022-03-17 08:00:00 16 /min Comm on [facility] blood pressure 2022-03-17 08:00:00 138 mm[Hg] Common [facility] systolic [facility] blood pressure 2022-03-17 08:00:00 78 mm[Hg] [facility] diastolic [facility] Systolic blood 2022-02-13 15:22:00 138 mm[Hg] Univer sity of [facility] Diastolic blood 2022-02-13 15:22:00 89 mm[Hg] Unive rsity of [facility] Heart rate 2022-02-13 15:22:00 85 /min Universi ty [facility] Body temperature 2022-02-13 15:22:00 36.83 Con[place]ita [facility] Respiratory rate 2022-02-13 15:22:00 17 /min [facility] Body weight 2022-02-13 15:22:00 68.539 kg Universi ty [facility] BMI 2022-02-13 15:22:00 25.94 kg/m2 Universi [facility] Oxygen saturation in 2022-02-13 15:22:00 98 /min [facility] of Arterial blood by [facility] Pulse oximetry Branch height 2021-09-15 13:00:00 67.5 [in_i] [facility] weight 2021-09-15 13:00:00 145.6 [lb_av] Common [facility] temperature 2021-09-15 13:00:00 98.2 [degF] Common [facility] bmi 2021-09-15 13:00:00 22.47 kg/m2 Common S [facility] oximetry 2021-09-15 13:00:00 99 % Common S [facility] respiratory rate 2021-09-15 13:00:00 16 /min Comm on [facility] blood pressure 2021-09-15 13:00:00 138 mm[Hg] Common [facility] - systolic [facility] blood pressure 2021-09-15 13:00:00 76 mm[Hg] Common [facility] - diastolic [facility] height 2021-09-15 13:20:00 67.5 [in_i] Common [facility] weight 2021-09-15 13:20:00 145.6 [lb_av] Common [facility] temperature 2021-09-15 13:20:00 98.2 [degF] [facility] bmi 2021-09-15 13:20:00 22.47 kg/m2 [facility] S [facility] oximetry 2021-09-15 13:20:00 99 % Common [facility] respiratory rate 2021-09-15 13:20:00 16 /min Comm on [facility] blood pressure 2021-09-15 13:20:00 138 mm[Hg] Common [facility] - systolic [facility] blood pressure 2021-09-15 13:20:00 76 mm[Hg] Common [facility] - diastolic [facility] Systolic blood 2022-10-18 11:26:00 113 mm[Hg] [facility] Diastolic blood 2022-10-18 11:26:00 71 mm[Hg] [facility] Heart rate 2022-10-18 11:26:00 79 /min [facility] Body temperature 2022-10-18 11:26:00 36.44 Conchita [facility] Respiratory rate 2022-10-18 11:26:00 18 /min [facility] Oxygen saturation in 2022-10-18 11:26:00 98 /min [facility] Arterial blood by Medical Ce nter Pulse oximetry Body weight 2022-10-16 20:46:00 63.504 kg [facility] Weight 2020-01-08 14:45:00 [facility] Height 2020-01-08 14:45:00 [facility] [place] Heart Rate 2020-01-08 14:45:00 [facility] Diastolic (mm Hg) 2020-01-08 14:45:00 Mem [facility] [place] Systolic (mm Hg) 2020-01-08 14:45:00 Heriberto rial [facility] Weight 2019-08-06 15:00:00 [facility] [place] Height 2019-08-06 15:00:00 [facility] Heart Rate 2019-08-06 15:00:00 [facility] [place] Diastolic (mm Hg) 2019-08-06 15:00:00 Mem [facility] [place] Systolic (mm Hg) 2019-08-06 15:00:00 Heriberto [facility] Weight 2019-07-16 16:45:00 [facility] Height 2019-07-16 16:45:00 [facility] Heart Rate 2019-07-16 16:45:00 [facility] Diastolic (mm Hg) 2019-07-16 16:45:00 Mem o[facility] [place] Systolic (mm Hg) 2019-07-16 16:45:00 Heriberto rial [facility] Weight 2019-06-04 16:45:00 [facility] Height 2019-06-04 16:45:00 [facility] [place] Heart Rate 2019-06-04 16:45:00 [facility] Diastolic (mm Hg) 2019-06-04 16:45:00 Mem o[facility] Systolic (mm Hg) 2019-06-04 16:45:00 Heriberto [facility] Weight 2018-11-20 14:30:00 [facility] Height 2018-11-20 14:30:00 [facility] [place] Heart Rate 2018-11-20 14:30:00 [facility] [place] Diastolic (mm Hg) 2018-11-20 14:30:00 Mem o[facility] [place] Systolic (mm Hg) 2018-11-20 14:30:00 Heriberto [facility] [place] Weight 2018-10-02 16:00:00 [facility] Height 2018-10-02 16:00:00 [facility] [place] Heart Rate 2018-10-02 16:00:00 [facility] Diastolic (mm Hg) 2018-10-02 16:00:00 Mem orial [place] Systolic (mm Hg) 2018-10-02 16:00:00 Heriberto [facility] [place] Weight 2018-09-03 19:45:00 [facility] [place] Height 2018-09-03 19:45:00 [facility] Heart Rate 2018-09-03 19:45:00 [facility] Diastolic (mm Hg) 2018-09-03 19:45:00 Mem orial [place] Systolic (mm Hg) 2018-09-03 19:45:00 Heriberto rial [facility] Weight 2018-09-03 18:45:00 [facility] [place] Height 2018-09-03 18:45:00 [facility] Heart Rate 2018-09-03 18:45:00 [facility] Diastolic (mm Hg) 2018-09-03 18:45:00 Mem orial [place] Systolic (mm Hg) 2018-09-03 18:45:00 Heriberto [facility] [place] Procedures Procedure Date / Time Performing Clinician Source Performed AUTHORIZATION FOR RELEASE 2023-02-27 05:01:00 Doctor Unassigned, [facility] [place] [facility] AUTHORIZATION FOR RELEASE 2022-10-24 05:01:00 Doctor Unassigned, [facility] Name Medical Branch CBC W/PLT COUNT & AUTO 2022-10-18 04:59:00 Liam Merino [facility] DIFFERENTIAL [facility] BASIC METABOLIC PANEL 2022-10-18 04:59:00 Liam Merino [facility] MAGNESIUM 2022-10-18 04:59:00 Wilber [facility] PROCALCITONIN 2022-10-18 04:59:00 Wilber [facility] CBC W/PLT COUNT & AUTO 2022-10-18 04:59:00 Liam Merino [facility] DIFFERENTIAL [facility] 2D ECHO W/ DOPPLER 2022-10-17 16:11:27 [facility] (CW/PW/COLOR) [facility] 2D ECHO W/ DOPPLER 2022-10-17 16:11:27 [facility] (CW/PW/COLOR) [facility] XR CHEST 1 VIEW PORTABLE / 2022-10-17 13:44:00 Liam Merino [facility] BEDSIDE [facility] PROCALCITONIN 2022-10-17 10:56:00 Marco Antonio Tse [facility] TROPONIN I 2022-10-17 06:14:00 [facility] STREP PNEUMONIAE ANTIGEN 2022-10-17 01:55:00 [facility] BLOOD CULTURE 2022-10-17 01:54:00 [facility] COMPREHENSIVE METABOLIC 2022-10-17 00:12:00 [facility] PANEL [facility] HEMOGLOBIN A1C 2022-10-17 00:12:00 [facility] LIPID PANEL 2022-10-17 00:12:00 [facility] MAGNESIUM 2022-10-17 00:12:00 [facility] PHOSPHORUS 2022-10-17 00:12:00 [facility] PROTHROMBIN TIME/INR 2022-10-17 00:12:00 [facility] TROPONIN I 2022-10-17 00:12:00 [facility] TSH/FREE T4 IF INDICATED 2022-10-17 00:12:00 [facility] B-TYPE NATRIURETIC FACTOR 2022-10-17 00:12:00 [facility] (BNP) [facility] CBC W/PLT COUNT & AUTO 2022-10-17 00:12:00 Jenny Gomez [facility] Keiko tapia [facility] Medical DIFFERENTIAL [facility] CBC W/PLT COUNT & AUTO 2022-10-17 00:12:00 Jenny Gomez [facility] Keiko tapia [facility] Medical DIFFERENTIAL [facility] ECG 12-LEAD 2022-10-16 22:33:17 Unknown, Hl7 Doctor [facility] EKG-SCANNED 2022-10-16 00:00:00 Provider, Default [facility] XR CHEST 2 VW 2022-09-20 15:29:40 Roger Sheehan [facility] DISCLOSURE AND CONSENT, 2022-09-20 05:01:00 Doctor Unassigned, Bobbi [facility] MEDICAL AND SURGICAL [place] [facility] PROCEDURES CARDIAC CATHETERIZATION 2022-09-14 16:42:01 Sameer Fontenot. [facility] CARDIAC CATHETERIZATION 2022-09-14 16:42:01 Sameer Fontenot K.Flor. [facility] CARDIAC CATHETERIZATION 2022-09-14 16:42:01 Sameer Fontenot [facility] CARDIAC CATHETERIZATION 2022-09-14 16:42:00 Sameer Fontenot [facility] CARDIAC CATHETERIZATION 2022-09-14 16:42:00 Sameer Fontenot [facility] CARDIAC CATHETERIZATION 2022-09-14 16:42:00 Sameer Fontenot [facility] CATH PROCEDURE LOG 2022-09-14 16:05:00 Sameer Fontenot [facility] CATH PROCEDURE LOG 2022-09-14 16:05:00 Sameer Fontenot [facility] BASIC METABOLIC PANEL (NA, 2022-09-14 14:36:00 Geeta Rojas [facility] K, CL, CO2, GLUCOSE, BUN, Medica l Branch CREATININE, CA) CBC WITHOUT DIFF 2022-09-14 14:36:00 Geeta Rojas [facility] PROTHROMBIN TIME / INR 2022-09-14 14:36:00 Geeat Rojas [facility] BASIC METABOLIC PANEL (NA, 2022-09-14 14:36:00 [facility], CL, CO2, GLUCOSE, BUN, Medica l Branch CREATININE, CA) CBC WITHOUT DIFF 2022-09-14 [facility]:36[facility] 2022-09-14 14:36:00 Francoisevivien [facility] ASSIGNMENT OF BENEFITS 2022-09-14 13:44:02 Doctor Unassigned, [facility] [place] [facility] HB CREATININE SERUM/BLOOD 2022-08-16 20:51:00 Ezra Patton [facility] FOR IMAGING Medical [place] CT ANGIOGRAM HEAD 2022-08-16 20:21:16 Ezra Patton [facility] CT ANGIOGRAM NECK 2022-08-16 20:19:44 Ezra Patton [facility] CT HEAD WO CONTRAST 2022-08-16 20:13:54 Ezra Patton [facility] CONSENT/REFUSAL FOR 2022-08-16 19:34:01 Doctor Brianna [facility] DIAGNOSIS AND TREATMENT [place] [facility] [place] ASSIGNMENT OF BENEFITS 2022-08-16 19:33:13 Doctor [facility], [facility] [place] [facility] [place] NOTICE OF PRIVACY 2022-08-16 19:32:55 Doctor Brianna, [facility] PRACTICES [place] [facility] MR ANGIOGRAM HEAD WO 2022-08-02 16:52:18 Ezra Patton [facility] [place] CONTRAST Medical Branch MR ANGIOGRAM NECK WO 2022-08-02 16:51:52 Ezra Patton [facility] [place] CONTRAST [facility] XR WRIST 3+ VW RIGHT 2022-08-02 16:23:02 Rafa Evans [facility] XR CHEST 2 VW 2022-07-07 15:38:42 Tana Fenton [facility] CT HEAD WO CONTRAST 2022-07-07 15:26:53 Tana Fenton [facility] CONSENT/REFUSAL FOR 2022-07-07 14:53:44 Doctor Unassigned, [facility] DIAGNOSIS AND TREATMENT [place] [facility] Plan of Care Planned Activity Planned Date [...] Cessation Counseling and Screening (12+)] Future Scheduled 2023-03-02 Influenza Vaccine (#1) [facility] 00:00:00 [code = Influenza Medical Ce nter Vaccine (#1)] Future Scheduled 2023-03-02 Influenza Vaccine (#1) [facility] 00:00:00 [code = Influenza Medical Ce nter Vaccine (#1)] Future Scheduled 2023-03-02 Influenza Vaccine (#1) [facility]00 [code = Influenza Medical Ce nter Vaccine (#1)] Future Scheduled 2023-03-02 Influenza Vaccine (#1) [facility] 00:00[facility]00 [code = Influenza Medical Ce nter Vaccine (#1)] Future Scheduled 2022-07-[address] [...] screening Medical C enter (procedure) [code = 385866047] Future Scheduled 2012-01-[address] [facility] 00:00:00 aneurysm screening Medical C enter (procedure) [code = 996983912] Future Scheduled 2012-01-[address] [facility] 00:00:00 aneurysm screening Medical C enter (procedure) [code = 138827190] Future Scheduled 2012-01-[address] [facility] 00:00:00 aneurysm screening Medical C enter (procedure) [code = 066654238] Future Scheduled 2012-01-[address] [facility] 00:00:00 aneurysm screening Medical C enter (procedure) [code = 967994221] Future Scheduled 2005-07-[address] [facility] [code = CT Colonography [facility] (combo)] Future Scheduled 1947 Screening for malignant [facility] 00:00:00 neoplasm of colon Medical Ce nter (procedure) [code = 358763449] Future Scheduled 1947 Screening for malignant [facility] 00:00:00 neoplasm of colon Medical Ce nter (procedure) [code = 768928203] Future Scheduled 1947 Screening for malignant [facility] 00:00:00 neoplasm of colon Medical Ce nter (procedure) [code = 131753827] Future Scheduled 1947 Screening for malignant [facility] 00:00:00 neoplasm of colon Medical Ce nter (procedure) [code = 503660112] Future Scheduled 1947 Sigmoidoscopy [code = [facility]oscopy] Medical Cente r Future Scheduled 1947 CT Colonography (combo) [facility] 00:00:00 [code = CT Colonography [facility] (combo)] Future Scheduled 1947 Screening for malignant [facility] 00:00:00 neoplasm of colon Medical Ce nter (procedure) [code = 453483031] Future Scheduled 1947 Screening for malignant [facility] 00:00:00 neoplasm of colon Medical Ce nter (procedure) [code = 377192253] Future Scheduled 1947 Screening for malignant [facility] 00:00:00 neoplasm of colon Medical Ce nter (procedure) [code = 085732741] Future Scheduled 1947 Screening for malignant [facility] 00:00:00 neoplasm of colon Medical Ce nter (procedure) [code = 359582880] Future Scheduled 1947 Sigmoidoscopy [facility]code = [facility] S[facility]oidoscopy] Medical Cente r Future Scheduled 1947 CT Colonography (combo) [facility] 00:00:00 [code = CT Colonography [facility] (combo)] Future Scheduled 1947 Screening for malignant [facility] 00:00:00 neoplasm of colon Medical Ce nter (procedure) [code = 161424251] Future Scheduled 1947 Screening for malignant [facility] 00:00:00 neoplasm of colon Medical Ce nter (procedure) [code = 406434775] Future Scheduled 1947 Screening for malignant [facility] 00:00:00 neoplasm of colon Medical Ce nter (procedure) [code = 678828691] Future Scheduled 1947 Screening for malignant [facility] 00:00:00 neoplasm of colon Medical Ce nter (procedure) [code = 211348619] Future Scheduled 1947 Sigmoidoscopy [facility]code = [facility] S[facility]oidoscopy] Medical Cente r Future Scheduled 1947 CT Colonography (combo) [facility] 00:00:00 [code = CT Colonography [facility] (combo)] Future Scheduled 1947 Screening for malignant [facility] 00:00:00 neoplasm of colon Medical Ce nter (procedure) [code = 279293660] Future Scheduled 1947 Screening for malignant [facility] 00:00:00 neoplasm of colon Medical Ce nter (procedure) [code = 646307847] Future Scheduled 1947 Screening for malignant [facility] 00:00:00 neoplasm of colon Medical Ce nter (procedure) [code = 670346712] Future Scheduled 1947 Screening for malignant [facility] 00:00:00 neoplasm of colon Medical Ce nter (procedure) [code = 873187683] Future Scheduled 1947 Sigmoidoscopy [facility]code = [facility]oscopy] Medical Cente r Future Scheduled 1947 CT Colonography (combo) [facility] 00:00:00 [code = CT Colonography [facility] (combo)] Future Scheduled 1947 Screening for malignant [facility] 00:00:00 neoplasm of colon Medical Ce nter (procedure) [code = 656484303] Future Scheduled 1947 Screening for malignant [facility] 00:00:00 neoplasm of colon Medical Ce nter (procedure) [code = 632086153] Future Scheduled 1947 Screening for malignant [facility] 00:00:00 neoplasm of colon Medical Ce nter (procedure) [code = 762529644] Future Scheduled 1947 Screening for malignant [facility] 00:00:00 neoplasm of colon Medical Ce nter (procedure) [code = 641986087] Future Scheduled 1947 Sigmoidoscopy [facility]code [facility] S[facility]oscopy] Medical Cente r Encounters Start End Encounter Admission Attending Care Care Encounter Source Date/Time Date/Time Type Type Clinicians Facility Department ID 2023-05-18 Outpatient [id number] 3263-C Memoria 00:45:06 ZM20-3W4C 01-1X2A-SO2 E17-5Q8P- B l -QX6Z-586 A-836G524LX S4D-757Z06 Alan Q341QHK5D F1A 2BBF1A 2023-05-11 Outpatient [id number] [id number] Memoria 08:11:42 4W41-88Q3 94-12T5-6BD C87-92O2- 8 l -5ED2-A39 [id number] ED1-F50836 [place] [id number] 1EE 3401EE 2023-04-27 Outpatient [id number] 3854 F235-7 Memoria 09:00:38 96D0-631B A6-497A-B78 7D7-259D- B l -T621-7E2 6-9K819N362 786-9P660G Alan [id number] 2745-10-20 Outpatient [id number]- 56Z8J63P-5Z 73E2 D99C-7 Memoria 10:29:22 1H34-7QLU 21-4AFF-8E2 L32-2FQD- 8 l -6Y49-09X 0-16M557851 J77-34T507 Alan 238725Z4B A4B 661A4B 2023-04-16 Outpatient [id number]- K7N9BJC7-61 D0E9 FDB4-2 Memoria 08:09:45 27DB-4528 DB-4528-A8E 7DB-4528- A l -R2F7-K0J 6-B7I35X850 5N7-P9T56L Alan [id number] BB7 764BB7 2023-02-21 Outpatient 95YCM7F9- 91RWA5P6-7N 69DB C2B0-1 Memoria 14:53:04 8X1B-0475 5B-4999-A2E M9A-2406- A l -Y1JD-379 F-186ELN222 2EF-011CAC Alan XQB463G55 E06 367E06 2022-12-18 Outpatient [id number]- 66345UG4-1J 7938 4AC9-6 Memoria 09:04:23 8G78-8HDU 47-4FDD-B70 G43-9IVE- B l -P996-4BZ 6-7NMUUK518 706-2FBFCA Alan [id number] 718 [id number] 9285-06-19 Outpatient [id number]- UQ0T177E-66 FF0B 292F-0 Memoria 09:03:39 58P0-782W D0-400A-845 7U4-588W- 8 l -8450-2DE 0-3KQ496872 450-1CV372 Alan 980512GOX FFA 573FFA 2022-12-07 Outpatient [id number]- D301U2D8-P8 D205 C5A4-A Memoria 16:43:48 T0YD-76Q6 FD-05P2-Y45 9FD-46B3- A l -V029-724 4-828M937Z5 014-004E34 Alan X476W52P9 4F9 5B94F9 2022-11-22 Outpatient 8D75DL5P- 3U46BE7H-50 0D33 DC5F-5 Memoria 09:24:25 502E-4D47 2E-7Y68-5B1 02E-4D47- 8 l -8Z2T-B2Z A-Z3QT3J065 F4Y-O9PE5A Alan [id number] 9025-05-24 Outpatient 96SY12Q4- 91VH17T7-OQ 64AF 85A4-F Memoria 05:39:30 FF41-1H3I 54-8P8A-5RA M02-6E8U- 8 l -6JL2-C69 7-L99OS1GT5 BC7-B00DB5 Alan MQ3JJ7A66 A88 AE3A88 2022-10-17 Outpatient [id number]- B0N73979-3Y D6D1 4983-1 Memoria 10:02:02 2DF9-9ELO F4-4CDD-B05 BF4-4CDD- B l -N88K-813 E-2086W7576 05E-6381F3 Alan [id number] 629 162893 6956-04-17 Outpatient 1L54F84V- 3T52C31P-S6 4A36 A26C-D Memoria 20:20:14 A46D-5889 2C-4204-B17 72C-4204- B l -P356-Z93 8-Y757TBB89 178-C254AF Alan 0SUR242I5 9F3 B959F3 2022-10-16 Outpatient 4DY4U544- 4NT7P619-2Q 2CB3 A716-3 Memoria 10:22:30 7B9S-1K60 9A-9N96-S2T G7U-0A67- A l -M2I6-X51 0-H65478V4J 2U0-R54385 Alan 782E2JL43 D84 E1BD84 2022-09-28 Outpatient [id number]- 3CXZ0542-43 7CCE 1177-1 Memoria 11:30:15 1011-457F 11-457F-AA1 011-457F- A l -MD1K-39K E-44NAA985Y M3E-03BCP7 Alan ZD117S393 931 02N231 2022-09-20 Inpatient Lakisha RUSHING JR, [facility] [id number] [address] [place] [address] 16:55:55 JASPREET [facility] 2022-09-20 Outpatient [id number]- 802U04Q7-94 579A 72C9-6 Memoria 08:45:00 6139-4C49 39-0H22-X66 139-4C49- B l -G50V-5CW D-4GHM32BRQ 15D-4BFC16 Alan H85YXT2GA 9CF ABF9CF 2022-09-14 Outpatient V3GZ3UK7- H0ED3NQ2-TW F0BE 8DB3-A Memoria 08:51:27 FT3S-41K6 5C-51L6-L13 N8F-46O3- A l -M32J-K4E F-Z7F114F57 40F-E3A308 Alan 851C05O4K B3D C11B3D 2022-08-23 Outpatient [id number]- 49144T11-AW 5156 6D95-C Memoria 09:54:47 CY09-468C 87-411A-AC0 J00-651S- A l -SU97-54Y 3-15B1I85SX W83-03I9V9 Alan [id number] 709 5TO765 2022-08-18 Outpatient [id number]- 23K730U1-96 38C6 41C5-6 Memoria 07:49:13 660D-4AC3 0D-4OC3-Q19 60D-4AC3- A l -Y88K-Y32 E-C0730M98M 82E-P1207Z Alan 19W39N439 358 13W738 2022-08-16 Outpatient 272GCQ97- 809AWJ43-43 751B BC00-6 Memoria 13:42:13 639E-4964 9E-4964-814 39E-4964- 8 l -8140-EDC 0-DCR9875R1 140-PZO899 Alan [id number] 166 8I7425 2022-08-15 Outpatient [id number]- 34594YSM-[id number] 5092 0AAA-2 Memoria 09:03:49 2562-48EF 62-48EF-B97 562-48EF- B l -O90E-PFK D-GRT704611 97D-HBA767 Alan 808630MJB DDB 443DDB 2022-06-28 Outpatient JGCSG072- UKIFV121-Y5 DDEF A975-E Memoria 11:02:37 N960-9J53 66-6D36-5J4 566-4D09- 9 l -4B5K-FO8 A-VL2J32415 K8I-RZ8S17 Alan [id number] 7604-02-18 Outpatient R VETO [facility] OPH [id number] Univers 09:34:19 IMER persaud [facility] 2021-07-27 Outpatient Jennifer STLMLC STLMLC [id number] Common 11:13:26 Jessica 65864 [facility] 2019-07-22 Inpatient ERIBERTO GarnettCL OUTD [id number] [facility] 10:30:00 Garyamed 22 [facility] 2023-05-11 2023-05-11 Outpatient SFA SFA [id number] Mario 08:11:02 08:11:02 46947 Sveta Duarte 2023-04-27 2023-04-27 Outpatient R RADIOLOGY [facility] [id number] Univers 08:59:47 23:59:[address] [facility] 2023-04-27 2023-04-27 Hospital Radiology [facility] 1.2.840.114 [id number] Univers 08:59:47 23:59:00 Encounter [place] 350.1.13.10 ity of [place].2.686 [place] [facility] [id number] [facility] [address] 2023-04-20 2023-04-20 Outpatient SFA SFA [id number] Mario 10:27:23 10:27:23 57457 [place] 2023-04-16 2023-04-16 Outpatient SFA SFA [id number] Mario 08:09:18 08:09:18 80574 [place] 2023-02-27 2023-02-27 Orders Doctor CONCHITA 1.2.840.114 [id number] Univers 00:00:00 00:00:00 Only Unassigned, RADHA 350.1.13.10 ity of [place] [facility] 4.2.7.2.686 Juanjo as [id number] [facility] [address] 2023-02-21 2023-02-21 Outpatient SFA SFA [id number] Mario 14:52:36 14:52:36 [id number] [place] 2022-12-18 2022-12-18 Outpatient SFA SFA [id number] Mario 09:04:02 09:04:02 [id number] [place] 2022-12-04 2022-12-04 Outpatient SFA SFA [id number] Mario 12:59:44 12:59:44 13629 [facility] 2022-11-22 2022-11-22 Outpatient EL Marcia, HCACL DAYS [id number] [facility] 09:22:00 09:22:00 Alex 07 [facility] 2022-10-24 2022-10-24 Orders Doctor CONCHITA 1.2.840.114 [id number] Univers 00:00:00 00:00:00 Only Unassigned, RADHA 350.1.13.10 ity of [place] [facility] 4.2.7.2.686 Juanjo as [id number] [facility] [address] 2022-10-16 2022-10-18 [facility] Liam Hooper [facility] [id number] 20:18:00 13:16:00 Encounter Darrion [facility] 2022-10-16 2022-10-18 Inpatient ER DARRION, [facility] [id number] [facility] 20:18:00 13:16:00 JUAN Med 2022-10-16 2022-10-16 Orders [facility] [id number] 00:00:00 00:00:00 Only [facility] 2022-10-04 2022-10-04 Outpatient R CORIE [facility] [id number] Univers 10:00:00 10:00:00 SENDIL [facility] 2022-09-28 2022-09-28 [facility] 1.2.840.114 [id number] Univers 14:00:00 14:15:00 Visit [facility] 350.1.13.10 i ty [facility] 4.2.7.2.686 [place] [facility] [id number] [address] OFFICE BUILDING 2022-09-28 2022-09-28 Outpatient R KISHAN PERKINS [facility] 1 [id number] Univers 14:00:00 14:00:00 KISHAN PERKINS [facility] 2022-09-26 2022-09-26 Case CONCHITA Sheehan 1.2.840.114 [id number] Univers 00:00:00 00:00:00 Management Roger GARCIA 350.1.13.[address]2.686 Juanjo as [phone] [address] 2022-09-22 2022-09-22 Telephone CONCHITA Sheehan 1.2.809.057 [id number] Univers 00:00:00 00:00:00 Roger GARCIA 350.1.13.[address]2.686 [place]jo as [id number] [address] 2022-09-20 2022-09-20 Outpatient R SISSY [facility] [id number] Univers 09:45:00 23:59:00 ROGER persaud [facility] 2022-09-20 2022-09-20 Hospital [facility] 1.2.840.114 [id number] Univers 09:45:00 23:59:00 Encounter Roger Gonzáles [facility] 350.1.13.10 [place]y of [place].2.686 [place] [id number] [facility] [address] ([facility]) 2022-09-20 2022-09-20 Intake Nurse Draw, [facility] 1.2.8 40.114 [id number] Univers 10:00:00 10:15:00 [facility] 350.1.13.10 [place].2.[place] [id number] [facility] [address] OFFICE BUILDING 2022-09-20 2022-09-20 Office [facility] 1.2.840.114 [id number] Univers 08:45:00 09:00:00 Visit [facility] 350.1.13.10 i ty of [place]2.7.2.686 [place] [id number] [facility] [address] OFFICE BUILDING 2022-09-15 2022-09-15 Telephone CONCHITA Robles 1.2.840.114 10 [id number] Univers 00:00:00 00:00:00 Gilbert GARCIA 350.1.13.10 i ty of [facility] 4.2.7.2.686 Juanjo as [id number] [facility] [address] 2022-09-14 2022-09-14 Outpatient R [facility] CCA [id number] Univers 08:49:00 14:59:00 AFAQ ity of [facility] 2022-09-14 2022-09-14 Hospital [facility] 1.2.840.114 [id number] Univers 08:49:00 14:59:00 Encounter [facility]ALTH 350.1.13.10 [place] of [place] 4[place]2.7.2.[place] [id number] [facility] [address] ([facility]) 2022-09-14 2022-09-14 [facility] 1.2.933.034 [id number] Univers 10:30:00 12:30:00 Afaq HEALTH 350.1.13.10 it y of [place] 4[place]2.7.2.686 [place] [id number] [facility] [address] ([facility]) 2022-09-14 2022-09-14 Orders Doctor CONCHITA 1.2.840.114 [id number] Univers 00:00:00 00:00:00 Only Unassigned, RADHA 350.1.13.10 ity of [place] [facility] 4.2.7.2.686 Juanjo as [id number] [facility] [address] 2022-09-13 2022-09-13 SUB [facility] [id number] Common 00:00:00 00:00:00 MCR Spirit WELLNESS - CHI VISIT [facility] 2022-09-13 2022-09-13 OFFICE [facility] [id number] Co mmon 00:00:00 00:00:00 VISIT Spirit ESTAB PT - CHI LEVEL 3 [facility] 2022-09-06 2022-09-06 Telephone [facility] 1.2.840.114 [id number] Univers 00:00:00 00:00:00 Lisa DAUGHERTY 350.1.13.10 ity of [place] 4.2.7.2.686 [place] [id number] [place] [address] [address] [facility] 2022-09-05 2022-09-05 Telephone [facility] 1.2.840.114 [id number] Univers 00:00:00 00:00:00 [facility] 350.1.13.10 ity of [place] 4.2.7.2.686 Juanjo as MATTHEW?BLEA [id number] [address] MEDICAL OFFICE BUILDING 2022-08-24 2022-08-24 Telephone [facility] 1.2.840.114 [id number] Univers 00:00:00 00:00:[address] [facility] 350.1.13.10 ity of [place] 4.2.7.2.686 Juanjo as MATTHEW?BLEA [id number] [address] MEDICAL OFFICE BUILDING 2022-08-23 2022-08-23 Outpatient [facility] [id number] Univers 10:00:00 10:53:43 SENDIL ity [facility] 2022-08-23 2022-08-23 Office [facility] 1.2.840.114 [id number] Univers 10:00:00 10:53:43 Visit Sendfay DAUGH[place] 350.1.13.10 ity of [place].2.7.2.[place] PROF[place] [id number] Nj dicme NAL 9 [facility] 2022-08-18 2022-08-18 Office [facility] 1.2.840.114 [id number] Univers 10:00:00 10:00:00 Visit Ezra [facility] 350.1.13.10 ity of [place] 4.2.7.2.686 Juanjo as MATTHEW?BLEA [id number] [address] OFFICE [facility] 2022-08-18 2022-08-18 Outpatient EZRA NORWOOD [facility] [id number] Univers 10:00:00 08:46:43 [facility]22-08-18 2022-08-18 Telephone [facility] 1.2.492.724 [id number] Univers 00:00:00 00:00:00 Sendil Jody [place] 350.1.13.10 ity of [place] 4.2.7.2.[place] [id number] Nj dic[address] 2022-08-17 2022-08-17 Outpatient [facility] [id number] Univers 12:36:18 23:59:00 SENDIL ity [facility] 2022-08-16 2022-08-16 [facility] 1.2.292.482 [id number] Univers 13:35:20 23:59:00 Encounter Ezra Richardson [facility] 350.1.13.10 [facility] 4.2.7.2.686 [place] [id number] [address] 2022-08-16 2022-08-16 [facility] 1.2.468.925 [id number] Univers 13:34:46 13:34:46 Encounter Ezra DAUGH[place] 350.1.13.10 ity of [place] 4.2.7.2.686 [place] [id number] [address] 2022-08-16 2022-08-16 [facility] 1.2.525.178 [id number] Univers 13:34:02 13:34:02 Encounter Ezra DAUGHERTY 350.1.13.10 ity of [place] 4.2.7.2.686 [place] [id number] [address] 2022-08-16 2022-08-16 Outpatient R EZRA PATTON [facility] [id number] Univers 13:34:02 13:34:02 IKE [facility] 2022-08-15 2022-08-15 Office [facility] 1.2.840.114 [id number] Univers 10:30:00 11:08:26 Visit Bassemfay MedinaConstanceFlorConstance DAUGH[place] 350.1.13.10 ity of [place] 4.2.7.2.686 [place] [id number] Nj dical NAL 059 [facility] 2022-08-15 2022-08-15 Outpatient R [facility] [id number] Univers 09:00:00 09:50:[address] [facility] 2022-08-15 2022-08-15 Office [facility] 1.2.840.114 [id number] Univers 09:00:00 09:50:47 Visit Lisa [place] 350.1.13.10 ity [facility] 4.2.7.2.686 [place] [id number] Nj dical NAL 205 [facility] 2022-08-11 2022-08-11 Outpatient R [facility] [id number] Univers 08:16:46 08:46:[address] [facility] 2022-08-10 2022-08-10 Telephone [facility] 1.2.840.114 [id number] Univers 00:00:00 00:00:00 Ezra COLE 350.1.13.10 ity of [place] 4.2.7.2.686 Juanjo as MATTHEW?BLEA [id number] Nj rick [address] MEDICAL OFFICE BUILDING 2022-08-04 2022-08-04 Outpatient EZRA NORWOOD [facility] [id number] Univers 00:00:00 00:00:00 [facility] 2022-08-02 2022-08-02 [facility] 1.2.840.114 [id number] Univers 09:48:20 23:59:00 Encounter Rafa [place] 350.1.13.10 ity [facility] 4.2.7.2.686 [facility] s GYPSUM [id number] [place] [address] [place] 2022-08-02 2022-08-02 [facility] 1.2.226.065 [id number] Univers 09:47:38 09:47:38 Encounter Ezra [facility] 350.1.13.10 it[facility] 4.2.7.2.686 [place] [id number] [facility] [address] [place] 2022-08-02 2022-08-02 Outpatient EZRA NORWOOD [facility] [id number] Univers 09:47:37 09:47:38 EZRA PATTON fanny [facility] 2022-08-02 2022-08-02 [facility] 1.2.254.806 [id number] Univers 09:46:51 09:46:51 Encounter Ezra DAUGHERTY 350.1.13.10 ity of [place] 4.2.7.2.686 [facility] [id number] [address] 2022-07-21 2022-07-21 Outpatient EZRA NORWOOD [facility] [id number] Univers 10:40:00 12:04:23 EZRA PATTON [facility] 2022-07-21 2022-07-21 Office [facility] 1.2.840.114 [id number] Univers 10:40:00 12:04:23 Visit Ezra COLE 350.1.13.10 ity of [place] 4.2.7.2.686 Juanjo as MATTHEW?BLEA [id number] Nj rick JOSEPH [address] [place] MEDICAL OFFICE [facility] 2022-07-18 2022-07-18 (TEL) STLC STLMLC [id number] Co mmon 00:00:00 00:00:00 [facility] 2022-07-07 2022-07-07 [facility] 1.2.840.114 [id number] Univers 08:55:09 23:59:00 Encounter Tana [place] 350.1.13.10 ity [facility] 4.[place] [id number] [facility] [address] 2022-07-07 2022-07-07 [facility] [id number] Univers 08:54:03 08:54:03 TANA ity of [facility] 2022-07-07 2022-07-07 [facility] 1.2.840.114 [id number] Univers 08:54:03 08:54:03 Encounter Tana ENGLISHTON 350.1.13.10 [facility] 4.2.7.2.686 [facility] [id number] [facility] [address] 2022-07-07 2022-07-07 Orders Doctor CONCHITA 1.2.840.114 [id number] Univers 00:00:00 00:00:00 Only Unassigned, RADHA 350.1.13.10 ity of [facility] 4.2.7.2.686 Juanjo as [id number] [facility] [address] 2022-06-28 2022-06-28 Intake Nurse Lab, Ang - Db [facility] 1.2.840.1 14 [id number] Univers 11:00:00 11:15:00 Visit Tana Fenton HEALTH 350.1.13.10 ity [facility] 4.2.7.2.686 Juanjo as MATTHEW?BLEA [id number] Nj rick JOSEPH [address] MEDICAL OFFICE [facility] 2022-06-28 2022-06-28 Outpatient [facility] [id number] Univers 10:00:00 10:56:47 TANA ity of [facility] 2022-06-28 2022-06-28 Office [facility] 1.2.840.114 [id number] Univers 10:00:00 10:56:47 Visit Tana COLE 350.1.13.10 i ty of [place] 4.2.7.2.686 Juanjo as MATTHEW?BLEA [phone] Nj dical KNEY 044 [facility] OFFICE [facility] 2022-04-04 2022-04-04 Telephone [facility] [id number] [id number] Univers 00:00:00 00:00:00 Sendfay DAUGHERTY 350.1.13.10 [facility] [place] [id number] Nj dical NAL 059 [facility] 2022-03-17 2022-03-17 [facility] [id number] Co mmon 00:00:00 00:00:00 VISIT Spirit ESTAB PT - CHI LEVEL 4 [facility] 2022-03-02 2022-03-02 [facility] 1.2.840.114 [id number] Univers 08:15:37 23:59:00 Encounter Sameer DAUGHERTY 350.1.13.10 [place] [id number] [address] 2022-03-02 2022-03-02 [facility] 1.2.840.114 [id number] Univers 08:12:11 08:14:00 Encounter Sendfay DAUGHERTY 350.1.13.10 it[place] [id number] [address] 2022-03-02 2022-03-02 [facility] 1.2.840.114 [id number] Univers 08:11:54 08:11:54 Encounter Sendfay DAUGHERTY 350.1.13.10 [place] [id number] [facility] [address] 2022-03-02 2022-03-02 Outpatient [facility] [id number] Univers 08:11:36 08:11:36 SENDIL ity [facility] 2022-03-02 2022-03-02 [facility] [facility] 1.2.840.114 [id number] Univers 08:11:36 08:11:36 Encounter Sameer DAUGHERTY 350.1.13.10 it[facility] 4.2.7.2.686 [facility] [phone] [facility] [address] 2022-02-13 2022-02-13 [facility] 1.2.840.114 [id number] Univers 10:30:00 10:38:52 Visit Sameer DAUGHERTY 350.1.13.10 ity [facility] 4.2.7.2.686 [facility] [phone] Nj dical NAL 059 [facility] 2022-02-13 2022-02-13 Out[facility] [id number] Univers 10:30:00 10:38:52 SENDIL ity [facility] 2022-02-13 2022-02-13 Outpatient [facility] [id number] Univers 10:30:00 10:30:00 SENDIL ity [facility] 2022-02-13 2022-02-13 Outpatient [facility] [id number] Univers 10:30:00 10:30:00 SENDIL ity [facility] 2022-02-13 2022-02-13 Out[facility] [id number] Univers 10:30:00 10:30:00 SENDIL ity [facility] 2022-02-07 2022-02-07 Nurse Nurse, Matt Golden [facility] 1.2.840.114 [id number] Univers 10:20:00 10:40:00 Visit Milo Pro [facility] 350.1.13 .10 ity of [place] 4.2.7.2.686 Juanjo as MATTHEW?BLEA [phone] Nj dical JAKE 044 [facility] OFFICE [facility] 2022-02-07 2022-02-07 Outpatient R BRE [facility] [id number] Univers 09:15:00 10:03:44 LISA lenfanny o f [facility] 2022-02-07 2022-02-07 [facility] 1.2.840.114 [id number] Univers 09:15:00 10:03:44 Visit Lisa DAUGHERTY 350.1.13.10 it[facility] [place] [phone] Nj dical NAL 205 [facility] 2022-01-12 2022-01-12 Telephone [facility] [id number] Univers 00:00:00 00:00:00 Sendil Jody DAUGHERTY 350.1.13.10 ity of [place] [phone] Nj dical NAL 059 [facility] 2022-01-11 2022-01-11 Outpatient [facility] [id number] Univers 09:00:00 09:00:00 SENDIL [facility] 2022-01-11 2022-01-11 Outpatient [facility] [id number] Univers 07:51:12 07:51:12 SENDIL [facility] 2021-10-20 2021-10-20 [facility] 1.2.840.114 [id number] Univers 00:00:00 00:00:00 Sendil Jody DAUGHERTY 350.1.13.10 ity of [place] [phone] Nj dical NAL 059 [facility] 2021-09-28 2021-09-28 (TEL) [facility] ST[facility] [id number] Co mmon 00:00:00 00:00:00 [facility] 2021-09-21 2021-09-21 Outpatient R VETO [facility] OPH [id number] Univers 10:19:00 13:08:00 IMER itfanny [facility] 2021-09-21 2021-09-21 Hospital [facility] 1.2.382.064 [id number] Univers 10:19:00 13:08:00 Encounter Imer Ramirez WILLOW 350.1.13.10 ity of [place] [phone] [facility] [address] 2021-09-21 2021-09-21 Surgery [facility] 1.2.840.114 [id number] Univers 11:25:00 12:03:00 Imer Ramirez AMADORLORA 350.1.13.10 ity of [place] [phone] [facility] [address] 2021-09-19 2021-09-19 Orders Doctor CONCHITA 1.2.840.114 [id number] Univers 00:00:00 00:00:00 Only Unassigned, RADHA 350.1.13.10 ity of [place] [facility] 4.2.7.2.686 Juanjo as [phone] [facility] [address] 2021-09-15 2021-09-15 [facility] [id number] Co mmon 00:00:00 00:00:00 VISIT Spirit ESTAB PT - CHI LEVEL 4 [facility] 2021-09-15 2021-09-15 SUB ANNUAL [facility] [id number] Common 00:00:00 00:00:00 MCR Spirit WELLNESS - CHI VISIT [facility] 2021-09-08 2021-09-08 Telephone Corie [facility] 1.2.075.664 [id number] Univers 00:00:00 00:00:00 Sendfay DAUGHERTY 350.1.13.10 ity of [place] [phone] [facility] 059 [facility] 2021-09-05 2021-09-05 Outpatient R CORIE [facility] [id number] Univers 10:30:00 11:11:44 SENDIL ity of [facility] 2021-09-05 2021-09-05 Office Corie [facility] 1.2.840.114 [id number] Univers 10:30:00 11:11:44 Visit Sendfay CarolConstanceFlorConstance DAUGHERTY 350.1.13.10 ity of [place] [phone] Nj dical [facility] 059 [facility] 2021-09-05 2021-09-05 Outpatient Lakisha FONTENOT [facility] [id number] Univers 10:30:00 11:11:44 SENDIL itfanny [facility] 2021-08-31 2021-08-31 Outpatient [facility] [id number] Univers 12:20:00 15:54:00 IMER fanny [facility] 2021-08-31 2021-08-31 Hospital [facility] 1.2.424.902 [id number] Univers 12:20:00 15:54:00 Encounter Imer DAUGHERTY 350.1.13.10 ity of [place].2.7.2.[place] [id number] [facility] [address] 2021-08-31 2021-08-31 Surgery [facility] 1.2.840.114 [id number] Univers 14:18:00 15:00:00 Imer DAUGHERTY 350.1.13.10 ity of [place].2.7.2.[place] [id number] [facility] [address] 2021-08-29 2021-08-29 Laboratory Only, Adc Test [facility] 1.2.840. 114 [id number] Univers 10:00:00 10:15:00 Only Imer Laws 350.1.13.1 0 ity of [place] 4.2.7.2.[place] CAMPUS [id number] [facility] [address] 2021-08-29 2021-08-29 Outpatient Lakisha LAWS [facility] [id number] Univers 10:00:00 10:00:00 IMER persaud [facility] 2021-08-29 2021-08-29 Outpatient Lakisha LAWS [facility] [id number] Univers 10:00:00 10:00:00 IMER persaud [facility] 2021-08-26 2021-08-26 Intake Nurse Pob, Adc Lab Main [facility] 1.2.8 40.114 [id number] Univers 11:45:00 13:26:45 Visit Imer Laws 350.1.13.1 0 ity of [place] 4.[place].2.[place] [id number] Nj dical NAL 353 [facility] 2021-08-26 2021-08-26 Outpatient R VETO [facility] [id number] Univers 11:45:00 11:45:00 IMER ity [facility] 2021-08-26 2021-08-26 Orders Doctor CONCHITA 1.2.840.114 [id number] Univers 00:00:00 00:00:00 Only Unassigned, RADHA 350.1.13.10 ity of [place] [facility] 4.2.7.2.686 Juanjo as [phone] [address] 2021-08-12 2021-08-12 Orders Doctor ARANGO 1.2.840.114 [id number] Univers 00:00:00 00:00:00 Only Unassigned, RADHA 350.1.13.10 ity of [place] [facility] 4.2.7.2.686 Juanjo as [phone] [address] 2021-08-11 2021-08-11 Telephone [facility] 1.2.787.569 [id number] Univers 00:00:00 00:00:00 Sameer DAUGHERTY 350.1.13.10 [facility] 4.[place] [phone] [facility] 059 [facility] 2021-07-28 2021-07-28 Telephone Corie [facility] 1.2.602.304 [id number] Univers 00:00:00 00:00:00 Sameer DAUGHERTY 350.1.13.10 ity of [place] 4.[place].2.[place] [phone] Nj dicme NAL 059 [facility] 2021-07-25 2021-07-25 Outpatient R CORIE [facility] [id number] Univers 13:30:00 14:26:39 SENDIL ity of [facility] 2021-07-25 2021-07-25 Office Corie [facility] 1.2.840.114 [id number] Univers 13:30:00 14:26:39 Visit Sameer DAUGHERTY 350.1.13.10 ity of [place] 4.2.7.2.[place] ESS[place] [phone] Nj rick HINSON 059 [facility] 2021-07-25 2021-07-25 Outpatient R CORIE [facility] [id number] Univers 13:30:00 14:26:39 SENDIL ity [facility] 2021-07-25 2021-07-25 Outpatient [facility] [id number] Univers 13:30:00 14:26:39 SENDIL [facility] 2021-07-25 2021-07-25 Orders Doctor CONCHITA 1.2.840.114 [id number] Univers 00:00:00 00:00:00 Only Unassigned, RADHA 350.1.13.10 ity of [facility] 4.2.7.2.686 Juanjo as [phone] [address] 2021-05-04 2021-05-04 Imm/Inj Vaccine, Ang Db Cbc Fam [facility] 1. 2.840.114 [id number] Univers 11:00:53 11:10:53 Visit Rainer Lang [facility] 350.1.13.10 ity of [place] 4.2.7.2.686 Juanjo as MATTHEW?BLEA [phone] Nj rick FERNANDESEY [address] MEDICAL OFFICE [facility] 2021-05-04 2021-05-04 Outpatient Lakisha LANG [facility] [id number] Univers 11:00:00 11:00:00 RAINER [facility] 2020-10-30 2020-10-30 Outpatient Lakisha HERNANDEZ [facility] [id number] Univers 10:10:00 12:00:35 VICTOR HUGO [facility] 2020-10-09 2020-10-09 Outpatient Lakisha PEÑA [facility] [id number] Univers 10:35:00 10:19:18 MIKE [facility] 2020-09-08 2020-09-08 Outpatient STLMLC ST[facility]C [id number] Common 00:00:00 00:00:00 [facility] 2020-03-04 2020-03-04 Out[facility] [id number] Common 09:40:00 09:40:00 [facility] it [facility] 2020-01-08 2020-01-08 Outpatient Jillian Gonzáles [id number] [...] Pa 2019-09-15 2019-09-15 Out[facility] [id number] Common 13:00:00 13:00:00 [facility] it [facility] 2019-09-04 2019-09-04 Out[facility] [id number] Common 10:20:00 10:20:00 [facility] it [facility] 2019-08-27 2019-08-27 Outpatient Jillian Gonzáles [id number] eClinic 14:52:00 14:52:00 Tamir noel Md Pa Pa 2019-08-06 2019-08-06 Outpatient Jillian Gonzáles [id number] eClinic 09:00:00 09:00:00 Tamir noel Md Pa Pa 2019-07-24 2019-07-25 Inpatient JORGE Gunter INTE.02 [id number] [facility] 12:50:00 11:47:00 Jean [id number] [facility] 2019-07-21 2019-07-21 Outpatient Jillian Gonzáles [id number] eClinic 08:26:00 08:26:00 Tamir noel Md Pa Pa 2019-07-16 2019-07-16 Outpatient Jillian Gonzáles [id number] eClinic 10:45:00 10:45:00 Tamir noel Md Pa Pa 2019-06-04 2019-06-04 Outpatient Jillian Gonzáles [id number] eClinic 10:45:00 10:45:00 Tamir noel Md Pa Pa 2019-03-05 2019-03-05 Out[facility] [id number] Common 09:40:00 09:40:00 [facility] 2018-11-20 2018-11-20 Outpatient Jillian Gonzáles [id number] [...] Gonzáles [id number] 610 eClinic 13:45:00 13:45:00 Tamir noel Md Pa Pa 2018-09-03 2018-09-03 Outpatient Jillian Kumar 610 eClinic 13:45:00 13:45:00 Tamir noel Md Pa Pa Results Test Description Test Time Test Comments Results Result [facility] e Comments - XR CHEST 2 V 2022-11-22 00:00:00 [facility] 1945 Sex: M FAX: Alex Rosario [phone] [place]: St: REG FAX: Sabrina Mcfadden Name: OLMAN STEPHENSON [facility] : 1945 Age/S: 77/M [address] [place] [address] Unit #: [id number] Loc: [place] [address] Phys: Sabrina Mcfadden LAPPER Acct: [id number] Dis Date: Status: REG [facility] PHONE #: [phone] Exam Date: 11/20/2022 1016 FAX #: [phone] Reason: PREOP EXAMS: CPT CODE: [id number] XR CHEST 2 V 37989 PROCEDURE INFORMATION: Exam: XR Chest Exam date [...] acute abnormality visualized in the chest. at 4426 Reported and signed by: Shwetha Gil M.D. CC: Alex Kennedy MD; Sabrina Mcfadden NP Technologist: RT Marysol(Lakisha) Trnscrd Date/Time/By: 11/22/2022 (6018) : By: [email or web address] Orig Print D/T: S: 11/22/2022 (6687) PAGE 1 Signed Report BLOOD CULTURE 2022-10-22 04:00:40 Test Item Value Reference Range Interpretation Comme nts CULTURE (BEAKER) (test code = 1095) No growth in 5 days BLOOD [id number] 04:00:39 Test Item Value Reference Range Interpretation Comments CULTURE (BEAKER) (test No growth in 5 days code = 1095) [id number] 12:13:03 Test Item Value Reference Range Interpretation Comments PROCALCITONIN (BEAKER) (test code = < ng/mL <0.05 3036) SEPSIS RISK (ng/mL)Low: 0.05-0.50Intermediate: 0.51-2.00High: >=2.012D Echo W/Doppler(CW/PW/Color)2022-10-18 10:02:42Ejection FractionSLEH ECHO [facility] Echo W/Doppler(CW/PW/Color) 2022-10-18 10:02:42Ejection FractionSLE ECHO HEARTLAB [facility] Echo W/Doppler(CW/PW/Color)2022-10-18 10:02:42Ejection FractionSLEH ECHO HEARTLAB [facility] Echo W/Doppler(CW/PW/Color)2022-10-18 10:02:42Ejection FractionSLE ECHO HEARTLAB [facility] Echo W/Doppler(CW/PW/Color) 2022-10-18 10:02:42Ejection FractionSLE ECHO HEARTLAB [facility] Echo W/Doppler(CW/PW/Color)2022-10-18 10:02:42Ejection FractionSLE ECHO HEARTLAB [facility] Echo W/Doppler(CW/PW/Color)2022-10-18 10:02:42Ejection FractionSLE ECHO HEARTLAB [facility] Echo W/Doppler(CW/PW/Color) 2022-10-18 10:02:42Ejection FractionSLE ECHO HEARTLAB [facility] Echo W/Doppler(CW/PW/Color)2022-10-18 10:02:42Ejection [facility]SLE [facility] 2022-10-18 05:49:09 Test Item Value Reference Range Interpretation Comments MAGNESIUM (BEAKER) (test code = 2.3 mg/dL 1.5-3.0 627) Baker Helper ID - [id number] ID - [id number] ID - [id number] ID - [id number] BASIC METABOLIC [id number] 05:47:48 Test Item Value Reference Range Interpretation [...] De scription 1092) sq m Result G1 Norm al or high >=90 G2 Mildly decreased 60-89 [...] not appl icable for dialysis patien ts Baker Helper ID - [id number] ID - [id number] ID - PSGC32Mufhzfxf ID - KAWZ46Dhpafcmq ID - OZQX68Stkfcygh ID - TRBR27Ualjriyq ID - EXPU07Jeiumrtb ID - GPSZ79Ygdhqgfr ID - UVIF65GXQ W/PLT COUNT & AUTO [id number] 05:42:20 Test Item Value Reference Range Interpretation [...] = 2801) RAD, CHEST, 1 VIEW, NON [id number] 14:08:00Reason for exam:->Screen for pulmonary edema vs pneumoniaShould this be performed at the bedside?->Yes [facility] : 1945 Sex: MFINAL REPORT CHEST AP PORTABLE SEMIERECT History provided: Pulmonary edema versus pneumonia Heart size normal. Lungs are hyperinflated but clear, and vascularity normal. Signed: Ac Lanier Verified Date/Time: 10/17/2022 14:08:42 Reading Location: [facility] Radiology Reading Room [id number] 12:07:39 Test Item Value Reference Range Interpretation Comments PROCALCITONIN (BEAKER) (test code = < ng/mL <0.05 3036) SEPSIS RISK (ng/mL)Low: 0.05-0.50Intermediate: 0.51-2.00High: >=2.01Strep pneumoniae [id number] 11:58:48 Test Item Value Reference Range Interpretation Comments Strep pneumoniae Presumptive negative Presumptive Antigen (test code = [place] [address]-7) pneumonia - see pneumococcal comment pneumonia - [...] test. Lab Interpretation Normal (test code = 11153-7) [facility] [id number] 11:58:48 Test Item Value Reference Range Interpretation Comments Strep pneumoniae Presumptive negative Presumptive Antigen (test code = [place] [address]-0) pneumonia - see pneumococcal comment pneumonia - [...] test. Lab Interpretation Normal (test code = 07732-3) [facility] [id number] 11:58:48 Test Item Value Reference Range Interpretation Comments Strep pneumoniae Presumptive negative Presumptive Antigen (test code = [place] [address]-2) pneumonia - see pneumococcal comment pneumonia - [...] test. Lab Interpretation Normal (test code = 30184-3) [facility] pneumoniae [id number] 11:58:48 Test Item Value Reference Range Interpretation Comments Strep pneumoniae Presumptive negative Presumptive Antigen (test code = [place] [address]-8) pneumonia - see pneumococcal comment pneumonia - [...] test. Lab Interpretation Normal (test code = 16119-0) [facility] pneumoniae [id number] 11:58:48 Test Item Value Reference Range Interpretation Comments Strep pneumoniae Presumptive negative Presumptive Antigen (test code = [place] [address]-3) pneumonia - see pneumococcal comment pneumonia - [...] test. Lab Interpretation Normal (test code = 73885-3) [facility] pneumoniae [id number] 11:58:48 Test Item Value Reference Range Interpretation Comments Strep pneumoniae Presumptive negative Presumptive Antigen (test code = [place] [address]-4) pneumonia - see pneumococcal comment pneumonia - [...] test. Lab Interpretation Normal (test code = 15110-6) [facility] [id number] 11:58:48 Test Item Value Reference Range Interpretation Comments Strep pneumoniae Presumptive negative Presumptive Antigen (test code = [place] [address]-1) pneumonia - see pneumococcal comment pneumonia - [...] test. Lab Interpretation Normal (test code = 37078-5) [facility] [id number] 11:58:48 Test Item Value Reference Range Interpretation Comments Strep pneumoniae Presumptive negative Presumptive Antigen (test code = [place] [address]-1) pneumonia - see pneumococcal comment pneumonia - [...] test. Lab Interpretation Normal (test code = 31216-6) [facility] pneumoniae [id number] 11:58:48 Test Item Value Reference Range Interpretation Comments Strep pneumoniae Presumptive negative Presumptive Antigen (test code = [place] [address]-0) pneumonia - see pneumococcal comment pneumonia - [...] test. Lab Interpretation Normal (test code = 33455-8) [facility] Beach[facility]RE PNEUMONIAE [id number] 11:58:48 Test Item Value Reference Range Interpretation [...] the detection limit of the test. TROPONIN [id number] 06:46:19 Test Item Value Reference Range Interpretation [...] neurological disease, and persistent tachyarrhythmia.TSH/FREE T4 IF [id number] 01:35:38 Test Item Value Reference Range Interpretation Comments THYROID STIMULATING HORMONE 0.800 uIU/mL 0.350-5.500 (AKER) (test code = 772) Baker Helper ID - [id number] NATRIURETIC FACTOR (BNP)2022-10-17 01:25:19 Test Item Value Reference Range Interpretation Comments B-TYPE NATRIURETIC PEPTIDE 1057 pg/mL 0-100 H (AKER) (test code = 700) Baker Helper ID - [id number] [id number] 01:22:29 Test Item Value Reference Range Interpretation [...] failure, acidosis, acute neurological disease, and persistent tachyarrhythmia.Baker Helper ID - [id number] METABOLIC [id number] 01:16:05 Test Item Value Reference Range Interpretation Comments TOTAL PROTEIN 6.6 gm/dL 6.0-8.5 (AKER) (test code = 770) ALBUMIN (AKER) 3.9 g/dL 3.5-5.0 (test code = 1145) [...] high >=90 G2 Mildly decreased 60-89 G3a Mild ly to moderately 45-5 9 G3b Moderately to [...] not appl icable for dialysis patien ts Baker Helper ID - [id number] ID - [id number] ID - WLZRNFJGY085Ibbyelhc ID - QZLPSJFYO744Nmzedtdg ID - OADHRROBN341Welihzln ID - AIBRWYDHU446Syptedbo ID - CPKEHKUWZ389Fqljvbmc ID - QQWARSLBH986Xxpsxrji ID - BQOFKZQJL491Cyiudsvl ID - WPKHMAKMC645Shhfvfqt ID - KYNUNOPUA025Ozmxnapx ID - KKDFZODSS294Lwjzawqo ID - OOFGDJEAH222Omlbapdu ID - ZCXGXZTFV567Hlccvmjx ID - [id number] ID -HXSGGVZUK889HKBBMCLLG7009-50-42 01:15:43 Test Item Value Reference Range Interpretation Comments MAGNESIUM (BEAKER) (test code = 1.9 mg/dL 1.5-3.0 627) Baker Helper ID - [id number] ID - HPVABANEF421Njxvussj ID - IDGPNKTYF497Ddgwyrno ID - [id number] [id number] 01:15:01 Test Item Value Reference Range Interpretation [...] Borderline 130-159 High 160-189 Very High >=190 Baker Helper ID - [id number] ID - HVBOMUQTE883Lqouvcbu ID - [id number] 2022-10-17 01:12:22 Test Item Value Reference Range Interpretation Comments PHOSPHORUS (BEAKER) (test code = 3.2 mg/dL 2.5-4.5 604) Baker Helper ID - [id number] [id number] 01:06:17 Test Item Value Reference Range Interpretation Comments HEMOGLOBIN A1C (BEAKER) (test code = 5.6 % 4.3-6.1 368) Baker Helper ID - [id number] TIME/[id number] 01:03:54 Test Item Value Reference Range Interpretation [...] mechanical heart valves.CBC W/PLT COUNT & AUTO [id number] 00:52:24 Test Item Value Reference Range Interpretation [...] NA (test code = 138 mmol/L 135-145 6324897538) K (test code = 4.0 mmol/L 3.5-5.0 5867021011) CL (test code = 109 mmol/L 98-108 H 7097230076) CO2 TOTAL (test code = 26 mmol/L 23-31 6808517923) AGAP (test code = 3 2-16 0346648246) BUN (test code = 9 mg/dL 7-23 7945154463) GLUCOSE (test code = 100 mg/dL 70-110 1074769122) CREATININE (test code = 0.75 mg/dL 0.60-1.25 0857170704) CALCIUM (test code = 8.2 mg/dL 8.6-10.6 L 2698440935) eGFR (test code = 101.5 mL/min/1.73m2 9522084859) BLANK (test code = BLANK) Association of [...] tests). Lab Interpretation Abnormal (test code = 62902-6) [facility] METABOLIC PANEL (NA, K, CL, CO2, GLUCOSE, BUN, CREATININE, CA)2022-09-14 14:56:55 Test Item Value Reference Range Interpretation Comments NA (test code = 138 mmol/L 135-145 2818967166) K (test code = 4.0 mmol/L 3.5-5.0 1249560172) CL (test code = 109 mmol/L 98-108 H 1785978978) CO2 TOTAL (test code = 26 mmol/L 23-31 3015689125) AGAP (test code = 3 2-16 3082933385) BUN (test code = 9 mg/dL 7-23 3956350938) GLUCOSE (test code = 100 mg/dL 70-110 3711208439) CREATININE (test code = 0.75 mg/dL 0.60-1.25 9378094274) CALCIUM (test code = 8.2 mg/dL 8.6-10.6 L 6927655678) eGFR (test code = 101.5 mL/min/1.73m2 7931363292) BLANK (test code = BLANK) Association of [...] tests). Lab Interpretation Abnormal (test code = 31203-6) [facility] / [id number] 14:52:36 Test Item Value Reference Range Interpretation Comments PROTIME PATIENT (test 12.0 See_Comment [Auto mated message] code = 5964-2) The system [employer] generated this result transmitted ref erence range: 10.1 - 1 2.6 Seconds. The re ference range was not u sed to interpret this result as normal/abnor mal. INR (test code = 6301-6) 1.1 Nor mal INR <1.1; Warfarin Therap eutic range 2.0 to 3. 0 or 2.5 to 3.5, dep ending upon the indica tions. Lab Interpretation (test Normal code = 98405-5) [facility] / [id number] 14:52:36 Test Item Value Reference Range Interpretation Comments PROTIME PATIENT (test 12.0 See_Comment [Auto mated message] code = 5964-2) The system [employer] generated this result transmitted ref erence range: 10.1 - 1 2.6 Seconds. The re ference range was not u sed to interpret this result as normal/abnor mal. INR (test code = 6301-6) 1.1 Nor mal INR <1.1; Warfarin Therap eutic range 2.0 to 3. 0 or 2.5 to 3.5, dep ending upon the indica tions. Lab Interpretation (test Normal code = 18947-1) [facility] WITHOUT [id number] 14:51:15 Test Item Value Reference Range Interpretation [...] MPV (test code = 10.6 fL 9.8-13.0 17325-1) RDW-CV (test code = 13.2 % 12.1-15.4 788-0) RDW-SD (test code = 43.5 fL 38.5-51.6 56081-2) NRBC x10^3 (test See_Comment [Automated message] The code = [id number]) system [facility] generated this result tra nsmitted reference range : 10*3/?L. The reference r malia was not used to int erpret this result as normal/abnormal . NRBC/100 WBC (test 0.0 See_Comment [Automat ed message] The code = [id number]) system [facility] generated this result tra nsmitted reference range : 0.0 - 10.0 /100 WBCs. The reference range was not used to interpr et this result as normal/abnormal . IPF % (test code = 7258408614) [facility] [id number] 14:51:15 Test Item Value Reference Range Interpretation Comments WBC (test code = 6.63 See_Comment [Automated message] The 6690-2) system which ge nerated this result tra nsmitted reference range : 4.20 - 10.70 10*3/?L. The reference range was not used to interpr et this result as normal/abnormal . RBC (test code = 4.42 See_Comment [Automated message] The 789-8) system which ge nerated this result tra [...] See_Comment [Automated message] The 777-3) system which ge nerated this result tra nsmitted reference range : 150 - 328 10*3/?L. Th e reference range was not used to interpr et this result as normal/abnormal . MPV (test code = 10.6 fL 9.8-13.0 83875-8) RDW-CV (test code = 13.2 % 12.1-15.4 788-0) RDW-SD (test code = 43.5 fL 38.5-51.6 67887-1) NRBC x10^3 (test See_Comment [Automated message] The code = [id number]) system [facility] generated this result tra nsmitted reference range : 10*3/?L. The reference r malia was not used to int erpret this result as normal/abnormal . NRBC/100 WBC (test 0.0 See_Comment [Automat ed message] The code = 7272466301) system [facility] generated this result tra nsmitted reference range : 0.0 - 10.0 /100 WBCs. The reference range was not used to interpr et this result as normal/abnormal . IPF % (test code = 0051148159) [facility] [id number] 22:13:04 Test Item Value Reference Range Interpretation Comments POCT Creatinine (test code = 0.9 mg/dL 0.6-1.3 [id number]) Lab Interpretation (test code = Normal 08075-9) [facility] METABOLIC [id number] 08:34:00 Test Item Value Reference Range Interpretation [...] 7.9 mg/dL 8.0-10.5 L CA) COMPREHENSIVE METABOLIC [id number] 08:34:00 Test Item Value Reference Range Interpretation [...] N code = ALKP) TSH REFLEX TO [id number] 08:34:00 Test Item Value Reference Range Interpretation Comments TSH REFLEX TO FT4 (test code = 3.53 IU/mL 0.42-5.47 N TSHREFLEX) CBC W/AUTO [id number] 07:45:00 Test Item Value Reference Range Interpretation [...] NO = MDIFF) - XR CHEST 2 [id number] 12:33:00 FAX: Jillian Carpenter [phone] [place]: St: DIS Name: OLMAN STEPHENSON [facility] : 1945 Age/S: 74/M [address] [place] [address] Unit #: [id number] Loc: [facility] [place] [address] Phys: Jillian Garnett MD Acct: [id number] Dis Date: [id number] Status: DIS IN PHONE #: [phone] Exam Date: 07/22/2019 1226 FAX #: [phone] Reason: PERIPHERAL ANGIO EXAMS: CPT CODE: [id number] XR CHEST 2 V 28062 EXAM: XR CHEST 2 VIEWS DATE: 07/22/2019 [...] normal. IMPRESSION: No acute cardiopulmonary process. SL: [id number] at 1233 Reported and signed by: Yadi Hernández D.O. CC: Jillian Garnett MD Technologist: RT Millie(R) Trnscrd Date/Time/By: 07/22/2019 (5043) : By: [email or web address] Orig Print D/T: S: 07/22/2019 (8685) PAGE 1 Signed Report- XR CHEST 2 [id number] 12:33:00 FAX: Jillian Carpenter [phone] [place]: St: PRE Name: OLMAN STEPHENSON [facility] : 1945 Age/S: 74/M [address] [place] [address] Unit #: [id number] Loc: [place] [address] Phys: Jillian Garnett MD Acct: [id number] Dis Date: Status: PRE [facility] PHONE #: [phone] Exam Date: 07/22/2019 1226 FAX #: [phone] Reason: PERIPHERAL ANGIO EXAMS: CPT CODE: [id number] XR CHEST 2 V 03479 EXAM: XR CHEST 2 VIEWS DATE: 07/22/2019 [...] normal. IMPRESSION: No acute cardiopulmonary process. SL: [id number] at 1233 Reported and signed by: Yadi Hernández D.O. CC: Jillian Garnett MD Technologist: RT Millie(R) Trnscrd Date/Time/By: 07/22/2019 (1233) : By: [email or web address] Orig Print D/T: S: 07/22/2019 (1927) PAGE 1 Signed ReportBASIC METABOLIC [id number] 11:36:00 Test Item Value Reference Range Interpretation [...] = 8.7 mg/dL 8.0-10.5 N CA) PROTHROMBIN [id number] 11:33:00 Test Item Value Reference Range Interpretation [...] (to prevent recurrent infar ct). BASIC METABOLIC [id number] 11:33:00 Test Item Value Reference Range Interpretation [...] CA) 8.7 mg/dL 8.0-10.5 N CBC W/AUTO [id number] 11:25:00 Test Item Value Reference Range Interpretation [...] code NO = MDIFF) - CT ANGIO [id number] 14:46:00 Name: OLMAN STEPHENSON [facility] : 1945 Age/S: 73 / M [address] [place] [address] Unit #: [id number] Loc: [place] [address] Phys: Jillian Garnett MD Acct: [id number] Dis Date: Status: REG CLI PHONE #: [phone] Exam Date: 10/17/2018 1035 FAX #: [phone] Reason: ESSNETIAL PRIMARY HYPERTENSION, OCCLUSION. EXAMS: CPT CODE: [id number] CT ANGIO CHEST 31810 EXAM: CTA CHEST, abdomenWITH CONTRAST DATE: 10/17/2018 9:48 AM : 1945; [...] narrowing of the origin of the DEJON. Ectaticinfrarenal abdominal aorta measuring up to 2.7 cm. [...] 1 Signed Report (CONTINUED) Name: OLMAN STEPHENSON [facility] [place] : 1945 Age/S: 73 / M [address] [place] [address] Blvd Unit #: [id number] Loc: [place] [address] Phys: Jillian Garnett MD Acct: [id number] Dis Date: Status: REG CLI PHONE #: [phone] Exam Date: 10/17/2018 1035 FAX #: [phone] Reason: ESSNETIAL PRIMARY HYPERTENSION, OCCLUSION. EXAMS: CPT CODE: [id number] CT ANGIO CHEST 77666 (Continued) Lungs: 2.9 cm groundglass focus is noted inthe right upper lobe on image 30 of [...] Soft tissues: Normal. Bones: No acute abnormality. Age- related degenerative findings. IMPRESSION: 1. Ectatic abdominal aorta measuring up to 2.7 cm. Mild to moderate atherosclerotic narrowing of the origin of bilateral common iliac arteries. 2. Moderate atherosclerosis of the visualized left subclavian artery with moderate to severe focal narrowing within the proximal portion. 3. 2.9 cm groundglass focus is noted in the right upper lobe. Some groundglass changes are also noted in the right lungapex. This may represent infectious or inflammatory process however differential also includes malignancy. 3 months follow-up chest CT without contrast is recommended. 4. 8 mm hyperdense or enhancing lesion within the anterior left hepatic lobe. If the patient is high risk, [address] or MRI abdomenwith and without contrast is recommended. 5. Coronary artery disease. FOR INTERNAL CODING PURPOSES ONLY RESULT CODE: [facility] SL: [id number] PAGE 2 Signed Report (CONTINUED) Name: OLMAN STEPHENSON [facility] : 1945 Age/S: 73 / M [address] [place] [address] Blvd Unit #: [id number] Loc: [place] [address] Phys: Jillian Garnett MD Acct: [id number] Dis Date: Status: REG CLI PHONE #: [phone] Exam Date: 10/17/2018 1035 FAX #: [phone] Reason: ESSNETIAL [place] IMARY HYPERTENSION, OCCLUSION. EXAMS: CPT CODE: [id number] CT ANGIO CHEST 44178 (Continued) at 1446 Reported and signed by: Yadi Hernández D.O. CC: Jillian Garnett MD Technologist:Gustavo Akbar, RT(R)(CT) CTDI: DLP: TrnscbDate/Time: 10/17/2018 (1446) [email or web address] Orig Print D/T: S: 10/17/2018 (2130) CTDI: DLP: PAGE 3 Signed Report- CT ANGIO [id number] 14:46:00 Name: OLMAN STEPHENSON [facility] : 1945 Age/S: 73 / M [address] [place] [address] Blvd Unit #: [id number] Loc: [place] [address] Phys: Jillian Garnett MD Acct: [id number] Dis Date: Status: REG CLI PHONE #: [phone] Exam Date: 10/17/2018 1035 FAX #: [phone] Reason: ESSENTIAL PRIMARY HYPERTENSION, OCCLUSION. EXAMS: CPT CODE: [id number] CT ANGIO ABDOMEN 38160 EXAM: CTA CHEST, abdomen WITH CONTRAST DATE: 10/17/2018 9:48 AM : 1945; Age: 73 years y/o Male INDICATION: ESSENTIAL PRIMARY HYPERTENSION, OCCLUSION. COMPARISON: None TECHNIQUE: Volumetric CT of the chest, abdomen is acquired during arterial phase following intravenous administration of contrast. Coronal and sagittal reconstructions were created. Three-dimensional or MIP reconstructions of the arterial system werecreated at an independent workstation. IV Contrast: 100 mL Isovue DLP: 305 mGy-cm CT imaging performed at this location utilizes radiation dose optimization techniques which include one or more of the following: - Automated exposure control -Adjustment of the mA and/or kV according to patient size -Useof iterative reconstruction technique FINDINGS: Angiographic findings: Moderate atherosclerosis of the visualized left subclavian artery with moderate to severe focal narrowing within the proximal portion, best seen on axial image 23 of series 3. Moderate atherosclerosis of the thoracic aorta withoutaneurysm. Mild atherosclerotic narrowing of the origin of [...] The visible portions or the lower neck andthyroid are unremarkable. Lymph Nodes: There is no mediastinal or hilar lymphadenopathy. No axillarylymphadenopathy. Heart, and pericardium: : The heart is normal in size. No pericardial effusion. There are coronary artery calcifications. . PAGE 1 Signed Report (CONTINUED) Name: OLMAN STEPHENSON [facility] Kevin Da Silva : 1945 Age/S: 73 / M [address] [place] [address] Blvd Unit #: [id number] Loc: [place] [address] Phys: Jillian Garnett MD Acct: [id number] Dis Date: Status: REG CLI PHONE #: [phone] Exam Date: 10/17/2018 1035 FAX #: [phone] Reason: ESSENTIAL PRIMARY HYPERTENSION, OCCLUSION. EXAMS: CPT CODE: [id number] CT ANGIO ABDOMEN 66284 (Continued) Lungs: 2.9 cm groundglass focus is noted in the right upper lobe on image 30 of series 3. Mild emphysema. Some groundglass changes within the right lung apex. No pleural effusions. The central airway is patent. Visualized abdomen: Within the anterior left hepatic lobe 8 mm enhancing or hyperdense lesion is seen. Gallbladder, adrenal glands,kidneys, spleen and pancreas are unremarkable. Stomach is [...] 2. Moderate atherosclerosis of the visualized left subclavian artery with moderate to severe focal narrowing within the proximal portion. 3. 2.9 cm groundglass focus is noted in the right upper lobe. Some groundglass changes are also noted in the rightlung apex. This may represent infectious or inflammatory process however differential also includes m alignancy. 3 months follow-up chest CT without contrast is recommended. 4. 8 mm hyperdense or enhancing lesion within the anterior left hepatic lobe. If the patient is high risk, [address] or MRI abdomen with and without contrast is recommended. 5. Coronary artery disease. FOR INTERNAL CODING PURPOSES ONLY RESULT CODE: NOD SL: [id number] PAGE 2 Signed Report (CONTINUED) Name: OLMAN STEPHENSON [facility] : 1945 Age/S: 73 / M [address] [place] [address] Blvd Unit #: [id number] Loc: [place] [address] Phys: Jillian Garnett MD Acct: [id number] Dis Date: Status: REG CLI PHONE #: [phone] Exam Date: 10/17/2018 1035 FAX #: [phone] Reason: ESSENTIAL PRIMARY HYPERTENSION, OCCLUSION. EXAMS: CPT CODE: [id number] CT ANGIO ABDOMEN 51824 (Continued) at 1446 Reported and signed by: Yadi [place]ández D.O. CC: Jillian Garnett MD Technologist:RT Pieter(R)(CT) CTDI: DLP: Trnscb Date/Time: 10/17/2018 (1446) [email or web address] Orig Print D/T: S: 10/17/2018 (1449) CTDI: DLP: PAGE 3 Signed Report- XR CHEST [id number] 11:43:00 Patient Name: OLMAN STEPHENSON Unit No: [id number] EXAMS: CPT CODE: [id number] XR CHEST 2V 31629 PA AND LATERAL CHEST 01/14/02 DIAGNOSIS: No evidence of active disease. COMMENTS: The trachea is midline. The cardiac silhouette is within normal limits in size. The lungs are clear. at 1139 Reported by: Dameon Collins MD Signed by: Zelalem Collins MD CC: Rafal Cardozo M.D. Technologist: Robyn Rosa (R) [facility] NAME: OLMAN STEPHENSON [address] [facility] PHYS: Rafal Monroy :1945 AGE: 56 SEX: [place] [address] LOC: UNK PHONE #: [phone] EXAM DATE: 01/14/2002 STATUS: UNK FAX #: [phone] RAD #: [id number] D/C DT PAGE 1 Signed Report Pat ient Name: OLMAN STEPHENSON Unit No: [id number] EXAMS: CPT CODE: [id number] XR CHEST 2V 98165 <Continued> Transcribed D/ (1426) [email or web address] [facility] NAME: OLMAN STEPHENSON [address] [facility] PHYS: Rafal Monroy : 1945 AGE: 56 SEX: [place] [address] LOC: UNK PHONE #: [phone] EXAM DATE: 01/14/2002 STATUS: UNK FAX #: [phone] RAD #: [id number] D/C DT PAGE 2 Signed Report"
[2023-05-18] MEDS ORDERED: ALBUTEROL 2.5 MG/3 ML NEB SOL ONE (01:25)
[2023-05-18 01:26] LABS: Absolute Lymphocytes (CBC) 1.8 K/uL (0.7-4.9); Hematocrit 38.8 % (39.6-49.0); Lymphocytes % 22.6 % (15.3-44.8); MCV 92.1 fL (80-100); MPV 9.6 fL (7.6-11.3); Platelets 169 thou/uL (152-406); RBC Red Blood Cell Count 4.22 M/uL (4.33-5.43)
[2023-05-18 01:39] LABS: SARS-CoV-2 Antigen Rapid Res Negative (Negative)
[2023-05-18 01:45] LABS: Potassium 3.7 mEq/L (3.5-5.1)
[2023-05-18] MEDS ORDERED: FUROSEMIDE 20 MG TABLET ONE (02:33)
[2023-05-18] MEDS ORDERED: lisinopriL 10 MG TAB ONE (03:15)
[2023-05-18] MEDS ORDERED: LORAZEPAM 1 MG TABLET ONE (03:15)
--- NOTE | 2023-05-18 03:26 | ER ---
Nurse's Notes [facility] Name: Olman Francis Age: 78 yrs Sex: Male : 1945 Arrival Date: 05/18/2023 Time: 00:41 Bed 6 Private MD: Diagnosis: Essential (primary) hypertension;Fluid overload Presentation: 05/18 00:46 Chief complaint: EMS states: COMPLAINING OF SOB. CURRENT SMOKER. WAS SEEN 2 WKS AGO BY rv PCP, CXRAY WAS DONE. RESULTS ARE WITH THE PATIENT. ALSO COMPLAINING OF RIGHT SIDE RIB PAIN. Coronavirus screen: At this time, the client does not indicate any symptoms associated with coronavirus-19. Ebola Screen: No symptoms or risks identified at this time. Initial Sepsis Screen: Does the patient meet any 2 criteria? No. Patient's initial sepsis screen is negative. Does the patient have a suspected source of infection? No. Patient's initial sepsis screen is negative. Risk Assessment: Do you want to hurt yourself or someone else? Patient reports no desire to harm self or others. Onset of symptoms was May 18, 2023. 00:46 Method Of Arrival: EMS: [facility] 00:46 Acuity: COLLEEN 2 rv Triage Assessment: 00:48 General: Appears uncomfortable, Behavior is calm, cooperative. Pain: Complains of pain rv in right lateral anterior chest. Neuro: Level of Consciousness is awake, alert, obeys commands, Oriented to person, place, time, situation. Cardiovascular: Capillary refill < 3 seconds Patient's skin is warm and dry. Respiratory: Airway is patent Respiratory effort is even, unlabored. GI: No signs and/or symptoms were reported involving the gastrointestinal system. : No signs and/or symptoms were reported regarding the genitourinary system. Derm: Skin is intact. Historical: - PMHx: 00:48 Hypertension; Rheumatoid Arthritis; rv - PSHx: 00:48 fused R wrist; Stent L shoulder brain/arm; rv - Immunization history:: Adult Immunizations up to date. - Social history:: Smoking status: Patient reports the use of cigarette tobacco products, smokes one-half pack cigarettes per day. Screenin:49 [facility] ED Fall Risk Assessment (Adult) History of falling in the last 3 months, rv including since admission No falls in past 3 months (0 pts) Score/Fall Risk Level 0 - 2 = Low Risk Oriented to surroundings, Maintained a safe environment, Educated pt \T\ family on fall prevention, incl call for assistance when getting out of bed, Assessed \T\ reinforced patient's understanding of fall precautions, Provided non-skid footwear, Hourly rounding (assess needs \T\ fall precautionary measures) done, Used ambulatory aids as needed (educated on \T\ assisted with), Used gait belt as appropriate. Abuse screen: Denies threats or abuse. Denies injuries from another. Nutritional screening: No deficits noted. Tuberculosis screening: No symptoms or risk factors identified. Assessment: 01:44 Reassessment: SEE TRIAGE ASSESSMENT. jj7 Vital Signs: 00:46 BP 160 / 117; Pulse 50; Resp 22; Temp 98; Pulse Ox 99% on R/A; Weight 48.5 kg; Height 5 rv ft. 8 in. ; 01:42 BP 148 / 96; Pulse 83; Resp 20; Pulse Ox 100% on NEB TREATMENT; jj7 02:34 BP 143 / 102; Pulse 76; Resp 19; Pulse Ox 99% ; jj7 03:26 BP 140 / 88; Pulse 86; Resp 17; Pulse Ox 99% ; jj7 04:53 BP 151 / 95; Pulse 92; Resp 21; Pulse Ox 98% ; jj7 00:46 Body Mass Index 16.26 (48.50 kg, 172.72 cm) rv ED Course: 00:46 Patient arrived in ED. rv 00:48 Triage completed. rv 00:48 Arm band placed on right wrist. rv 00:49 Patient has correct armband on for positive identification. Client placed on continuous rv cardiac and pulse oximetry monitoring. NIBP monitoring applied. compliance monitor on. 00:58 Mayra Paul FNP-C is PHCP. snw 00:58 Juan A Freeman MD is Attending Physician. snw 01:19 Inserted saline lock: 20 gauge in right forearm, using aseptic technique. Blood rv collected. 01:32 Chest Pa And Lat (2 Views) XRAY In Process Unspecified. EDMS 01:57 Vega Kilgore RN is Primary Nurse. jj7 03:26 No provider procedures requiring assistance completed. IV discontinued, intact, jj7 bleeding controlled, No redness/swelling at site. Pressure dressing applied. Administered Medications: 01:42 Drug: Albuterol Inhalation 2.5 mg Inhalation once Route: Inhalation; j7 02:29 Drug: Furosemide PO 20 mg PO once Route: PO; j7 03:05 Follow up: Response: No adverse reaction j7 03:05 Drug: LORazepam PO 1 mg PO once Route: PO; j7 04:52 Follow up: Response: No adverse reaction jj7 03:05 Drug: Lisinopril PO 10 mg PO once Route: PO; 7 04:52 Follow up: Response: Blood pressure is lowered jj7 04:39 Drug: Dexamethasone IM 10 mg IM once Route: IM; Site: right gluteus; j7 04:52 Follow up: Response: No adverse reaction j7 Medication: 00:49 VIS not applicable for this client. rv Outcome: 03:25 Discharge ordered by MD. walker 03:26 Condition: improved jj7 04:54 Discharged to home ambulatory, with family, 7 04:54 Discharge instructions given to patient, Instructed on discharge instructions, follow up and referral plans. Demonstrated understanding of instructions, follow-up care, 04:54 Patient left the ED. jj7 Signatures: Dispatcher [employer] EDMS Mayra Paul FNP-C DIRECTOR OF GRADUATE MEDICAL EDUCATION-Yeimiw Bunny Nair RN RN Vega Clark RN RN jj7
--- NOTE | 2023-05-18 03:26 | EDPHYS ---
Physician Documentation [facility] Name: Olman Francis Age: 78 yrs Sex: Male : 1945 Arrival Date: 05/18/2023 Time: 00:41 Bed 6 Private MD: ED Physician Juan A Freeman HPI: 05/18 01:09 This 78 yrs old Male presents to ER via EMS with complaints of SOB. snw 01:09 The patient has shortness of breath at rest. Onset: The symptoms/episode began/occurred snw gradually, 3 week(s) ago, and became persistent. Duration: The symptoms are continuous. Associated signs and symptoms: Pertinent positives: orthopnea. Severity of symptoms: At their worst the symptoms were mild moderate. The patient has experienced similar episodes in the past, chronically. a couple of weeks ago. Historical: - PMHx: 00:48 Hypertension; Rheumatoid Arthritis; rv - PSHx: 00:48 fused R wrist; Stent L shoulder brain/arm; rv - Immunization history:: Adult Immunizations up to date. - Social history:: Smoking status: Patient reports the use of cigarette tobacco products, smokes one-half pack cigarettes per day. ROS: 01:09 Constitutional: Negative for fever, chills, and weight loss, Eyes: Negative for injury, snw pain, redness, and discharge, ENT: Negative for injury, pain, and discharge, Neck: Negative for injury, pain, and swelling, Cardiovascular: Negative for chest pain, palpitations, and edema, Abdomen/GI: Negative for abdominal pain, nausea, vomiting, diarrhea, and constipation, Back: Negative for injury and pain, : Negative for injury, bleeding, discharge, and swelling, MS/Extremity: Negative for injury and deformity, Skin: Negative for injury, rash, and discoloration, Neuro: Negative for headache, weakness, numbness, tingling, and seizure, Psych: Negative for depression, anxiety, suicide ideation, homicidal ideation, and hallucinations, 01:09 Respiratory: Positive for shortness of breath, at rest. orthopnea, Exam: 01:08 Constitutional: This is a well developed, well nourished patient who is awake, alert, snw and in no acute distress. Head/Face: Normocephalic, atraumatic. Eyes: Pupils equal round and reactive to light, extra-ocular motions intact. Lids and lashes normal. Conjunctiva and sclera are non-icteric and not injected. Cornea within normal limits. Periorbital areas with no swelling, redness, or edema. ENT: Nares patent. No nasal discharge, no septal abnormalities noted. Tympanic membranes are normal and external auditory canals are clear. Oropharynx with no redness, swelling, or masses, exudates, or evidence of obstruction, uvula midline. Mucous membranes moist. Neck: Trachea midline, no thyromegaly or masses palpated, and no cervical lymphadenopathy. Supple, full range of motion without nuchal rigidity, or vertebral point tenderness. No Meningismus. Chest/axilla: Normal chest wall appearance and motion. Nontender with no deformity. No lesions are appreciated. Cardiovascular: bradycardic rate and rhythm with a normal S1 and S2. No gallops, murmurs, or rubs. Normal PMI, no JVD. No pulse deficits. Abdomen/GI: Soft, non-tender, with normal bowel sounds. No distension or tympany. No guarding or rebound. No evidence of tenderness throughout. Back: No spinal tenderness. No costovertebral tenderness. Full range of motion. Skin: Warm, dry with normal turgor. Normal color with no rashes, no lesions, and no evidence of cellulitis. MS/ Extremity: Pulses equal, no cyanosis. Neurovascular intact. Full, normal range of motion. Neuro: Awake and alert, GCS 15, oriented to person, place, time, and situation. Cranial nerves II-XII grossly intact. Motor strength 5/5 in all extremities. Sensory grossly intact. Cerebellar exam normal. Normal gait. Psych: Awake, alert, with orientation to person, place and time. Behavior, mood, and affect are within normal limits. 01:08 Respiratory: the patient does not display signs of respiratory distress, Respirations: normal, Breath sounds: bronchial sounds, that are mild, rhonchi, are located in both bases, Vital Signs: 00:46 BP 160 / 117; Pulse 50; Resp 22; Temp 98; Pulse Ox 99% on R/A; Weight 48.5 kg; Height 5 rv ft. 8 in. ; 01:42 BP 148 / 96; Pulse 83; Resp 20; Pulse Ox 100% on NEB TREATMENT; jj7 02:34 BP 143 / 102; Pulse 76; Resp 19; Pulse Ox 99% ; jj7 03:26 BP 140 / 88; Pulse 86; Resp 17; Pulse Ox 99% ; jj7 04:53 BP 151 / 95; Pulse 92; Resp 21; Pulse Ox 98% ; jj7 00:46 Body Mass Index 16.26 (48.50 kg, 172.72 cm) rv MDM: 00:58 Patient medically screened. snw 01:14 Differential diagnosis: CHF exacerbation, Chronic Obstructive Pulmonary Disease snw pneumonia. Data interpreted: Pulse oximetry: on room air is 99 %. Interpretation: normal. Data reviewed: vital signs, nurses notes, lab test result(s), radiologic studies. 02:33 Independent interpretation of the following test(s) in the Emergency Department X-Ray: snw My interpretation is CXR - blunting of right costal angle, COPD changes/scarring. Counseling: I had a detailed discussion with the patient and/or guardian regarding the historical points, exam findings, and any diagnostic results supporting the discharge/admit diagnosis, lab results, radiology results, the need for outpatient follow up, for definitive care, to return to the emergency department if symptoms worsen or persist or if there are any questions or concerns that arise at home. Response to treatment: the patient's symptoms have mildly improved after treatment. Special discussion: Based on the history and exam findings, there is no indication for further emergent testing or inpatient evaluation. I discussed with the patient/guardian the need to see the primary care provider for further evaluation of the symptoms. 03:19 Historians other than the Patient:. snw 03:58 ED course: Pt taking aspirin, plavix, albuterol, atorvastatin. [facility] 05/18 01:07 Order name: Flu; Complete Time: 01:43 snw 05/18 02:58 Interpretation: Within normal limits. [facility] 05/18 01:07 Order name: SARS RAPID; Complete Time: 01:43 snw 05/18 02:57 Interpretation: Within normal limits. [facility] 05/18 01:07 Order name: CBC with Diff; Complete Time: 01:31 snw 05/18 02:58 Interpretation: Within normal limits. [facility] 05/18 01:07 Order name: Chem 7; Complete Time: 01:51 snw 05/18 02:58 Interpretation: Within normal limits. [facility] 05/18 01:08 Order name: BNP; Complete Time: 01:51 snw 05/18 02:58 Interpretation: Abnormal: [id number]. snw 05/18 01:07 Order name: Chest Pa And Lat (2 Views) XRAY snw 05/18 02:58 Interpretation: blunted costophrenic angles. snw 05/18 01:15 Order name: Recheck B/P; Complete Time: 02:17 snw Administered Medications: 01:42 Drug: Albuterol Inhalation 2.5 mg Inhalation once Route: Inhalation; jj7 02:29 Drug: Furosemide PO 20 mg PO once Route: PO; jj7 03:05 Follow up: Response: No adverse reaction jj7 03:05 Drug: LORazepam PO 1 mg PO once Route: PO; jj7 04:52 Follow up: Response: No adverse reaction jj7 03:05 Drug: Lisinopril PO 10 mg PO once Route: PO; jj7 04:52 Follow up: Response: Blood pressure is lowered jj7 04:39 Drug: Dexamethasone IM 10 mg IM once Route: IM; Site: right gluteus; jj7 04:52 Follow up: Response: No adverse reaction jj7 Disposition: 04:25 Co-signature as Attending Physician, Juan A Freeman MD I agree with the assessment sp4 and plan of care. I reviewed the patient's care provided by the Advanced Practice Provider and agree with the diagnosis and treatment plan. Disposition Summary: 05/18/23 03:25 Discharge Ordered Condition: Stable snw Diagnosis - Essential (primary) hypertension snw - Fluid overload snw Followup: snw - With: Emergency Department - When: As needed - Reason: Worsening of condition Followup: snw - With: Private Physician - When: 2 - 3 days - Reason: Recheck today's complaints, Continuance of care, Re-evaluation by your physician Discharge Instructions: - Discharge Summary Sheet snw - Hypertension, Adult snw - DASH Eating Plan snw - Managing Your Hypertension snw - Form - Blood Pressure Record Sheet snw Forms: - Medication Reconciliation Form snw - Thank You Letter snw - Antibiotic Education snw - Prescription Opioid Use snw - Patient Portal Instructions snw - Leadership Thank You Letter snw Signatures: Dispatcher [employer] Mayra Melendez FNP-C TRANSFER ENGINEER-Csnw Bunny Nair RN RN rv Vega Kilgore, RN RN jj7 Juan A Freeman MD MD sp4
[2023-05-18] MEDS ORDERED: dexAMETHasone 10 MG/ML VIAL ONE (04:36)
[2023-05-18 05:27] VITALS: TEMP 98
[2023-05-18 05:32] VITALS: BP 151/95; O2SAT 98
--- NOTE | 2023-05-18 13:40 | RAD REPORT ---
EXAM DESCRIPTION: RAD - Chest Pa And Lat (2 Views) - 05/18/2023 1:30 am CLINICAL HISTORY: The patient is 78 years old and is Male; COPD TECHNIQUE: Frontal and lateral views of the chest. COMPARISON: No relevant prior studies available. FINDINGS: Lungs: Prominent interstitial markings suggestive of chronic changes. No consolidation. Pleural space: Blunting of the costophrenic angles which may indicate small bilateral pleural eff usions. No pneumothorax. Heart: Unremarkable. Mediastinum: Unremarkable. Normal mediastinal contour. Bones/joints: No acute findings. IMPRESSION: 1. Prominent interstitial markings suggestive of chronic changes. 2. Blunting of the costophrenic angles which may indicate small bilateral pleural effusions. Electronically signed by: Liam Silverio MD 05/18/2023 02:00 AM EXCELLENCE MANAGER Due to temporary technical issues with the PACS/Fluency reporting system, reports are being signed by the in house radiologists without review as a courtesy to insure prompt reporting. The interpreting radiologist is fully responsible for the content of the report.
== END 2023-05-18 04:54 | disposition home or self-care (01) ==
LOC: ER 00:41
DX: E87.70 Fluid overload, unspecified (principal); I10 Essential (primary) hypertension; F17.210 Nicotine dependence, cigarettes, uncomplicated; Z11.52 Encounter for screening for COVID-19
CPT/HCPCS: 85025; 80048; 36415; 83880; 87804 ×2; 71046; 96372; 99285; 87811; J7613; J1100

== ENCOUNTER → 2023-06-22 | Emergency (ER) | payer OTHER ==
[~2023-06-22] MED LIST: TRANEXAMIC ACID 1,000 MG/10 ML VIAL IV ONE
--- NOTE | 2023-06-22 03:13 | ER ---
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 pt does take blood thinners. Coronavirus screen: At this time, the client does not indicate any symptoms associated with coronavirus-19. Ebola Screen: No symptoms or risks identified at this time. Initial Sepsis Screen: Does the patient meet any 2 criteria? No. Patient's initial sepsis screen is negative. Does the patient have a suspected source of infection? No. Patient's initial sepsis screen is negative. Risk Assessment: Do you want to hurt yourself or someone else? Patient reports no desire to harm self or others. Onset of symptoms was June 20, 2023. 02:26 Acuity: COLLEEN 4 as6 02:26 Method Of Arrival: Ambulatory as6 Historical: - Allergies: 02:25 No Known Allergies; as6 - PMHx: 02:25 Hypertension; Rheumatoid Arthritis; Congestive heart failure; Transient cerebral as6 ischemia; Myocardial infarction; - Immunization history:: Adult Immunizations up to date. - Social history:: Smoking status: Patient reports the use of cigarette tobacco products, smokes one-half pack cigarettes per day. Screenin:40 [facility] ED Fall Risk Assessment (Adult) History of falling in the last 3 months, tm6 including since admission No falls in past 3 months (0 pts). Abuse screen: Denies threats or abuse. Denies injuries from another. Nutritional screening: No deficits noted. Tuberculosis screening: No symptoms or risk factors identified. Assessment: 02:40 General: Appears in no apparent distress. Behavior is calm, cooperative. Pain: tm6 Complains of pain in palmar aspect of distal phalanx of left index finger. Pain: Quality of pain is described as tender. Neuro: Level of Consciousness is awake, alert, obeys commands, Oriented to person, place, time, situation. Cardiovascular: Capillary refill < 3 seconds Patient's skin is warm and dry. Respiratory: Airway is patent Respiratory effort is even, unlabored, Respiratory pattern is regular, symmetrical. GI: Abdomen is flat, non-distended. : No signs and/or symptoms were reported regarding the genitourinary system. EENT: No signs and/or symptoms were reported regarding the EENT system. Derm: Reports injury to left index finger. Musculoskeletal: No signs and/or symptoms reported regarding the musculoskeletal system. 03:15 Reassessment: Patient and/or family updated on plan of care and expected duration. Pain tm6 level reassessed. Patient is alert, oriented x 3, equal unlabored respirations, skin warm/dry/pink. dressing intact. No sign of bleeding. Vital Signs: 02:23 Pulse 84; Resp 16 S; Temp 97.9; Pulse Ox 100% on R/A; Weight 63.5 kg (R); Height 5 ft. as6 8 in. (R); Pain 0/10; 03:15 BP 130 / 84; Pain 0/10; tm6 02:23 Body Mass Index 21.29 (63.50 kg, 172.72 cm) as6 02:23 Pain Scale: Adult as6 03:15 Pain Scale: Adult tm6 ED Course: 02:15 Patient arrived in ED. jj6 02:16 Jeremy Hernández MD is Attending Physician. sp3 02:23 Arm band placed on. as6 02:27 Triage completed. as6 02:36 Katarina Grover, RN is Primary Nurse. tm6 02:40 Patient has correct armband on for positive identification. Bed in low position. Call tm6 light in reach. Provided Education on: plan of care. 02:40 No provider procedures requiring assistance completed. tm6 02:58 Dressings: txa applied topically, gauze and coband applied. tm6 03:21 Patient did not have IV access during this emergency room visit. tm6 Administered Medications: No medications were administered Medication: 02:40 VIS not applicable for this client. tm6 Outcome: 03:12 Discharge ordered by . sp3 03:21 Discharged to home ambulatory, tm6 03:21 Condition: stable 03:21 Discharge instructions given to patient, Instructed on discharge instructions, follow up and referral plans. Demonstrated understanding of instructions, follow-up care, wound care, 03:22 Patient left the ED. tm6 Signatures: Jeremy Hernández MD MD sp3 Lisa Manzanares jj6 Tarun Verma, RN RN as6 Katarina Grover, DONNA RN tm6
--- NOTE | 2023-06-22 03:13 | EDPHYS ---
Physician Documentation [facility] Name: Olman Francis Age: 78 yrs Sex: Male : 1945 Arrival Date: 06/22/2023 Time: 02:14 Bed 14 Private MD: ED Physician Jeremy Hernández HPI: 06/22 03:09 This 78 yrs old Male presents to ER via Ambulatory with complaints of LACERATION TO sp3 FINGER APPROX 2 DAYS AGO, PT ON BLOOD THINNERS AND HAS BEEN UNABLE TO CLOT OFF.. 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 Patient states it is continued to bleed and soaked through any dressings that he is put on. Patient describes as an abrasion puncture type wound. He denies any other injury or any other bleeding in any other places. He also denies syncope, near syncope, chest pain, shortness of breath or any other signs or symptoms on ROS at this time.. Historical: - Allergies: 02:25 No Known Allergies; as6 - PMHx: 02:25 Hypertension; Rheumatoid Arthritis; Congestive heart failure; Transient cerebral as6 ischemia; Myocardial infarction; - Immunization history:: Adult Immunizations up to date. - Social history:: Smoking status: Patient reports the use of cigarette tobacco products, smokes one-half pack cigarettes per day. ROS: 03:10 Constitutional: Negative for fever, chills, and weight loss, Eyes: Negative for injury, sp3 pain, redness, and discharge, ENT: Negative for injury, pain, and discharge, Neck: Negative for injury, pain, and swelling, Cardiovascular: Negative for chest pain, palpitations, and edema, Respiratory: Negative for shortness of breath, cough, wheezing, and pleuritic chest pain, Abdomen/GI: Negative for abdominal pain, nausea, vomiting, diarrhea, and constipation, Back: Negative for injury and pain, Neuro: Negative for headache, weakness, numbness, tingling, and seizure, Psych: Negative for depression, anxiety, suicide ideation, homicidal ideation, and hallucinations, Allergy/Immunology: Negative for hives, rash, and allergies, Endocrine: Negative for neck swelling, polydipsia, polyuria, polyphagia, and marked weight changes, 03:10 All other systems are negative, Exam: 03:10 Constitutional: This is a well developed, well nourished patient who is awake, alert, sp3 and in no acute distress. Head/Face: Normocephalic, atraumatic. Eyes: Pupils equal round and reactive to light, extra-ocular motions intact. Lids and lashes normal. Conjunctiva and sclera are non-icteric and not injected. Cornea within normal limits. Periorbital areas with no swelling, redness, or edema. Neck: Trachea midline, no thyromegaly or masses palpated, and no cervical lymphadenopathy. Supple, full range of motion without nuchal rigidity, or vertebral point tenderness. No Meningismus. Chest/axilla: Normal chest wall appearance and motion. Nontender with no deformity. No lesions are appreciated. Cardiovascular: Regular rate and rhythm with a normal S1 and S2. No gallops, murmurs, or rubs. Normal PMI, no JVD. No pulse deficits. Respiratory: Lungs have equal breath sounds bilaterally, clear to auscultation and percussion. No rales, rhonchi or wheezes noted. No increased work of breathing, no retractions or nasal flaring. Abdomen/GI: Soft, non-tender, with normal bowel sounds. No distension or tympany. No guarding or rebound. No evidence of tenderness throughout. Back: No spinal tenderness. No costovertebral tenderness. Full range of motion. Neuro: Awake and alert, GCS 15, oriented to person, place, time, and situation. Cranial nerves II-XII grossly intact. Motor strength 5/5 in all extremities. Sensory grossly intact. Cerebellar exam normal. Normal gait. Psych: Awake, alert, with orientation to person, place and time. Behavior, mood, and affect are within normal limits. 03:10 Musculoskeletal/extremity: Left index fingertip has no nail and has an abrasion with mild oozing. No brisk bleed or arterial bleed noted.. Vital Signs: 02:23 Pulse 84; Resp 16 S; Temp 97.9; Pulse Ox 100% on R/A; Weight 63.5 kg (R); Height 5 ft. as6 8 in. (R); Pain 0/10; 03:15 BP 130 / 84; Pain 0/10; tm6 02:23 Body Mass Index 21.29 (63.50 kg, 172.72 cm) as6 02:23 Pain Scale: Adult as6 03:15 Pain Scale: Adult tm6 MDM: 02:34 Patient medically screened. sp3 03:11 Data reviewed: vital signs, nurses notes. ED course: Topical TXA placed on the wound sp3 along with pressure dressing which has now stopped bleeding. Patient will be safely discharged home at this time with follow-up to PCP.. 06/22 02:35 [place] [facility] Order: Topical TXA + Pressure Dressing; Complete Time: 02:57 sp3 Administered Medications: No medications were administered Disposition Summary: 06/22/23 03:12 Discharge Ordered Notes: Location: Home sp3 Condition: Stable sp3 Diagnosis - Left index finger abrasion with bleeding sp3 Followup: sp3 - With: Private Physician - When: Upon discharge from the Emergency Department - Reason: Continuance of care Discharge Instructions: - Discharge Summary Sheet sp3 - Abrasion sp3 Forms: - Medication Reconciliation Form sp3 - Thank You Letter sp3 - Antibiotic Education sp3 - Prescription Opioid Use sp3 - Patient Portal Instructions sp3 - Leadership Thank You Letter sp3 Signatures: Jeremy Hernández MD MD sp3 Tarun Verma, RN RN as6
[2023-06-22 06:37] VITALS: TEMP 97.9; O2SAT 100
[2023-06-22 06:48] VITALS: BP 130/84
== END ==
LOC: ER 02:14
DX: S60.411A Abrasion of left index finger, initial encounter (principal); I10 Essential (primary) hypertension; F17.210 Nicotine dependence, cigarettes, uncomplicated; Z79.01 Long term (current) use of anticoagulants
CPT/HCPCS: 99283